=== PATIENT | female | born 1995 | race Caucasian/White ===

== ENCOUNTER 2016-04-18 18:05 | Emergency (ER) | payer OTHER, MEDICAID ==
[~2016-04-18 18:05] MED LIST: ATEN25TA PO; ATEN50TA2 PO; CARA1TAB2 PO; CIPRODEX AD; DEXA2TA PO; DONN16.2 PO; METF750T PO; MYLASS PO; NORT50CA PO; PRIL20TA2 PO; TOPA200T6 PO; TREX50TA PO; TUMS500C PO; ULTR50TA PO; VICO5TAB; botox
[2016-04-18] MEDS ORDERED: IBUPROFEN 600 MG TAB As Ordered ONE (20:23)
[2016-04-18] MEDS ORDERED: BACTRIM 160MG/800MG DS TAB As Ordered ONE (20:23)
--- NOTE | 2016-04-18 20:34 | EDDOCDS ---
Physician Documentation [facility] Name: Filomena Alcantar Age: 20 yrs Sex: Female : 1995 Arrival Date: 04/18/2016 Time: 18:05 Bed TR8 Private MD: NEHAL Granger Disposition: 04/18/16 20:25 Discharged to Home/Self Care. Impression: Cutaneous abscess of chest wall - post surgical wound complication. - Condition is Stable. - Discharge Instructions: Abscess, Incision and Drainage, Surgical Site Infections FAQs - LYONS. - Prescriptions for Bactrim DS 800- 160 mg Oral Tablet - take 1 tablet by ORAL route every 12 hours for 10 days; 20 tablet. - Medication Reconciliation, Local Pharmacy Hours form. - Follow up: NEHAL Granger; When: Call to arrange an appointment; Reason: Recheck today's complaints, Continuance of care. Follow up: Maulik Velez; When: Call to arrange an appointment; Reason: Recheck today's complaints, Continuance of care. - Problem is new. - Symptoms are unchanged. Historical: - Allergies: Aspirin (bleeding risk); Biaxin (Vomit); Erythromycin (Vomit); GABAPENTIN (acts out while sleeping); Levaquin (prolongs her QT interval); - Home Meds: 1. Lamictal 200 mg Oral tab 1 tab once daily 2. Wellbutrin 100 mg Oral tab 3 tab daily 3. Abilify 15 mg Oral tab 1 tab once daily 4. Topamax 50 mg Oral tab 1 tab 2 times per day 5. Corlanor 5 mg oral tab 1 tab 2 times per day 6. midodrine 5 mg oral tab 2 tabs 3 times per day 7. metformin 300 mg Oral tab 1 tab 3 times per day - PMHx: svt; PCOS; Pancreatitis; Migraines; hypotension; Fibromyalgia; - PSHx: Cholecystectomy (October 2009); Occipital Lymph node removed; loop recorder implantation; - Social history: Smoking status: Patient states was never smoker of tobacco. No barriers to communication noted, The patient speaks fluent Kyrgyz, Speaks appropriately for age. - Family history: Not pertinent. - : The pt / caregiver states he / she is not on anticoagulants. Home medication list is obtained from the patient. - Exposure Risk Screening:: None identified. 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 6 in. (167.64 cm) (R); 20:33 BP 103 / 64 RA Sitting (auto/reg); Pulse 74; Resp 16; Temp 97.8(O); Pulse Ox 98% on rs6 R/A; Pain 6/10; 18:07 Body Mass Index 33.09 (92.99 kg, 167.64 cm) dd6 Procedures: 20:22 I & D: Incision and drainage was performed for an abscess of the mid-sternal area lower mo1 portion Prepped with cleansed with saline. Anesthetized with nothing. Incised with superficial wound abscess aspirated with use of 18g needle and 3cc syringe, less than 1cc of pus expressed from wound, no induration to surrounding soft tissue or erythema . Drained small amount purulent fluid. Cultures obtained. the patient tolerated the procedure well. MDM: 20:21 Trimethoprim-Sulfamethoxazole 160 mg-800 mg (DS) 1 tabs PO once ordered. mo1 20:21 Ibuprofen 600 mg PO once ordered. mo1 20:22 Wound Culture & GS - All Other Sources Ordered. EDMS 20:25 Financial registration complete. [email or web address] 20:26 [facility] Payment Agreement was scanned into [employer] and attached to record. [email or web address] Administered Medications: 20:24 Drug: Trimethoprim-Sulfamethoxazole 1 tabs [sulfamethoxazole 800 mg-trimethoprim 160 mg jmb tablet (1 tabs)] Route: PO; 20:24 Drug: Ibuprofen 600 mg [ibuprofen 600 mg tablet (1 tabs)] Route: PO; maureen Signatures: Dispatcher MedHost EDMS Maynor Washington PA PA mo1 Darvin Smith RN RN loreb Denisse Wayne RN RN ms18 Oly Weathers, Reg Reg [email or web address] The chart was reviewed and I authenticate all verbal orders and agree with the evaluation and treatment provided.Attachments: 20:26 [facility] Payment Agreement [email or web address] MTDD
--- NOTE | 2016-04-18 20:34 | EDDOCDS ---
Nurse's Notes [facility] Name: Filomena Alcantar Age: 20 yrs Sex: Female : 1995 Arrival Date: 04/18/2016 Time: 18:05 Bed TR8 Private MD: NEHAL Granger Diagnosis: Cutaneous abscess of chest wall-post surgical wound complication Presentation: 04/18 18:08 Presenting complaint: Patient states: Patient reports having a implantable loop jmb recorder implanted in March. Patient noted small lump to surgical site. Adult Sepsis Screening: The patient does not have new or worsening altered mentation. Patient's respiratory rate is less than 22. Systolic blood pressure is greater than 100. Patient has a qSOFA score of 0- Negative Sepsis Screen. Suicide/Homicide risk assessment- the patient denies having any suicidal and/or homicidal ideations and does not present with any other emotional, behavioral or mental health complaints. Status: Patient is not a director of physiotherapy services or dependent. Status: The patient is a dependent. Transition of care: patient was not received from another setting of care. 18:08 Acuity: AVRIL Level 4 b 18:08 Method Of Arrival: Walkin/Carried/Asstd [facility] Triage Assessment: 18:13 General: Appears in no apparent distress, Behavior is appropriate for age, cooperative. b Pain: Denies pain. HIV screening NA for this visit Offered previously. Neurological: Level of Consciousness is awake, alert, obeys commands, Oriented to person, place, time, Speech is normal, Facial symmetry appears normal, Facial symmetry: tongue is midline. Respiratory: Airway is patent Respiratory effort is even, unlabored, Respiratory pattern is regular, symmetrical. Derm: Skin is pink, warm & dry. Musculoskeletal: Range of motion intact in all extremities. 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 Lamictal 200 mg Oral tab 1 tab once daily 2. Wellbutrin 100 mg Oral tab 3 tab daily 3. Abilify 15 mg Oral tab 1 tab once daily 4. Topamax 50 mg Oral tab 1 tab 2 times per day 5. Corlanor 5 mg oral tab 1 tab 2 times per day 6. midodrine 5 mg oral tab 2 tabs 3 times per day 7. metformin 300 mg Oral tab 1 tab 3 times per day - PMHx: svt; PCOS; Pancreatitis; Migraines; hypotension; Fibromyalgia; - PSHx: Cholecystectomy (October 2009); Occipital Lymph node removed; loop recorder implantation; - Social history: Smoking status: Patient states was never smoker of tobacco. No barriers to communication noted, The patient speaks fluent Cape Verdean, Speaks appropriately for age. - Family history: Not pertinent. - : The pt / caregiver states he / she is not on anticoagulants. Home medication list is obtained from the patient. - Exposure Risk Screening:: None identified. Screenin:26 Screening information is obtained from the patient. Fall risk: No risks identified. jmb Assistance ADL's: requires no assistance with activities of daily living. Abuse/DV Screen: The patient / caregiver reports he/she is: not in a situation that causes fear, pain or injury. Nutritional screening: No deficits noted. Advance Directives: Currently, there is no health care proxy. There is no active DNR order. There is no living will. There is no Power of Nursing Consultant. home support is adequate. Assessment: 20:26 General: Patient instructed on discharge instructions. Patient asked if there were any b questions regarding discharge, patient stated no. Patient signed discharge instructions. Patient discharged in stable condition. . 20:32 General: Appears in no apparent distress, comfortable, Behavior is appropriate for age, ms18 cooperative. Pain: Pain currently is 7 out of 10 on a pain scale. Neurological: No deficits noted. Respiratory: Airway is patent Respiratory effort is even, unlabored, Respiratory pattern is regular, symmetrical. Derm: Skin is pink, warm & dry. Vital Signs: 18:07 BP 122 / 71; Pulse 80; Resp 18 S; Temp 98.4(O); Pulse Ox 100% on R/A; Weight 92.99 kg dd6 (R); Height 5 ft. 6 in. (167.64 cm) (R); 20:33 BP 103 / 64 RA Sitting (auto/reg); Pulse 74; Resp 16; Temp 97.8(O); Pulse Ox 98% on rs6 R/A; Pain 6/10; 18:07 Body Mass Index 33.09 (92.99 kg, 167.64 cm) dd6 Vitals: 18:07 Log In Time: April 18, 2016 at 18:05. dd6 ED Course: 18:06 Patient visited by Tomas Pope PCA. dd6 18:06 Patient moved to Waiting dd6 18:[address] [facility] is Private Physician. dd6 18:09 Triage Initiated jmb 18:24 Patient moved to Pre RCE mlb1 19:33 Patient moved to Triage 3 ms18 19:55 Mayonr Washington PA is PHCP. mo1 19:55 Elpidio Meza DO is Attending Physician. mo1 20:11 Patient visited by Maynor Washington PA. mo1 20:25 NEHAL Granger is Referral Physician. mo1 20:25 Maulik Velez is Referral Physician. mo1 20:26 [facility] Payment Agreement was scanned into [employer] and attached to record. [email or web address] 20:26 The patient / caregiver is instructed regarding the plan of care and ED course. jmb 20:26 Wound Culture & GS - All Other Sources Sent. jmb 20:26 No IV's were initiated during this patient's visit. No procedures done that require jmb assistance. 20:31 Patient moved to TR8 ms18 20:32 Patient visited by Denisse Wayne RN. ms18 20:32 Patient has correct armband on for positive identification. Property sent home with ms18 patient. :Personal belongings accompany Pt. 20:33 Patient visited by Shirin Bledsoe PCA. rs6 Administered Medications: 20:24 Drug: Trimethoprim-Sulfamethoxazole 1 tabs [sulfamethoxazole 800 mg-trimethoprim 160 mg jmb tablet (1 tabs)] Route: PO; 20:24 Drug: Ibuprofen 600 mg [ibuprofen 600 mg tablet (1 tabs)] Route: PO; jmb Order Results: There are currently no results for this order. Outcome: 20:25 Discharge ordered by Provider. mo1 20:26 Discharge Assessment: Patient awake, alert and oriented x 3. No cognitive and/or jmb functional deficits noted. Patient verbalized understanding of disposition instructions. Patient awake and alert. obeys commands, Oriented to person, place and time. Patient verbalized understanding of disposition instructions. Patient has no functional deficits. patient administered narcotics - no. The following High Risk Discharge criteria are identified: None. Discharged to home ambulatory. Condition: stable. Discharge instructions given to patient, Instructed on discharge instructions, follow up and referral plans. medication usage, Demonstrated understanding of instructions, medications, Pt was receptive of discharge instructions/ teaching. Prescriptions given X 1. No special radiology studies were completed. Property sent home with patient. 20:33 Patient left the ED. ms18 Signatures: Maynor Hitchcock, RN RN mlb1 Tomas Pope, FIRE OFFICIAL FIRE OFFICIAL dd6 Maynor Washington PA PA mo1 Darvin Smith,RN RN Denisse Browne RN RN ms18 Shirin Bledsoe, FIRE OFFICIAL FIRE OFFICIAL rs6 Oly Weathers, Reg Reg ks16 MTDD
--- NOTE | 2016-04-20 21:34 | EDDOCDS ---
Nurse's Notes [facility] Name: Filomena Alcantar Age: 20 yrs Sex: Female : 1995 Arrival Date: 04/18/2016 Time: 18:05 Bed TR8 Private MD: NEHAL Granger Diagnosis: Cutaneous abscess of chest wall-post surgical wound complication Presentation: 04/18 18:08 Presenting complaint: Patient states: Patient reports having a implantable loop jmb recorder implanted in March. Patient noted small lump to surgical site. Adult Sepsis Screening: The patient does not have new or worsening altered mentation. Patient's respiratory rate is less than 22. Systolic blood pressure is greater than 100. Patient has a qSOFA score of 0- Negative Sepsis Screen. Suicide/Homicide risk assessment- the patient denies having any suicidal and/or homicidal ideations and does not present with any other emotional, behavioral or mental health complaints. 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 Status: The patient is a dependent. Transition of care: patient was not received from another setting of care. 18:08 Acuity: AVRIL Level 4 b 18:08 Method Of Arrival: Walkin/Carried/Asstd [facility] Triage Assessment: 18:13 General: Appears in no apparent distress, Behavior is appropriate for age, cooperative. b Pain: Denies pain. HIV screening NA for this visit Offered previously. Neurological: Level of Consciousness is awake, alert, obeys commands, Oriented to person, place, time, Speech is normal, Facial symmetry appears normal, Facial symmetry: tongue is midline. Respiratory: Airway is patent Respiratory effort is even, unlabored, Respiratory pattern is regular, symmetrical. Derm: Skin is pink, warm & dry. Musculoskeletal: Range of motion intact in all extremities. 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 Lamictal 200 mg Oral tab 1 tab once daily 2. Wellbutrin 100 mg Oral tab 3 tab daily 3. Abilify 15 mg Oral tab 1 tab once daily 4. Topamax 50 mg Oral tab 1 tab 2 times per day 5. Corlanor 5 mg oral tab 1 tab 2 times per day 6. midodrine 5 mg oral tab 2 tabs 3 times per day 7. metformin 300 mg Oral tab 1 tab 3 times per day - PMHx: svt; PCOS; Pancreatitis; Migraines; hypotension; Fibromyalgia; - PSHx: Cholecystectomy (October 2009); Occipital Lymph node removed; loop recorder implantation; - Social history: Smoking status: Patient states was never smoker of tobacco. No barriers to communication noted, The patient speaks fluent Austrian, Speaks appropriately for age. - Family history: Not pertinent. - : The pt / caregiver states he / she is not on anticoagulants. Home medication list is obtained from the patient. - Exposure Risk Screening:: None identified. Screenin:26 Screening information is obtained from the patient. Fall risk: No risks identified. jmb Assistance ADL's: requires no assistance with activities of daily living. Abuse/DV Screen: The patient / caregiver reports he/she is: not in a situation that causes fear, pain or injury. Nutritional screening: No deficits noted. Advance Directives: Currently, there is no health care proxy. There is no active DNR order. There is no living will. There is no Power of Reinspector. home support is adequate. Assessment: 20:26 General: Patient instructed on discharge instructions. Patient asked if there were any b questions regarding discharge, patient stated no. Patient signed discharge instructions. Patient discharged in stable condition. . 20:32 General: Appears in no apparent distress, comfortable, Behavior is appropriate for age, ms18 cooperative. Pain: Pain currently is 7 out of 10 on a pain scale. Neurological: No deficits noted. Respiratory: Airway is patent Respiratory effort is even, unlabored, Respiratory pattern is regular, symmetrical. Derm: Skin is pink, warm & dry. Vital Signs: 18:07 BP 122 / 71; Pulse 80; Resp 18 S; Temp 98.4(O); Pulse Ox 100% on R/A; Weight 92.99 kg dd6 (R); Height 5 ft. 6 in. (167.64 cm) (R); 20:33 BP 103 / 64 RA Sitting (auto/reg); Pulse 74; Resp 16; Temp 97.8(O); Pulse Ox 98% on rs6 R/A; Pain 6/10; 18:07 Body Mass Index 33.09 (92.99 kg, 167.64 cm) dd6 Vitals: 18:07 Log In Time: April 18, 2016 at 18:05. dd6 ED Course: 18:06 Patient visited by Tomas Pope PCA. dd6 18:06 Patient moved to Waiting dd6 18:07 NEHAL Granger is Private Physician. dd6 18:09 Triage Initiated jmb 18:24 Patient moved to Pre RCE mlb1 19:33 Patient moved to Triage 3 ms18 19:55 Maynor Washington PA is PHCP. mo1 19:55 Elpidio Meza DO is Attending Physician. mo1 20:11 Patient visited by Maynor Washington PA. mo1 20:25 NEHAL Granger is Referral Physician. mo1 20:25 Maulik Velez is Referral Physician. mo1 20:26 [facility] Payment Agreement was scanned into [employer] and attached to record. ks16 20:26 The patient / caregiver is instructed regarding the plan of care and ED course. jmb 20:26 Wound Culture & GS - All Other Sources Sent. jmb 20:26 No IV's were initiated during this patient's visit. No procedures done that require jmb assistance. 20:31 Patient moved to TR8 ms18 20:32 Patient visited by Denisse Wayne RN. ms18 20:32 Patient has correct armband on for positive identification. Property sent home with ms18 patient. :Personal belongings accompany Pt. 20:33 Patient visited by Shirin Bledsoe PCA. [facility] 04/19 08:18 T-Sheet-- Draft Copy was scanned into [employer] and attached to record. [facility] 08:24 T-Sheet-- Draft Copy was scanned into [employer] and attached to record. [facility] Administered Medications: 04/18 20:24 Drug: Trimethoprim-Sulfamethoxazole 1 tabs [sulfamethoxazole 800 mg-trimethoprim 160 mg jmb tablet (1 tabs)] Route: PO; 20:24 Drug: Ibuprofen 600 mg [ibuprofen 600 mg tablet (1 tabs)] Route: PO; jmb Order Results: Lab Order: Wound Culture & GS - All Other Sources; SPEC'M 04/18/16 20:22 Test: GRAM STAIN; Value: GRAM STAIN RESULT; Status: F Test: GRAM STAIN; Value: NO CELLS SEEN; Status: F Test: GRAM STAIN; Value: NO ORGANISMS SEEN; Status: F Outcome: 20:25 Discharge ordered by Provider. mo1 20:26 Discharge Assessment: Patient awake, alert and oriented x 3. No cognitive and/or jmb functional deficits noted. Patient verbalized understanding of disposition instructions. Patient awake and alert. obeys commands, Oriented to person, place and time. Patient verbalized understanding of disposition instructions. Patient has no functional deficits. patient administered narcotics - no. The following High Risk Discharge criteria are identified: None. Discharged to home ambulatory. Condition: stable. Discharge instructions given to patient, Instructed on discharge instructions, follow up and referral plans. medication usage, Demonstrated understanding of instructions, medications, Pt was receptive of discharge instructions/ teaching. Prescriptions given X 1. No special radiology studies were completed. Property sent home with patient. 20:33 Patient left the ED. ms18 Signatures: Maynor Hitchcock RN RN mlb1 Toams Pope, HEATER ROOM HELPER HEATER ROOM HELPER dd6 Maynor Washington PA PA mo1 Darvin Smith,RN RN Denisse Browne RN RN ms18 Shirin Bledsoe, HEATER ROOM HELPER HEATER ROOM HELPER rs6 Oly Weathers, Reg Reg ks16 Sera Puentes Chart Complete MTDD
--- NOTE | 2016-04-20 21:34 | EDDOCDS ---
Physician Documentation [facility] Name: Filomena Alcantar Age: 20 yrs Sex: Female : 1995 Arrival Date: 04/18/2016 Time: 18:05 Bed TR8 Private MD: NEHAL Granger Disposition: 04/18/16 20:25 Discharged to Home/Self Care. Impression: Cutaneous abscess of chest wall - post surgical wound complication. - Condition is Stable. - Discharge Instructions: Abscess, Incision and Drainage, Surgical Site Infections FAQs - LYONS. - Prescriptions for Bactrim DS 800- 160 mg Oral Tablet - take 1 tablet by ORAL route every 12 hours for 10 days; 20 tablet. - Medication Reconciliation, Local Pharmacy Hours form. - Follow up: NEHAL Granger; When: Call to arrange an appointment; Reason: Recheck today's complaints, Continuance of care. Follow up: Maulik Velez; When: Call to arrange an appointment; Reason: Recheck today's complaints, Continuance of care. - Problem is new. - Symptoms are unchanged. Historical: - Allergies: Aspirin (bleeding risk); Biaxin (Vomit); Erythromycin (Vomit); GABAPENTIN (acts out while sleeping); Levaquin (prolongs her QT interval); - Home Meds: 1. Lamictal 200 mg Oral tab 1 tab once daily 2. Wellbutrin 100 mg Oral tab 3 tab daily 3. Abilify 15 mg Oral tab 1 tab once daily 4. Topamax 50 mg Oral tab 1 tab 2 times per day 5. Corlanor 5 mg oral tab 1 tab 2 times per day 6. midodrine 5 mg oral tab 2 tabs 3 times per day 7. metformin 300 mg Oral tab 1 tab 3 times per day - PMHx: svt; PCOS; Pancreatitis; Migraines; hypotension; Fibromyalgia; - PSHx: Cholecystectomy (October 2009); Occipital Lymph node removed; loop recorder implantation; - Social history: Smoking status: Patient states was never smoker of tobacco. No barriers to communication noted, The patient speaks fluent Icelandic, Speaks appropriately for age. - Family history: Not pertinent. - : The pt / caregiver states he / she is not on anticoagulants. Home medication list is obtained from the patient. - Exposure Risk Screening:: None identified. 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 6 in. (167.64 cm) (R); 20:33 BP 103 / 64 RA Sitting (auto/reg); Pulse 74; Resp 16; Temp 97.8(O); Pulse Ox 98% on rs6 R/A; Pain 6/10; 18:07 Body Mass Index 33.09 (92.99 kg, 167.64 cm) dd6 Procedures: 20:22 I & D: Incision and drainage was performed for an abscess of the mid-sternal area lower mo1 portion Prepped with cleansed with saline. Anesthetized with nothing. Incised with superficial wound abscess aspirated with use of 18g needle and 3cc syringe, less than 1cc of pus expressed from wound, no induration to surrounding soft tissue or erythema . Drained small amount purulent fluid. Cultures obtained. the patient tolerated the procedure well. MDM: 20:21 Trimethoprim-Sulfamethoxazole 160 mg-800 mg (DS) 1 tabs PO once ordered. mo1 20:21 Ibuprofen 600 mg PO once ordered. mo1 20:22 Wound Culture & GS - All Other Sources Ordered. [facility] 20:25 Financial registration complete. [facility] 20:26 [facility] Payment Agreement was scanned into [employer] and attached to record. [facility] 04/19 08:18 T-Sheet-- Draft Copy was scanned into [employer] and attached to record. [facility] 08:24 T-Sheet-- Draft Copy was scanned into [employer] and attached to record. [facility] Administered Medications: 04/18 20:24 Drug: Trimethoprim-Sulfamethoxazole 1 tabs [sulfamethoxazole 800 mg-trimethoprim 160 mg jmb tablet (1 tabs)] Route: PO; 20:24 Drug: Ibuprofen 600 mg [ibuprofen 600 mg tablet (1 tabs)] Route: PO; maureen Signatures: Dispatcher MedHost EDDE Maynor Washington PA PA mo1 Darvin Smith RN RN jmb Denisse Wayne RN RN ms18 Oly Weathers, Reg Reg [email or web address] Sera Puentes The chart was reviewed and I authenticate all verbal orders and agree with the evaluation and treatment provided.Attachments: 20:26 [facility] Payment Agreement [email or web address] 08:24 T-Sheet-- Draft Copy [facility] Chart Complete MTDD
--- NOTE | 2016-04-20 21:34 | EDDOCDS ---
Physician Documentation [facility] Name: Filomena Alcantar Age: 20 yrs Sex: Female : 1995 Arrival Date: 04/18/2016 Time: 18:05 Bed TR8 Private MD: NEHAL Granger Disposition: 04/18/16 20:25 Discharged to Home/Self Care. Impression: Cutaneous abscess of chest wall - post surgical wound complication. - Condition is Stable. - Discharge Instructions: Abscess, Incision and Drainage, Surgical Site Infections FAQs - LYONS. - Prescriptions for Bactrim DS 800- 160 mg Oral Tablet - take 1 tablet by ORAL route every 12 hours for 10 days; 20 tablet. - Medication Reconciliation, Local Pharmacy Hours form. - Follow up: NEHAL Granger; When: Call to arrange an appointment; Reason: Recheck today's complaints, Continuance of care. Follow up: Maulik Velez; When: Call to arrange an appointment; Reason: Recheck today's complaints, Continuance of care. - Problem is new. - Symptoms are unchanged. Historical: - Allergies: Aspirin (bleeding risk); Biaxin (Vomit); Erythromycin (Vomit); GABAPENTIN (acts out while sleeping); Levaquin (prolongs her QT interval); - Home Meds: 1. Lamictal 200 mg Oral tab 1 tab once daily 2. Wellbutrin 100 mg Oral tab 3 tab daily 3. Abilify 15 mg Oral tab 1 tab once daily 4. Topamax 50 mg Oral tab 1 tab 2 times per day 5. Corlanor 5 mg oral tab 1 tab 2 times per day 6. midodrine 5 mg oral tab 2 tabs 3 times per day 7. metformin 300 mg Oral tab 1 tab 3 times per day - PMHx: svt; PCOS; Pancreatitis; Migraines; hypotension; Fibromyalgia; - PSHx: Cholecystectomy (October 2009); Occipital Lymph node removed; loop recorder implantation; - Social history: Smoking status: Patient states was never smoker of tobacco. No barriers to communication noted, The patient speaks fluent Amharic, Speaks appropriately for age. - Family history: Not pertinent. - : The pt / caregiver states he / she is not on anticoagulants. Home medication list is obtained from the patient. - Exposure Risk Screening:: None identified. 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 6 in. (167.64 cm) (R); 20:33 BP 103 / 64 RA Sitting (auto/reg); Pulse 74; Resp 16; Temp 97.8(O); Pulse Ox 98% on rs6 R/A; Pain 6/10; 18:07 Body Mass Index 33.09 (92.99 kg, 167.64 cm) dd6 Procedures: 20:22 I & D: Incision and drainage was performed for an abscess of the mid-sternal area lower mo1 portion Prepped with cleansed with saline. Anesthetized with nothing. Incised with superficial wound abscess aspirated with use of 18g needle and 3cc syringe, less than 1cc of pus expressed from wound, no induration to surrounding soft tissue or erythema . Drained small amount purulent fluid. Cultures obtained. the patient tolerated the procedure well. MDM: 20:21 Trimethoprim-Sulfamethoxazole 160 mg-800 mg (DS) 1 tabs PO once ordered. mo1 20:21 Ibuprofen 600 mg PO once ordered. mo1 20:22 Wound Culture & GS - All Other Sources Ordered. [facility] 20:25 Financial registration complete. [facility] 20:26 [facility] Payment Agreement was scanned into [employer] and attached to record. [facility] 04/19 08:18 T-Sheet-- Draft Copy was scanned into [employer] and attached to record. [facility] 08:24 T-Sheet-- Draft Copy was scanned into [employer] and attached to record. [facility] Administered Medications: 04/18 20:24 Drug: Trimethoprim-Sulfamethoxazole 1 tabs [sulfamethoxazole 800 mg-trimethoprim 160 mg jmb tablet (1 tabs)] Route: PO; 20:24 Drug: Ibuprofen 600 mg [ibuprofen 600 mg tablet (1 tabs)] Route: PO; maureen Signatures: Dispatcher [employer] EDID Maynor Washington PA PA mo1 Darvin Smith RN RN jmb Denisse Wayne RN RN ms18 Oly Weathers, Reg Reg in16 Sera Puentes The chart was reviewed and I authenticate all verbal orders and agree with the evaluation and treatment provided.Attachments: 20:26 [facility] Payment Agreement [email or web address] 08:24 T-Sheet-- Draft Copy [facility] Chart Complete MTDD
--- NOTE | 2016-04-22 08:11 | EDDOCDS ---
Physician Documentation [facility] Name: Filomena Alcantar Age: 20 yrs Sex: Female : 1995 Arrival Date: 04/18/2016 Time: 18:05 Bed TR8 Private MD: NEHAL Granger Disposition: 04/18/16 20:25 Discharged to Home/Self Care. Impression: Cutaneous abscess of chest wall - post surgical wound complication. - Condition is Stable. - Discharge Instructions: Abscess, Incision and Drainage, Surgical Site Infections FAQs - LYONS. - Prescriptions for Bactrim DS 800- 160 mg Oral Tablet - take 1 tablet by ORAL route every 12 hours for 10 days; 20 tablet. - Medication Reconciliation, Local Pharmacy Hours form. - Follow up: NEHAL Granger; When: Call to arrange an appointment; Reason: Recheck today's complaints, Continuance of care. Follow up: Maulik Velez; When: Call to arrange an appointment; Reason: Recheck today's complaints, Continuance of care. - Problem is new. - Symptoms are unchanged. Historical: - Allergies: Aspirin (bleeding risk); Biaxin (Vomit); Erythromycin (Vomit); GABAPENTIN (acts out while sleeping); Levaquin (prolongs her QT interval); - Home Meds: 1. Lamictal 200 mg Oral tab 1 tab once daily 2. Wellbutrin 100 mg Oral tab 3 tab daily 3. Abilify 15 mg Oral tab 1 tab once daily 4. Topamax 50 mg Oral tab 1 tab 2 times per day 5. Corlanor 5 mg oral tab 1 tab 2 times per day 6. midodrine 5 mg oral tab 2 tabs 3 times per day 7. metformin 300 mg Oral tab 1 tab 3 times per day - PMHx: svt; PCOS; Pancreatitis; Migraines; hypotension; Fibromyalgia; - PSHx: Cholecystectomy (October 2009); Occipital Lymph node removed; loop recorder implantation; - Social history: Smoking status: Patient states was never smoker of tobacco. No barriers to communication noted, The patient speaks fluent Sinhala, Speaks appropriately for age. - Family history: Not pertinent. - : The pt / caregiver states he / she is not on anticoagulants. Home medication list is obtained from the patient. - Exposure Risk Screening:: None identified. 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 6 in. (167.64 cm) (R); 20:33 BP 103 / 64 RA Sitting (auto/reg); Pulse 74; Resp 16; Temp 97.8(O); Pulse Ox 98% on rs6 R/A; Pain 6/10; 18:07 Body Mass Index 33.09 (92.99 kg, 167.64 cm) dd6 Procedures: 20:22 I & D: Incision and drainage was performed for an abscess of the mid-sternal area lower mo1 portion Prepped with cleansed with saline. Anesthetized with nothing. Incised with superficial wound abscess aspirated with use of 18g needle and 3cc syringe, less than 1cc of pus expressed from wound, no induration to surrounding soft tissue or erythema . Drained small amount purulent fluid. Cultures obtained. the patient tolerated the procedure well. MDM: 20:21 Trimethoprim-Sulfamethoxazole 160 mg-800 mg (DS) 1 tabs PO once ordered. mo1 20:21 Ibuprofen 600 mg PO once ordered. mo1 20:22 Wound Culture & GS - All Other Sources Ordered. [facility] 20:25 Financial registration complete. [facility] 20:26 [facility] Payment Agreement was scanned into [employer] and attached to record. [facility] 04/19 08:18 T-Sheet-- Draft Copy was scanned into [employer] and attached to record. [facility] 08:24 T-Sheet-- Draft Copy was scanned into [employer] and attached to record. [facility] Administered Medications: 04/18 20:24 Drug: Trimethoprim-Sulfamethoxazole 1 tabs [sulfamethoxazole 800 mg-trimethoprim 160 mg jmb tablet (1 tabs)] Route: PO; 20:24 Drug: Ibuprofen 600 mg [ibuprofen 600 mg tablet (1 tabs)] Route: PO; maureen Signatures: Dispatcher [employer] EDKY Maynor Washington PA PA mo1 Darvin Smith RN RN jmb Denisse Wayne RN RN ms18 Oly Weathers, Reg Reg sd16 Sera Puentes The chart was reviewed and I authenticate all verbal orders and agree with the evaluation and treatment provided.Attachments: 20:26 [facility] Payment Agreement [email or web address] 08:24 T-Sheet-- Draft Copy [facility] MTDD
--- NOTE | 2016-04-22 08:11 | EDDOCDS ---
Nurse's Notes [facility] Name: Filomena Alcantar Age: 20 yrs Sex: Female : 1995 Arrival Date: 04/18/2016 Time: 18:05 Bed TR8 Private MD: NEHAL Granger Diagnosis: Cutaneous abscess of chest wall-post surgical wound complication Presentation: 04/18 18:08 Presenting complaint: Patient states: Patient reports having a implantable loop jmb recorder implanted in March. Patient noted small lump to surgical site. Adult Sepsis Screening: The patient does not have new or worsening altered mentation. Patient's respiratory rate is less than 22. Systolic blood pressure is greater than 100. Patient has a qSOFA score of 0- Negative Sepsis Screen. Suicide/Homicide risk assessment- the patient denies having any suicidal and/or homicidal ideations and does not present with any other emotional, behavioral or mental health complaints. Status: Patient is not a food service helper or dependent. Status: The patient is a dependent. Transition of care: patient was not received from another setting of care. 18:08 Acuity: AVRIL Level 4 b 18:08 Method Of Arrival: Walkin/Carried/[facility] Triage Assessment: 18:13 General: Appears in no apparent distress, Behavior is appropriate for age, cooperative. b Pain: Denies pain. HIV screening NA for this visit Offered previously. Neurological: Level of Consciousness is awake, alert, obeys commands, Oriented to person, place, time, Speech is normal, Facial symmetry appears normal, Facial symmetry: tongue is midline. Respiratory: Airway is patent Respiratory effort is even, unlabored, Respiratory pattern is regular, symmetrical. Derm: Skin is pink, warm & dry. Musculoskeletal: Range of motion intact in all extremities. 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 Lamictal 200 mg Oral tab 1 tab once daily 2. Wellbutrin 100 mg Oral tab 3 tab daily 3. Abilify 15 mg Oral tab 1 tab once daily 4. Topamax 50 mg Oral tab 1 tab 2 times per day 5. Corlanor 5 mg oral tab 1 tab 2 times per day 6. midodrine 5 mg oral tab 2 tabs 3 times per day 7. metformin 300 mg Oral tab 1 tab 3 times per day - PMHx: svt; PCOS; Pancreatitis; Migraines; hypotension; Fibromyalgia; - PSHx: Cholecystectomy (October 2009); Occipital Lymph node removed; loop recorder implantation; - Social history: Smoking status: Patient states was never smoker of tobacco. No barriers to communication noted, The patient speaks fluent Estonian, Speaks appropriately for age. - Family history: Not pertinent. - : The pt / caregiver states he / she is not on anticoagulants. Home medication list is obtained from the patient. - Exposure Risk Screening:: None identified. Screenin:26 Screening information is obtained from the patient. Fall risk: No risks identified. jmb Assistance ADL's: requires no assistance with activities of daily living. Abuse/DV Screen: The patient / caregiver reports he/she is: not in a situation that causes fear, pain or injury. Nutritional screening: No deficits noted. Advance Directives: Currently, there is no health care proxy. There is no active DNR order. There is no living will. There is no Power of Wood Turning Lathe Operator. home support is adequate. Assessment: 20:26 General: Patient instructed on discharge instructions. Patient asked if there were any b questions regarding discharge, patient stated no. Patient signed discharge instructions. Patient discharged in stable condition. . 20:32 General: Appears in no apparent distress, comfortable, Behavior is appropriate for age, ms18 cooperative. Pain: Pain currently is 7 out of 10 on a pain scale. Neurological: No deficits noted. Respiratory: Airway is patent Respiratory effort is even, unlabored, Respiratory pattern is regular, symmetrical. Derm: Skin is pink, warm & dry. Vital Signs: 18:07 BP 122 / 71; Pulse 80; Resp 18 S; Temp 98.4(O); Pulse Ox 100% on R/A; Weight 92.99 kg dd6 (R); Height 5 ft. 6 in. (167.64 cm) (R); 20:33 BP 103 / 64 RA Sitting (auto/reg); Pulse 74; Resp 16; Temp 97.8(O); Pulse Ox 98% on rs6 R/A; Pain 6/10; 18:07 Body Mass Index 33.09 (92.99 kg, 167.64 cm) dd6 Vitals: 18:07 Log In Time: April 18, 2016 at 18:05. dd6 ED Course: 18:06 Patient visited by Tomas Pope PCA. dd6 18:06 Patient moved to Waiting dd6 18:07 NEHAL Granger is Private Physician. dd6 18:09 Triage Initiated jmb 18:24 Patient moved to Pre RCE mlb1 19:33 Patient moved to Triage 3 ms18 19:55 Maynor Washington PA is PHCP. mo1 19:55 Elpidio Meza DO is Attending Physician. mo1 20:11 Patient visited by Maynor Washington PA. mo1 20:25 NEHAL Granger is Referral Physician. mo1 20:25 Maulik Velez is Referral Physician. mo1 20:26 [facility] Payment Agreement was scanned into [employer] and attached to record. [email or web address] 20:26 The patient / caregiver is instructed regarding the plan of care and ED course. jmb 20:26 Wound Culture & GS - All Other Sources Sent. jmb 20:26 No IV's were initiated during this patient's visit. No procedures done that require jmb assistance. 20:31 Patient moved to TR8 ms18 20:32 Patient visited by Denisse Wayne RN. ms18 20:32 Patient has correct armband on for positive identification. Property sent home with ms18 patient. :Personal belongings accompany Pt. 20:33 Patient visited by Shirin Bledsoe PCA. [facility] 04/19 08:18 T-Sheet-- Draft Copy was scanned into [employer] and attached to record. [facility] 08:24 T-Sheet-- Draft Copy was scanned into [employer] and attached to record. [facility] Administered Medications: 04/18 20:24 Drug: Trimethoprim-Sulfamethoxazole 1 tabs [sulfamethoxazole 800 mg-trimethoprim 160 mg jmb tablet (1 tabs)] Route: PO; 20:24 Drug: Ibuprofen 600 mg [ibuprofen 600 mg tablet (1 tabs)] Route: PO; jmb Order Results: Lab Order: Wound Culture & GS - All Other Sources; SPEC'M 04/18/16 20:22 Test: GRAM STAIN; Value: GRAM STAIN RESULT; Status: F Test: GRAM STAIN; Value: NO CELLS SEEN; Status: F Test: GRAM STAIN; Value: NO ORGANISMS SEEN; Status: F Test: WOUND CULTURE; Value: ORGANISM 1: STAPHYLOCOCCUS SP COAG NEG; Status: F Test: WOUND CULTURE; Value: STAPHYLOCOCCUS SP COAG NEG; Status: F Test: WOUND CULTURE; Value: QUANTITY OF GROWTH MODERATE; Status: F Test: WOUND CULTURE; Value: STREPTOCOCCUS MITIS; Status: F Test: WOUND CULTURE; Value: QUANTITY OF GROWTH FEW; Status: F Test: WOUND CULTURE; Value: ORGANISM SAME PREVIOUS ISOLATE; Status: F Test: WOUND CULTURE; Value: QUANTITY OF GROWTH FEW; Status: F Test: WOUND CULTURE; Value: ORGANISM 2: STREPTOCOCCUS MITIS; Status: F Test: WOUND CULTURE; Value: STAPHYLOCOCCUS SP COAG NEG; Status: F Test: WOUND CULTURE; Value: QUANTITY OF GROWTH MODERATE; Status: F Test: WOUND CULTURE; Value: STREPTOCOCCUS MITIS; Status: F Test: WOUND CULTURE; Value: QUANTITY OF GROWTH FEW; Status: F Test: WOUND CULTURE; Value: ORGANISM SAME PREVIOUS ISOLATE; Status: F Test: WOUND CULTURE; Value: QUANTITY OF GROWTH FEW; Status: F Test: WOUND CULTURE; Value: ORGANISM 3: ORGANISM SAME PREVIOUS ISOLATE; Status: F Test: WOUND CULTURE; Value: STAPHYLOCOCCUS SP COAG NEG; Status: F Test: WOUND CULTURE; Value: QUANTITY OF GROWTH MODERATE; Status: F Test: WOUND CULTURE; Value: STREPTOCOCCUS MITIS; Status: F Test: WOUND CULTURE; Value: QUANTITY OF GROWTH FEW; Status: F Test: WOUND CULTURE; Value: ORGANISM SAME PREVIOUS ISOLATE; Status: F Test: WOUND CULTURE; Value: QUANTITY OF GROWTH FEW; Status: F Test: WOUND CULTURE; Value: GRAM POS SENSI - VITEK 67; Status: F Test: WOUND CULTURE; Value: Method: VIT2; Status: F Test: WOUND CULTURE; Value: TETRACYCLINE 2 S; Status: F Test: WOUND CULTURE; Value: PENICILLIN G >=0.5 R; Status: F Test: WOUND CULTURE; Value: TRIMETHOPRIM/SULFAMETHOXAZOLE 20 S; Status: F Test: WOUND CULTURE; Value: ERYTHROMYCIN >=8 R; Status: F Test: WOUND CULTURE; Value: GENTAMICIN <=0.5 S; Status: F Test: WOUND CULTURE; Value: CLINDAMYCIN <=0.25 S; Status: F Test: WOUND CULTURE; Value: OXACILLIN >=4 R; Status: F Test: WOUND CULTURE; Value: VANCOMYCIN 1 S; Status: F Test: WOUND CULTURE; Value: LINEZOLID (ZYVOX) 1 S; Status: F Test: WOUND CULTURE; Value: GRAM POS SENSI - ST02; Status: F Test: WOUND CULTURE; Value: Method: VIT2; Status: F Test: WOUND CULTURE; Value: TETRACYCLINE 0.5 S; Status: F Test: WOUND CULTURE; Value: PENICILLIN G <=0.06 S; Status: F Test: WOUND CULTURE; Value: AMPICILLIN <=0.25 S; Status: F Test: WOUND CULTURE; Value: CLINDAMYCIN <=0.25 S; Status: F Test: WOUND CULTURE; Value: LEVOFLOXACIN 1 S; Status: F Test: WOUND CULTURE; Value: VANCOMYCIN 0.5 S; Status: F Test: WOUND CULTURE; Value: MOXIFLOXACIN (AVELOX) 0.12 S; Status: F Test: WOUND CULTURE; Value: CEFTRIAXONE <=0.12 S; Status: F Test: WOUND CULTURE; Value: CEFOTAXIME <=0.12 S; Status: F Outcome: 20:25 Discharge ordered by Provider. mo1 20:26 Discharge Assessment: Patient awake, alert and oriented x 3. No cognitive and/or jmb functional deficits noted. Patient verbalized understanding of disposition instructions. Patient awake and alert. obeys commands, Oriented to person, place and time. Patient verbalized understanding of disposition instructions. Patient has no functional deficits. patient administered narcotics - no. The following High Risk Discharge criteria are identified: None. Discharged to home ambulatory. Condition: stable. Discharge instructions given to patient, Instructed on discharge instructions, follow up and referral plans. medication usage, Demonstrated understanding of instructions, medications, Pt was receptive of discharge instructions/ teaching. Prescriptions given X 1. No special radiology studies were completed. Property sent home with patient. 20:33 Patient left the ED. ms18 Addendum: 04/22/2016 08:10 Narrative: Wound culture results reviewed by Dr Ramirez and no changes made. [facility] Signatures: Selam Dominguez RN RN Maynor Vang RN RN mlb1 Tomas Pope, VP PRODUCT MARKETING VP PRODUCT MARKETING dd6 Maynor Washington PA PA mo1 Darvin Smith RN RN jmb Smith, Mallory, RN RN ms18 Shirin Bledsoe, VP PRODUCT MARKETING VP PRODUCT MARKETING rs6 Oly Weathers, Reg Reg ks16 Sera Puentes MTDD
--- NOTE | 2016-04-22 08:11 | EDDOCDS ---
Physician Documentation [facility] Name: Filomena Alcantar Age: 20 yrs Sex: Female : 1995 Arrival Date: 04/18/2016 Time: 18:05 Bed TR8 Private MD: NEHAL Granger Disposition: 04/18/16 20:25 Discharged to Home/Self Care. Impression: Cutaneous abscess of chest wall - post surgical wound complication. - Condition is Stable. - Discharge Instructions: Abscess, Incision and Drainage, Surgical Site Infections FAQs - LYONS. - Prescriptions for Bactrim DS 800- 160 mg Oral Tablet - take 1 tablet by ORAL route every 12 hours for 10 days; 20 tablet. - Medication Reconciliation, Local Pharmacy Hours form. - Follow up: NEHAL Granger; When: Call to arrange an appointment; Reason: Recheck today's complaints, Continuance of care. Follow up: Maulik Velez; When: Call to arrange an appointment; Reason: Recheck today's complaints, Continuance of care. - Problem is new. - Symptoms are unchanged. Historical: - Allergies: Aspirin (bleeding risk); Biaxin (Vomit); Erythromycin (Vomit); GABAPENTIN (acts out while sleeping); Levaquin (prolongs her QT interval); - Home Meds: 1. Lamictal 200 mg Oral tab 1 tab once daily 2. Wellbutrin 100 mg Oral tab 3 tab daily 3. Abilify 15 mg Oral tab 1 tab once daily 4. Topamax 50 mg Oral tab 1 tab 2 times per day 5. Corlanor 5 mg oral tab 1 tab 2 times per day 6. midodrine 5 mg oral tab 2 tabs 3 times per day 7. metformin 300 mg Oral tab 1 tab 3 times per day - PMHx: svt; PCOS; Pancreatitis; Migraines; hypotension; Fibromyalgia; - PSHx: Cholecystectomy (October 2009); Occipital Lymph node removed; loop recorder implantation; - Social history: Smoking status: Patient states was never smoker of tobacco. No barriers to communication noted, The patient speaks fluent Sami, Speaks appropriately for age. - Family history: Not pertinent. - : The pt / caregiver states he / she is not on anticoagulants. Home medication list is obtained from the patient. - Exposure Risk Screening:: None identified. 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 6 in. (167.64 cm) (R); 20:33 BP 103 / 64 RA Sitting (auto/reg); Pulse 74; Resp 16; Temp 97.8(O); Pulse Ox 98% on rs6 R/A; Pain 6/10; 18:07 Body Mass Index 33.09 (92.99 kg, 167.64 cm) dd6 Procedures: 20:22 I & D: Incision and drainage was performed for an abscess of the mid-sternal area lower mo1 portion Prepped with cleansed with saline. Anesthetized with nothing. Incised with superficial wound abscess aspirated with use of 18g needle and 3cc syringe, less than 1cc of pus expressed from wound, no induration to surrounding soft tissue or erythema . Drained small amount purulent fluid. Cultures obtained. the patient tolerated the procedure well. MDM: 20:21 Trimethoprim-Sulfamethoxazole 160 mg-800 mg (DS) 1 tabs PO once ordered. mo1 20:21 Ibuprofen 600 mg PO once ordered. mo1 20:22 Wound Culture & GS - All Other Sources Ordered. [facility] 20:25 Financial registration complete. [facility] 20:26 [facility] Payment Agreement was scanned into [employer] and attached to record. [facility] 04/19 08:18 T-Sheet-- Draft Copy was scanned into [employer] and attached to record. [facility] 08:24 T-Sheet-- Draft Copy was scanned into [employer] and attached to record. [facility] Administered Medications: 04/18 20:24 Drug: Trimethoprim-Sulfamethoxazole 1 tabs [sulfamethoxazole 800 mg-trimethoprim 160 mg jmb tablet (1 tabs)] Route: PO; 20:24 Drug: Ibuprofen 600 mg [ibuprofen 600 mg tablet (1 tabs)] Route: PO; maureen Signatures: Dispatcher [employer] EDLA Maynor Washington PA PA mo1 Darvin Smith RN RN jmb Denisse Wayne RN RN ms18 Oly Weathers, Reg Reg [id number] Sera Puentes The chart was reviewed and I authenticate all verbal orders and agree with the evaluation and treatment provided.Attachments: 20:26 [facility] Payment Agreement [email or web address] 08:24 T-Sheet-- Draft Copy [facility] MTDD
--- NOTE | 2016-04-22 08:12 | EDDOCDS ---
Nurse's Notes [facility] Name: Filomena Alcantar Age: 20 yrs Sex: Female : 1995 Arrival Date: 04/18/2016 Time: 18:05 Bed TR8 Private MD: NEHAL Granger Diagnosis: Cutaneous abscess of chest wall-post surgical wound complication Presentation: 04/18 18:08 Presenting complaint: Patient states: Patient reports having a implantable loop jmb recorder implanted in March. Patient noted small lump to surgical site. Adult Sepsis Screening: The patient does not have new or worsening altered mentation. Patient's respiratory rate is less than 22. Systolic blood pressure is greater than 100. Patient has a qSOFA score of 0- Negative Sepsis Screen. Suicide/Homicide risk assessment- the patient denies having any suicidal and/or homicidal ideations and does not present with any other emotional, behavioral or mental health complaints. Status: Patient is not a immigration services officer or dependent. Status: The patient is a dependent. Transition of care: patient was not received from another setting of care. 18:08 Acuity: AVRIL Level 4 b 18:08 Method Of Ar[facility]: [facility] T[facility] Assessment: 18:13 General: Appears in no apparent distress, Behavior is appropriate for age, cooperative. b Pain: Denies pain. HIV screening NA for this visit Offered previously. Neurological: Level of Consciousness is awake, alert, obeys commands, Oriented to person, place, time, Speech is normal, Facial symmetry appears normal, Facial symmetry: tongue is midline. Respiratory: Airway is patent Respiratory effort is even, unlabored, Respiratory pattern is regular, symmetrical. Derm: Skin is pink, warm & dry. Musculoskeletal: Range of motion intact in all extremities. 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 Lamictal 200 mg Oral tab 1 tab once daily 2. Wellbutrin 100 mg Oral tab 3 tab daily 3. Abilify 15 mg Oral tab 1 tab once daily 4. Topamax 50 mg Oral tab 1 tab 2 times per day 5. Corlanor 5 mg oral tab 1 tab 2 times per day 6. midodrine 5 mg oral tab 2 tabs 3 times per day 7. metformin 300 mg Oral tab 1 tab 3 times per day - PMHx: svt; PCOS; Pancreatitis; Migraines; hypotension; Fibromyalgia; - PSHx: Cholecystectomy (October 2009); Occipital Lymph node removed; loop recorder implantation; - Social history: Smoking status: Patient states was never smoker of tobacco. No barriers to communication noted, The patient speaks fluent Solomon Islander, Speaks appropriately for age. - Family history: Not pertinent. - : The pt / caregiver states he / she is not on anticoagulants. Home medication list is obtained from the patient. - Exposure Risk Screening:: None identified. Screenin:26 Screening information is obtained from the patient. Fall risk: No risks identified. jmb Assistance ADL's: requires no assistance with activities of daily living. Abuse/DV Screen: The patient / caregiver reports he/she is: not in a situation that causes fear, pain or injury. Nutritional screening: No deficits noted. Advance Directives: Currently, there is no health care proxy. There is no active DNR order. There is no living will. There is no Power of Civil Engineering Draftsperson. home support is adequate. Assessment: 20:26 General: Patient instructed on discharge instructions. Patient asked if there were any b questions regarding discharge, patient stated no. Patient signed discharge instructions. Patient discharged in stable condition. . 20:32 General: Appears in no apparent distress, comfortable, Behavior is appropriate for age, ms18 cooperative. Pain: Pain currently is 7 out of 10 on a pain scale. Neurological: No deficits noted. Respiratory: Airway is patent Respiratory effort is even, unlabored, Respiratory pattern is regular, symmetrical. Derm: Skin is pink, warm & dry. Vital Signs: 18:07 BP 122 / 71; Pulse 80; Resp 18 S; Temp 98.4(O); Pulse Ox 100% on R/A; Weight 92.99 kg dd6 (R); Height 5 ft. 6 in. (167.64 cm) (R); 20:33 BP 103 / 64 RA Sitting (auto/reg); Pulse 74; Resp 16; Temp 97.8(O); Pulse Ox 98% on rs6 R/A; Pain 6/10; 18:07 Body Mass Index 33.09 (92.99 kg, 167.64 cm) dd6 Vitals: 18:07 Log In Time: April 18, 2016 at 18:05. dd6 ED Course: 18:06 Patient visited by Tomas Pope PCA. dd6 18:06 Patient moved to Waiting dd6 18:07 NEHAL Granger is Private Physician. dd6 18:09 Triage Initiated jmb 18:24 Patient moved to Pre RCE mlb1 19:33 Patient moved to Triage 3 ms18 19:55 Maynor Washington PA is PHCP. mo1 19:55 Elpidio Meza DO is Attending Physician. mo1 20:11 Patient visited by Maynor Washington PA. mo1 20:25 NEHAL Granger is Referral Physician. mo1 20:25 Maulik Velez is Referral Physician. mo1 20:26 [facility] Payment Agreement was scanned into [employer] and attached to record. [email or web address] 20:26 The patient / caregiver is instructed regarding the plan of care and ED course. jmb 20:26 Wound Culture & GS - All Other Sources Sent. jmb 20:26 No IV's were initiated during this patient's visit. No procedures done that require jmb assistance. 20:31 Patient moved to TR8 ms18 20:32 Patient visited by Denisse Wayne RN. ms18 20:32 Patient has correct armband on for positive identification. Property sent home with ms18 patient. :Personal belongings accompany Pt. 20:33 Patient visited by Shirin Bledsoe PCA. [facility] 04/19 08:18 T-Sheet-- Draft Copy was scanned into [employer] and attached to record. [facility] 08:24 T-Sheet-- Draft Copy was scanned into [employer] and attached to record. [facility] Administered Medications: 04/18 20:24 Drug: Trimethoprim-Sulfamethoxazole 1 tabs [sulfamethoxazole 800 mg-trimethoprim 160 mg jmb tablet (1 tabs)] Route: PO; 20:24 Drug: Ibuprofen 600 mg [ibuprofen 600 mg tablet (1 tabs)] Route: PO; jmb Order Results: Lab Order: Wound Culture & GS - All Other Sources; SPEC'M 04/18/16 20:22 Test: GRAM STAIN; Value: GRAM STAIN RESULT; Status: F Test: GRAM STAIN; Value: NO CELLS SEEN; Status: F Test: GRAM STAIN; Value: NO ORGANISMS SEEN; Status: F Test: WOUND CULTURE; Value: ORGANISM 1: STAPHYLOCOCCUS SP COAG NEG; Status: F Test: WOUND CULTURE; Value: STAPHYLOCOCCUS SP COAG NEG; Status: F Test: WOUND CULTURE; Value: QUANTITY OF GROWTH MODERATE; Status: F Test: WOUND CULTURE; Value: STREPTOCOCCUS MITIS; Status: F Test: WOUND CULTURE; Value: QUANTITY OF GROWTH FEW; Status: F Test: WOUND CULTURE; Value: ORGANISM SAME PREVIOUS ISOLATE; Status: F Test: WOUND CULTURE; Value: QUANTITY OF GROWTH FEW; Status: F Test: WOUND CULTURE; Value: ORGANISM 2: STREPTOCOCCUS MITIS; Status: F Test: WOUND CULTURE; Value: STAPHYLOCOCCUS SP COAG NEG; Status: F Test: WOUND CULTURE; Value: QUANTITY OF GROWTH MODERATE; Status: F Test: WOUND CULTURE; Value: STREPTOCOCCUS MITIS; Status: F Test: WOUND CULTURE; Value: QUANTITY OF GROWTH FEW; Status: F Test: WOUND CULTURE; Value: ORGANISM SAME PREVIOUS ISOLATE; Status: F Test: WOUND CULTURE; Value: QUANTITY OF GROWTH FEW; Status: F Test: WOUND CULTURE; Value: ORGANISM 3: ORGANISM SAME PREVIOUS ISOLATE; Status: F Test: WOUND CULTURE; Value: STAPHYLOCOCCUS SP COAG NEG; Status: F Test: WOUND CULTURE; Value: QUANTITY OF GROWTH MODERATE; Status: F Test: WOUND CULTURE; Value: STREPTOCOCCUS MITIS; Status: F Test: WOUND CULTURE; Value: QUANTITY OF GROWTH FEW; Status: F Test: WOUND CULTURE; Value: ORGANISM SAME PREVIOUS ISOLATE; Status: F Test: WOUND CULTURE; Value: QUANTITY OF GROWTH FEW; Status: F Test: WOUND CULTURE; Value: GRAM POS SENSI - VITEK 67; Status: F Test: WOUND CULTURE; Value: Method: VIT2; Status: F Test: WOUND CULTURE; Value: TETRACYCLINE 2 S; Status: F Test: WOUND CULTURE; Value: PENICILLIN G >=0.5 R; Status: F Test: WOUND CULTURE; Value: TRIMETHOPRIM/SULFAMETHOXAZOLE 20 S; Status: F Test: WOUND CULTURE; Value: ERYTHROMYCIN >=8 R; Status: F Test: WOUND CULTURE; Value: GENTAMICIN <=0.5 S; Status: F Test: WOUND CULTURE; Value: CLINDAMYCIN <=0.25 S; Status: F Test: WOUND CULTURE; Value: OXACILLIN >=4 R; Status: F Test: WOUND CULTURE; Value: VANCOMYCIN 1 S; Status: F Test: WOUND CULTURE; Value: LINEZOLID (ZYVOX) 1 S; Status: F Test: WOUND CULTURE; Value: GRAM POS SENSI - ST02; Status: F Test: WOUND CULTURE; Value: Method: VIT2; Status: F Test: WOUND CULTURE; Value: TETRACYCLINE 0.5 S; Status: F Test: WOUND CULTURE; Value: PENICILLIN G <=0.06 S; Status: F Test: WOUND CULTURE; Value: AMPICILLIN <=0.25 S; Status: F Test: WOUND CULTURE; Value: CLINDAMYCIN <=0.25 S; Status: F Test: WOUND CULTURE; Value: LEVOFLOXACIN 1 S; Status: F Test: WOUND CULTURE; Value: VANCOMYCIN 0.5 S; Status: F Test: WOUND CULTURE; Value: MOXIFLOXACIN (AVELOX) 0.12 S; Status: F Test: WOUND CULTURE; Value: CEFTRIAXONE <=0.12 S; Status: F Test: WOUND CULTURE; Value: CEFOTAXIME <=0.12 S; Status: F Outcome: 20:25 Discharge ordered by Provider. mo1 20:26 Discharge Assessment: Patient awake, alert and oriented x 3. No cognitive and/or jmb functional deficits noted. Patient verbalized understanding of disposition instructions. Patient awake and alert. obeys commands, Oriented to person, place and time. Patient verbalized understanding of disposition instructions. Patient has no functional deficits. patient administered narcotics - no. The following High Risk Discharge criteria are identified: None. Discharged to home ambulatory. Condition: stable. Discharge instructions given to patient, Instructed on discharge instructions, follow up and referral plans. medication usage, Demonstrated understanding of instructions, medications, Pt was receptive of discharge instructions/ teaching. Prescriptions given X 1. No special radiology studies were completed. Property sent home with patient. 20:33 Patient left the ED. ms18 Addendum: 04/22/2016 08:10 Narrative: Wound culture results reviewed by Dr Ramirez and no changes made. [facility] Signatures: Selam Dominguez RN RN Maynor Vang RN RN mlb1 Tomas Pope, LABORATORY ASST LABORATORY ASST dd6 Maynor Washington PA PA mo1 Darvin Smith RN RN jmb Smith, Mallory, RN RN ms18 Shirin Bledsoe, LABORATORY ASST LABORATORY ASST rs6 Oly Weathers, Reg Reg [email or web address] Sera Puentes Chart Complete MTDD
--- NOTE | 2016-04-22 08:12 | EDDOCDS ---
Physician Documentation [facility] Name: Filomena Alcantar Age: 20 yrs Sex: Female : 1995 Arrival Date: 04/18/2016 Time: 18:05 Bed TR8 Private MD: NEHAL Granger Disposition: 04/18/16 20:25 Discharged to Home/Self Care. Impression: Cutaneous abscess of chest wall - post surgical wound complication. - Condition is Stable. - Discharge Instructions: Abscess, Incision and Drainage, Surgical Site Infections FAQs - LYONS. - Prescriptions for Bactrim DS 800- 160 mg Oral Tablet - take 1 tablet by ORAL route every 12 hours for 10 days; 20 tablet. - Medication Reconciliation, Local Pharmacy Hours form. - Follow up: NEHAL Granger; When: Call to arrange an appointment; Reason: Recheck today's complaints, Continuance of care. Follow up: Maulik Velez; When: Call to arrange an appointment; Reason: Recheck today's complaints, Continuance of care. - Problem is new. - Symptoms are unchanged. Historical: - Allergies: Aspirin (bleeding risk); Biaxin (Vomit); Erythromycin (Vomit); GABAPENTIN (acts out while sleeping); Levaquin (prolongs her QT interval); - Home Meds: 1. Lamictal 200 mg Oral tab 1 tab once daily 2. Wellbutrin 100 mg Oral tab 3 tab daily 3. Abilify 15 mg Oral tab 1 tab once daily 4. Topamax 50 mg Oral tab 1 tab 2 times per day 5. Corlanor 5 mg oral tab 1 tab 2 times per day 6. midodrine 5 mg oral tab 2 tabs 3 times per day 7. metformin 300 mg Oral tab 1 tab 3 times per day - PMHx: svt; PCOS; Pancreatitis; Migraines; hypotension; Fibromyalgia; - PSHx: Cholecystectomy (October 2009); Occipital Lymph node removed; loop recorder implantation; - Social history: Smoking status: Patient states was never smoker of tobacco. No barriers to communication noted, The patient speaks fluent Welsh, Speaks appropriately for age. - Family history: Not pertinent. - : The pt / caregiver states he / she is not on anticoagulants. Home medication list is obtained from the patient. - Exposure Risk Screening:: None identified. 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 6 in. (167.64 cm) (R); 20:33 BP 103 / 64 RA Sitting (auto/reg); Pulse 74; Resp 16; Temp 97.8(O); Pulse Ox 98% on rs6 R/A; Pain 6/10; 18:07 Body Mass Index 33.09 (92.99 kg, 167.64 cm) dd6 Procedures: 20:22 I & D: Incision and drainage was performed for an abscess of the mid-sternal area lower mo1 portion Prepped with cleansed with saline. Anesthetized with nothing. Incised with superficial wound abscess aspirated with use of 18g needle and 3cc syringe, less than 1cc of pus expressed from wound, no induration to surrounding soft tissue or erythema . Drained small amount purulent fluid. Cultures obtained. the patient tolerated the procedure well. MDM: 20:21 Trimethoprim-Sulfamethoxazole 160 mg-800 mg (DS) 1 tabs PO once ordered. mo1 20:21 Ibuprofen 600 mg PO once ordered. mo1 20:22 Wound Culture & GS - All Other Sources Ordered. [facility] 20:25 Financial registration complete. [email or web address] 20:26 [facility] Payment Agreement was scanned into [employer] and attached to record. [facility] [[email or web address] 04/19 08:18 T-Sheet-- Draft Copy was scanned into [employer] and attached to record. [facility] 08:24 T-Sheet-- Draft Copy was scanned into [employer] and attached to record. [facility] Administered Medications: 04/18 20:24 Drug: Trimethoprim-Sulfamethoxazole 1 tabs [sulfamethoxazole 800 mg-trimethoprim 160 mg jmb tablet (1 tabs)] Route: PO; 20:24 Drug: Ibuprofen 600 mg [ibuprofen 600 mg tablet (1 tabs)] Route: PO; maureen Signatures: Dispatcher [employer] EDSD Maynor Washington PA PA mo1 Darvin Smith RN RN jmb Denisse Wayne RN RN ms18 Oly Weathers, Reg Reg hi16 Sera Puentes The chart was reviewed and I authenticate all verbal orders and agree with the evaluation and treatment provided.Attachments: 20:26 [facility] Payment Agreement [email or web address] 08:24 T-Sheet-- Draft Copy [facility] Chart Complete MTDD
--- NOTE | 2016-04-22 08:12 | EDDOCDS ---
Physician Documentation [facility] Name: Filomena Alcantar Age: 20 yrs Sex: Female : 1995 Arrival Date: 04/18/2016 Time: 18:05 Bed TR8 Private MD: NEHAL Granger Disposition: 04/18/16 20:25 Discharged to Home/Self Care. Impression: Cutaneous abscess of chest wall - post surgical wound complication. - Condition is Stable. - Discharge Instructions: Abscess, Incision and Drainage, Surgical Site Infections FAQs - LYONS. - Prescriptions for Bactrim DS 800- 160 mg Oral Tablet - take 1 tablet by ORAL route every 12 hours for 10 days; 20 tablet. - Medication Reconciliation, Local Pharmacy Hours form. - Follow up: NEHAL Granger; When: Call to arrange an appointment; Reason: Recheck today's complaints, Continuance of care. Follow up: Maulik Velez; When: Call to arrange an appointment; Reason: Recheck today's complaints, Continuance of care. - Problem is new. - Symptoms are unchanged. Historical: - Allergies: Aspirin (bleeding risk); Biaxin (Vomit); Erythromycin (Vomit); GABAPENTIN (acts out while sleeping); Levaquin (prolongs her QT interval); - Home Meds: 1. Lamictal 200 mg Oral tab 1 tab once daily 2. Wellbutrin 100 mg Oral tab 3 tab daily 3. Abilify 15 mg Oral tab 1 tab once daily 4. Topamax 50 mg Oral tab 1 tab 2 times per day 5. Corlanor 5 mg oral tab 1 tab 2 times per day 6. midodrine 5 mg oral tab 2 tabs 3 times per day 7. metformin 300 mg Oral tab 1 tab 3 times per day - PMHx: svt; PCOS; Pancreatitis; Migraines; hypotension; Fibromyalgia; - PSHx: Cholecystectomy (October 2009); Occipital Lymph node removed; loop recorder implantation; - Social history: Smoking status: Patient states was never smoker of tobacco. No barriers to communication noted, The patient speaks fluent Polish, Speaks appropriately for age. - Family history: Not pertinent. - : The pt / caregiver states he / she is not on anticoagulants. Home medication list is obtained from the patient. - Exposure Risk Screening:: None identified. 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 6 in. (167.64 cm) (R); 20:33 BP 103 / 64 RA Sitting (auto/reg); Pulse 74; Resp 16; Temp 97.8(O); Pulse Ox 98% on rs6 R/A; Pain 6/10; 18:07 Body Mass Index 33.09 (92.99 kg, 167.64 cm) dd6 Procedures: 20:22 I & D: Incision and drainage was performed for an abscess of the mid-sternal area lower mo1 portion Prepped with cleansed with saline. Anesthetized with nothing. Incised with superficial wound abscess aspirated with use of 18g needle and 3cc syringe, less than 1cc of pus expressed from wound, no induration to surrounding soft tissue or erythema . Drained small amount purulent fluid. Cultures obtained. the patient tolerated the procedure well. MDM: 20:21 Trimethoprim-Sulfamethoxazole 160 mg-800 mg (DS) 1 tabs PO once ordered. mo1 20:21 Ibuprofen 600 mg PO once ordered. mo1 20:22 Wound Culture & GS - All Other Sources Ordered. [facility] 20:25 Financial registration complete. [facility] 20:26 [facility] Payment Agreement was scanned into [employer] and attached to record. [facility] 04/19 08:18 T-Sheet-- Draft Copy was scanned into [employer] and attached to record. [facility] 08:24 T-Sheet-- Draft Copy was scanned into [employer] and attached to record. [facility] Administered Medications: 04/18 20:24 Drug: Trimethoprim-Sulfamethoxazole 1 tabs [sulfamethoxazole 800 mg-trimethoprim 160 mg jmb tablet (1 tabs)] Route: PO; 20:24 Drug: Ibuprofen 600 mg [ibuprofen 600 mg tablet (1 tabs)] Route: PO; maureen Signatures: Dispatcher [employer] EDRI Maynor Washington PA PA mo1 Darvin Smith RN RN jmb Denisse Wayne RN RN ms18 Oly Weathers, Reg Reg ky16 Sera Puentes The chart was reviewed and I authenticate all verbal orders and agree with the evaluation and treatment provided.Attachments: 20:26 [facility] Payment Agreement [email or web address] 08:24 T-Sheet-- Draft Copy [facility] Chart Complete MTDD
--- NOTE | 2016-04-22 09:29 | EDDOCDS ---
Physician Documentation [facility] Name: Filomena Alcantar Age: 20 yrs Sex: Female : 1995 Arrival Date: 04/18/2016 Time: 18:05 Bed TR8 Private MD: NEHAL Granger Disposition: 04/18/16 20:25 Discharged to Home/Self Care. Impression: Cutaneous abscess of chest wall - post surgical wound complication. - Condition is Stable. - Discharge Instructions: Abscess, Incision and Drainage, Surgical Site Infections FAQs - LYONS. - Prescriptions for Bactrim DS 800- 160 mg Oral Tablet - take 1 tablet by ORAL route every 12 hours for 10 days; 20 tablet. - Medication Reconciliation, Local Pharmacy Hours form. - Follow up: NEHAL Granger; When: Call to arrange an appointment; Reason: Recheck today's complaints, Continuance of care. Follow up: Maulik Velez; When: Call to arrange an appointment; Reason: Recheck today's complaints, Continuance of care. - Problem is new. - Symptoms are unchanged. Historical: - Allergies: Aspirin (bleeding risk); Biaxin (Vomit); Erythromycin (Vomit); GABAPENTIN (acts out while sleeping); Levaquin (prolongs her QT interval); - Home Meds: 1. Lamictal 200 mg Oral tab 1 tab once daily 2. Wellbutrin 100 mg Oral tab 3 tab daily 3. Abilify 15 mg Oral tab 1 tab once daily 4. Topamax 50 mg Oral tab 1 tab 2 times per day 5. Corlanor 5 mg oral tab 1 tab 2 times per day 6. midodrine 5 mg oral tab 2 tabs 3 times per day 7. metformin 300 mg Oral tab 1 tab 3 times per day - PMHx: svt; PCOS; Pancreatitis; Migraines; hypotension; Fibromyalgia; - PSHx: Cholecystectomy (October 2009); Occipital Lymph node removed; loop recorder implantation; - Social history: Smoking status: Patient states was never smoker of tobacco. No barriers to communication noted, The patient speaks fluent Lao, Speaks appropriately for age. - Family history: Not pertinent. - : The pt / caregiver states he / she is not on anticoagulants. Home medication list is obtained from the patient. - Exposure Risk Screening:: None identified. 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 6 in. (167.64 cm) (R); 20:33 BP 103 / 64 RA Sitting (auto/reg); Pulse 74; Resp 16; Temp 97.8(O); Pulse Ox 98% on rs6 R/A; Pain 6/10; 18:07 Body Mass Index 33.09 (92.99 kg, 167.64 cm) dd6 Procedures: 20:22 I & D: Incision and drainage was performed for an abscess of the mid-sternal area lower mo1 portion Prepped with cleansed with saline. Anesthetized with nothing. Incised with superficial wound abscess aspirated with use of 18g needle and 3cc syringe, less than 1cc of pus expressed from wound, no induration to surrounding soft tissue or erythema . Drained small amount purulent fluid. Cultures obtained. the patient tolerated the procedure well. MDM: 20:21 Trimethoprim-Sulfamethoxazole 160 mg-800 mg (DS) 1 tabs PO once ordered. mo1 20:21 Ibuprofen 600 mg PO once ordered. mo1 20:22 Wound Culture & GS - All Other Sources Ordered. [facility] 20:25 Financial registration complete. [facility] 20:26 [facility] Payment Agreement was scanned into [employer] and attached to record. [facility] 04/19 08:18 T-Sheet-- Draft Copy was scanned into [employer] and attached to record. [facility] 08:24 T-Sheet-- Draft Copy was scanned into [employer] and attached to record. [facility] Administered Medications: 04/18 20:24 Drug: Trimethoprim-Sulfamethoxazole 1 tabs [sulfamethoxazole 800 mg-trimethoprim 160 mg jmb tablet (1 tabs)] Route: PO; 20:24 Drug: Ibuprofen 600 mg [ibuprofen 600 mg tablet (1 tabs)] Route: PO; maureen Signatures: Dispatcher [employer] EDWI Maynor Washington PA PA mo1 Darvin Smith RN RN jmb Denisse Wayne RN RN ms18 Oly Weathers, Reg Reg nv16 Sera Puentes The chart was reviewed and I authenticate all verbal orders and agree with the evaluation and treatment provided.Attachments: 20:26 [facility] Payment Agreement [email or web address] 08:24 T-Sheet-- Draft Copy [facility] Chart Complete MTDD
--- NOTE | 2016-04-22 09:29 | EDDOCDS ---
Nurse's Notes [facility] Name: Filomena Alcantar Age: 20 yrs Sex: Female : 1995 Arrival Date: 04/18/2016 Time: 18:05 Bed TR8 Private MD: NEHAL Granger Diagnosis: Cutaneous abscess of chest wall-post surgical wound complication Presentation: 04/18 18:08 Presenting complaint: Patient states: Patient reports having a implantable loop jmb recorder implanted in March. Patient noted small lump to surgical site. Adult Sepsis Screening: The patient does not have new or worsening altered mentation. Patient's respiratory rate is less than 22. Systolic blood pressure is greater than 100. Patient has a qSOFA score of 0- Negative Sepsis Screen. Suicide/Homicide risk assessment- the patient denies having any suicidal and/or homicidal ideations and does not present with any other emotional, behavioral or mental health complaints. Status: Patient is not a manager office services or dependent. Status: The patient is a dependent. Transition of care: patient was not received from another setting of care. 18:08 Acuity: AVRIL Level 4 b 18:08 Method Of Ar[facility] T[facility] Assessment: 18:13 General: Appears in no apparent distress, Behavior is appropriate for age, cooperative. b Pain: Denies pain. HIV screening NA for this visit Offered previously. Neurological: Level of Consciousness is awake, alert, obeys commands, Oriented to person, place, time, Speech is normal, Facial symmetry appears normal, Facial symmetry: tongue is midline. Respiratory: Airway is patent Respiratory effort is even, unlabored, Respiratory pattern is regular, symmetrical. Derm: Skin is pink, warm & dry. Musculoskeletal: Range of motion intact in all extremities. 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 Lamictal 200 mg Oral tab 1 tab once daily 2. Wellbutrin 100 mg Oral tab 3 tab daily 3. Abilify 15 mg Oral tab 1 tab once daily 4. Topamax 50 mg Oral tab 1 tab 2 times per day 5. Corlanor 5 mg oral tab 1 tab 2 times per day 6. midodrine 5 mg oral tab 2 tabs 3 times per day 7. metformin 300 mg Oral tab 1 tab 3 times per day - PMHx: svt; PCOS; Pancreatitis; Migraines; hypotension; Fibromyalgia; - PSHx: Cholecystectomy (October 2009); Occipital Lymph node removed; loop recorder implantation; - Social history: Smoking status: Patient states was never smoker of tobacco. No barriers to communication noted, The patient speaks fluent Portuguese, Speaks appropriately for age. - Family history: Not pertinent. - : The pt / caregiver states he / she is not on anticoagulants. Home medication list is obtained from the patient. - Exposure Risk Screening:: None identified. Screenin:26 Screening information is obtained from the patient. Fall risk: No risks identified. jmb Assistance ADL's: requires no assistance with activities of daily living. Abuse/DV Screen: The patient / caregiver reports he/she is: not in a situation that causes fear, pain or injury. Nutritional screening: No deficits noted. Advance Directives: Currently, there is no health care proxy. There is no active DNR order. There is no living will. 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 home support is adequate. Assessment: 20:26 General: Patient instructed on discharge instructions. Patient asked if there were any b questions regarding discharge, patient stated no. Patient signed discharge instructions. Patient discharged in stable condition. . 20:32 General: Appears in no apparent distress, comfortable, Behavior is appropriate for age, ms18 cooperative. Pain: Pain currently is 7 out of 10 on a pain scale. Neurological: No deficits noted. Respiratory: Airway is patent Respiratory effort is even, unlabored, Respiratory pattern is regular, symmetrical. Derm: Skin is pink, warm & dry. Vital Signs: 18:07 BP 122 / 71; Pulse 80; Resp 18 S; Temp 98.4(O); Pulse Ox 100% on R/A; Weight 92.99 kg dd6 (R); Height 5 ft. 6 in. (167.64 cm) (R); 20:33 BP 103 / 64 RA Sitting (auto/reg); Pulse 74; Resp 16; Temp 97.8(O); Pulse Ox 98% on rs6 R/A; Pain 6/10; 18:07 Body Mass Index 33.09 (92.99 kg, 167.64 cm) dd6 Vitals: 18:07 Log In Time: April 18, 2016 at 18:05. dd6 ED Course: 18:06 Patient visited by Tomas Pope PCA. dd6 18:06 Patient moved to Waiting dd6 18:07 NEHAL Granger is Private Physician. dd6 18:09 Triage Initiated jmb 18:24 Patient moved to Pre RCE mlb1 19:33 Patient moved to Triage 3 ms18 19:55 Maynor Washington PA is PHCP. mo1 19:55 Elpidio Meza DO is Attending Physician. mo1 20:11 Patient visited by Maynor Washington PA. mo1 20:25 NEHAL Granger is Referral Physician. mo1 20:25 Maulik Velez is Referral Physician. mo1 20:26 [facility] Payment Agreement was scanned into [employer] and attached to record. ks16 20:26 The patient / caregiver is instructed regarding the plan of care and ED course. jmb 20:26 Wound Culture & GS - All Other Sources Sent. jmb 20:26 No IV's were initiated during this patient's visit. No procedures done that require jmb assistance. 20:31 Patient moved to TR8 ms18 20:32 Patient visited by Denisse Wayne RN. ms18 20:32 Patient has correct armband on for positive identification. Property sent home with ms18 patient. :Personal belongings accompany Pt. 20:33 Patient visited by Shirin Bledsoe PCA. [facility] 04/19 08:18 T-Sheet-- Draft Copy was scanned into [employer] and attached to record. [facility] 08:24 T-Sheet-- Draft Copy was scanned into [employer] and attached to record. [facility] Administered Medications: 04/18 20:24 Drug: Trimethoprim-Sulfamethoxazole 1 tabs [sulfamethoxazole 800 mg-trimethoprim 160 mg jmb tablet (1 tabs)] Route: PO; 20:24 Drug: Ibuprofen 600 mg [ibuprofen 600 mg tablet (1 tabs)] Route: PO; jmb Order Results: Lab Order: Wound Culture & GS - All Other Sources; SPEC'M 04/18/16 20:22 Test: GRAM STAIN; Value: GRAM STAIN RESULT; Status: F Test: GRAM STAIN; Value: NO CELLS SEEN; Status: F Test: GRAM STAIN; Value: NO ORGANISMS SEEN; Status: F Test: WOUND CULTURE; Value: ORGANISM 1: STAPHYLOCOCCUS SP COAG NEG; Status: F Test: WOUND CULTURE; Value: STAPHYLOCOCCUS SP COAG NEG; Status: F Test: WOUND CULTURE; Value: QUANTITY OF GROWTH MODERATE; Status: F Test: WOUND CULTURE; Value: STREPTOCOCCUS MITIS; Status: F Test: WOUND CULTURE; Value: QUANTITY OF GROWTH FEW; Status: F Test: WOUND CULTURE; Value: ORGANISM SAME PREVIOUS ISOLATE; Status: F Test: WOUND CULTURE; Value: QUANTITY OF GROWTH FEW; Status: F Test: WOUND CULTURE; Value: ORGANISM 2: STREPTOCOCCUS MITIS; Status: F Test: WOUND CULTURE; Value: STAPHYLOCOCCUS SP COAG NEG; Status: F Test: WOUND CULTURE; Value: QUANTITY OF GROWTH MODERATE; Status: F Test: WOUND CULTURE; Value: STREPTOCOCCUS MITIS; Status: F Test: WOUND CULTURE; Value: QUANTITY OF GROWTH FEW; Status: F Test: WOUND CULTURE; Value: ORGANISM SAME PREVIOUS ISOLATE; Status: F Test: WOUND CULTURE; Value: QUANTITY OF GROWTH FEW; Status: F Test: WOUND CULTURE; Value: ORGANISM 3: ORGANISM SAME PREVIOUS ISOLATE; Status: F Test: WOUND CULTURE; Value: STAPHYLOCOCCUS SP COAG NEG; Status: F Test: WOUND CULTURE; Value: QUANTITY OF GROWTH MODERATE; Status: F Test: WOUND CULTURE; Value: STREPTOCOCCUS MITIS; Status: F Test: WOUND CULTURE; Value: QUANTITY OF GROWTH FEW; Status: F Test: WOUND CULTURE; Value: ORGANISM SAME PREVIOUS ISOLATE; Status: F Test: WOUND CULTURE; Value: QUANTITY OF GROWTH FEW; Status: F Test: WOUND CULTURE; Value: GRAM POS SENSI - VITEK 67; Status: F Test: WOUND CULTURE; Value: Method: VIT2; Status: F Test: WOUND CULTURE; Value: TETRACYCLINE 2 S; Status: F Test: WOUND CULTURE; Value: PENICILLIN G >=0.5 R; Status: F Test: WOUND CULTURE; Value: TRIMETHOPRIM/SULFAMETHOXAZOLE 20 S; Status: F Test: WOUND CULTURE; Value: ERYTHROMYCIN >=8 R; Status: F Test: WOUND CULTURE; Value: GENTAMICIN <=0.5 S; Status: F Test: WOUND CULTURE; Value: CLINDAMYCIN <=0.25 S; Status: F Test: WOUND CULTURE; Value: OXACILLIN >=4 R; Status: F Test: WOUND CULTURE; Value: VANCOMYCIN 1 S; Status: F Test: WOUND CULTURE; Value: LINEZOLID (ZYVOX) 1 S; Status: F Test: WOUND CULTURE; Value: GRAM POS SENSI - ST02; Status: F Test: WOUND CULTURE; Value: Method: VIT2; Status: F Test: WOUND CULTURE; Value: TETRACYCLINE 0.5 S; Status: F Test: WOUND CULTURE; Value: PENICILLIN G <=0.06 S; Status: F Test: WOUND CULTURE; Value: AMPICILLIN <=0.25 S; Status: F Test: WOUND CULTURE; Value: CLINDAMYCIN <=0.25 S; Status: F Test: WOUND CULTURE; Value: LEVOFLOXACIN 1 S; Status: F Test: WOUND CULTURE; Value: VANCOMYCIN 0.5 S; Status: F Test: WOUND CULTURE; Value: MOXIFLOXACIN (AVELOX) 0.12 S; Status: F Test: WOUND CULTURE; Value: CEFTRIAXONE <=0.12 S; Status: F Test: WOUND CULTURE; Value: CEFOTAXIME <=0.12 S; Status: F Outcome: 20:25 Discharge ordered by Provider. mo1 20:26 Discharge Assessment: Patient awake, alert and oriented x 3. No cognitive and/or jmb functional deficits noted. Patient verbalized understanding of disposition instructions. Patient awake and alert. obeys commands, Oriented to person, place and time. Patient verbalized understanding of disposition instructions. Patient has no functional deficits. patient administered narcotics - no. The following High Risk Discharge criteria are identified: None. Discharged to home ambulatory. Condition: stable. Discharge instructions given to patient, Instructed on discharge instructions, follow up and referral plans. medication usage, Demonstrated understanding of instructions, medications, Pt was receptive of discharge instructions/ teaching. Prescriptions given X 1. No special radiology studies were completed. Property sent home with patient. 20:33 Patient left the ED. ms18 Addendum: 04/22/2016 08:10 Narrative: Wound culture results reviewed by Dr Ramirez and no changes made. [place] Signatures: Selam Dominguez RN RN Maynor Vang RN RN mlb1 Tomas Pope, HUMAN MACHINE INTERFACE ENGINEER HUMAN MACHINE INTERFACE ENGINEER dd6 Maynor Washington PA PA mo1 Darvin Smith RN RN jmb Smith, Mallory, RN RN ms18 Shirin Bledsoe, HUMAN MACHINE INTERFACE ENGINEER HUMAN MACHINE INTERFACE ENGINEER rs6 Oly Weathers, Reg Reg ks16 Sera Puentes Chart Complete MTDD
--- NOTE | 2016-04-22 09:29 | EDDOCDS ---
Physician Documentation [facility] Name: Filomena Alcantar Age: 20 yrs Sex: Female : 1995 Arrival Date: 04/18/2016 Time: 18:05 Bed TR8 Private MD: NEHAL Granger Disposition: 04/18/16 20:25 Discharged to Home/Self Care. Impression: Cutaneous abscess of chest wall - post surgical wound complication. - Condition is Stable. - Discharge Instructions: Abscess, Incision and Drainage, Surgical Site Infections FAQs - LYONS. - Prescriptions for Bactrim DS 800- 160 mg Oral Tablet - take 1 tablet by ORAL route every 12 hours for 10 days; 20 tablet. - Medication Reconciliation, Local Pharmacy Hours form. - Follow up: NEHAL Granger; When: Call to arrange an appointment; Reason: Recheck today's complaints, Continuance of care. Follow up: Maulik Velez; When: Call to arrange an appointment; Reason: Recheck today's complaints, Continuance of care. - Problem is new. - Symptoms are unchanged. Historical: - Allergies: Aspirin (bleeding risk); Biaxin (Vomit); Erythromycin (Vomit); GABAPENTIN (acts out while sleeping); Levaquin (prolongs her QT interval); - Home Meds: 1. Lamictal 200 mg Oral tab 1 tab once daily 2. Wellbutrin 100 mg Oral tab 3 tab daily 3. Abilify 15 mg Oral tab 1 tab once daily 4. Topamax 50 mg Oral tab 1 tab 2 times per day 5. Corlanor 5 mg oral tab 1 tab 2 times per day 6. midodrine 5 mg oral tab 2 tabs 3 times per day 7. metformin 300 mg Oral tab 1 tab 3 times per day - PMHx: svt; PCOS; Pancreatitis; Migraines; hypotension; Fibromyalgia; - PSHx: Cholecystectomy (October 2009); Occipital Lymph node removed; loop recorder implantation; - Social history: Smoking status: Patient states was never smoker of tobacco. No barriers to communication noted, The patient speaks fluent Irish, Speaks appropriately for age. - Family history: Not pertinent. - : The pt / caregiver states he / she is not on anticoagulants. Home medication list is obtained from the patient. - Exposure Risk Screening:: None identified. 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 6 in. (167.64 cm) (R); 20:33 BP 103 / 64 RA Sitting (auto/reg); Pulse 74; Resp 16; Temp 97.8(O); Pulse Ox 98% on rs6 R/A; Pain 6/10; 18:07 Body Mass Index 33.09 (92.99 kg, 167.64 cm) dd6 Procedures: 20:22 I & D: Incision and drainage was performed for an abscess of the mid-sternal area lower mo1 portion Prepped with cleansed with saline. Anesthetized with nothing. Incised with superficial wound abscess aspirated with use of 18g needle and 3cc syringe, less than 1cc of pus expressed from wound, no induration to surrounding soft tissue or erythema . Drained small amount purulent fluid. Cultures obtained. the patient tolerated the procedure well. MDM: 20:21 Trimethoprim-Sulfamethoxazole 160 mg-800 mg (DS) 1 tabs PO once ordered. mo1 20:21 Ibuprofen 600 mg PO once ordered. mo1 20:22 Wound Culture & GS - All Other Sources Ordered. [facility] 20:25 Financial registration complete. [facility] 20:26 [facility] Payment Agreement was scanned into [employer] and attached to record. [facility] 04/19 08:18 T-Sheet-- Draft Copy was scanned into [employer] and attached to record. [facility] 08:24 T-Sheet-- Draft Copy was scanned into [employer] and attached to record. [facility] Administered Medications: 04/18 20:24 Drug: Trimethoprim-Sulfamethoxazole 1 tabs [sulfamethoxazole 800 mg-trimethoprim 160 mg jmb tablet (1 tabs)] Route: PO; 20:24 Drug: Ibuprofen 600 mg [ibuprofen 600 mg tablet (1 tabs)] Route: PO; maureen Signatures: Dispatcher [employer] EDPA Maynor Washington PA PA mo1 Darvin Smith RN RN jmb Denisse Wayne RN RN ms18 Oly Weathers, Reg Reg ut16 Sera Puentes The chart was reviewed and I authenticate all verbal orders and agree with the evaluation and treatment provided.Attachments: 20:26 [facility] Payment Agreement [email or web address] 08:24 T-Sheet-- Draft Copy [facility] Chart Complete MTDD
--- NOTE | 2016-04-22 09:29 | EDDOCDS ---
Physician Documentation [facility] Name: Filomena Alcantar Age: 20 yrs Sex: Female : 1995 Arrival Date: 04/18/2016 Time: 18:05 Bed TR8 Private MD: NEHAL Granger Disposition: 04/18/16 20:25 Discharged to Home/Self Care. Impression: Cutaneous abscess of chest wall - post surgical wound complication. - Condition is Stable. - Discharge Instructions: Abscess, Incision and Drainage, Surgical Site Infections FAQs - LYONS. - Prescriptions for Bactrim DS 800- 160 mg Oral Tablet - take 1 tablet by ORAL route every 12 hours for 10 days; 20 tablet. - Medication Reconciliation, Local Pharmacy Hours form. - Follow up: NEHAL Granger; When: Call to arrange an appointment; Reason: Recheck today's complaints, Continuance of care. Follow up: Maulik Velez; When: Call to arrange an appointment; Reason: Recheck today's complaints, Continuance of care. - Problem is new. - Symptoms are unchanged. Historical: - Allergies: Aspirin (bleeding risk); Biaxin (Vomit); Erythromycin (Vomit); GABAPENTIN (acts out while sleeping); Levaquin (prolongs her QT interval); - Home Meds: 1. Lamictal 200 mg Oral tab 1 tab once daily 2. Wellbutrin 100 mg Oral tab 3 tab daily 3. Abilify 15 mg Oral tab 1 tab once daily 4. Topamax 50 mg Oral tab 1 tab 2 times per day 5. Corlanor 5 mg oral tab 1 tab 2 times per day 6. midodrine 5 mg oral tab 2 tabs 3 times per day 7. metformin 300 mg Oral tab 1 tab 3 times per day - PMHx: svt; PCOS; Pancreatitis; Migraines; hypotension; Fibromyalgia; - PSHx: Cholecystectomy (October 2009); Occipital Lymph node removed; loop recorder implantation; - Social history: Smoking status: Patient states was never smoker of tobacco. No barriers to communication noted, The patient speaks fluent Persian, Speaks appropriately for age. - Family history: Not pertinent. - : The pt / caregiver states he / she is not on anticoagulants. Home medication list is obtained from the patient. - Exposure Risk Screening:: None identified. 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 6 in. (167.64 cm) (R); 20:33 BP 103 / 64 RA Sitting (auto/reg); Pulse 74; Resp 16; Temp 97.8(O); Pulse Ox 98% on rs6 R/A; Pain 6/10; 18:07 Body Mass Index 33.09 (92.99 kg, 167.64 cm) dd6 Procedures: 20:22 I & D: Incision and drainage was performed for an abscess of the mid-sternal area lower mo1 portion Prepped with cleansed with saline. Anesthetized with nothing. Incised with superficial wound abscess aspirated with use of 18g needle and 3cc syringe, less than 1cc of pus expressed from wound, no induration to surrounding soft tissue or erythema . Drained small amount purulent fluid. Cultures obtained. the patient tolerated the procedure well. MDM: 20:21 Trimethoprim-Sulfamethoxazole 160 mg-800 mg (DS) 1 tabs PO once ordered. mo1 20:21 Ibuprofen 600 mg PO once ordered. mo1 20:22 Wound Culture & GS - All Other Sources Ordered. [facility] 20:25 Financial registration complete. [facility] 20:26 [facility]ENDING [facility] Payment Agreement was scanned into [employer] and attached to record. [facility] 04/19 08:18 T-Sheet-- Draft Copy was scanned into [employer] and attached to record. [facility] 08:24 T-Sheet-- Draft Copy was scanned into [employer] and attached to record. [facility] Administered Medications: 04/18 20:24 Drug: Trimethoprim-Sulfamethoxazole 1 tabs [sulfamethoxazole 800 mg-trimethoprim 160 mg jmb tablet (1 tabs)] Route: PO; 20:24 Drug: Ibuprofen 600 mg [ibuprofen 600 mg tablet (1 tabs)] Route: PO; maureen Signatures: Dispatcher [employer] EDCA Maynor Washington PA PA mo1 Darvin Smith RN RN jmb Denisse Wayne RN RN ms18 Oly Weathers, Reg Reg or16 Sera Puentes The chart was reviewed and I authenticate all verbal orders and agree with the evaluation and treatment provided.Attachments: 20:26 [facility]ENDING [facility] Payment Agreement [email or web address] 08:24 T-Sheet-- Draft Copy [facility] Chart Complete MTDD
--- NOTE | 2016-04-22 09:29 | EDDOCDS ---
Nurse's Notes [facility] Name: Filomena Alcantar Age: 20 yrs Sex: Female : 1995 Arrival Date: 04/18/2016 Time: 18:05 Bed TR8 Private MD: NEHAL Granger Diagnosis: Cutaneous abscess of chest wall-post surgical wound complication Presentation: 04/18 18:08 Presenting complaint: Patient states: Patient reports having a implantable loop jmb recorder implanted in March. Patient noted small lump to surgical site. Adult Sepsis Screening: The patient does not have new or worsening altered mentation. Patient's respiratory rate is less than 22. Systolic blood pressure is greater than 100. Patient has a qSOFA score of 0- Negative Sepsis Screen. Suicide/Homicide risk assessment- the patient denies having any suicidal and/or homicidal ideations and does not present with any other emotional, behavioral or mental health complaints. Status: Patient is not a student services counselor or dependent. Status: The patient is a dependent. Transition of care: patient was not received from another setting of care. 18:08 Acuity: AVRIL Level 4 b 18:08 Method Of Arrival: Walkin/Carried/Asstd [facility] Triage Assessment: 18:13 General: Appears in no apparent distress, Behavior is appropriate for age, cooperative. b Pain: Denies pain. HIV screening NA for this visit Offered previously. Neurological: Level of Consciousness is awake, alert, obeys commands, Oriented to person, place, time, Speech is normal, Facial symmetry appears normal, Facial symmetry: tongue is midline. Respiratory: Airway is patent Respiratory effort is even, unlabored, Respiratory pattern is regular, symmetrical. Derm: Skin is pink, warm & dry. Musculoskeletal: Range of motion intact in all extremities. 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 Lamictal 200 mg Oral tab 1 tab once daily 2. Wellbutrin 100 mg Oral tab 3 tab daily 3. Abilify 15 mg Oral tab 1 tab once daily 4. Topamax 50 mg Oral tab 1 tab 2 times per day 5. Corlanor 5 mg oral tab 1 tab 2 times per day 6. midodrine 5 mg oral tab 2 tabs 3 times per day 7. metformin 300 mg Oral tab 1 tab 3 times per day - PMHx: svt; PCOS; Pancreatitis; Migraines; hypotension; Fibromyalgia; - PSHx: Cholecystectomy (October 2009); Occipital Lymph node removed; loop recorder implantation; - Social history: Smoking status: Patient states was never smoker of tobacco. No barriers to communication noted, The patient speaks fluent Haitian, Speaks appropriately for age. - Family history: Not pertinent. - : The pt / caregiver states he / she is not on anticoagulants. Home medication list is obtained from the patient. - Exposure Risk Screening:: None identified. Screenin:26 Screening information is obtained from the patient. Fall risk: No risks identified. jmb Assistance ADL's: requires no assistance with activities of daily living. Abuse/DV Screen: The patient / caregiver reports he/she is: not in a situation that causes fear, pain or injury. Nutritional screening: No deficits noted. Advance Directives: Currently, there is no health care proxy. There is no active DNR order. There is no living will. There is no Power of Curriculum Coach. home support is adequate. Assessment: 20:26 General: Patient instructed on discharge instructions. Patient asked if there were any b questions regarding discharge, patient stated no. Patient signed discharge instructions. Patient discharged in stable condition. . 20:32 General: Appears in no apparent distress, comfortable, Behavior is appropriate for age, ms18 cooperative. Pain: Pain currently is 7 out of 10 on a pain scale. Neurological: No deficits noted. Respiratory: Airway is patent Respiratory effort is even, unlabored, Respiratory pattern is regular, symmetrical. Derm: Skin is pink, warm & dry. Vital Signs: 18:07 BP 122 / 71; Pulse 80; Resp 18 S; Temp 98.4(O); Pulse Ox 100% on R/A; Weight 92.99 kg dd6 (R); Height 5 ft. 6 in. (167.64 cm) (R); 20:33 BP 103 / 64 RA Sitting (auto/reg); Pulse 74; Resp 16; Temp 97.8(O); Pulse Ox 98% on rs6 R/A; Pain 6/10; 18:07 Body Mass Index 33.09 (92.99 kg, 167.64 cm) dd6 Vitals: 18:07 Log In Time: April 18, 2016 at 18:05. dd6 ED Course: 18:06 Patient visited by Tomas Pope PCA. dd6 18:06 Patient moved to Waiting dd6 18:07 NEHAL Granger is Private Physician. dd6 18:09 Triage Initiated jmb 18:24 Patient moved to Pre RCE mlb1 19:33 Patient moved to Triage 3 ms18 19:55 Maynor Washington PA is PHCP. mo1 19:55 Elpidio Meza DO is Attending Physician. mo1 20:11 Patient visited by Maynor Washington PA. mo1 20:25 NEHAL Granger is Referral Physician. mo1 20:25 Maulik Velez is Referral Physician. mo1 20:26 [facility] Payment Agreement was scanned into POKKT and attached to record. ks16 20:26 The patient / caregiver is instructed regarding the plan of care and ED course. jmb 20:26 Wound Culture & GS - All Other Sources Sent. jmb 20:26 No IV's were initiated during this patient's visit. No procedures done that require jmb assistance. 20:31 Patient moved to TR8 ms18 20:32 Patient visited by Denisse Wayen RN. ms18 20:32 Patient has correct armband on for positive identification. Property sent home with ms18 patient. :Personal belongings accompany Pt. 20:33 Patient visited by Shirin Bledsoe PCA. [facility] 04/19 08:18 T-Sheet-- Draft Copy was scanned into POKKT and attached to record. [facility] 08:24 T-Sheet-- Draft Copy was scanned into POKKT and attached to record. [facility] Administered Medications: 04/18 20:24 Drug: Trimethoprim-Sulfamethoxazole 1 tabs [sulfamethoxazole 800 mg-trimethoprim 160 mg jmb tablet (1 tabs)] Route: PO; 20:24 Drug: Ibuprofen 600 mg [ibuprofen 600 mg tablet (1 tabs)] Route: PO; jmb Order Results: Lab Order: Wound Culture & GS - All Other Sources; SPEC'M 04/18/16 20:22 Test: GRAM STAIN; Value: GRAM STAIN RESULT; Status: F Test: GRAM STAIN; Value: NO CELLS SEEN; Status: F Test: GRAM STAIN; Value: NO ORGANISMS SEEN; Status: F Test: WOUND CULTURE; Value: ORGANISM 1: STAPHYLOCOCCUS SP COAG NEG; Status: F Test: WOUND CULTURE; Value: STAPHYLOCOCCUS SP COAG NEG; Status: F Test: WOUND CULTURE; Value: QUANTITY OF GROWTH MODERATE; Status: F Test: WOUND CULTURE; Value: STREPTOCOCCUS MITIS; Status: F Test: WOUND CULTURE; Value: QUANTITY OF GROWTH FEW; Status: F Test: WOUND CULTURE; Value: ORGANISM SAME PREVIOUS ISOLATE; Status: F Test: WOUND CULTURE; Value: QUANTITY OF GROWTH FEW; Status: F Test: WOUND CULTURE; Value: ORGANISM 2: STREPTOCOCCUS MITIS; Status: F Test: WOUND CULTURE; Value: STAPHYLOCOCCUS SP COAG NEG; Status: F Test: WOUND CULTURE; Value: QUANTITY OF GROWTH MODERATE; Status: F Test: WOUND CULTURE; Value: STREPTOCOCCUS MITIS; Status: F Test: WOUND CULTURE; Value: QUANTITY OF GROWTH FEW; Status: F Test: WOUND CULTURE; Value: ORGANISM SAME PREVIOUS ISOLATE; Status: F Test: WOUND CULTURE; Value: QUANTITY OF GROWTH FEW; Status: F Test: WOUND CULTURE; Value: ORGANISM 3: ORGANISM SAME PREVIOUS ISOLATE; Status: F Test: WOUND CULTURE; Value: STAPHYLOCOCCUS SP COAG NEG; Status: F Test: WOUND CULTURE; Value: QUANTITY OF GROWTH MODERATE; Status: F Test: WOUND CULTURE; Value: STREPTOCOCCUS MITIS; Status: F Test: WOUND CULTURE; Value: QUANTITY OF GROWTH FEW; Status: F Test: WOUND CULTURE; Value: ORGANISM SAME PREVIOUS ISOLATE; Status: F Test: WOUND CULTURE; Value: QUANTITY OF GROWTH FEW; Status: F Test: WOUND CULTURE; Value: GRAM POS SENSI - VITEK 67; Status: F Test: WOUND CULTURE; Value: Method: VIT2; Status: F Test: WOUND CULTURE; Value: TETRACYCLINE 2 S; Status: F Test: WOUND CULTURE; Value: PENICILLIN G >=0.5 R; Status: F Test: WOUND CULTURE; Value: TRIMETHOPRIM/SULFAMETHOXAZOLE 20 S; Status: F Test: WOUND CULTURE; Value: ERYTHROMYCIN >=8 R; Status: F Test: WOUND CULTURE; Value: GENTAMICIN <=0.5 S; Status: F Test: WOUND CULTURE; Value: CLINDAMYCIN <=0.25 S; Status: F Test: WOUND CULTURE; Value: OXACILLIN >=4 R; Status: F Test: WOUND CULTURE; Value: VANCOMYCIN 1 S; Status: F Test: WOUND CULTURE; Value: LINEZOLID (ZYVOX) 1 S; Status: F Test: WOUND CULTURE; Value: GRAM POS SENSI - ST02; Status: F Test: WOUND CULTURE; Value: Method: VIT2; Status: F Test: WOUND CULTURE; Value: TETRACYCLINE 0.5 S; Status: F Test: WOUND CULTURE; Value: PENICILLIN G <=0.06 S; Status: F Test: WOUND CULTURE; Value: AMPICILLIN <=0.25 S; Status: F Test: WOUND CULTURE; Value: CLINDAMYCIN <=0.25 S; Status: F Test: WOUND CULTURE; Value: LEVOFLOXACIN 1 S; Status: F Test: WOUND CULTURE; Value: VANCOMYCIN 0.5 S; Status: F Test: WOUND CULTURE; Value: MOXIFLOXACIN (AVELOX) 0.12 S; Status: F Test: WOUND CULTURE; Value: CEFTRIAXONE <=0.12 S; Status: F Test: WOUND CULTURE; Value: CEFOTAXIME <=0.12 S; Status: F Outcome: 20:25 Discharge ordered by Provider. mo1 20:26 Discharge Assessment: Patient awake, alert and oriented x 3. No cognitive and/or jmb functional deficits noted. Patient verbalized understanding of disposition instructions. Patient awake and alert. obeys commands, Oriented to person, place and time. Patient verbalized understanding of disposition instructions. Patient has no functional deficits. patient administered narcotics - no. The following High Risk Discharge criteria are identified: None. Discharged to home ambulatory. Condition: stable. Discharge instructions given to patient, Instructed on discharge instructions, follow up and referral plans. medication usage, Demonstrated understanding of instructions, medications, Pt was receptive of discharge instructions/ teaching. Prescriptions given X 1. No special radiology studies were completed. Property sent home with patient. 20:33 Patient left the ED. ms18 Addendum: 04/22/2016 08:10 Narrative: Wound culture results reviewed by Dr Ramirez and no changes made. [facility] Signatures: Selam Dominguez RN RN Maynor Vang RN RN mlb1 Tomas Pope, ICE CREAM SHOP ASSOCIATE ICE CREAM SHOP ASSOCIATE dd6 Maynor Washington PA PA mo1 Darvin Smith RN RN jmb Smith, Mallory, RN RN ms18 Shirin Bledsoe, ICE CREAM SHOP ASSOCIATE ICE CREAM SHOP ASSOCIATE rs6 Oly Weathers, Reg Reg ks16 Sera Puentes Chart Complete MTDD
--- NOTE | 2016-04-22 09:29 | EDDOCDS ---
Physician Documentation [facility] Name: Filomena Alcantar Age: 20 yrs Sex: Female : 1995 Arrival Date: 04/18/2016 Time: 18:05 Bed TR8 Private MD: NEHAL Granger Disposition: 04/18/16 20:25 Discharged to Home/Self Care. Impression: Cutaneous abscess of chest wall - post surgical wound complication. - Condition is Stable. - Discharge Instructions: Abscess, Incision and Drainage, Surgical Site Infections FAQs - LYONS. - Prescriptions for Bactrim DS 800- 160 mg Oral Tablet - take 1 tablet by ORAL route every 12 hours for 10 days; 20 tablet. - Medication Reconciliation, Local Pharmacy Hours form. - Follow up: NEHAL Granger; When: Call to arrange an appointment; Reason: Recheck today's complaints, Continuance of care. Follow up: Maulik Velez; When: Call to arrange an appointment; Reason: Recheck today's complaints, Continuance of care. - Problem is new. - Symptoms are unchanged. Historical: - Allergies: Aspirin (bleeding risk); Biaxin (Vomit); Erythromycin (Vomit); GABAPENTIN (acts out while sleeping); Levaquin (prolongs her QT interval); - Home Meds: 1. Lamictal 200 mg Oral tab 1 tab once daily 2. Wellbutrin 100 mg Oral tab 3 tab daily 3. Abilify 15 mg Oral tab 1 tab once daily 4. Topamax 50 mg Oral tab 1 tab 2 times per day 5. Corlanor 5 mg oral tab 1 tab 2 times per day 6. midodrine 5 mg oral tab 2 tabs 3 times per day 7. metformin 300 mg Oral tab 1 tab 3 times per day - PMHx: svt; PCOS; Pancreatitis; Migraines; hypotension; Fibromyalgia; - PSHx: Cholecystectomy (October 2009); Occipital Lymph node removed; loop recorder implantation; - Social history: Smoking status: Patient states was never smoker of tobacco. No barriers to communication noted, The patient speaks fluent Czech, Speaks appropriately for age. - Family history: Not pertinent. - : The pt / caregiver states he / she is not on anticoagulants. Home medication list is obtained from the patient. - Exposure Risk Screening:: None identified. 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 6 in. (167.64 cm) (R); 20:33 BP 103 / 64 RA Sitting (auto/reg); Pulse 74; Resp 16; Temp 97.8(O); Pulse Ox 98% on rs6 R/A; Pain 6/10; 18:07 Body Mass Index 33.09 (92.99 kg, 167.64 cm) dd6 Procedures: 20:22 I & D: Incision and drainage was performed for an abscess of the mid-sternal area lower mo1 portion Prepped with cleansed with saline. Anesthetized with nothing. Incised with superficial wound abscess aspirated with use of 18g needle and 3cc syringe, less than 1cc of pus expressed from wound, no induration to surrounding soft tissue or erythema . Drained small amount purulent fluid. Cultures obtained. the patient tolerated the procedure well. MDM: 20:21 Trimethoprim-Sulfamethoxazole 160 mg-800 mg (DS) 1 tabs PO once ordered. mo1 20:21 Ibuprofen 600 mg PO once ordered. mo1 20:22 Wound Culture & GS - All Other Sources Ordered. [facility] 20:25 Financial registration complete. [facility] 20:26 [facility] Payment Agreement was scanned into MyCare and attached to record. [facility] 04/19 08:18 T-Sheet-- Draft Copy was scanned into MyCare and attached to record. [facility] 08:24 T-Sheet-- Draft Copy was scanned into MyCare and attached to record. [facility] Administered Medications: 04/18 20:24 Drug: Trimethoprim-Sulfamethoxazole 1 tabs [sulfamethoxazole 800 mg-trimethoprim 160 mg jmb tablet (1 tabs)] Route: PO; 20:24 Drug: Ibuprofen 600 mg [ibuprofen 600 mg tablet (1 tabs)] Route: PO; maureen Signatures: Dispatcher [employer] EDAK Maynor Washington PA PA mo1 Darvin Smith RN RN jmb Denisse Wayne RN RN ms18 Oly Weathers, Reg Reg ma16 Sera Puentes The chart was reviewed and I authenticate all verbal orders and agree with the evaluation and treatment provided.Attachments: 20:26 [facility] Payment Agreement [email or web address] 08:24 T-Sheet-- Draft Copy [facility] Chart Complete MTDD
== END 2016-04-18 20:33 | disposition home or self-care (01) ==
LOC: M ED 18:05
DX: L02.213 Cutaneous abscess of chest wall (principal); I10 Essential (primary) hypertension; I47.1 Supraventricular tachycardia; M79.7 Fibromyalgia; G43.909 Migraine, unspecified, not intractable, without status migrainosus; E28.2 Polycystic ovarian syndrome; Z90.49 Acquired absence of other specified parts of digestive tract; Z95.818 Presence of other cardiac implants and grafts; Z79.899 Other long term (current) drug therapy; Z88.1 Allergy status to other antibiotic agents; Z88.6 Allergy status to analgesic agent; Z88.8 Allergy status to other drugs, medicaments and biological substances

== ENCOUNTER → 2016-05-23 | Outpatient (REF) | payer OTHER, MEDICAID | LOC: M LAB REF 13:15 | PROVIDERS: ATTEND Physician Assistant Medical | DX: B97.89 Other viral agents as the cause of diseases classified elsewhere (principal) ==

== ENCOUNTER 2016-09-26 03:51 | Emergency (ER) | payer OTHER, MEDICAID ==
[~2016-09-26] VITALS: Ht 167.6 cm; Wt 95.0 kg
[~2016-09-26 03:51] MED LIST changes: -TOPA200T6 PO; +TOPA200T7 PO
[2016-09-26 07:29] VITALS: BP 142/67
== END 2016-09-26 07:35 | disposition home or self-care (01) ==
LOC: M ED 05:00
DX: F43.0 Acute stress reaction (principal)

== ENCOUNTER 2016-10-30 20:03 | Emergency (ER) | payer OTHER, MEDICAID ==
[~2016-10-30] VITALS: Ht 167.6 cm; Wt 95.5 kg
[2016-10-30] MEDS ORDERED: CORL1.7T PO (20:17)
[2016-10-30] MEDS ORDERED: MIDO2.5T PO (20:18)
[2016-10-30 23:28] VITALS: BP 128/80
[2016-10-30] MEDS ORDERED: KETOROLAC 60 MG/2 ML VIAL (J1885) IM ONE (23:30)
[2016-10-30] MEDS ORDERED: NAPR500T PO (23:31)
== END 2016-10-31 | disposition home or self-care (01) ==
LOC: M ED 20:03
DX: S90.31XA Contusion of right foot, initial encounter (principal); S80.01XA Contusion of right knee, initial encounter; W01.198A Fall on same level from slipping, tripping and stumbling with subsequent striking against other object, initial encounter; Y92.89 Other specified places as the place of occurrence of the external cause; Y93.01 Activity, walking, marching and hiking; Y99.0 Civilian activity done for income or pay
CPT/HCPCS: 96372; 99282; J1885

== ENCOUNTER → 2017-09-16 | Outpatient (REF) | payer MEDICAID ==
[2017-09-16 13:27] LABS: HEMATOCRIT 39.2 % (36.0-47.0); HEMOGLOBIN 12.1 g/dl (12.0-15.5); MEAN CORPUSCULAR HEMOGLOBIN 25.9 pg (27.0-33.0); MEAN CORPUSCULAR HGB CONC 30.9 g/dl (32.0-36.5); MEAN CORPUSCULAR VOLUME 83.9 fl (80.0-96.0); PLATELET COUNT, AUTOMATED 409 10^3/uL (150-450); RED BLOOD COUNT 4.67 10^6/uL (4.00-5.40); RED CELL DISTRIBUTION WIDTH 14.6 % (11.5-14.5); WHITE BLOOD COUNT 11.4 10^3/uL (4.0-10.0)
[2017-09-16 14:00] LABS: ALBUMIN 3.9 GM/DL (3.2-5.2); ALBUMIN/GLOBULIN RATIO 1.08 (1.00-1.93); ALKALINE PHOSPHATASE 46 U/L (45-117); ALT/SGPT 24 U/L (12-78); ANION GAP 8 MEQ/L (8-16); AST/SGOT 11 U/L (7-37); BILIRUBIN,TOTAL 0.2 MG/DL (0.2-1.0); BLOOD UREA NITROGEN 14 MG/DL (7-18); CARBON DIOXIDE LEVEL 27 MEQ/L (21-32); CHLORIDE LEVEL 106 MEQ/L (98-107); CHOLESTEROL LEVEL 206 MG/DL (<200); CREATININE FOR GFR 0.71 MG/DL (0.55-1.30); GLOMERULAR FILTRATION RATE > 60.0 (>60); GLUCOSE, FASTING 81 MG/DL (70-100); HDL CHOLESTEROL 50 MG/DL (>40); LDL CHOLESTEROL 114.4 MG/DL (<100); NON-HDL-C 156 MG/DL; POTASSIUM SERUM 4.5 MEQ/L (3.5-5.1); SODIUM LEVEL 141 MEQ/L (136-145); TOTAL PROTEIN 7.5 GM/DL (6.4-8.2); TRIGLYCERIDES LEVEL 208 MG/DL (<150)
== END ==
LOC: M SFHCPLAZ 10:45
DX: Z00.00 Encounter for general adult medical examination without abnormal findings (principal)

== ENCOUNTER 2017-10-01 18:13 | Emergency (ER) | payer MEDICAID ==
[2017-10-01 14:37] LABS: KETONE, URINE AUTO RFX NEGATIVE (NEGATIVE); NITRITE, URINE AUTO RFX NEGATIVE (NEGATIVE); RBC, URINE AUTO RFX TNTC /HPF (0-3); SPECIFIC GRAVITY UR AUTO RFX 1.017 (1.002-1.035); SQUAM EPITHELIAL CELL UR AURFX 0 /HPF (0-6)
[2017-10-01 14:41] LABS: LEUKOCYTE ESTERASE UR AUTO RFX 1+ (NEGATIVE); WBC, URINE AUTO RFX TNTC /HPF (0-3)
[2017-10-01 14:58] LABS: BASO # 0.1 10^3/uL (0.0-0.2); BASO % 0.7 % (0.0-1.0); EOS # 0.1 10^3/uL (0.0-0.50); EOS % 1.1 % (0.0-3.0); HEMATOCRIT 37.9 % (36.0-47.0); HEMOGLOBIN 12.2 g/dl (12.0-15.5); IMMATURE GRANULOCYTE % 0.3 % (0-3.0); LYMPH # 3.4 10^3/uL (1.5-6.5); LYMPH % 31.9 % (24.0-44.0); MEAN CORPUSCULAR HGB CONC 32.2 g/dl (32.0-36.5); MEAN CORPUSCULAR VOLUME 80.8 fl (80.0-96.0); MONO # 0.8 10^3/uL (0.0-0.8); MONO % 7.8 % (0.0-5.0); NEUTROPHILS # 6.2 10^3/uL (1.8-7.7); NEUTROPHILS % 58.2 % (36.0-66.0); PLATELET COUNT, AUTOMATED 382 10^3/uL (150-450); RED BLOOD COUNT 4.69 10^6/uL (4.00-5.40); RED CELL DISTRIBUTION WIDTH 14.3 % (11.5-14.5); WHITE BLOOD COUNT 10.7 10^3/uL (4.0-10.0)
[2017-10-01 16:39] LABS: CONTROL LINE HCG INT CTR LINE PRESENT; HCG, SERUM QUALITATIVE NEGATIVE (NEGATIVE)
[2017-10-01] MEDS: ONDANSETRON 4 MG ORAL DISINTEGRATING TAB (Q0162 PER 1MG) PO (16:45)
[2017-10-01] MEDS: KETOROLAC TROMETHAMINE 10 MG TAB PO (16:45)
== END 2017-10-01 18:21 | disposition home or self-care (01) ==
LOC: M ED 18:13
DX: N92.0 Excessive and frequent menstruation with regular cycle (principal); N94.6 Dysmenorrhea, unspecified; I47.1 Supraventricular tachycardia; K58.9 Irritable bowel syndrome, unspecified; R51 Headache; Z88.6 Allergy status to analgesic agent; Z88.8 Allergy status to other drugs, medicaments and biological substances; Z88.1 Allergy status to other antibiotic agents; Z79.899 Other long term (current) drug therapy; Z79.84 Long term (current) use of oral hypoglycemic drugs
CPT/HCPCS: Q0162

== ENCOUNTER 2017-12-27 11:18 | Emergency (ER) | payer MEDICAID ==
[2017-12-27 11:57] LABS: BASO # 0.1 10^3/uL (0.0-0.2); BASO % 0.6 % (0.0-1.0); EOS # 0.1 10^3/uL (0.0-0.50); EOS % 0.9 % (0.0-3.0); HEMATOCRIT 39.9 % (36.0-47.0); HEMOGLOBIN 12.4 g/dl (12.0-15.5); IMMATURE GRANULOCYTE % 0.3 % (0-3.0); LYMPH # 2.9 10^3/uL (1.5-6.5); LYMPH % 37.9 % (24.0-44.0); MEAN CORPUSCULAR HEMOGLOBIN 26.2 pg (27.0-33.0); MEAN CORPUSCULAR HGB CONC 31.1 g/dl (32.0-36.5); MEAN CORPUSCULAR VOLUME 84.4 fl (80.0-96.0); MONO # 0.6 10^3/uL (0.0-0.8); NEUTROPHILS % 52.3 % (36.0-66.0); PLATELET COUNT, AUTOMATED 413 10^3/uL (150-450); RED BLOOD COUNT 4.73 10^6/uL (4.00-5.40); RED CELL DISTRIBUTION WIDTH 15.7 % (11.5-14.5); WHITE BLOOD COUNT 7.7 10^3/uL (4.0-10.0)
[2017-12-27] MEDS: KETOROLAC 30 MG/ML VIAL (J1885) IV ×2 (12:46→13:01)
[2017-12-27] MEDS: NS 1,000 ML IV (12:46)
[2017-12-27] MEDS: METOCLOPRAMIDE INJ 10MG/2ML VIAL (J2765) IV (12:46)
[2017-12-27 12:52] LABS: CONTROL LINE HCG INT CTR LINE PRESENT; HCG, SERUM QUALITATIVE NEGATIVE (NEGATIVE)
[2017-12-27 13:00] LABS: ALBUMIN 3.5 GM/DL (3.2-5.2); ALBUMIN/GLOBULIN RATIO 0.95 (1.00-1.93); ALKALINE PHOSPHATASE 37 U/L (45-117); ALT/SGPT 38 U/L (12-78); ANION GAP 5 MEQ/L (8-16); AST/SGOT 21 U/L (7-37); BILIRUBIN,DIRECT < 0.1 MG/DL (0.0-0.2); BILIRUBIN,TOTAL 0.4 MG/DL (0.2-1.0); BLOOD UREA NITROGEN 9 MG/DL (7-18); CALCIUM LEVEL 8.5 MG/DL (8.5-10.1); CARBON DIOXIDE LEVEL 27 MEQ/L (21-32); CHLORIDE LEVEL 110 MEQ/L (98-107); CREATININE FOR GFR 0.62 MG/DL (0.55-1.30); GLOMERULAR FILTRATION RATE > 60.0 (>60); GLUCOSE, FASTING 77 MG/DL (70-100); LIPASE 164 U/L (73-393); POTASSIUM SERUM 3.8 MEQ/L (3.5-5.1); SODIUM LEVEL 142 MEQ/L (136-145); TOTAL PROTEIN 7.2 GM/DL (6.4-8.2)
[2017-12-27 13:37] LABS: KETONE, URINE AUTO RFX NEGATIVE (NEGATIVE); LEUKOCYTE ESTERASE UR AUTO RFX NEGATIVE (NEGATIVE); NITRITE, URINE AUTO RFX NEGATIVE (NEGATIVE); RBC, URINE AUTO RFX 1 /HPF (0-3); SPECIFIC GRAVITY UR AUTO RFX 1.017 (1.002-1.035); SQUAM EPITHELIAL CELL UR AURFX 5 /HPF (0-6); WBC, URINE AUTO RFX 2 /HPF (0-3)
[2017-12-27] MEDS ORDERED: ISOVUE-370 76% 100ML VIAL (Q9967) As Ordered (13:51)
== END 2017-12-27 14:47 | disposition home or self-care (01) ==
LOC: M ED 11:18
DX: K52.9 Noninfective gastroenteritis and colitis, unspecified (principal)
CPT/HCPCS: Q9967

== ENCOUNTER → 2018-01-05 | Outpatient (REF) | payer MEDICAID, OTHER | LOC: M SFHCWAGY 10:29 | DX: Z12.4 Encounter for screening for malignant neoplasm of cervix (principal) | CPT/HCPCS: 88142 ==

== ENCOUNTER → 2018-01-16 | Outpatient (REF) | payer MEDICAID, OTHER ==
[~2018-01-16] MED LIST changes: +AMOX500C PO; +ARIP1TAB3 PO; +ATOM25CA PO; +ATOM40CA PO; +BUPR300T34 PO; +CLON0.5T8 PO; +CORL1.7T PO; +KETO10TAB PO; +KLON0.5T PO; +LAMI25TA PO; +LITH600C PO; +LORA-243 PO; +METF500T13 PO; +MIDO2.5T PO; +NAPR-49 PO; +REGL10TA6 PO; +VYVA20CA; +WELLTAB40 PO; +ZOFR4TAB14 PO
== END ==
LOC: M LAB REF 10:22
PROVIDERS: ATTEND Physician Assistant Medical
DX: J02.9 Acute pharyngitis, unspecified (principal)

== ENCOUNTER → 2018-01-26 | Outpatient (REF) | payer MEDICAID, OTHER | LOC: M SFHCPLAZ 11:19 | DX: J02.9 Acute pharyngitis, unspecified (principal) | CPT/HCPCS: 87081 ==

== ENCOUNTER 2018-03-05 20:43 | Emergency (ER) | payer MEDICAID, OTHER ==
[2018-03-05 21:32] LABS: BASO # 0.1 10^3/uL (0.0-0.2); BASO % 0.6 % (0.0-1.0); EOS # 0.2 10^3/uL (0.0-0.50); EOS % 1.5 % (0.0-3.0); HEMATOCRIT 39.2 % (36.0-47.0); HEMOGLOBIN 12.3 g/dl (12.0-15.5); IMMATURE GRANULOCYTE % 0.3 % (0-3.0); LYMPH # 3.7 10^3/uL (1.5-6.5); LYMPH % 34.1 % (24.0-44.0); MEAN CORPUSCULAR HGB CONC 31.4 g/dl (32.0-36.5); MEAN CORPUSCULAR VOLUME 82.9 fl (80.0-96.0); MONO # 0.8 10^3/uL (0.0-0.8); MONO % 7.1 % (0.0-5.0); NEUTROPHILS # 6.2 10^3/uL (1.8-7.7); NEUTROPHILS % 56.4 % (36.0-66.0); PLATELET COUNT, AUTOMATED 470 10^3/uL (150-450); RED BLOOD COUNT 4.73 10^6/uL (4.00-5.40); RED CELL DISTRIBUTION WIDTH 14.5 % (11.5-14.5); WHITE BLOOD COUNT 10.9 10^3/uL (4.0-10.0)
[2018-03-05 22:08] LABS: ANION GAP 9 MEQ/L (8-16); BLOOD UREA NITROGEN 12 MG/DL (7-18); CALCIUM LEVEL 8.9 MG/DL (8.5-10.1); CARBON DIOXIDE LEVEL 26 MEQ/L (21-32); CHLORIDE LEVEL 106 MEQ/L (98-107); CPK CREATINE PHOSPHOKINASE 122 U/L (26-192); CREATININE FOR GFR 0.79 MG/DL (0.55-1.30); FREE T4 0.87 NG/DL (0.76-1.46); GLOMERULAR FILTRATION RATE > 60.0 (>60); GLUCOSE, FASTING 76 MG/DL (70-100); MAGNESIUM LEVEL 2.2 MG/DL (1.8-2.4); MB/CK RELATIVE INDEX 0.98 (< OR =4); POTASSIUM SERUM 4.1 MEQ/L (3.5-5.1); SODIUM LEVEL 141 MEQ/L (136-145); TROPONIN I < 0.02 NG/ML (< 0.10)
[2018-03-05 22:31] LABS: CONTROL LINE HCG INT CTR LINE PRESENT; HCG, SERUM QUALITATIVE NEGATIVE (NEGATIVE)
[2018-03-05] MEDS: ACETAMINOPHEN TAB 650MG DOSE (2X325MG) PO (22:34)
[2018-03-05] MEDS: NS 1,000 ML IV (22:34)
[2018-03-08 08:52] LABS: BEDSIDE GLUCOSE 81 MG/DL (70-105)
== END 2018-03-06 00:20 | disposition home or self-care (01) ==
LOC: M ED 03-06 00:20
DX: R55 Syncope and collapse (principal); I47.1 Supraventricular tachycardia; F31.9 Bipolar disorder, unspecified; E28.2 Polycystic ovarian syndrome; Z88.6 Allergy status to analgesic agent; Z88.1 Allergy status to other antibiotic agents; Z88.8 Allergy status to other drugs, medicaments and biological substances; Z79.899 Other long term (current) drug therapy
CPT/HCPCS: 71046

== ENCOUNTER → 2018-03-17 | Outpatient (REF) | payer MEDICAID, OTHER, SELFPAY ==
[~2018-03-17] MED LIST changes: -NAPR-49 PO; +NAPR-50 PO
[2018-03-17 22:24] LABS: INFLUENZA A AMPLIFICATION NEGATIVE (NEGATIVE); INFLUENZA B AMPLIFICATION NEGATIVE (NEGATIVE)
== END ==
LOC: M LAB REF 10:27
PROVIDERS: ATTEND Physician Assistant
DX: J11.1 Influenza due to unidentified influenza virus with other respiratory manifestations (principal)

== ENCOUNTER → 2018-04-07 | Outpatient (REF) | payer MEDICAID, OTHER ==
[2018-04-07 15:56] LABS: HEMATOCRIT 38.2 % (36.0-47.0); HEMOGLOBIN 11.7 g/dl (12.0-15.5); MEAN CORPUSCULAR HEMOGLOBIN 25.5 pg (27.0-33.0); MEAN CORPUSCULAR HGB CONC 30.6 g/dl (32.0-36.5); MEAN CORPUSCULAR VOLUME 83.2 fl (80.0-96.0); PLATELET COUNT, AUTOMATED 432 10^3/uL (150-450); RED BLOOD COUNT 4.59 10^6/uL (4.00-5.40); WHITE BLOOD COUNT 8.2 10^3/uL (4.0-10.0)
[2018-04-07 16:34] LABS: ALBUMIN 3.4 GM/DL (3.2-5.2); ALT/SGPT 30 U/L (12-78); BILIRUBIN,TOTAL 0.3 MG/DL (0.2-1.0); BLOOD UREA NITROGEN 10 MG/DL (7-18); CALCIUM LEVEL 8.7 MG/DL (8.5-10.1); CARBON DIOXIDE LEVEL 31 MEQ/L (21-32); CHLORIDE LEVEL 107 MEQ/L (98-107); FERRITIN 6 NG/ML (8-252); GLOMERULAR FILTRATION RATE > 60.0 (>60); GLUCOSE, FASTING 88 MG/DL (70-100); IRON (FE) 46 UG/DL (50-170); PERCENT SATURATION 10.6 % (13.2-45.0); POTASSIUM SERUM 4.4 MEQ/L (3.5-5.1); SODIUM LEVEL 141 MEQ/L (136-145); TOTAL IRON BINDING CAPACITY 434 UG/DL (250-450); TOTAL PROTEIN 6.9 GM/DL (6.4-8.2)
== END ==
LOC: M SFHCPLAZ 13:48
PROVIDERS: ATTEND Nurse Practitioner Adult Health
DX: R53.83 Other fatigue (principal); R55 Syncope and collapse; Z86.2 Personal history of diseases of the blood and blood-forming organs and certain disorders involving the immune mechanism

== ENCOUNTER → 2018-04-07 | Outpatient (REF) | payer MEDICAID, OTHER | LOC: M LABDRAWP 13:55 | PROVIDERS: ATTEND Nurse Practitioner Psychiatric/Mental Health | DX: Z51.81 Encounter for therapeutic drug level monitoring (principal); Z79.899 Other long term (current) drug therapy ==

== ENCOUNTER 2018-05-04 11:22 | Outpatient (CLI) | payer OTHER ==
[~2018-05-04] VITALS: Ht 170.2 cm; Wt 113.0 kg
[2018-05-04] VITALS (7 sets, daily range): BP systolic 104–123; BP diastolic 55–68
[2018-05-04] MEDS ORDERED: IRON SUCROSE 25 MG in NS 50 ML IV ONE (12:30)
[2018-05-04] MEDS ORDERED: IRON SUCROSE 475 MG in NS 250 ML IV ONE (13:30)
[2018-05-04] MEDS ORDERED: METF500T13 PO (15:51)
== END 2018-05-04 17:15 | disposition home or self-care (01) ==
LOC: M INFU 11:22
PROVIDERS: ATTEND Nurse Practitioner Adult Health
DX: D50.9 Iron deficiency anemia, unspecified (principal); Z88.1 Allergy status to other antibiotic agents; Z88.8 Allergy status to other drugs, medicaments and biological substances
CPT/HCPCS: 96365; 96366; J1756

== ENCOUNTER → 2018-05-14 | Outpatient (REF) | payer MEDICAID, OTHER ==
[~2018-05-14] MED LIST changes: -NAPR-50 PO; +NAPR-837 PO
[2018-05-14 18:43] LABS: INFLUENZA A AMPLIFICATION NEGATIVE (NEGATIVE); INFLUENZA B AMPLIFICATION NEGATIVE (NEGATIVE)
== END ==
LOC: M LAB REF 09:36
PROVIDERS: ATTEND Physician Assistant Medical
DX: J11.1 Influenza due to unidentified influenza virus with other respiratory manifestations (principal)

== ENCOUNTER → 2018-06-20 | Outpatient (CLI) | payer OTHER ==
[~2018-06-20] MED LIST changes: +NAPR-50 PO; -NAPR-837 PO
== END ==
LOC: M LAB 11:45
PROVIDERS: ATTEND Nurse Practitioner Psychiatric/Mental Health
DX: F31.32 Bipolar disorder, current episode depressed, moderate (principal); F41.1 Generalized anxiety disorder; F40.10 Social phobia, unspecified; F48.1 Depersonalization-derealization syndrome

== ENCOUNTER → 2018-06-20 | Outpatient (CLI) | payer OTHER ==
[2018-06-20 13:36] LABS: FOLLICLE STIMULATING HORMONE 1.6 mIU/mL; LUTEINIZING HORMONE 0.8 mIU/mL; PROGESTERONE 7.02 NG/ML; PROLACTIN 33.9 NG/ML
== END ==
LOC: M LAB 11:40
PROVIDERS: ATTEND Specialist
DX: N93.8 Other specified abnormal uterine and vaginal bleeding (principal)

== ENCOUNTER → 2018-06-30 | Outpatient (REF) | payer OTHER ==
[2018-06-30 22:16] LABS: AMORPHOUS SEDIMENT SMALL (NEGATIVE); APPEARANCE, URINE TURBID (CLEAR); BACTERIA, URINE AUTO NEGATIVE (NEGATIVE); BILIRUBIN, URINE AUTO NEGATIVE (NEGATIVE); BLOOD, URINE BLOOD 3+ (NEGATIVE); COLOR, URINE YELLOW (YELLOW); GLUCOSE, URINE (UA) AUTO NEGATIVE (NEGATIVE); KETONE, URINE AUTO NEGATIVE (NEGATIVE); LEUKOCYTE ESTERASE, URINE AUTO NEGATIVE (NEGATIVE); NITRITE, URINE AUTO NEGATIVE (NEGATIVE); PROTEIN, URINE AUTO 1+ mg/dL (NEGATIVE); RBC, URINE AUTO 40 /HPF (0-3); SPECIFIC GRAVITY URINE AUTO 1.013 (1.002-1.035); SQUAMOUS EPITHELIAL CELL UR AU 2 /HPF (0-6); UROBILINOGEN, URINE AUTO 0.2 mg/dL (0.0-2.0); WBC, URINE AUTO 1 /HPF (0-3)
== END ==
LOC: M LAB REF 13:45
PROVIDERS: ATTEND Physician Assistant Medical
DX: N39.0 Urinary tract infection, site not specified (principal)

== ENCOUNTER 2018-07-02 19:43 | Emergency (ER) | payer MEDICAID, OTHER ==
[~2018-07-02] VITALS: Ht 167.6 cm; Wt 113.6 kg
[~2018-07-02 19:43] MED LIST changes: -NAPR-50 PO; +NAPR-837 PO
[2018-07-02] MEDS ORDERED: KETOROLAC 30 MG/ML VIAL (J1885) IV ONE (20:15)
[2018-07-02] MEDS ORDERED: NS 1,000 ML IV ONE (20:15)
[2018-07-02 20:43] LABS: BASO # 0.1 10^3/uL (0.0-0.2); EOS # 0.1 10^3/uL (0.0-0.50); EOS % 1.1 % (0.0-3.0); HEMATOCRIT 41.1 % (36.0-47.0); HEMOGLOBIN 13.1 g/dl (12.0-15.5); LYMPH # 3.6 10^3/uL (1.5-6.5); LYMPH % 37.8 % (24.0-44.0); MEAN CORPUSCULAR HGB CONC 31.9 g/dl (32.0-36.5); MEAN CORPUSCULAR VOLUME 84.7 fl (80.0-96.0); MONO # 0.7 10^3/uL (0.0-0.8); MONO % 7.1 % (0.0-5.0); NEUTROPHILS % 52.8 % (36.0-66.0); PLATELET COUNT, AUTOMATED 389 10^3/uL (150-450); RED BLOOD COUNT 4.85 10^6/uL (4.00-5.40); WHITE BLOOD COUNT 9.4 10^3/uL (4.0-10.0)
[2018-07-02 20:45] LABS: URINE PREG TEST NEGATIVE (NEGATIVE)
[2018-07-02 21:18] LABS: ALBUMIN 3.8 GM/DL (3.2-5.2); ALT/SGPT 29 U/L (12-78); BILIRUBIN,DIRECT < 0.1 MG/DL (0.0-0.2); BILIRUBIN,TOTAL 0.1 MG/DL (0.2-1.0); BLOOD UREA NITROGEN 16 MG/DL (7-18); CALCIUM LEVEL 8.8 MG/DL (8.5-10.1); CARBON DIOXIDE LEVEL 25 MEQ/L (21-32); CHLORIDE LEVEL 109 MEQ/L (98-107); CREATININE FOR GFR 0.95 MG/DL (0.55-1.30); GLOMERULAR FILTRATION RATE > 60.0 (>60); GLUCOSE, FASTING 94 MG/DL (70-100); POTASSIUM SERUM 3.8 MEQ/L (3.5-5.1); SODIUM LEVEL 143 MEQ/L (136-145); TOTAL PROTEIN 7.3 GM/DL (6.4-8.2)
--- NOTE | 2018-07-02 21:46 | REP ---
Clinical: Left flank pain and hematuria. Technique: Axial noncontrast images from the lung bases to the pubic symphysis with coronal and sagittal re-formations. Comparison: 12/27/2017. Findings: Evaluation of the urinary check system demonstrates 1 mm left and 3 mm right nonobstructing intrarenal calculi without perinephric stranding, hydroureteronephrosis or obstructing ureteral calculi. The bilateral ureters and bladder appear relatively normal. Liver, spleen, pancreas, and bilateral adrenal glands are normal. Evidence for prior cholecystectomy. The enteric system is without obstruction or acute inflammatory process. Normal terminal ileum and appendix identified in the right lower quadrant. Pelvis demonstrates normal sigmoid, collapsed bladder, and age-appropriate uterus/adnexa. Phleboliths noted in the pelvis. No ascites. No free air. No intraperitoneal or retroperitoneal adenopathy. Abdominal aorta without aneurysm. Musculoskeletal structures are intact. Impression: 1. Small nonobstructing bilateral intrarenal calculi without hydroureternephrosis or obstructing ureteral calculus. 2. No further acute abdominopelvic pathology appreciated. Electronically Signed by Bong Schulte MD 07/02/2018 09:37 P
[2018-07-02] MEDS ORDERED: KETO10TAB PO (22:13)
[2018-07-02 22:28] VITALS: BP 111/64
== END 2018-07-02 22:39 | disposition home or self-care (01) ==
LOC: M ED 19:43
DX: R31.9 Hematuria, unspecified (principal); Z87.442 Personal history of urinary calculi; E28.2 Polycystic ovarian syndrome; R56.9 Unspecified convulsions; R51 Headache; J45.909 Unspecified asthma, uncomplicated; K58.9 Irritable bowel syndrome, unspecified; D64.9 Anemia, unspecified; F31.9 Bipolar disorder, unspecified; Z79.899 Other long term (current) drug therapy; Z88.8 Allergy status to other drugs, medicaments and biological substances
CPT/HCPCS: 74176; 80048; 80076; 81001; 84703; 85025; 96361; 96374; 99284; J1885

== ENCOUNTER → 2018-07-04 | Outpatient (REF) | payer OTHER ==
[~2018-07-04] MED LIST changes: +NAPR-50 PO; -NAPR-837 PO
== END ==
LOC: M SMT 17:02
PROVIDERS: ATTEND Nurse Practitioner Family
DX: R31.0 Gross hematuria (principal)

== ENCOUNTER → 2018-10-28 | Outpatient (REF) | payer OTHER ==
[~2018-10-28] MED LIST changes: -NAPR-50 PO; +NAPR-837 PO
[2018-10-28 15:26] LABS: BASO # 0.1 10^3/uL (0.0-0.2); BASO % 0.7 % (0.0-1.0); EOS # 0.1 10^3/uL (0.0-0.50); EOS % 1.3 % (0.0-3.0); HEMATOCRIT 42.2 % (36.0-47.0); HEMOGLOBIN 13.6 g/dl (12.0-15.5); LYMPH % 36.8 % (24.0-44.0); MEAN CORPUSCULAR HEMOGLOBIN 28.5 pg (27.0-33.0); MEAN CORPUSCULAR HGB CONC 32.2 g/dl (32.0-36.5); MEAN CORPUSCULAR VOLUME 88.5 fl (80.0-96.0); MONO # 0.7 10^3/uL (0.0-0.8); MONO % 7.9 % (0.0-5.0); NEUTROPHILS # 4.4 10^3/uL (1.8-7.7); NEUTROPHILS % 53.2 % (36.0-66.0); PLATELET COUNT, AUTOMATED 347 10^3/uL (150-450); RED BLOOD COUNT 4.77 10^6/uL (4.00-5.40); WHITE BLOOD COUNT 8.3 10^3/uL (4.0-10.0)
[2018-10-28 15:46] LABS: INR 0.97; PROTHROMBIN TIME 12.6 SECONDS (11.8-14.0)
[2018-10-28 16:13] LABS: ALBUMIN 3.8 GM/DL (3.2-5.2); ALT/SGPT 53 U/L (12-78); BILIRUBIN,TOTAL 0.3 MG/DL (0.2-1.0); BLOOD UREA NITROGEN 10 MG/DL (7-18); CALCIUM LEVEL 9.1 MG/DL (8.5-10.1); CARBON DIOXIDE LEVEL 27 MEQ/L (21-32); CHLORIDE LEVEL 106 MEQ/L (98-107); CREATININE FOR GFR 0.74 MG/DL (0.55-1.30); FERRITIN 31 NG/ML (8-252); GLOMERULAR FILTRATION RATE > 60.0 (>60); GLUCOSE, FASTING 84 MG/DL (70-100); IRON (FE) 65 UG/DL (50-170); LIPASE 136 U/L (73-393); PERCENT SATURATION 17.1 % (13.2-45.0); POTASSIUM SERUM 4.2 MEQ/L (3.5-5.1); SODIUM LEVEL 140 MEQ/L (136-145); TOTAL IRON BINDING CAPACITY 380 UG/DL (250-450); TOTAL PROTEIN 7.3 GM/DL (6.4-8.2)
== END ==
LOC: M SFHCPLAZ 13:56
PROVIDERS: ATTEND Family Medicine
DX: R10.13 Epigastric pain (principal); Z86.2 Personal history of diseases of the blood and blood-forming organs and certain disorders involving the immune mechanism; T14.8XXA Other injury of unspecified body region, initial encounter

== ENCOUNTER 2018-12-07 13:11 | Emergency (ER) | payer OTHER ==
[~2018-12-07] VITALS: Ht 167.6 cm; Wt 125.0 kg
[~2018-12-07 13:11] MED LIST changes: -ARIP1TAB3 PO; +ARIP1TAB44 PO; -METF750T PO; +METF750T36 PO
[2018-12-07] MEDS ORDERED: LAMI25TA PO (13:35)
[2018-12-07] MEDS ORDERED: AMPH20CA (13:35)
[2018-12-07] MEDS ORDERED: ACETAMINOPHEN 500 MG TAB PO ONE (16:00)
[2018-12-07] MEDS ORDERED: METOCLOPRAMIDE 10 MG TAB PO ONE (16:00)
[2018-12-07 17:10] LABS: INFLUENZA A AMPLIFICATION POSITIVE (NEGATIVE); INFLUENZA B AMPLIFICATION NEGATIVE (NEGATIVE)
--- NOTE | 2018-12-07 18:11 | REP ---
HISTORY: Chest discomfort. COMPARISON: 05/06/2017 FINDINGS: The superior mediastinal structures are midline. The cardiac silhouette is unremarkable in size, shape and position. The diaphragmatic surfaces of the lungs are regular and the costophrenic angles are clear. The pulmonary hernandez are clear. The imaged osseous structures are intact. IMPRESSION: There is no acute cardiopulmonary disease. Note is again made of an implanted portable device in the anterior left chest wall towards the midline, status quo. Electronically Signed by Tye Cartagena DO 12/07/2018 07:48 P
[2018-12-07] MEDS ORDERED: IBUPROFEN 600 MG TAB PO ONE (19:00)
[2018-12-07] MEDS ORDERED: NS 1,000 ML IV ONE (19:00)
[2018-12-07 19:05] LABS: HEMATOCRIT 42.8 % (36.0-47.0); HEMOGLOBIN 14.1 g/dl (12.0-15.5); MEAN CORPUSCULAR HGB CONC 32.9 g/dl (32.0-36.5); MEAN CORPUSCULAR VOLUME 87.9 fl (80.0-96.0); PLATELET COUNT, AUTOMATED 249 10^3/uL (150-450); RED BLOOD COUNT 4.87 10^6/uL (4.00-5.40); WHITE BLOOD COUNT 6.2 10^3/uL (4.0-10.0)
[2018-12-07 19:35] LABS: BLOOD UREA NITROGEN 13 MG/DL (7-18); CALCIUM LEVEL 9.1 MG/DL (8.5-10.1); CARBON DIOXIDE LEVEL 23 MEQ/L (21-32); CHLORIDE LEVEL 107 MEQ/L (98-107); CREATININE FOR GFR 0.76 MG/DL (0.55-1.30); GLOMERULAR FILTRATION RATE > 60.0 (>60); GLUCOSE, FASTING 82 MG/DL (70-100); POTASSIUM SERUM 4.2 MEQ/L (3.5-5.1); SODIUM LEVEL 138 MEQ/L (136-145)
[2018-12-07 19:53] VITALS: BP 130/80
[2018-12-07] MEDS ORDERED: OSEL75CA PO (20:21)
--- NOTE | 2018-12-07 20:30 | ECGEPIP ---
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
[2018-12-07] MEDS ORDERED: OSELTAMIVIR PHOSPHATE 75 MG CAP (TAMIFLU) PO ONE (21:00)
[2019-01-01] MEDS ORDERED: LAMO25TA4 (15:36)
[2019-01-01] MEDS ORDERED: LATU40TA (15:36)
[2019-01-01] MEDS ORDERED: ALPR0.5T3 (15:36)
== END 2018-12-07 20:35 | disposition home or self-care (01) ==
LOC: M ED 13:11
DX: J09.X9 Influenza due to identified novel influenza A virus with other manifestations (principal); R56.9 Unspecified convulsions; F33.9 Major depressive disorder, recurrent, unspecified; Z79.899 Other long term (current) drug therapy; Z88.1 Allergy status to other antibiotic agents; Z88.8 Allergy status to other drugs, medicaments and biological substances

== ENCOUNTER 2018-12-16 16:06 | Emergency (ER) | payer OTHER ==
[~2018-12-16] VITALS: Ht 167.6 cm; Wt 130.7 kg
[~2018-12-16 16:06] MED LIST changes: +AMPH20CA PO; +OSEL75CA PO
[2018-12-16 16:46] LABS: BASO # 0.1 10^3/uL (0.0-0.2); BASO % 0.5 % (0.0-1.0); EOS # 0.1 10^3/uL (0.0-0.5); EOS % 1.4 % (0.0-3.0); HEMATOCRIT 45.8 % (36.0-47.0); HEMOGLOBIN 14.9 g/dl (12.0-15.5); LYMPH # 4.2 10^3/uL (1.5-5.0); LYMPH % 41.7 % (24.0-44.0); MEAN CORPUSCULAR HEMOGLOBIN 28.7 pg (27.0-33.0); MEAN CORPUSCULAR HGB CONC 32.5 g/dl (32.0-36.5); MEAN CORPUSCULAR VOLUME 88.1 fl (80.0-96.0); MONO # 0.9 10^3/uL (0.0-0.8); MONO % 8.7 % (0.0-5.0); NEUTROPHILS # 4.7 10^3/uL (1.5-8.5); NEUTROPHILS % 47.4 % (36.0-66.0); PLATELET COUNT, AUTOMATED 377 10^3/uL (150-450)
[2018-12-16 17:10] LABS: ALT/SGPT 60 U/L (12-78); AMYLASE 42 U/L (25-115); BILIRUBIN,DIRECT 0.1 MG/DL (0.0-0.2); BILIRUBIN,TOTAL 0.4 MG/DL (0.2-1.0); BLOOD UREA NITROGEN 10 MG/DL (7-18); CALCIUM LEVEL 9.8 MG/DL (8.5-10.1); CARBON DIOXIDE LEVEL 27 MEQ/L (21-32); CHLORIDE LEVEL 105 MEQ/L (98-107); CREATININE FOR GFR 0.76 MG/DL (0.55-1.30); GLOMERULAR FILTRATION RATE > 60.0 (>60); GLUCOSE, FASTING 90 MG/DL (70-100); LIPASE 142 U/L (73-393); POTASSIUM SERUM 4.3 MEQ/L (3.5-5.1); SODIUM LEVEL 140 MEQ/L (136-145); TOTAL PROTEIN 7.6 GM/DL (6.4-8.2)
[2018-12-16] MEDS ORDERED: KETOROLAC 30 MG/ML VIAL (J1885) IV ONE (17:30)
[2018-12-16] MEDS ORDERED: METOCLOPRAMIDE INJ 10MG/2ML VIAL (J2765) IV ONE (17:30)
[2018-12-16] MEDS ORDERED: NS 1,000 ML IV ONE (17:30)
--- NOTE | 2018-12-16 19:17 | REP ---
HISTORY: Abdominal pain. FINDINGS: Supine and upright views of the abdomen show the intestinal gas pattern to be nonspecific. Gas and stool is seen throughout the colon within the rectosigmoid region. The organ silhouettes insofar as delineated appear unremarkable. No abdominal calcific densities are seen within the abdomen or pelvis. The accompanying single frontal view of the chest shows no free subdiaphragmatic air, cardiomegaly, infiltrates or effusions. IMPRESSION: Nonspecific intestinal gas pattern. The frontal view of the chest is unchanged compared to the prior two view examination of the chest 12/07/2018. Electronically Signed by Tye Cartagena DO 12/16/2018 07:41 P
[2018-12-16] MEDS ORDERED: PROMETHAZINE INJ 25 MG/ML VIAL (J2550) IV ONE (19:30)
[2018-12-16] MEDS ORDERED: GI COCKTAIL 50ML BTL(HYOSCYAMINE/MAALOX/LIDOCAINE VISCOUS)(1:3:1) PO ONE (22:00)
[2018-12-16] MEDS ORDERED: FAMOTIDINE IV BAG 20 MG in IV 1 EA IV ONE (22:00)
[2018-12-16] MEDS: GASTROGRAFIN SOLUTION 30ML PO SCH ×2 (22:26→22:54)
[2018-12-16] MEDS ORDERED: MORPHINE 2 MG/ML 1ML SYRINGE (J2270) IV ONE (23:15)
[2018-12-16] MEDS ORDERED: ISOVUE-370 76% 100ML VIAL (Q9967) As Ordered ONE (23:28)
[2018-12-17] MEDS ORDERED: HALOPERIDOL 5 MG/ML VIAL (J1630) IV ONE (00:30)
--- NOTE | 2018-12-17 00:41 | REPVR ---
EXAM: CT Abdomen and Pelvis With Contrast EXAM DATE/TIME: 12/16/2018 9:48 PM CLINICAL HISTORY: 23 years old, female; Abdominal pain; Generalized; Additional info: Abdominal pain, n/v/d, HX pancreatitis TECHNIQUE: Imaging protocol: Computed tomography of the abdomen and pelvis with intravenous contrast. Radiation optimization: All CT scans at this facility use at least one of these dose optimization techniques: automated exposure control; mA and/or kV adjustment per patient size (includes targeted exams where dose is matched to clinical indication); or iterative reconstruction. Contrast material: ISO; Contrast volume: 100 ml; Contrast route: AC; COMPARISON: CT ABD/PEL W/IV CONTRAST ONLY 12/27/2017 2:04 PM FINDINGS: Liver: Enlarged liver with diffuse fatty infiltration. Gallbladder and bile ducts: Status post cholecystectomy. No ductal dilatation. Pancreas: Normal. No ductal dilation. Spleen: Normal. No splenomegaly. Adrenals: Normal. No mass. Kidneys and ureters: Nonobstructing 3 mm stone in the lower pole of the right kidney. Stomach and bowel: Non distention of the transverse, descending, and sigmoid colon without surrounding inflammatory changes, nonspecific. Small bowel is unremarkable. Appendix: Normal appendix. Intraperitoneal space: Unremarkable. No free air. No significant fluid collection. Vasculature: Unremarkable. No abdominal aortic aneurysm. Lymph nodes: Unremarkable. No enlarged lymph nodes. Bladder: Unremarkable as visualized. Reproductive: Unremarkable as visualized. Bones/joints: Unremarkable. No acute fracture. Soft tissues: Unremarkable. IMPRESSION: No acute finding. No evidence of pancreatitis. Electronically signed by: Elvia Foote On 12/17/2018 00:41:20 AM
[2018-12-17 00:56] VITALS: BP 114/56
[2018-12-17] MEDS ORDERED: ONDA4TAB6 PO (00:56)
== END 2018-12-17 01:05 | disposition home or self-care (01) ==
LOC: M ED 16:06
DX: R10.11 Right upper quadrant pain (principal); R10.12 Left upper quadrant pain; J45.909 Unspecified asthma, uncomplicated; K58.9 Irritable bowel syndrome, unspecified; F33.9 Major depressive disorder, recurrent, unspecified; I49.8 Other specified cardiac arrhythmias; Z79.899 Other long term (current) drug therapy; Z88.1 Allergy status to other antibiotic agents; Z88.8 Allergy status to other drugs, medicaments and biological substances
CPT/HCPCS: 74021; 74177; 80048; 80076; 81001; 82150; 83690; 84702; 85025; 96361; 96365; 96366; 96375; 99284; J1630; J1885; J2270; J2765; Q9963; Q9967

== ENCOUNTER 2019-01-01 15:25 | Emergency (ER) | payer OTHER ==
[~2019-01-01] VITALS: Ht 167.6 cm; Wt 133.1 kg
[~2019-01-01 15:25] MED LIST changes: +ONDA4TAB6 PO
[2019-01-01] MEDS ORDERED: LAMO25TA4 PO (15:36)
[2019-01-01] MEDS ORDERED: LATU40TA PO (15:36)
[2019-01-01] MEDS ORDERED: ALPR0.5T3 PO (15:36)
[2019-01-01] MEDS ORDERED: ACET1TAB37 PO (15:38)
[2019-01-01] MEDS ORDERED: NS 1,000 ML IV ONE (16:45)
[2019-01-01 17:11] LABS: INFLUENZA A AMPLIFICATION NEGATIVE (NEGATIVE); INFLUENZA B AMPLIFICATION NEGATIVE (NEGATIVE)
[2019-01-01] MEDS ORDERED: KETOROLAC 30 MG/ML VIAL (J1885) IV ONE ×2 (18:15→20:30)
[2019-01-01] MEDS ORDERED: cefTRIAXone SOD 2 GM in D5W MINI-BAG PLUS 50 ML IV ONE (18:15)
--- NOTE | 2019-01-01 18:43 | REPVR ---
PROCEDURE INFORMATION: Exam: CT Chest Without Contrast Exam date and time: 01/01/2019 5:13 PM Clinical history: 23 years old, female; Abnormal findings; Abnormal radiologic exam of lung or chest; Additional info: Pneumonia TECHNIQUE: Imaging protocol: Computed tomography of the chest without contrast. 3D rendering: MIP reconstructed images were created and reviewed. Radiation optimization: All CT scans at this facility use at least one of these dose optimization techniques: automated exposure control; mA and/or kV adjustment per patient size (includes targeted exams where dose is matched to clinical indication); or iterative reconstruction. COMPARISON: CR Chest, 2 view PA, Lat 01/01/2019 3:56 PM FINDINGS: LungsSegmental atelectasis/consolidation in the anterior segment right upper lobe. Minimal groundglass opacity in the posterior segment of the right upper lobe Pleural space: Unremarkable. No pneumothorax. No pleural effusion. Heart: Unremarkable. No cardiomegaly. No pericardial effusion. Aorta: Unremarkable. No aortic aneurysm. Lymph nodes: There is a 9 mm right paratracheal lymph node. Liver: The liver is low in density. Gallbladder and bile ducts: Surgical clips noted in the gallbladder fossa. The gallbladder is absent. Bones/joints: Unremarkable. No acute fracture. Soft tissues: Loop recording device noted within the subcutaneous fat anterior to the sternum. IMPRESSION: Atelectasis with consolidation in the anterior segment of the right upper lobe. Electronically signed by: Fannie Valiente On 01/01/2019 18:42:58 PM
[2019-01-01 18:59] LABS: HEMATOCRIT 42.5 % (36.0-47.0); HEMOGLOBIN 13.7 g/dl (12.0-15.5); MEAN CORPUSCULAR HEMOGLOBIN 28.6 pg (27.0-33.0); MEAN CORPUSCULAR HGB CONC 32.2 g/dl (32.0-36.5); MEAN CORPUSCULAR VOLUME 88.7 fl (80.0-96.0); PLATELET COUNT, AUTOMATED 266 10^3/uL (150-450); RED BLOOD COUNT 4.79 10^6/uL (4.00-5.40); WHITE BLOOD COUNT 11.8 10^3/uL (4.0-10.0)
[2019-01-01 19:24] LABS: BLOOD UREA NITROGEN 9 MG/DL (7-18); CALCIUM LEVEL 8.6 MG/DL (8.5-10.1); CARBON DIOXIDE LEVEL 27 MEQ/L (21-32); CHLORIDE LEVEL 101 MEQ/L (98-107); CREATININE FOR GFR 0.92 MG/DL (0.55-1.30); GLOMERULAR FILTRATION RATE > 60.0 (>60); GLUCOSE, FASTING 81 MG/DL (70-100); POTASSIUM SERUM 3.8 MEQ/L (3.5-5.1); SODIUM LEVEL 137 MEQ/L (136-145)
[2019-01-01] MEDS ORDERED: ACETAMINOPHEN 500 MG TAB PO ONE (19:30)
[2019-01-01] MEDS ORDERED: METOCLOPRAMIDE INJ 10MG/2ML VIAL (J2765) IV ONE (19:30)
[2019-01-01 19:51] LABS: HCG, SERUM QUANTITATIVE < 1.0 MIU/ML
[2019-01-01 20:16] LABS: VENOUS BASE EXCESS -3.4 (-2.0-2.0); VENOUS O2 SATURATION 98.8 % (60.0-80.0); VENOUS PARTIAL PRESSURE CO2 31.4 mmHg (38.0-50.0); VENOUS PARTIAL PRESSURE O2 138.8 mmHg (30.0-50.0); VENOUS PH 7.423 UNITS (7.330-7.430); VENOUS STANDARD HCO3 21.7 MEQ/L
[2019-01-01] MEDS ORDERED: AUGM500T34 PO (20:33)
[2019-01-01 20:46] VITALS: BP 115/60
--- NOTE | 2019-01-02 07:49 | REP ---
Chest PA and lateral: 01/01/2019. Comparison 12/16/2018, 12/07/2018, 03/05/2018. Clinical history: Cough and fever. Patchy infiltrate in the lingular segment adjacent left heart border most of it in the superior segment. The perihilar left lung. There is new linear and curvilinear density representing atelectasis and some likely fluid in the fissure. This represents a pseudotumor. Loop recorder is seen over the midline chest. Heart not enlarged. Aorta and airway intact bony thorax shows no focal lesion. There is no effusion. Impression: 1. Patchy infiltrate in the lingula adjacent to left heart border and a linear and curvilinear density in the right lung representing atelectasis and likely pseudotumor with fluid in the fissure. This same area on chest x-ray 16 days ago was normal. Electronically Signed by Jamal Florez MD 01/02/2019 08:58 A
== END 2019-01-01 20:53 | disposition home or self-care (01) ==
LOC: M ED 15:25
DX: J18.9 Pneumonia, unspecified organism (principal); J45.909 Unspecified asthma, uncomplicated; Z79.899 Other long term (current) drug therapy; Z88.1 Allergy status to other antibiotic agents; Z88.6 Allergy status to analgesic agent; Z88.8 Allergy status to other drugs, medicaments and biological substances
CPT/HCPCS: 36415; 71046; 71250; 80048; 82803; 84702; 85027; 87040; 87502; 96365; 96375; 96376; 99284; J0696; J1885; J2765

== ENCOUNTER 2019-01-05 13:42 | Inpatient (IN) | payer OTHER ==
[~2019-01-05] VITALS: Ht 167.6 cm; Wt 129.7 kg
[~2019-01-05 13:42] MED LIST changes: +ACET1TAB37 PO; +ALPR0.5T3 PO; +AUGM500T34 PO; +LAMO25TA4 PO; +LATU40TA PO
[2019-01-05] MEDS ORDERED: PSEU30TA85 PO (14:11)
[2019-01-05] MEDS ORDERED: IBUP-1114 PO (14:11)
[2019-01-05] MEDS ORDERED: AMOX500T2 PO (14:11)
[2019-01-05] MEDS ORDERED: methylPREDNISolone INJ 125 MG/2 ML VIAL (J2930) IV ONE (15:30)
[2019-01-05] MEDS ORDERED: NS 1,000 ML IV ONE (15:30)
[2019-01-05] MEDS ORDERED: IPRATROPIUM 0.5MG/ALBUTEROL 2.5MG INH SOL UD 3ML (DUONEB)(J7620) NEB PRN ×2 (15:30→18:45)
[2019-01-05 15:57] LABS: HEMATOCRIT 39.7 % (36.0-47.0); MEAN CORPUSCULAR HEMOGLOBIN 28.6 pg (27.0-33.0); MEAN CORPUSCULAR HGB CONC 32.7 g/dl (32.0-36.5); MEAN CORPUSCULAR VOLUME 87.4 fl (80.0-96.0); PLATELET COUNT, AUTOMATED 276 10^3/uL (150-450); RED BLOOD COUNT 4.54 10^6/uL (4.00-5.40); WHITE BLOOD COUNT 9.9 10^3/uL (4.0-10.0)
[2019-01-05] MEDS ORDERED: cefTRIAXone SOD 1 GM in D5W MINI-BAG PLUS 50 ML IV ONE (16:45)
[2019-01-05] MEDS ORDERED: DOXYCYCLINE HYCLATE 100 MG in D5W MINI-BAG PLUS 100 ML IV ONE (17:00)
--- NOTE | 2019-01-05 17:11 | REP ---
HISTORY: Followup pneumonia. COMPARISON: 01/01/2019 Patchy right upper and lower lobe opacities with a patchy opacity in the lateral segment of the right middle lobe, all increased. Left lung clear and stable. Cardiomediastinal silhouette unchanged. The heart is not enlarged. The pleural angles remain sharp. IMPRESSION: Worsening pneumonia. Electronically Signed by Tye Cartagena DO 01/06/2019 10:23 A
[2019-01-05] MEDS ORDERED: ACET1TAB55 PO (17:20)
[2019-01-05] MEDS ORDERED: IBUP200C28 PO (17:20)
[2019-01-05] MEDS ORDERED: SUMA6KIT SC (17:20)
[2019-01-05] MEDS ORDERED: ADDE5CAP PO (17:20)
[2019-01-05] MEDS ORDERED: ALPRAZolam 0.5 MG TAB PO PRN (17:45)
[2019-01-05] MEDS ORDERED: SUMAtriptan SUCCINATE 6 MG/0.5 ML VIAL SC PRN (17:45)
[2019-01-05] MEDS ORDERED: PSEUDOEPHEDRINE 30 MG TAB PO PRN (17:45)
[2019-01-05] MEDS ORDERED: AMPHETAMINE/DEXTROAMPHETAMINE 5 MG *ER* CAPSULE (ADDERALL XR) PO PRN (17:45)
--- NOTE | 2019-01-05 18:35 | HPEPDOC ---
General Date of Admission Jan 05, 2019 at 17:35 Date of Service: Jan 05, 2019 Attending Physician: APRIL FELDER MD Chief Complaint The patient is a 23-year-old female admitted with a reason for visit of Pneumonia. Source: Patient Exam Limitations: No limitations Timing/Duration: Week(s) Severity: Moderate Associated Symptoms: Cough, Fever, Chills, Shortness of breath History of Present Illness 23 yo woman with a history of SVTs s/p ablation with persistent symptoms with a current loop recorder, history of childhood asthma, orthostatic hypotension p reviously on midodrine who presents with a persistent productive cough with associated rib pain, fever and chills at home in the setting of a recent ED visit for the same symptoms for which she was prescribed augmentin without improvement in symptoms. She reports that her symptoms began with URI symptoms namely cough that became productive over a week, congestion and now rib pain. She has been taking ibuprofen and tylenol for pain. She also reports some palpitations and episodic chest pain that is self limited, non exertional without obvious precipitants. Home Medications Scheduled Amoxicillin/Potassium Clav (Amox-Clav 500-125 mg Tablet) 1 Each Tablet, 1 TAB PO Q8H, (Reported) FILLED 01/02/19 FOR 10 DAYS Dextroamphetamine/Amphetamine (Dextroamp-Amphet ER 20 mg Cap) 20 Mg Cap.er.24h, 20 MG PO DAILY, (Reported) Lamotrigine (Lamotrigine) 25 Mg Tablet, 25 MG PO TID, (Reported) Lurasidone Hydrochloride (Latuda) 40 Mg Tablet, 40 MG PO QPM, (Reported) Scheduled PRN Acetaminophen (Acetaminophen) 325 Mg Tablet, 650 MG PO Q6H PRN for PAIN, (Reported) Alprazolam (Alprazolam) 0.5 Mg Tablet, 0.5 MG PO TID PRN for ANXIETY, (Reported) Dextroamphetamine/Amphetamine (Adderall Xr 5 mg Capsule) 5 Mg Cap.er.24h, 1 CAP PO DAILY PRN for NARCOLEPSY SYMPTOMS, (Reported) Ibuprofen (Ibuprofen) 200 Mg Capsule, 400 MG PO QID PRN for PAIN, (Reported) Pseudoephedrine HCl (Sudafed) 30 Mg Tablet, 30 MG PO Q4H PRN for NASAL CONGESTION, (Reported) Sumatriptan Succinate (Sumatriptan Succinate) 6 Mg/0.5 Ml Cartridge, 6 MG SC DAILY PRN for MIGRAINE, (Reported) Allergies Coded Allergies: levofloxacin (Unverified Adverse Reaction, Intermediate, QT PROLONGATION, 07/02/18) ondansetron (Unverified Adverse Reaction, Intermediate, QT PROLONGATION, 07/02/18) aspirin (Unverified Adverse Reaction, Mild, HX OF ANEMIA TOLD NOT TO TAKE, 07/02/18) clarithromycin (Unverified Adverse Reaction, Mild, VOMITING, 07/02/18) erythromycin base (Unverified Adverse Reaction, Mild, VOMITING, 07/02/18) Past Medical History Medical History SVT s/p ablation with persistent symptoms Orthostatic hypotension previously on midodrine TID Asthma Morbid obesity Narcolepsy Attention deficit disorder Family History Significant Family History: No pertinent family hx Social History * Smoker: Denies Alcohol: Denies Drugs: denies Recent Travel/Sick Contacts: Denies: Recent travel, Recent sick contacts Psychosocial History: Anxiety, Att. deficit disorder, Dane SI and HI A-FIB/CHADSVASC A-FIB History Current/History of A-Fib/PAF?: No Current PO Anticoag Therapy: No Age/Risk Factor Scoring CHADSVASC: CHADSVASC Response (Comments) Value Age Risk Factor Age < 65 years old 0 Gender Risk Factor Female 1 Hx of CHF No 0 Hx of HTN No 0 Hx of Stroke/TIA/or VTE No 0 Hx of Diabetes No 0 Hx of Vascular Disease No 0 Total 1 Treatment Treatment ordered: NONE Reason Anticoagulant not given: Not indicated/[id number] Review of Systems Constitutional: Reports: Chills, Fever; Denies: Night Sweats, Weakness, Fatigue, Weight Loss, Lethargy Eyes: Denies: Pain, Vision change ENT: Denies: Head Aches, Ear Pain, Dysphagia Skin: Denies: Rash, Lesions, Breakdown Pulmonary: Reports: Dyspnea, Cough, Other Symptoms (chest wall and rib pain from coughing); Denies: Pleuritic Chest Pain Cardiovascular: Reports: Chest Pain (episodic transient self limited substernal pain, lasting a few seconds to a minute), Palpitations; Denies: Orthopnea, Paroxysmal Noc. Dyspnea, Edema, Lt Headedness Gastrointestinal: Denies: Nausea, Vomiting, Abdominal Pain, Diarrhea, Constipation, Melena, Hematochezia Genitourinary: Denies: Dysuria, Frequency, Incontinence, Retention Hematologic: Denies: Bruising, Bleeding Excessively Endocrine: Denies: Polydipsia, Polyphagia, Polyuria, Heat Intolerance, Cold Intolerance, Other Endocrine Sx Musculoskeletal: Reports: Back Pain; Denies: Neck Pain, Joint Pain, Muscle Pain, Spasms Neurological: Denies: Weakness, Numbness, Change in speech, Confusion Psych: Reports: Mood Normal; Denies: Depression, Memory Issues Physical Examination General Exam: Positive: Alert, No Acute Distress Eye Exam: Positive: PERRLA, Conjunctiva & lids normal, EOMI; Negative: Sclera icteric ENT Exam: Positive: Atraumatic, Mucous membr. moist/pink, Pharynx Normal Neck Exam: Positive: Supple; Negative: JVD, thyromegaly Chest Exam: Positive: Clear to auscultation, Normal air movement; Negative: Rales, Wheezing Heart Exam: Positive: Tachycardic, Regular Rhythm, Normal S1, Normal S2; Negative: Gallops, Murmurs, Rubs Abdomen Exam: Positive: Normal bowel sounds, Soft; Negative: Tenderness, Hepatospenomegaly, Mass Extremity Exam: Positive: Normal pulses; Negative: Clubbing, Cyanosis, Edema Skin Exam: Positive: Nl turgor and temperature; Negative: Breakdown, Lesion Neuro Exam: Positive: Normal Gait, Normal Speech, Cranial Nerves 3-12 NL, Reflexes 2+ Psych Exam: Positive: Mental status NL, Mood NL, Oriented x 3 Vital Signs Vital Signs Date Time Temp Pulse Resp B/P (MAP) Pulse Ox O2 Delivery O2 Flow Rate FiO2 01/05/19 17:47 98.6 96 16 136/80 (98) 93 Room Air Laboratory Data Labs 24H Laboratory Tests 2 01/05/19 15:42: POC Beta HCG, Quantitative < 5.0 01/05/19 15:45: Nucleated Red Blood Cells % (auto) 0.0, Magnesium Level 2.1 01/05/19 15:55: POC Glucose (Misc Panel) 95, POC Sodium (Misc Panel) 138, POC Potassium (Misc Panel) 4.0, POC Chloride (Misc Panel) 101, POC Total CO2 (Misc Panel) 29.0H, POC Blood Urea Nitrogen (Misc Panel 8, POC Ionized Calcium (Misc Panel) 4.4L, POC Creatinine (Misc Panel) 0.6, POC Hematocrit (Misc Panel) 49.0 01/05/19 16:02: POC Lactate (Misc Panel) 1.42 01/05/19 17:41: CBC/BMP Laboratory Tests 01/05/19 15:45 Red Blood Count 4.54, Mean Corpuscular Volume 87.4, Mean Corpuscular Hemoglobin 28.6, Mean Corpuscular Hemoglobin Concent 32.7, Red Cell Distribution Width 14.7 H Microbiology Microbiology 01/05/19 Gram Stain, Received Pending 01/05/19 Sputum Culture, Received Pending 01/05/19 Blood Culture, Received Pending 01/05/19 Blood Culture, Received Pending Assessment/Plan 23 yo woman with a history of SVT s/p ablation with persisting symptoms, recent diagnosis of pneumonia in the ED persisting despite augmentin, now admitted for management of pneumonia. -Community acquired pneumonia: -CXR with interval worsening of patchy right upper and lower lobe opacities with a patchy opacity in the lateral segment of the right middle lobe -stop augmentin start empiric ceftriaxone/doxy -sputum culture -urine strep and legionella -s/p solumedrol 125 in the ED -will hold on further steroids at this time, fairly stable without hypoxemia or labored breathing -tessalon perls for cough Q4H PRN -duonebs Q4H PRN -incentive spirometry Ongoing symptomatic SVTs: -telemetry -cardiology consult: Sees Dr. Velez and Dr. Neil ([place] [facility]). Recently declined a repeat ablation in 04/2018, has loop recorder. -FYI - does not tolerate beta blockers due to significant hypotension. Tolerated ivabradine before. -Continue all home psych medications -Xanax 0.5 TID PRN -Adderall 20 ER QD -Adderall 5 PRN for narcolepsy symptoms -lurasidone 40 QHS -lamotrigine 25 TID Migraines: -sumatriptan PRN -DVT prophylaxis: heparin 5000 Q8H -Diet: regular Plan / VTE VTE Prophylaxis Ordered?: Yes APRIL FELDER MD Jan 05, 2019 18:35
[2019-01-05] MEDS: LURASIDONE HCL 40 MG TAB (LATUDA) PO SCH (18:48)
[2019-01-05 22:04] VITALS: BP 112/75
[2019-01-05] MEDS: HEPARIN SOD (PORCINE) 5000 UNITS/ML VIAL SC SCH (23:09)
[2019-01-05] MEDS: lamoTRIgine 25 MG TAB PO SCH (23:09)
[2019-01-06] MEDS: BENZONATATE 100 MG CAP PO PRN ×2 (00:59→09:52)
[2019-01-06] MEDS: ACETAMINOPHEN TAB 650MG DOSE (2X325MG) PO PRN ×3 (03:08→23:07)
[2019-01-06 05:56] LABS: HEMATOCRIT 34.7 % (36.0-47.0); HEMOGLOBIN 11.4 g/dl (12.0-15.5); MEAN CORPUSCULAR HEMOGLOBIN 28.9 pg (27.0-33.0); MEAN CORPUSCULAR HGB CONC 32.9 g/dl (32.0-36.5); MEAN CORPUSCULAR VOLUME 87.8 fl (80.0-96.0); PLATELET COUNT, AUTOMATED 313 10^3/uL (150-450); RED BLOOD COUNT 3.95 10^6/uL (4.00-5.40); WHITE BLOOD COUNT 11.1 10^3/uL (4.0-10.0)
[2019-01-06 06:00] VITALS: BP 113/71
[2019-01-06 06:22] LABS: ALBUMIN 2.7 GM/DL (3.2-5.2); ALT/SGPT 90 U/L (12-78); BILIRUBIN,TOTAL 0.6 MG/DL (0.2-1.0); BLOOD UREA NITROGEN 11 MG/DL (7-18); CALCIUM LEVEL 8.4 MG/DL (8.5-10.1); CARBON DIOXIDE LEVEL 25 MEQ/L (21-32); CHLORIDE LEVEL 102 MEQ/L (98-107); CREATININE FOR GFR 0.69 MG/DL (0.55-1.30); GLOMERULAR FILTRATION RATE > 60.0 (>60); GLUCOSE, FASTING 113 MG/DL (70-100); POTASSIUM SERUM 3.3 MEQ/L (3.5-5.1); SODIUM LEVEL 137 MEQ/L (136-145); TOTAL PROTEIN 7.4 GM/DL (6.4-8.2)
[2019-01-06] MEDS: HEPARIN SOD (PORCINE) 5000 UNITS/ML VIAL SC SCH ×3 (06:37→21:02)
[2019-01-06] MEDS: DOXYCYCLINE HYCLATE 100 MG in D5W MINI-BAG PLUS 100 ML IV SCH ×2 (06:38→19:28)
[2019-01-06] MEDS ORDERED: POTASSIUM CHLORIDE 10 MEQ SR TABLET PO ONE ×2 (09:00→10:30)
[2019-01-06] MEDS ORDERED: INFLUENZA QUADRIVALENT PF VACCINE 0.5ML SYRINGE (90686) IM ONE (09:00)
[2019-01-06] MEDS: AMPHETAMINE/DEXTROAMPHETAMINE 5 MG *ER* CAPSULE (ADDERALL XR) PO SCH (09:00)
[2019-01-06] MEDS: lamoTRIgine 25 MG TAB PO SCH ×3 (09:45→21:02)
--- NOTE | 2019-01-06 11:25 | IPNPDOC ---
Subjective Date Seen The patient was seen on 01/06/19. Subjective Chief Complaint/HPI Pt still has cough. No other complaints but feels tired General: Denies: ROS Unobtainable, Chills, Night Sweats, Fatigue, Malaise, Normal Appetite, Other Symptoms Constitutional: Denies: Chills, Fever, Malaise, Night Sweats, Weakness, Fatigue, Weight Loss, Lethargy, Other Skin: Denies: Rash, Lesions, Jaundice, Bruising, Itching, Dry, Breakdown, Nail Changes, Other Pulmonary: Reports: Cough; Denies: Dyspnea, Pleuritic Chest Pain, Other Symptoms Cardiovascular: Denies: Chest Pain, Palpitations, Orthopnea, Paroxysmal Noc. Dyspnea, Edema, Lt Headedness, Other Symptoms Gastrointestinal: Denies: Nausea, Vomiting, Abdominal Pain, Diarrhea, Constipation, Melena, Hematochezia, Other Symptoms Musculoskeletal: Denies: Neck Pain, Back Pain, Shoulder Pain, Arm Pain, Hand Pain, Leg Pain, Foot Pain, Joint Pain, Muscle Pain, Spasms, Other Symptoms Neurological: Denies: Weakness, Numbness, Incoordination, Change in speech, Confusion, Seizures, Other Symptoms Objective Physical Examination Neck Exam: Positive: Supple Chest Exam: Positive: Rhonchi, Diminished Heart Exam: Positive: Rate Normal, Normal S1, Normal S2 Abdomen Exam: Positive: Normal bowel sounds, Soft Extremity Exam: Positive: Normal pulses Skin Exam: Positive: Nl turgor and temperature Neuro Exam: Positive: Strength at 5/5 X4 ext, Sensation Intact Assessment /Plan Problems (1) Pneumonia Status: Acute Problem Text: This is 23 years old female with past medical history of SVT status post ablation with a recurrent symptoms recently diagnosed with influenza A infection and again diagnosed with pneumonia in ED and was discussed prescribe Augmentin, but without any relief and she decided come to emergency room when she was admitted with community acquired pneumonia Yosef x-ray reveals a patchy right upper and lower lobe opacities and patchy opacity lateral segment of right middle lobe pt has been started on IV Rocephin and doxycycline . She is afebrile and symptoms are slowly improving Sputum cultures were ordered and still pending Urine is still pending. Legionella also were ordered and are pending Continue DuoNeb and incentive spirometry (2) History of paroxysmal supraventricular tachycardia Status: Chronic Problem Text: History of symptomatic SVT And is status post ablation Cardiology consult has been called and is tolerated Patient is clinically stable. No apparent distress Further recommendations as per cardiology. Patient does have a loop recorder or (3) Hypokalemia Status: Acute Problem Text: Potassium supplemented Repeat levels in a.m. Plan/VTE VTE Prophylaxis Ordered?: Yes VS, I&O, 24H, Fishbone Vital Signs/I&O Vital Signs Date Time Temp Pulse Resp B/P (MAP) Pulse Ox O2 Delivery O2 Flow Rate FiO2 01/06/19 06:00 97.4 90 22 113/71 (85) 97 3.0 01/05/19 21:52 Room Air I&O- Last 24 Hours up to 6 AM 01/06/19 06:00 Intake Total 1750 ml Output Total 400 ml Balance 1350 ml Laboratory Data 24H LABS Laboratory Tests 2 01/05/19 15:42: POC Beta HCG, Quantitative < 5.0 01/05/19 15:45: Nucleated Red Blood Cells % (auto) 0.0, Magnesium Level 2.1 01/05/19 15:55: POC Glucose (Misc Panel) 95, POC Sodium (Misc Panel) 138, POC Potassium (Misc Panel) 4.0, POC Chloride (Misc Panel) 101, POC Total CO2 (Misc Panel) 29.0H, POC Blood Urea Nitrogen (Misc Panel 8, POC Ionized Calcium (Misc Panel) 4.4L, POC Creatinine (Misc Panel) 0.6, POC Hematocrit (Misc Panel) 49.0 01/05/19 16:02: POC Lactate (Misc Panel) 1.42 01/05/19 17:41: 01/06/19 05:21: Nucleated Red Blood Cells % (auto) 0.0, Anion Gap 10, Glomerular Filtration Rate > 60.0, Blood Urea Nitrogen 11, Creatinine 0.69, Sodium Level 137, Potassium Level 3.3L, Chloride Level 102, Carbon Dioxide Level 25, Calcium Level 8.4L, Aspartate Amino Transf (AST/SGOT) 59H, Alanine Aminotransferase (ALT/SGPT) 90H, Alkaline Phosphatase 64, Total Bilirubin 0.6, Total Protein 7.4, Albumin 2.7L, Albumin/Globulin Ratio 0.57L 01/06/19 06:15: CBC/BMP Laboratory Tests 01/05/19 15:45 Red Blood Count 4.54, Mean Corpuscular Volume 87.4, Mean Corpuscular Hemoglobin 28.6, Mean Corpuscular Hemoglobin Concent 32.7, Red Cell Distribution Width 14.7 H 01/06/19 05:21 Red Blood Count 3.95 L, Mean Corpuscular Volume 87.8, Mean Corpuscular Hemoglobin 28.9, Mean Corpuscular Hemoglobin Concent 32.9, Red Cell Distribution Width 14.6 H, Calcium Level 8.4 L, Aspartate Amino Transf (AST/SGOT) 59 H, Yves ne Aminotransferase (ALT/SGPT) 90 H, Alkaline Phosphatase 64, Total Bilirubin 0.6, Total Protein 7.4, Albumin 2.7 L Microbiology Microbiology 01/05/19 Gram Stain - Final, Resulted 01/05/19 Sputum Culture, Resulted Pending 01/05/19 Blood Culture, Received Pending 01/05/19 Blood Culture, Received Pending BILLY LIMA MD Jan 06, 2019 11:24
[2019-01-06 14:00] VITALS: BP 105/67
[2019-01-06] MEDS: cefTRIAXone SOD 2 GM in D5W MINI-BAG PLUS 50 ML IV SCH (18:37)
[2019-01-06] MEDS: LURASIDONE HCL 40 MG TAB (LATUDA) PO SCH (18:43)
[2019-01-06 22:00] VITALS: BP 101/53
[2019-01-07 06:00] VITALS: BP 121/68
[2019-01-07] MEDS: DOXYCYCLINE HYCLATE 100 MG in D5W MINI-BAG PLUS 100 ML IV SCH ×2 (06:16→19:00)
[2019-01-07] MEDS: HEPARIN SOD (PORCINE) 5000 UNITS/ML VIAL SC SCH ×3 (06:16→20:50)
[2019-01-07 07:17] LABS: BASO # 0.1 10^3/uL (0.0-0.2); BASO % 1.1 % (0.0-1.0); EOS # 0.1 10^3/uL (0.0-0.5); EOS % 0.8 % (0.0-3.0); HEMATOCRIT 34.6 % (36.0-47.0); LYMPH # 3.9 10^3/uL (1.5-5.0); LYMPH % 38.3 % (24.0-44.0); MEAN CORPUSCULAR HEMOGLOBIN 28.5 pg (27.0-33.0); MEAN CORPUSCULAR HGB CONC 31.8 g/dl (32.0-36.5); MEAN CORPUSCULAR VOLUME 89.6 fl (80.0-96.0); MONO # 0.8 10^3/uL (0.0-0.8); MONO % 8.4 % (0.0-5.0); NEUTROPHILS # 4.7 10^3/uL (1.5-8.5); NEUTROPHILS % 46.5 % (36.0-66.0); PLATELET COUNT, AUTOMATED 320 10^3/uL (150-450); RED BLOOD COUNT 3.86 10^6/uL (4.00-5.40)
[2019-01-07 07:26] LABS: ALBUMIN 2.5 GM/DL (3.2-5.2); ALT/SGPT 78 U/L (12-78); BILIRUBIN,TOTAL 0.4 MG/DL (0.2-1.0); BLOOD UREA NITROGEN 16 MG/DL (7-18); CALCIUM LEVEL 8.6 MG/DL (8.5-10.1); CARBON DIOXIDE LEVEL 27 MEQ/L (21-32); CHLORIDE LEVEL 107 MEQ/L (98-107); CREATININE FOR GFR 0.66 MG/DL (0.55-1.30); GLOMERULAR FILTRATION RATE > 60.0 (>60); GLUCOSE, FASTING 79 MG/DL (70-100); POTASSIUM SERUM 3.6 MEQ/L (3.5-5.1); SODIUM LEVEL 142 MEQ/L (136-145); TOTAL PROTEIN 6.8 GM/DL (6.4-8.2)
[2019-01-07] MEDS: ACETAMINOPHEN TAB 650MG DOSE (2X325MG) PO PRN ×2 (07:48→13:50)
[2019-01-07] MEDS: lamoTRIgine 25 MG TAB PO SCH ×3 (07:48→20:50)
[2019-01-07] MEDS: AMPHETAMINE/DEXTROAMPHETAMINE 5 MG *ER* CAPSULE (ADDERALL XR) PO SCH (07:48)
--- NOTE | 2019-01-07 09:13 | IPNPDOC ---
Subjective Date Seen The patient was seen on 01/07/19. Subjective Chief Complaint/HPI Patient is slightly feeling better. Offers no new complaints except cough General: Denies: ROS Unobtainable, Chills, Night Sweats, Fatigue, Malaise, Normal Appetite, Other Symptoms Constitutional: Denies: Chills, Fever, Malaise, Night Sweats, Weakness, Fatigue, Weight Loss, Lethargy, Other Pulmonary: Reports: Cough Cardiovascular: Denies: Chest Pain, Palpitations, Orthopnea, Paroxysmal Noc. Dyspnea, Edema, Lt Headedness, Other Symptoms Gastrointestinal: Denies: Nausea, Vomiting, Abdominal Pain, Diarrhea, Constipation, Melena, Hematochezia, Other Symptoms Genitourinary: Denies: Dysuria, Frequency, Incontinence, Hematuria, Retention, Other Symptoms Musculoskeletal: Denies: Neck Pain, Back Pain, Shoulder Pain, Arm Pain, Hand Pain, Leg Pain, Foot Pain, Joint Pain, Muscle Pain, Spasms, Other Symptoms Neurological: Denies: Weakness, Numbness, Incoordination, Change in speech, Confusion, Seizures, Other Symptoms Objective Physical Examination General Exam: Positive: Alert, Cooperative Neck Exam: Positive: Supple Chest Exam: Positive: Rhonchi (diminished rhonchi and compared to yesterday), Diminished (. Breath sounds bilaterally) Heart Exam: Positive: Rate Normal, Normal S1, Normal S2 Abdomen Exam: Positive: Normal bowel sounds, Soft Extremity Exam: Positive: Normal pulses Skin Exam: Positive: Nl turgor and temperature Neuro Exam: Positive: Strength at 5/5 X4 ext, Sensation Intact Assessment /Plan Problems (1) Pneumonia Status: Acute Problem Text: This is 23 years old female with past medical history of SVT status post ablation with a recurrent symptoms recently diagnosed with influenza A infection and again diagnosed with pneumonia in ED and was discussed prescribe Augmentin, but without any relief and she decided come to emergency room when she was admitted with community acquired pneumonia Yosef x-ray reveals a patchy right upper and lower lobe opacities and patchy opacity lateral segment of right middle lobe pt has been started on IV Rocephin and doxycycline . She is afebrile and symptoms are slowly improving Sputum cultures show WBCs, gram-positive cocci in chains and clusters. Final report pending Urine is still pending. Legionella also were ordered and are pending Continue DuoNeb and incentive spirometry Possible discharge in a.m. if continues to improve with the same rate as she is now (2) History of paroxysmal supraventricular tachycardia Status: Chronic Problem Text: History of symptomatic SVT And is status post ablation Cardiology consult has been called but not done yet Patient is clinically stable. No apparent distress Further recommendations as per cardiology. Patient does have a loop recorder DC telemetry as there is no evidence of any abnormal cardiac rhythm on the monitor (3) Hypokalemia Status: Resolved Problem Text: Potassium supplemented Repeat levels in a.m. Plan/VTE VTE Prophylaxis Ordered?: Yes VS, I&O, 24H, Fishbone Vital Signs/I&O Vital Signs Date Time Temp Pulse Resp B/P (MAP) Pulse Ox O2 Delivery O2 Flow Rate FiO2 01/07/19 07:58 3.0 01/07/19 06:00 98.3 91 17 121/68 (85) 97 01/05/19 21:52 Room Air I&O- Last 24 Hours up to 6 AM 01/07/19 06:00 Intake Total 1290 ml Output Total 400 ml Balance 890 ml Laboratory Data 24H LABS Laboratory Tests 2 01/07/19 05:49: Anion Gap 8, Glomerular Filtration Rate > 60.0, Blood Urea Nitrogen 16, Creatini ne 0.66, Sodium Level 142, Potassium Level 3.6, Chloride Level 107, Carbon Dioxide Level 27, Calcium Level 8.6, Aspartate Amino Transf (AST/SGOT) 56H, Alanine Aminotransferase (ALT/SGPT) 78, Alkaline Phosphatase 54, Total Bilirubin 0.4, Total Protein 6.8, Albumin 2.5L, Albumin/Globulin Ratio 0.58L 01/07/19 06:35: Immature Granulocyte % (Auto) 4.9H, White Blood Count 10.0, Red Blood Count 3.86L, Hemoglobin 11.0L, Hematocrit 34.6L, Mean Corpuscular Volume 89.6, Mean Corpuscular Hemoglobin 28.5, Mean Corpuscular Hemoglobin Concent 31.8L, Red Cell Distribution Width 14.9H, Platelet Count 320, Neutrophils (%) (Auto) 46.5, Lymphocytes (%) (Auto) 38.3, Monocytes (%) (Auto) 8.4H, Eosinophils (%) (Auto) 0.8, Basophils (%) (Auto) 1.1H, Neutrophils # (Auto) 4.7, Lymphocytes # (Auto) 3.9, Monocytes # (Auto) 0.8, Eosinophils # (Auto) 0.1, Basophils # (Auto) 0.1, Nucleated Red Blood Cells % (auto) 0.0 CBC/BMP Laboratory Tests 01/07/19 05:49 Calcium Level 8.6, Aspartate Amino Transf (AST/SGOT) 56 H, Alanine Aminotransferase (ALT/SGPT) 78, Alkaline Phosphatase 54, Total Bilirubin 0.4, Total Protein 6.8, Albumin 2.5 L 01/07/19 06:35 Red Blood Count 3.86 L, Mean Corpuscular Volume 89.6, Mean Corpuscular Hemoglobin 28.5, Mean Corpuscular Hemoglobin Concent 31.8 L, Red Cell Distribution Width 14.9 H, Neutrophils (%) (Auto) 46.5, Lymphocytes (%) (Auto) 38.3, Monocytes (%) (Auto) 8.4 H, Eosinophils (%) (Auto) 0.8, Basophils (%) (Aut o) 1.1 H, Neutrophils # (Auto) 4.7, Lymphocytes # (Auto) 3.9, Monocytes # (Auto) 0.8, Eosinophils # (Auto) 0.1, Basophils # (Auto) 0.1 Microbiology Microbiology 01/05/19 Gram Stain - Final, Resulted 01/05/19 Sputum Culture, Resulted Pending 01/05/19 Blood Culture - Preliminary, Resulted No growth after 24 hours . All specim... 01/05/19 Blood Culture - Preliminary, Resulted No growth after 24 hours . All specim... BILLY LIMA MD Jan 07, 2019 09:13
[2019-01-07 14:00] VITALS: BP 100/53
[2019-01-07] MEDS: cefTRIAXone SOD 2 GM in D5W MINI-BAG PLUS 50 ML IV SCH (17:57)
[2019-01-07] MEDS: LURASIDONE HCL 40 MG TAB (LATUDA) PO SCH (17:57)
[2019-01-07 22:00] VITALS: BP 110/68
[2019-01-08] MEDS: ACETAMINOPHEN TAB 650MG DOSE (2X325MG) PO PRN (02:06)
[2019-01-08] MEDS: HEPARIN SOD (PORCINE) 5000 UNITS/ML VIAL SC SCH (06:12)
[2019-01-08] MEDS: DOXYCYCLINE HYCLATE 100 MG in D5W MINI-BAG PLUS 100 ML IV SCH (06:13)
[2019-01-08 06:41] LABS: HEMATOCRIT 34.6 % (36.0-47.0); HEMOGLOBIN 11.2 g/dl (12.0-15.5); MEAN CORPUSCULAR HEMOGLOBIN 28.7 pg (27.0-33.0); MEAN CORPUSCULAR HGB CONC 32.4 g/dl (32.0-36.5); MEAN CORPUSCULAR VOLUME 88.7 fl (80.0-96.0); PLATELET COUNT, AUTOMATED 387 10^3/uL (150-450); WHITE BLOOD COUNT 10.4 10^3/uL (4.0-10.0)
[2019-01-08 06:51] LABS: ALBUMIN 2.7 GM/DL (3.2-5.2); ALT/SGPT 67 U/L (12-78); BILIRUBIN,TOTAL 0.3 MG/DL (0.2-1.0); BLOOD UREA NITROGEN 13 MG/DL (7-18); CALCIUM LEVEL 8.6 MG/DL (8.5-10.1); CARBON DIOXIDE LEVEL 28 MEQ/L (21-32); CHLORIDE LEVEL 105 MEQ/L (98-107); CREATININE FOR GFR 0.73 MG/DL (0.55-1.30); GLOMERULAR FILTRATION RATE > 60.0 (>60); GLUCOSE, FASTING 83 MG/DL (70-100); POTASSIUM SERUM 3.4 MEQ/L (3.5-5.1); SODIUM LEVEL 141 MEQ/L (136-145); TOTAL PROTEIN 7.2 GM/DL (6.4-8.2)
[2019-01-08 07:27] LABS: ANISOCYTOSIS 1+; ATYPICAL LYMPH 2 % (0-5); EOSINOPHILS 2 % (0-3); LYMPHOCYTES 51 % (16-44); METAMYELOCYTES 3 % (0-0); MONOCYTES 7 % (0-5); MYELOCYTES 1 % (0-0); NEUTROPHILS 30 % (28-66); PLATELET ESTIMATE NORMAL (NORMAL)
[2019-01-08] MEDS ORDERED: POTASSIUM CHLORIDE 10 MEQ SR TABLET PO ONE (07:45)
--- NOTE | 2019-01-08 08:10 | REP ---
PA and lateral chest: Comparison is 01/05/2019. The right upper lobe infiltrate has increased in size. The right middle lobe and right lower lobe infiltrates have resolved. The left lung is clear. There are no pleural effusions. The cardiac size is normal. The giorgio, mediastinum, skeletal structures are unremarkable. Impression: Significant improvement in the patient's right lung infiltrates. Electronically Signed by Pete Egan MD 01/08/2019 08:01 A
[2019-01-08] MEDS: AMPHETAMINE/DEXTROAMPHETAMINE 5 MG *ER* CAPSULE (ADDERALL XR) PO SCH (08:13)
[2019-01-08] MEDS: lamoTRIgine 25 MG TAB PO SCH (08:13)
[2019-01-08] MEDS ORDERED: CEFP200T PO (08:43)
[2019-01-08] MEDS ORDERED: DOXY-350 PO (08:43)
--- NOTE | 2019-01-08 10:32 | DS.PDOC ---
Discharge Summary General Date of Admission Jan 05, 2019 at 17:35 Date of Discharge 01/08/19 Attending Physician: BILLY LIMA MD Discharge Summary PROCEDURES PERFORMED DURING STAY: None. ADMITTING DIAGNOSES: 1. Community acquired pneumonia, history of SVT, obesity. DISCHARGE DIAGNOSES: 1. Community acquired pneumonia, history of SVT, obesity. COMPLICATIONS/CHIEF COMPLAINT: Pneumonia. HISTORY OF PRESENT ILLNESS: 23 yo woman with a history of SVTs s/p ablation with persistent symptoms with a current loop recorder, history of childhood asthma, orthostatic hypotension previously on midodrine who presents with a persistent productive cough with associated rib pain, fever and chills at home in the setting of a recent ED visit for the same symptoms for which she was prescribed augmentin without improvement in symptoms. She reports that her symptoms began with URI symptoms namely cough that became productive over a week, congestion and now rib pain. She has been taking ibuprofen and tylenol for pain. She also reports some palpitations and episodic chest pain that is self limited, non exertional without obvious precipitants.. HOSPITAL COURSE: This is 23 years old female with past medical history of SVT status post ablation with a recurrent symptoms recently diagnosed with influenza A infection and again diagnosed with pneumonia in ED and was discussed prescribe Augmentin, but without any relief and she decided come to emergency room when s he was admitted with community acquired pneumonia Initial chest x-ray revealed a patchy right upper and lower lobe opacities and patchy opacity lateral segment of right middle lobe She was started on IV Rocephin and doxycycline, which she responded very well. WBC count now is 10.4, repeat chest x-ray shows resolution of right-sided infiltrates. Sputum cultures and nonspecific She is afebrile and asymptomatic at the present time except occasional cough Patient will be discharged home on by mouth cephalosporins and doxycycline continue for 7 days Follow-up with PCP in one week. Has been highly recommended . DISCHARGE MEDICATIONS: Please see below. ALLERGIES: Please see below. PHYSICAL EXAMINATION ON DISCHARGE: VITAL SIGNS: Please see below. GENERAL: Within normal limits HEENT: PERRLA. Extraocular muscles intact NECK:. Supple, no JVD, no lymphadenopathy CARDIOVASCULAR EXAMINATION:. S1, S2, regular RESPIRATORY EXAMINATION: Clear to A&P. No rales, rhonchi or wheezing ABDOMINAL EXAMINATION:. Benign EXTREMITIES:. No clubbing, cyanosis, edema SKIN:. Normal NEUROLOGICAL EXAMINATION:. No focal motor sensory deficit PSYCHIATRIC EXAMINATION:. Normal LABORATORY DATA: Please see below. IMAGING: Repeat chest x-ray report:Impression: Significant improvement in the patient's right lung infiltrates. PROGNOSIS: Good ACTIVITY: As tolerated. DIET: Regular DISCHARGE PLAN: Follow-up with PCP in one week DISPOSITION: 01 Home, Self-Care. DISCHARGE INSTRUCTIONS: 1. As per discharge instructions. ITEMS TO FOLLOWUP ON ON OUTPATIENT: 1. Follow with PCP in one week. DISCHARGE CONDITION: Stable. TIME SPENT ON DISCHARGE: 35 minutes. Vital Signs/I&Os Vital Signs Date Time Temp Pulse Resp B/P (MAP) Pulse Ox O2 Delivery O2 Flow Rate FiO2 01/08/19 06:00 97.6 80 17 95 3.0 01/07/19 22:00 110/68 (82) 01/05/19 21:52 Room Air I&O- Last 24 Hours up to 6 AM 01/08/19 05:59 Intake Total 1570 ml Output Total 900 ml Balance 670 ml Laboratory Data Labs 24H Laboratory Tests 2 01/08/19 06:14: Immature Granulocyte % (Auto) , White Blood Count 10.4H, Red Blood Count 3.90L, Hemoglobin 11.2L, Hematocrit 34.6L, Mean Corpuscular Volume 88.7, Mean Corpuscular Hemoglobin 28.7, Mean Corpuscular Hemoglobin Concent 32.4, Red Cell Distribution Width 14.7H, Platelet Count 387, Lymphocytes # (Auto) , Nucleated Red Blood Cells % (auto) 0.2H, Neutrophils 30, Band Neutrophils 4, Lymphocytes (Manual) 51H, Monocytes (Manual) 7H, Eosinophils (Manual) 2, Metamyelocytes 3H, Myelocytes 1H, Atypical Lymphocytes 2, Platelet Estimate NORMAL, Anisocytosis 1+, Anion Gap 8, Glomerular Filtration Rate > 60.0, Blood Urea Nitrogen 13, Creatinine 0.73, Sodium Level 141, Potassium Level 3.4L, Chloride Level 105, Carbon Dioxide Level 28, Calcium Level 8.6, Aspartate Amino Transf (AST/SGOT) 33, Alanine Aminotransferase (ALT/SGPT) 67, Alkaline Phosphatase 50, Total Bilirubin 0.3, Total Protein 7.2, Albumin 2.7L, Albumin/Globulin Ratio 0.60L CBC/BMP Laboratory Tests 01/08/19 06:14 Red Blood Count 3.90 L, Mean Corpuscular Volume 88.7, Mean Corpuscular Hemoglobin 28.7, Mean Corpuscular Hemoglobin Concent 32.4, Red Cell Distribution Width 14.7 H, Lymphocytes # (Auto) , Calcium Level 8.6, Aspartate Amino Transf (AST/SGOT) 33, Alanine Aminotransferase (ALT/SGPT) 67, Alkaline Phosphatase 50, Total Bilirubin 0.3, Total Protein 7.2, Albumin 2.7 L Microbiology Microbiology 01/05/19 Gram Stain - Final, Resulted 01/05/19 Sputum Culture, Resulted Pending 01/05/19 Blood Culture - Preliminary, Resulted No Growth after 48 hours. All Specime... 01/05/19 Blood Culture - Preliminary, Resulted No Growth after 48 hours. All Specime... Discharge Medications Scheduled Cefpodoxime Proxetil (Cefpodoxime Proxetil) 200 Mg Tablet, 200 MG PO BID Dextroamphetamine/Amphetamine (Dextroamp-Amphet ER 20 mg Cap) 20 Mg Cap.er.24h, 20 MG PO DAILY, (Reported) Doxycycline Monohydrate (Doxycycline) 100 Mg Capsule, 100 MG PO BID Lamotrigine (Lamotrigine) 25 Mg Tablet, 25 MG PO TID, (Reported) Lurasidone Hydrochloride (Latuda) 40 Mg Tablet, 40 MG PO QPM, (Reported) Scheduled PRN Acetaminophen (Acetaminophen) 325 Mg Tablet, 650 MG PO Q6H PRN for PAIN, (Reported) Alprazolam (Alprazolam) 0.5 Mg Tablet, 0.5 MG PO TID PRN for ANXIETY, (Reported) Dextroamphetamine/Amphetamine (Adderall Xr 5 mg Capsule) 5 Mg Cap.er.24h, 1 CAP PO DAILY PRN for NARCOLEPSY SYMPTOMS, (Reported) Pseudoephedrine HCl (Sudafed) 30 Mg Tablet, 30 MG PO Q4H PRN for NASAL CONGES TION, (Reported) Sumatriptan Succinate (Sumatriptan Succinate) 6 Mg/0.5 Ml Cartridge, 6 MG SC DAILY PRN for MIGRAINE, (Reported) Allergies Coded Allergies: levofloxacin (Unverified Adverse Reaction, Intermediate, QT PROLONGATION, 07/02/18) ondansetron (Unverified Adverse Reaction, Intermediate, QT PROLONGATION, 07/02/18) aspirin (Unverified Adverse Reaction, Mild, HX OF ANEMIA TOLD NOT TO TAKE, 07/02/18) clarithromycin (Unverified Adverse Reaction, Mild, VOMITING, 07/02/18) erythromycin base (Unverified Adverse Reaction, Mild, VOMITING, 07/02/18) BILLY LIMA MD Jan 08, 2019 10:32
[2019-01-09 14:41] LABS: BODY FLUID CULTURE Not Indicated (.); LEGIONELLA ANTIGEN URINE Negative (Negative); ORGANISM ID Not indicated. (.); SPECIMEN SOURCE Urine (.); URINE STREP PNEUMONIAE ANTIGEN Negative (Negative)
[2019-01-10 08:06] LABS: BORDETELLA PARAPERTUSSIS PCR Negative (Negative); BORDETELLA PERTUSSIS BY PCR Negative (Negative)
== END 2019-01-08 09:50 | disposition home or self-care (01) | DRG 139 ==
LOC: M ED 13:42 → M ED INP 17:35 → M MSPAV 22:04
PROVIDERS: ADMIT Internal Medicine; ATTEND Internal Medicine
DX: J18.9 Pneumonia, unspecified organism (principal); Z68.42 Body mass index [BMI] 45.0-49.9, adult; E66.01 Morbid (severe) obesity due to excess calories; Z79.899 Other long term (current) drug therapy; Z88.6 Allergy status to analgesic agent; Z88.8 Allergy status to other drugs, medicaments and biological substances; J45.909 Unspecified asthma, uncomplicated; G47.419 Narcolepsy without cataplexy; E87.6 Hypokalemia

== ENCOUNTER → 2019-03-21 | Outpatient (REF) | payer OTHER ==
[~2019-03-21] MED LIST changes: +ACET1TAB55 PO; +ADDE5CAP PO; +AMOX500T2 PO; +AMPH1CAP16 PO; -AMPH20CA PO; +CEFP200T PO; +CLON0.5T2 PO; -CLON0.5T8 PO; +DOXY-350 PO; +IBUP-1114 PO; +IBUP200C28 PO; +PSEU30TA85 PO; +SUMA6KIT SC
[2019-03-21 15:50] LABS: BASO # 0.1 10^3/uL (0.0-0.2); BASO % 0.9 % (0.0-1.0); EOS # 0.1 10^3/uL (0.0-0.5); HEMATOCRIT 42.9 % (36.0-47.0); HEMOGLOBIN 13.3 g/dl (12.0-15.5); LYMPH # 3.7 10^3/uL (1.5-5.0); LYMPH % 40.8 % (24.0-44.0); MEAN CORPUSCULAR HEMOGLOBIN 27.9 pg (27.0-33.0); MEAN CORPUSCULAR VOLUME 89.9 fl (80.0-96.0); MONO # 0.9 10^3/uL (0.0-0.8); MONO % 9.6 % (0.0-5.0); NEUTROPHILS # 4.3 10^3/uL (1.5-8.5); NEUTROPHILS % 47.4 % (36.0-66.0); PLATELET COUNT, AUTOMATED 393 10^3/uL (150-450); RED BLOOD COUNT 4.77 10^6/uL (4.00-5.40); WHITE BLOOD COUNT 9.2 10^3/uL (4.0-10.0)
[2019-03-21 16:06] LABS: ALBUMIN 3.8 GM/DL (3.2-5.2); ALT/SGPT 56 U/L (12-78); BILIRUBIN,TOTAL 0.5 MG/DL (0.2-1.0); BLOOD UREA NITROGEN 10 MG/DL (7-18); CALCIUM LEVEL 9.2 MG/DL (8.5-10.1); CARBON DIOXIDE LEVEL 27 MEQ/L (21-32); CHLORIDE LEVEL 105 MEQ/L (98-107); CREATININE FOR GFR 0.75 MG/DL (0.55-1.30); FERRITIN 24 NG/ML (8-252); FREE T4 0.99 NG/DL (0.76-1.46); GLOMERULAR FILTRATION RATE > 60.0 (>60); GLUCOSE, FASTING 99 MG/DL (70-100); POTASSIUM SERUM 4.1 MEQ/L (3.5-5.1); SODIUM LEVEL 140 MEQ/L (136-145); TOTAL PROTEIN 7.6 GM/DL (6.4-8.2)
[2019-03-21 16:08] LABS: FOLATE > 24.0 NG/ML; VITAMIN B12 LEVEL 428 PG/ML
== END ==
LOC: M SFHCPLAZ 14:00
PROVIDERS: ATTEND Nurse Practitioner Family
DX: R53.83 Other fatigue (principal); N92.1 Excessive and frequent menstruation with irregular cycle

== ENCOUNTER 2019-06-06 16:11 | Emergency (ER) | payer OTHER ==
[~2019-06-06] VITALS: Ht 167.6 cm; Wt 137.6 kg
[~2019-06-06 16:11] MED LIST changes: -BUPR300T34 PO; +BUPR300T92 PO
[2019-06-06 17:08] LABS: BASO # 0.1 10^3/uL (0.0-0.2); BASO % 0.8 % (0.0-1.0); EOS # 0.2 10^3/uL (0.0-0.5); EOS % 1.9 % (0.0-3.0); HEMATOCRIT 41.6 % (36.0-47.0); HEMOGLOBIN 13.5 g/dl (12.0-15.5); LYMPH % 35.2 % (24.0-44.0); MEAN CORPUSCULAR HEMOGLOBIN 28.8 pg (27.0-33.0); MEAN CORPUSCULAR HGB CONC 32.5 g/dl (32.0-36.5); MEAN CORPUSCULAR VOLUME 88.9 fl (80.0-96.0); MONO # 0.7 10^3/uL (0.0-0.8); NEUTROPHILS # 4.6 10^3/uL (1.5-8.5); NEUTROPHILS % 53.6 % (36.0-66.0); PLATELET COUNT, AUTOMATED 347 10^3/uL (150-450); RED BLOOD COUNT 4.68 10^6/uL (4.00-5.40); WHITE BLOOD COUNT 8.5 10^3/uL (4.0-10.0)
[2019-06-06 17:18] LABS: PROTHROMBIN TIME 12.9 SECONDS (11.8-14.0)
[2019-06-06 17:19] LABS: PARTIAL THROMBOPLASTIN TIME 29.5 SECONDS (25.0-38.4)
[2019-06-06 17:40] LABS: ALBUMIN 3.7 GM/DL (3.2-5.2); ALT/SGPT 49 U/L (12-78); BILIRUBIN,DIRECT 0.1 MG/DL (0.0-0.2); BILIRUBIN,TOTAL 0.3 MG/DL (0.2-1.0); CK-MB VALUE MASS < 1.0 NG/ML (<3.6); CPK CREATINE PHOSPHOKINASE 77 U/L (26-192); FREE T4 1.05 NG/DL (0.76-1.46); LIPASE 112 U/L (73-393); NT-PRO BNP 12 PG/ML (<125); TOTAL PROTEIN 7.2 GM/DL (6.4-8.2); TROPONIN I < 0.02 NG/ML (< 0.10)
[2019-06-06] MEDS ORDERED: ISOVUE-370 76% 100ML VIAL (Q9967) As Ordered ONE (17:47)
--- NOTE | 2019-06-06 18:17 | REPVR ---
PROCEDURE INFORMATION: Exam: CT Angiography Chest With Contrast Exam date and time: 06/06/2019 5:51 PM Age: 23 years old Clinical indication: Other: Hemoptysis; Additional info: Hemoptysis RO pe TECHNIQUE: Imaging protocol: Computed tomographic angiography of the chest with intravenous contrast. 3D rendering: MIP and/or 3D reconstructed images were created by the technologist. Radiation optimization: All CT scans at this facility use at least one of these dose optimization techniques: automated exposure control; mA and/or kV adjustment per patient size (includes targeted exams where dose is matched to clinical indication); or iterative reconstruction. Contrast material: ISOVUE 370; Contrast volume: 75 ml; Contrast route: IV; COMPARISON: CT Chest without contrast 01/01/2019 5:11 PM FINDINGS: Pulmonary arteries: There are no pulmonary emboli. Aorta: There is no aortic dissection or aneurysm. Lungs: There has been the suboptimal inspiratory effort. Bilateral ground-glass opacities most likely secondary to the presence of atelectasis although an acute pneumonitis including viral etiologies can present in this fashion in the appropriate clinical setting. No segmental or lobar infiltrates. Parenchymal banding in the right upper lobe likely represents atelectasis and/or fibrotic scarring likely related to prior right upper lobe infiltrate. Pleural space: Unremarkable. No pneumothorax. No pleural effusion. Heart: Unremarkable. No cardiomegaly. No pericardial effusion. Liver: There is a diffuse decrease in hepatic parenchymal density, consistent with steatosis. Gallbladder and bile ducts: There has been a cholecystectomy. Lymph nodes: Unremarkable. No enlarged lymph nodes. Bones/joints: Unremarkable. No acute fracture. Soft tissues: Unremarkable. IMPRESSION: 1. There is no aortic dissection or aneurysm. 2. There are no pulmonary emboli. 3. There is a diffuse decrease in hepatic parenchymal density, consistent with steatosis. 4. There has been a cholecystectomy. 5. Bilateral ground-glass opacities as described above most likely atelectatic although clinical correlation to exclude an acute diffuse pneumonitis suggested. Electronically signed by: Babak Luna On 06/06/2019 18:16:52 PM
--- NOTE | 2019-06-06 18:24 | REP ---
CHEST, SINGLE VIEW: There is no evidence of acute infiltrate. No pleural effusion is seen. The heart is normal in size. The mediastinal silhouette is unremarkable. The visualized osseous structures are intact. IMPRESSION: No acute pulmonary disease. Electronically Signed by Pete Waters MD 06/06/2019 08:04 P
[2019-06-06] MEDS ORDERED: DOXY-342 PO (18:52)
[2019-06-06 18:58] VITALS: BP 118/71
--- NOTE | 2019-06-07 10:44 | ED PDOC ---
Post-Departure Follow-Up naomi higgins faxed formal report of ct chest for fu Wanda Lopes MD Jun 07, 2019 10:44
--- NOTE | 2019-06-08 06:29 | ECGEPIP ---
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
== END 2019-06-06 19:04 | disposition home or self-care (01) ==
LOC: M ED 16:11
DX: J40 Bronchitis, not specified as acute or chronic (principal); R04.2 Hemoptysis; I47.1 Supraventricular tachycardia; Z88.1 Allergy status to other antibiotic agents; Z88.8 Allergy status to other drugs, medicaments and biological substances
CPT/HCPCS: 36415; 71045; 71275; 80047; 80076; 82550; 82553; 83690; 83880; 84439; 84443; 84702; 85025; 85610; 85730; 87040; 87486; 87581; 87633; 87798; 93005; 93041; 94760; 99284; Q9967

== ENCOUNTER 2019-07-29 20:39 | Emergency (ER) | payer OTHER ==
[~2019-07-29] VITALS: Ht 167.6 cm; Wt 137.6 kg
[~2019-07-29 20:39] MED LIST changes: -ATOM40CA PO; +ATOM40CA16 PO; +DOXY-342 PO
[2019-07-29 21:28] LABS: HEMATOCRIT 42.4 % (36.0-47.0); HEMOGLOBIN 13.7 g/dl (12.0-15.5); MEAN CORPUSCULAR HEMOGLOBIN 28.8 pg (27.0-33.0); MEAN CORPUSCULAR HGB CONC 32.3 g/dl (32.0-36.5); MEAN CORPUSCULAR VOLUME 89.1 fl (80.0-96.0); PLATELET COUNT, AUTOMATED 402 10^3/uL (150-450); RED BLOOD COUNT 4.76 10^6/uL (4.00-5.40); WHITE BLOOD COUNT 13.7 10^3/uL (4.0-10.0)
[2019-07-29 21:48] LABS: ATYPICAL LYMPH 4 % (0-5); BASOPHILS 2 % (0-1); LYMPHOCYTES 36 % (16-44); MONOCYTES 7 % (0-5); NEUTROPHILS 51 % (28-66)
[2019-07-29 21:49] LABS: ANISOCYTOSIS 1+; HYPOCHROMASIA 1+
[2019-07-29 21:50] LABS: POLYCHROMASIA 1+
[2019-07-29 21:53] LABS: PLATELET ESTIMATE NORMAL (NORMAL)
[2019-07-29 21:57] LABS: BLOOD UREA NITROGEN 15 MG/DL (7-18); CALCIUM LEVEL 8.6 MG/DL (8.5-10.1); CARBON DIOXIDE LEVEL 19 MEQ/L (21-32); CHLORIDE LEVEL 107 MEQ/L (98-107); CK-MB VALUE MASS < 1.0 NG/ML (<3.6); CPK CREATINE PHOSPHOKINASE 146 U/L (26-192); CREATININE FOR GFR 0.86 MG/DL (0.55-1.30); GLOMERULAR FILTRATION RATE > 60.0 (>60); GLUCOSE, FASTING 81 MG/DL (70-100); MB/CK RELATIVE INDEX 0.68 (< OR =4); NT-PRO BNP 25 PG/ML (<125); POTASSIUM SERUM 4.4 MEQ/L (3.5-5.1); SODIUM LEVEL 138 MEQ/L (136-145); TROPONIN I < 0.02 NG/ML (< 0.10)
[2019-07-29] MEDS ORDERED: NAPR-837 PO (23:11)
[2019-07-29 23:15] VITALS: BP 124/75
[2019-07-29] MEDS ORDERED: NAPROXEN 250 MG TAB PO ONE (23:15)
--- NOTE | 2019-07-30 10:14 | ECGEPIP ---
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
--- NOTE | 2019-07-30 10:38 | REP ---
CHEST, SINGLE VIEW: There is no evidence of acute infiltrate. No pleural effusion is seen. The heart is normal in size. The mediastinal silhouette is unremarkable. The visualized osseous structures are intact. IMPRESSION: No acute pulmonary disease. Electronically Signed by Pete Waters MD 07/30/2019 09:50 P
== END 2019-07-29 23:30 | disposition home or self-care (01) ==
LOC: M ED 20:39
DX: R07.89 Other chest pain (principal); R06.02 Shortness of breath; I49.8 Other specified cardiac arrhythmias; Z98.890 Other specified postprocedural states; Z88.8 Allergy status to other drugs, medicaments and biological substances; Z88.6 Allergy status to analgesic agent; Z88.1 Allergy status to other antibiotic agents; Z95.818 Presence of other cardiac implants and grafts

== ENCOUNTER → 2019-08-18 | Outpatient (CLI) | payer OTHER ==
[~2019-08-18] MED LIST changes: +BENZ200C70 PO; +FLON1SPR NARES; +LEVAINH INH; +SULF1TAB93
--- NOTE | 2019-08-18 17:51 | REP ---
Clinical: Menorrhagia . Technique: Transabdominal pelvic ultrasound with color Doppler evaluation of the ovaries. Findings: Bladder is unremarkable and measures 8.1 x 5.6 x 7.0 cm . Normal anteverted uterus measures 7.1 x 3.8 x 5.0 cm. The endometrial complex measures 10 mm thickness. No discrete uterine or endometrial abnormalities are appreciated. Bilateral ovaries are normal in appearance and vascularity without evidence for torsion. Right ovary measures 3.1 x 3.6 x 2.6 cm ; R I = 0.65 . Left ovary measures 3.2 x 3.5 x 2.6 cm ; R I = 0.51 . No pelvic fluid or adnexal mass lesion. Impression: 1. Normal pelvic ultrasound.
== END ==
LOC: M WHC 15:07
PROVIDERS: ATTEND Specialist
DX: N92.0 Excessive and frequent menstruation with regular cycle (principal)

== ENCOUNTER 2019-08-27 15:26 | Emergency (ER) | payer OTHER ==
[~2019-08-27] VITALS: Ht 167.6 cm; Wt 138.5 kg
[~2019-08-27 15:26] MED LIST changes: -BENZ200C70 PO; -FLON1SPR NARES; -LEVAINH INH; -SULF1TAB93
[2019-08-27] MEDS ORDERED: SULF1TAB93 (15:34)
[2019-08-27] MEDS ORDERED: LEVALBUTEROL HFA 45MCG/ACT 15 GM INHALER INH ONE (16:15)
[2019-08-27] MEDS ORDERED: BENZ200C70 PO (17:53)
[2019-08-27] MEDS ORDERED: FLON1SPR NARES (17:53)
[2019-08-27] MEDS ORDERED: LEVAINH INH (17:53)
[2019-08-27 18:07] VITALS: BP 143/87
--- NOTE | 2019-08-28 11:18 | REP ---
Clinical: Shortness of breath . Comparison: 07/29/2019 . Findings: The mediastinum and cardiac silhouette are stable and within normal limits for portable technique. Loop recorder overlies the cardiac silhouette. The lung hernandez are clear without acute consolidation, effusion, or pneumothorax. Skeletal structures are intact. Impression: No acute cardiopulmonary process appreciated. Electronically Signed by Bong Schulte MD 08/28/2019 11:10 A
== END 2019-08-27 18:21 | disposition home or self-care (01) ==
LOC: M ED 15:26
DX: H65.90 Unspecified nonsuppurative otitis media, unspecified ear (principal); J02.9 Acute pharyngitis, unspecified; G43.909 Migraine, unspecified, not intractable, without status migrainosus; K21.9 Gastro-esophageal reflux disease without esophagitis; F31.9 Bipolar disorder, unspecified; F41.9 Anxiety disorder, unspecified; Z88.1 Allergy status to other antibiotic agents; Z88.6 Allergy status to analgesic agent; Z88.8 Allergy status to other drugs, medicaments and biological substances; Z11.59 Encounter for screening for other viral diseases
CPT/HCPCS: 71045; 87486; 87581; 87633; 87798; 87880; 94640; 99284; C9803; U0003

== ENCOUNTER 2019-09-08 15:01 | Emergency (ER) | payer OTHER ==
[~2019-09-08] VITALS: Ht 167.6 cm; Wt 139.3 kg
[~2019-09-08 15:01] MED LIST changes: +BENZ200C70 PO; +FLON1SPR NARES; +LEVAINH INH; +SULF1TAB93; +SUMA1TAB14 PO; -TREX50TA PO
[2019-09-08] MEDS ORDERED: NS 1,000 ML IV ONE (15:30)
[2019-09-08] MEDS ORDERED: PROMETHAZINE INJ 25 MG/ML VIAL (J2550) IV ONE (15:30)
[2019-09-08 15:58] LABS: BASO # 0.1 10^3/uL (0.0-0.2); BASO % 0.9 % (0.0-1.0); EOS # 0.1 10^3/uL (0.0-0.5); EOS % 1.2 % (0.0-3.0); HEMATOCRIT 39.4 % (36.0-47.0); HEMOGLOBIN 12.7 g/dl (12.0-15.5); LYMPH # 3.5 10^3/uL (1.5-5.0); LYMPH % 37.7 % (24.0-44.0); MEAN CORPUSCULAR HEMOGLOBIN 28.2 pg (27.0-33.0); MEAN CORPUSCULAR HGB CONC 32.2 g/dl (32.0-36.5); MEAN CORPUSCULAR VOLUME 87.6 fl (80.0-96.0); MONO # 0.7 10^3/uL (0.0-0.8); MONO % 7.7 % (0.0-5.0); NEUTROPHILS # 4.8 10^3/uL (1.5-8.5); NEUTROPHILS % 52.3 % (36.0-66.0); PLATELET COUNT, AUTOMATED 419 10^3/uL (150-450); WHITE BLOOD COUNT 9.2 10^3/uL (4.0-10.0)
[2019-09-08 16:24] LABS: ALBUMIN 3.8 GM/DL (3.2-5.2); ALT/SGPT 45 U/L (12-78); BILIRUBIN,DIRECT < 0.1 MG/DL (0.0-0.2); BILIRUBIN,TOTAL 0.3 MG/DL (0.2-1.0); BLOOD UREA NITROGEN 13 MG/DL (7-18); CALCIUM LEVEL 9.2 MG/DL (8.5-10.1); CARBON DIOXIDE LEVEL 26 MEQ/L (21-32); CHLORIDE LEVEL 105 MEQ/L (98-107); CREATININE FOR GFR 0.75 MG/DL (0.55-1.30); GLOMERULAR FILTRATION RATE > 60.0 (>60); GLUCOSE, FASTING 94 MG/DL (70-100); LIPASE 118 U/L (73-393); POTASSIUM SERUM 4.3 MEQ/L (3.5-5.1); SODIUM LEVEL 138 MEQ/L (136-145); TOTAL PROTEIN 7.8 GM/DL (6.4-8.2)
[2019-09-08 16:29] LABS: HCG, SERUM QUALITATIVE NEGATIVE (NEGATIVE)
[2019-09-08] MEDS: GASTROGRAFIN SOLUTION 30ML PO SCH ×2 (17:25→17:54)
[2019-09-08] MEDS ORDERED: ISOVUE-370 76% 100ML VIAL As Ordered ONE (19:11)
--- NOTE | 2019-09-08 19:47 | REPVR ---
PROCEDURE INFORMATION: Exam: CT Abdomen And Pelvis With Contrast Exam date and time: 09/08/2019 7:22 PM Age: 24 years old Clinical indication: Abdominal pain; Generalized; Additional info: Right sided abd pain, vomiting TECHNIQUE: Imaging protocol: Computed tomography of the abdomen and pelvis with intravenous contrast. Radiation optimization: All CT scans at this facility use at least one of these dose optimization techniques: automated exposure control; mA and/or kV adjustment per patient size (includes targeted exams where dose is matched to clinical indication); or iterative reconstruction. Contrast material: ISOVUE 370; Contrast volume: 100 ml; Contrast route: IV; COMPARISON: CT ABD/PEL W/IV ORAL CONTRAS 12/16/2018 11:30 PM FINDINGS: Liver: Fatty infiltration of the liver. Liver is enlarged and measures 22 cm. Gallbladder and bile ducts: Cholecystectomy clips. Pancreas: Normal. No ductal dilation. Spleen: Small splenule. Adrenals: Normal. No mass. Kidneys and ureters: Normal. No hydronephrosis. Stomach and bowel: Unremarkable. No obstruction. No mucosal thickening. Appendix: No evidence of appendicitis. Intraperitoneal space: Unremarkable. No free air. No significant fluid collection. Vasculature: Unremarkable. No abdominal aortic aneurysm. Lymph nodes: Unremarkable. No enlarged lymph nodes. Bladder: Unremarkable as visualized. Reproductive: Unremarkable as visualized. Bones/joints: Unremarkable. No acute fracture. Soft tissues: Unremarkable. IMPRESSION: No acute abdominal or pelvic abnormality. Hepatomegaly with hepatic steatosis. Electronically signed by: Lucas Thurston On 09/08/2019 19:47:11 PM
[2019-09-08 20:09] VITALS: BP 133/70
--- NOTE | 2019-09-09 06:36 | ED PDOC ---
Post-Departure Follow-Up dr alves faxed formal repoirt of ct abd/p for fu Wanda Lopes MD Sep 09, 2019 06:36
[2020-03-13] MEDS ORDERED: MEDR4PAK PO (15:35)
[2020-03-13] MEDS ORDERED: MIDO5TA PO (15:35)
== END 2019-09-08 20:22 | disposition home or self-care (01) ==
LOC: M ED 15:01
DX: R10.9 Unspecified abdominal pain (principal); R11.2 Nausea with vomiting, unspecified; I47.1 Supraventricular tachycardia; Z87.19 Personal history of other diseases of the digestive system; Z88.1 Allergy status to other antibiotic agents; Z88.8 Allergy status to other drugs, medicaments and biological substances
CPT/HCPCS: 74177; 80048; 80076; 81001; 83690; 84703; 85025; 93041; 96361; 96374; 99284; Q9963; Q9967

== ENCOUNTER → 2019-09-13 | Outpatient (REF) | payer OTHER ==
[~2019-09-13] MED LIST changes: -SUMA1TAB14 PO; +TREX50TA PO
[2019-09-13 15:43] LABS: BASO # 0.1 10^3/uL (0.0-0.2); BASO % 0.7 % (0.0-1.0); EOS # 0.1 10^3/uL (0.0-0.5); EOS % 1.1 % (0.0-3.0); HEMATOCRIT 38.3 % (36.0-47.0); HEMOGLOBIN 12.4 g/dl (12.0-15.5); LYMPH # 3.4 10^3/uL (1.5-5.0); LYMPH % 36.3 % (24.0-44.0); MEAN CORPUSCULAR HEMOGLOBIN 28.2 pg (27.0-33.0); MEAN CORPUSCULAR HGB CONC 32.4 g/dl (32.0-36.5); MEAN CORPUSCULAR VOLUME 87.2 fl (80.0-96.0); MONO # 0.8 10^3/uL (0.0-0.8); MONO % 8.7 % (0.0-5.0); PLATELET COUNT, AUTOMATED 418 10^3/uL (150-450); RED BLOOD COUNT 4.39 10^6/uL (4.00-5.40); WHITE BLOOD COUNT 9.4 10^3/uL (4.0-10.0)
[2019-09-13 15:58] LABS: ALBUMIN 3.8 GM/DL (3.2-5.2); ALT/SGPT 41 U/L (12-78); BILIRUBIN,TOTAL 0.4 MG/DL (0.2-1.0); BLOOD UREA NITROGEN 12 MG/DL (7-18); CALCIUM LEVEL 9.6 MG/DL (8.5-10.1); CARBON DIOXIDE LEVEL 25 MEQ/L (21-32); CHLORIDE LEVEL 106 MEQ/L (98-107); CREATININE FOR GFR 0.78 MG/DL (0.55-1.30); GLOMERULAR FILTRATION RATE > 60.0 (>60); GLUCOSE, FASTING 88 MG/DL (70-100); LIPASE 115 U/L (73-393); SODIUM LEVEL 138 MEQ/L (136-145); TOTAL PROTEIN 7.6 GM/DL (6.4-8.2)
== END ==
LOC: M SFHCPLAZ 14:53
PROVIDERS: ATTEND Family Medicine
DX: K52.9 Noninfective gastroenteritis and colitis, unspecified (principal); R10.10 Upper abdominal pain, unspecified

== ENCOUNTER 2019-09-14 07:49 | Emergency (ER) | payer OTHER ==
[~2019-09-14] VITALS: Ht 167.6 cm; Wt 141.1 kg
[2019-09-14] MEDS ORDERED: KETOROLAC TROMETHAMINE 10 MG TAB PO ONE (08:15)
[2019-09-14 08:42] LABS: BASO # 0.1 10^3/uL (0.0-0.2); EOS # 0.1 10^3/uL (0.0-0.5); EOS % 1.2 % (0.0-3.0); HEMATOCRIT 39.5 % (36.0-47.0); HEMOGLOBIN 12.3 g/dl (12.0-15.5); LYMPH # 4.3 10^3/uL (1.5-5.0); LYMPH % 43.4 % (24.0-44.0); MEAN CORPUSCULAR HEMOGLOBIN 27.6 pg (27.0-33.0); MEAN CORPUSCULAR HGB CONC 31.1 g/dl (32.0-36.5); MEAN CORPUSCULAR VOLUME 88.8 fl (80.0-96.0); MONO # 1.1 10^3/uL (0.0-0.8); MONO % 10.5 % (0.0-5.0); NEUTROPHILS # 4.4 10^3/uL (1.5-8.5); NEUTROPHILS % 43.7 % (36.0-66.0); PLATELET COUNT, AUTOMATED 366 10^3/uL (150-450); RED BLOOD COUNT 4.45 10^6/uL (4.00-5.40)
[2019-09-14 09:10] LABS: ALBUMIN 3.5 GM/DL (3.2-5.2); BILIRUBIN,DIRECT 0.1 MG/DL (0.0-0.2); BILIRUBIN,TOTAL 0.3 MG/DL (0.2-1.0); TOTAL PROTEIN 7.2 GM/DL (6.4-8.2)
[2019-09-14 09:32] VITALS: BP 138/80
== END 2019-09-14 09:35 | disposition left against medical advice (07) ==
LOC: M ED 07:49
DX: R10.31 Right lower quadrant pain (principal); J45.909 Unspecified asthma, uncomplicated; G43.909 Migraine, unspecified, not intractable, without status migrainosus; G47.419 Narcolepsy without cataplexy; I95.1 Orthostatic hypotension; K58.9 Irritable bowel syndrome, unspecified; K21.9 Gastro-esophageal reflux disease without esophagitis; E28.2 Polycystic ovarian syndrome; E66.01 Morbid (severe) obesity due to excess calories; F41.9 Anxiety disorder, unspecified; F31.9 Bipolar disorder, unspecified; Z88.6 Allergy status to analgesic agent; Z88.1 Allergy status to other antibiotic agents; Z88.8 Allergy status to other drugs, medicaments and biological substances

== ENCOUNTER → 2019-10-05 | Outpatient (REF) | payer OTHER | LOC: M LAB REF 13:38 | PROVIDERS: ATTEND Physician Assistant | DX: Z11.59 Encounter for screening for other viral diseases (principal) ==

== ENCOUNTER 2019-10-09 20:44 | Emergency (ER) | payer OTHER ==
[~2019-10-09] VITALS: Ht 167.6 cm; Wt 140.5 kg
[2019-10-09 20:44] VITALS: BP 136/85
[~2019-10-09 20:44] MED LIST changes: +SUMA1TAB14 PO; -TREX50TA PO
[2019-10-09] MEDS ORDERED: diphenhydrAMINE 50MG CAP PO ONE (23:15)
--- NOTE | 2019-10-10 00:15 | REPVR ---
PROCEDURE INFORMATION: Exam: US Duplex Right Upper Extremity Veins, Limited Exam date and time: 10/09/2019 11:55 PM Age: 24 years old Clinical indication: Pain; Arm, upper; Right; Additional info: Pain, feels swollen TECHNIQUE: Imaging protocol: Real-time Duplex ultrasound of the Right Upper Extremity with 2-D tabor scale, color Doppler flow and spectral waveform analysis with image documentation. Limited exam focused on the right upper extremity veins. COMPARISON: No relevant prior studies available. FINDINGS: Right deep veins: Unremarkable. Axillary and brachial veins are patent throughout without thrombus. Normal Doppler waveforms. Normal compressibility and/or augmentation response. Visualized internal jugular and subclavian veins are patent. Right superficial veins: Unremarkable. Visualized cephalic and basilic veins are patent without thrombus. Soft tissues: Unremarkable. IMPRESSION: No sonographic evidence of deep vein thrombosis. Electronically signed by: Maynor Richardson On 10/10/2019 00:15:18 AM
[2019-10-10 00:29] LABS: HEMATOCRIT 40.9 % (36.0-47.0); HEMOGLOBIN 12.8 g/dl (12.0-15.5); MEAN CORPUSCULAR HEMOGLOBIN 27.6 pg (27.0-33.0); MEAN CORPUSCULAR HGB CONC 31.3 g/dl (32.0-36.5); MEAN CORPUSCULAR VOLUME 88.1 fl (80.0-96.0); PLATELET COUNT, AUTOMATED 388 10^3/uL (150-450); RED BLOOD COUNT 4.64 10^6/uL (4.00-5.40)
[2019-10-10 00:50] LABS: MONO REFLEX EBV COMP NEGATIVE (NEGATIVE)
[2019-10-10 00:52] LABS: EOSINOPHILS 4 % (0-3); LYMPHOCYTES 37 % (16-44); MONOCYTES 5 % (0-5); NEUTROPHILS 54 % (28-66)
[2019-10-10 00:53] LABS: PLATELET ESTIMATE NORMAL (NORMAL)
[2019-10-11 15:22] LABS: EBV VIRAL CAPSID AG IgG <18.0 U/mL (0.0-17.9); EBV VIRAL CAPSID AG IgM <36.0 U/mL (0.0-35.9); Lyme Disease IgG/IgM Antibodie <0.91 ISR (0.00-0.90); Lyme Disease IgM Ab Quantitati <0.80 index (0.00-0.79)
== END 2019-10-10 01:58 | disposition home or self-care (01) ==
LOC: M ED 20:44
DX: T50.905A Adverse effect of unspecified drugs, medicaments and biological substances, initial encounter (principal); R09.81 Nasal congestion; R07.0 Pain in throat; I49.8 Other specified cardiac arrhythmias; J45.909 Unspecified asthma, uncomplicated; K21.9 Gastro-esophageal reflux disease without esophagitis; Z88.1 Allergy status to other antibiotic agents; Z88.6 Allergy status to analgesic agent; Z88.8 Allergy status to other drugs, medicaments and biological substances

== ENCOUNTER → 2020-01-15 | Outpatient (CLI) | payer MEDICAID ==
--- NOTE | 2020-01-15 18:29 | REPVR ---
PROCEDURE INFORMATION: Exam: CT Maxillofacial Without Contrast Exam date and time: 01/15/2020 6:06 PM Age: 24 years old Clinical indication: Condition or disease; Other: Deviated septum; Additional info: Deviated nasal septum TECHNIQUE: Imaging protocol: Computed tomography images of the face without contrast. Axial and coronal reformatted images were created and reviewed. Radiation optimization: All CT scans at this facility use at least one of these dose optimization techniques: automated exposure control; mA and/or kV adjustment per patient size (includes targeted exams where dose is matched to clinical indication); or iterative reconstruction. COMPARISON: No relevant prior studies available. FINDINGS: Orbital cavity: Orbits are normal. Globes are unremarkable. Bones/joints: No acute fracture. Nasal septum: Subtle leftward nasal septal deviation. Paranasal sinuses: Normal. No air-fluid levels. Soft tissues: Unremarkable. IMPRESSION: Subtle leftward nasal septal deviation. Electronically signed by: Maynor Richardson On 01/15/2020 18:28:51 PM
== END ==
LOC: M RAD 18:00
PROVIDERS: ATTEND Specialist
DX: J34.2 Deviated nasal septum (principal); J31.0 Chronic rhinitis

== ENCOUNTER 2020-02-25 13:25 | Emergency (ER) | payer MEDICAID ==
[~2020-02-25] VITALS: Ht 167.6 cm; Wt 141.5 kg
[2020-02-25] MEDS ORDERED: MEDR10TA (13:40)
[2020-02-25] MEDS ORDERED: LIFITEGRAST (13:40)
[2020-02-25] MEDS ORDERED: HYDR200T3 PO (13:40)
[2020-02-25] MEDS ORDERED: OMEP-221 PO (13:40)
[2020-02-25] MEDS ORDERED: ATEN25TA PO (13:40)
[2020-02-25] MEDS ORDERED: REST0.05 (13:40)
[2020-02-25 14:38] LABS: HEMATOCRIT 44.6 % (36.0-47.0); HEMOGLOBIN 13.6 g/dl (12.0-15.5); MEAN CORPUSCULAR HEMOGLOBIN 27.1 pg (27.0-33.0); MEAN CORPUSCULAR HGB CONC 30.5 g/dl (32.0-36.5); MEAN CORPUSCULAR VOLUME 88.8 fl (80.0-96.0); PLATELET COUNT, AUTOMATED 362 10^3/uL (150-450); RED BLOOD COUNT 5.02 10^6/uL (4.00-5.40); WHITE BLOOD COUNT 8.4 10^3/uL (4.0-10.0)
[2020-02-25 15:01] LABS: BLOOD UREA NITROGEN 11 MG/DL (7-18); CALCIUM LEVEL 9.2 MG/DL (8.5-10.1); CARBON DIOXIDE LEVEL 27 MEQ/L (21-32); CHLORIDE LEVEL 105 MEQ/L (98-107); CREATININE FOR GFR 0.81 MG/DL (0.55-1.30); GLOMERULAR FILTRATION RATE > 60.0 (>60); GLUCOSE, FASTING 81 MG/DL (70-100); POTASSIUM SERUM 4.4 MEQ/L (3.5-5.1); SODIUM LEVEL 139 MEQ/L (136-145)
[2020-02-25 15:09] LABS: HCG, SERUM QUALITATIVE NEGATIVE (NEGATIVE)
--- NOTE | 2020-02-25 16:15 | REP ---
INDICATION: fall COMPARISON: None. TECHNIQUE: AP, lateral views of the sacrum and coccyx. FINDINGS: The bilateral sacroiliac joints are normal. No obvious acute fracture or subluxation is appreciated. Frontal view suggests sacralization along the left side of the L5 vertebral body-relatively common congenital variant without significance. IMPRESSION: . No acute fracture or dislocation. <Electronically signed by Bong Schulte > 02/25/20 [id number]
--- NOTE | 2020-02-25 16:17 | REP ---
INDICATION: fall COMPARISON: None. TECHNIQUE: AP, lateral views of the bilateral forearm. FINDINGS: The osseous structures and joint spaces are intact and normal bilaterally. There is no evidence for acute fracture or dislocation. Surrounding soft tissues are unremarkable. No subcutaneous emphysema or radiodense foreign body. IMPRESSION: Normal bilateral forearm radiographs. No acute fracture or dislocation. <Electronically signed by Bong Schulte > 02/25/20 [id number]
--- NOTE | 2020-02-25 16:19 | REP ---
INDICATION: fall COMPARISON: None. TECHNIQUE: Axial noncontrast images from the skull base to the thoracic inlet with coronal and sagittal re-formations This CT examination was performed using the following dose reduction techniques: Automated exposure control, adjustment of mA and/or kv according to the patient's size, and use of iterative reconstruction technique. FINDINGS: Mild reversal of normal lordosis may be secondary to positioning. Normal alignment is maintained. Cervical vertebral bodies including transverse processes and spinous processes are intact and there is no evidence for acute fracture / compression injury or subluxation. Spinal canal is patent. Posterior elements are intact. Paravertebral soft tissues are normal. IMPRESSION: Normal noncontrast cervical spine CT. No evidence for acute pathology or trauma/injury. <Electronically signed by Bong Schulte > 02/25/20 [id number]
[2020-02-25 17:33] VITALS: BP 137/77
== END 2020-02-25 17:36 | disposition home or self-care (01) ==
LOC: M ED 13:25
DX: R55 Syncope and collapse (principal); T14.8XXA Other injury of unspecified body region, initial encounter; W10.8XXA Fall (on) (from) other stairs and steps, initial encounter; Y92.89 Other specified places as the place of occurrence of the external cause; I25.10 Atherosclerotic heart disease of native coronary artery without angina pectoris; Z98.84 Bariatric surgery status; Z79.899 Other long term (current) drug therapy; Z88.1 Allergy status to other antibiotic agents; Z88.8 Allergy status to other drugs, medicaments and biological substances

== ENCOUNTER → 2020-03-04 | Outpatient (CLI) | payer OTHER ==
[~2020-03-04] MED LIST changes: +HYDR200T3 PO; +LIFITEGRAST; +MEDR10TA; +OMEP-221 PO; +REST0.05
[2020-03-04 11:09] LABS: BASO # 0.1 10^3/uL (0.0-0.2); BASO % 0.9 % (0.0-1.0); EOS # 0.2 10^3/uL (0.0-0.5); EOS % 1.7 % (0.0-3.0); HEMATOCRIT 42.3 % (36.0-47.0); HEMOGLOBIN 13.1 g/dl (12.0-15.5); LYMPH # 3.8 10^3/uL (1.5-5.0); LYMPH % 41.7 % (24.0-44.0); MEAN CORPUSCULAR HEMOGLOBIN 27.4 pg (27.0-33.0); MEAN CORPUSCULAR VOLUME 88.5 fl (80.0-96.0); MONO # 0.9 10^3/uL (0.0-0.8); MONO % 9.2 % (0.0-5.0); NEUTROPHILS # 4.3 10^3/uL (1.5-8.5); NEUTROPHILS % 46.3 % (36.0-66.0); PLATELET COUNT, AUTOMATED 378 10^3/uL (150-450); RED BLOOD COUNT 4.78 10^6/uL (4.00-5.40); WHITE BLOOD COUNT 9.2 10^3/uL (4.0-10.0)
[2020-03-04 11:44] LABS: ERYTHROCYTE SEDIMENTATION RATE 18 mm/hr (0-20)
[2020-03-04 11:47] LABS: ALBUMIN 3.7 GM/DL (3.2-5.2); ALT/SGPT 32 U/L (12-78); BILIRUBIN,DIRECT < 0.1 MG/DL (0.0-0.2); BILIRUBIN,TOTAL 0.3 MG/DL (0.2-1.0); C REACTIVE PROTEIN QUANTITATIV 0.86 MG/DL (0.00-0.30); TOTAL PROTEIN 7.5 GM/DL (6.4-8.2)
[2020-03-06 06:16] LABS: IGASUB2 245.8 mg/dL (73.2-301.2); IGASUB3 22.4 mg/dL (13.4-97.9); IgA SERUM (part of Subclasses) 304 mg/dL (87-352); TISSUE TRANSGLUTAMINASE IgA <2 U/mL (0-3); UNITSIGA FOR GLIADIN IGA 3 units (0-19); UNITSIGG FOR GLIADIN IGG 3 units (0-19)
== END ==
LOC: M LAB 10:41
PROVIDERS: ATTEND Internal Medicine Gastroenterology
DX: R11.2 Nausea with vomiting, unspecified (principal)

== ENCOUNTER → 2020-03-14 | Outpatient (CLI) | payer MEDICAID ==
[~2020-03-14] MED LIST changes: +MEDR4PAK PO; +MIDO5TA PO
== END ==
LOC: M LABSMTC 12:09
PROVIDERS: ATTEND Anesthesiology
DX: Z01.812 Encounter for preprocedural laboratory examination (principal); Z20.828 Contact with and (suspected) exposure to other viral communicable diseases

== ENCOUNTER 2020-05-21 13:44 | Emergency (ER) | payer OTHER ==
[~2020-05-21] VITALS: Ht 167.6 cm; Wt 145.6 kg
--- OUTSIDE RECORDS SUMMARY | 2020-05-21 13:52 | CCD ---
Author Author [facility] Organization [facility] Address Unknown Phone Unavailable Care Team Providers Care It Programmer Name Role Phone Merlene Banks Unavailable PROBLEMS Type Condition ICD9-CM Code [id number] Code Onset Dates Condition S tatus SNOMED Code Notes Problem Bipolar 1 disorder F31.9 Active 756249642 Problem Daytime somnolence R40.0 Active 538095986880 Problem Seasonal allergies J30.2 Active 787112799 Problem Severe obesity (BMI >= 40) E66.01 Active 11537 6002 Problem LV (generalized anxiety disorder) F41.1 Activ e 58561492 Problem Hx of supraventricular tachycardia Z86.79 Activ e [id number] Problem Bipolar disorder with depression F31.30 Active 77131305 Problem Skin rash R21 Active 095595217 Problem Gross hematuria R31.0 Active 642406942 Problem Bipolar disorder, current episode depressed, moderate F31.32 Active 573924883 Problem Dysmenorrhea N94.6 Active 284009062 Problem 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 Active 195343949 Problem 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 Active 33158468 Problem History of iron deficiency anemia Z86.2 Active 735188170 Problem 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 Active 36764339 Problem Left flank pain R10.9 Active 570085585 Problem Endometriosis N80.9 Active 683594521 Problem Hair loss L65.9 Active 270750783 Problem Family history of lupus erythematosus Z84.0 Ac tive 833540085 Problem Subclinical hypothyroidism E03.9 Active 75955 002 Problem Keratoconjunctivitis sicca M35.01 Active 92258 6008 Problem Dyspareunia in female N94.10 Active 68675737 Problem Inflammatory polyarthritis M06.4 Active 97247 3000 Problem Polycystic ovary disease E28.2 Active 0441860 8 Problem Menorrhagia with irregular cycle N92.1 Active 511474315 Problem Vitamin D deficiency E55.9 Active 74831462 Problem Menometrorrhagia N92.1 Active 644806851 She h as a history of irregular periods but her menometrorrhagia is concerning and she is referred to her technical lead for reevaluation. She was seen in April 2018 for similar issues. Problem Menorrhagia N92.0 Active 102775143 Problem 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, unspecified trigger J3 0.2 Active 074237815 ALLERGIES Allergen (clinical drug ingredient) Drug/Non Drug Allergy do cumented on EMR Reaction Allergy Type Onset Date Status aspirin Aspirin([facility] Code:[address]-07) HX ANEMIA Drug Allergy Active KIWI THROAT SWELLS Non Drug Allergy Activ e HONEYDEW THROAT SWELLS Non Drug Allergy Activ e erythromycin Erythromycin(NDC Code:[address]-54) Nausea/Vomiting D rug Allergy Active ondansetron Zofran([facility]C Code:[address]-53) Anaphylaxis/QT [place] Drug Allergy Active topiramate Topamax(ND Code:[address]-22) confused and forgetful Drug Allergy Active clarithromycin Biaxin Nausea/Vomiting Drug Allergy Act olga Levaquin Prolonged QT interval Drug Allergy A ctive sulfamethoxazole / trimethoprim Bactrim([facility] Code:[address]-44) hives Drug Allergy Active ENCOUNTERS from 1994 to 2020-03-25 Encounter Location Date Provider Diagnosis [address] [address] Mar, Merlene Banks IMMUNIZATIONS Vaccine Route Administration Date Status Influenza (6mo & up) Fluzone IM Intramuscular Mar 07, 2018 Ad ministered SOCIAL HISTORY Tobacco Use: Social History Observation Description Date Details (start date - stop date) Never Smoker Sex Assigned At : Social History Observation Description Sex Assigned At Unknown Education: Question Answer Notes Level of Education: Graduate [employer] gradua [employer]zen[employer] August 2017 Bachelors in Pyschology-minor in human services-minor in Urdu. Audit Question Answer Notes Total Score: 1 Interpretation: Alcohol Education Language: Question Answer Notes Languages spoken: Croatian Urdu Mandaeism: Question Answer Notes Mandaeism 33 None Domestic Violence: Question Answer Notes Status: 2011 Does the patient divulge that the partner hits the chi angelitaren in the household? No Does the patient consider the partner abusive? No Has the patient ever been in a situation involving domestic violence? No Has the patietn ever been injured, homeb ound, or hospitalized due to an altercation with significant other? No Sexual Hx: Question Answer Notes Had sex in the last 12 months (vaginal, oral, or anal)? Yes LMP: 12/20/17 Have you ever had an STD? No Prevention Strategies discussed: Condoms with Men only Use protection? Yes How often? All of the time Drug and Alcohol Question Answer Notes Total Score: 0 Interpretation: No problems reported Alcohol Screening: Question Answer Notes Did you have a drink containing alcohol in the past year? No Points 0 Interpretation Negative Tobacco Use: Question Answer Notes Are you a: never smoker REASON FOR REFERRAL No Information VITAL SIGNS No information MEDICATIONS Medication SIG (Take, Route, Frequency, Duration) Notes Start Da te End Date Status Midodrine HCl 5 MG 1 tablet Orally Three times a day Active Plaquenil 200 MG 1 tab Orally twice daily for 30 days 14 O 2019 Active Pantoprazole Sodium 40 MG 1 tablet Orally Once a day for 30 day( s) Oct, Not-Taking Provera 10 MG 1 tablet with food Orally Once a day for 10 day(s) Feb, Not-Taking Provera 10 MG 1 tablet with food Orally Once a day for 10 day(s) August, Not-Taking Atenolol 25 mg 1 tablet Orally Once a day as needed Active Loratadine 10 MG 1 tablet Orally Once a day for 30 day(s) August, Not-Taking Mometasone Furoate 50 MCG/ACT 2 sprays in each nostril Nasally Once a day for 30 day(s) August, Not-Taking Metformin HCl 500 MG 1 tablet with a meal Orally twice a day for 30 day(s) Oct, Not-Taking Medrol 4 MG 1-3 tablets daily Orally Daily prn for 30 day(s) Mar, Active Promethazine HCl 12.5 MG 1 tablet as needed Orally every 6 hrs f or 7 day(s) Sep, Not-Taking Jacqueline 0.35 MG 1 tablet Orally Once a day for 84 day(s) 1 0 Mar, 2020 Active PROCEDURES No Information RESULTS No Results REASON FOR VISIT Referral for Gastric Bypass MEDICAL (GENERAL) HISTORY Type Description Date Medical History Bipolar 1 disorder Medical History Polycystic ovary disease Medical History LV (generalized anxiety disorder) Medical History Hx of supraventricular tachycardia Medical History Severe obesity (BMI >= 40) Medical History Seasonal allergies Medical History Daytime somnolence Medical History OTHROSTATIC HTN Medical History ASTHMA Medical History IBS Medical History HEADACHES Medical History HX SEIZURE X1 2001 Medical History DEPRESSION/ANXIETY Medical History HEMATURIA Medical History NON OBSTRUCTING STONE Medical History POTS SYDROME (POSTURAL ORHTOSTATIC TACHY CARDIA SYNDROME) Medical History left back pain that goes to the side and into the front Medical History migranes Medical History Enlarged heart Surgical History cholecystectomy [address] 2015 Surgical History CARDIAC OBLASION 12/13/2017 Surgical History WISDOM TEETH REMOVED 2012 Surgical History LYMPH NODE 2014 Surgical History CYSTOSCOPY 07/06/2018 Hospitalization History cholecystectomy- [facility] 2009 Hospitalization History Sepsis- prolonged QT (got wi sdom teeth out was in hot tub, ended up with sepsis in face and neck [facility] 2012 Hospitalization History Severe acute pancreatitis- [facility] 2014 Hospitalization History fainted heart rate elevated kept overnight. [facility] 2017 Hospitalization History [facility] ED-Breathing difficulty, bronchi tis 06/06/2019 Hospitalization History Bacterial pneumonia 12/2018 Goals Section No Information Health Concerns No Information MEDICAL EQUIPMENT No Information MENTAL STATUS No Information FUNCTIONAL STATUS No Information ASSESSMENTS No Information PLAN OF TREATMENT Medication Medication Name Sig Start Date Stop Date Jacqueline 0.35 MG 1 tablet Orally Once a day for 84 day(s) Mar, Next Appt Details Provider Name:Anastasiya Norton, 2020-04 02:45:00 PM, [address] [place] [address], [address],
--- OUTSIDE RECORDS SUMMARY | 2020-05-21 13:52 | CCD ---
Author Author [facility] Organization [facility] Address Unknown Phone Unavailable Care Team Providers Care Office Assistant Receptionist Name Role Phone Anastasiya Norton Unavailable PROBLEMS Type Condition ICD9-CM Code YOS27-WV Code Onset Dates Condition S tatus SNOMED Code Notes Problem Seasonal allergies J30.2 Active 305614521 Problem LV (generalized anxiety disorder) F41.1 Activ e 86907362 Problem Daytime somnolence R40.0 Active 203026557965 Problem Bipolar disorder with depression F31.30 Active 13673784 Problem Hx of supraventricular tachycardia Z86.79 Activ e 33033301996479806 Problem Dyspareunia in female N94.10 Active 16128849 Problem Polycystic ovary disease E28.2 Active 4987217 8 Problem Family history of lupus erythematosus Z84.0 Ac tive 521532672 Problem Hair loss L65.9 Active 658914307 Problem Bipolar 1 disorder F31.9 Active 718633511 Problem 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 Active 841990102 Problem 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 Active 15922277 Problem History of iron deficiency anemia Z86.2 Active 433030636 Problem 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 She was seen in April 2018 for similar issues. Problem Morbid obesity with body mass index (BMI) greate r than or equal to 50 E66.01 Active 274708607 Problem Dysmenorrhea N94.6 Active 323460671 Problem Rheumatoid arthritis of multiple sites w ith negative rheumatoid factor M06.09 Active 715314613 Problem Menorrhagia with irregular cycle N92.1 Active 994752666 Problem Bipolar disorder, current episode depressed, moderate F31.32 Active 413380058 Problem Menorrhagia N92.0 Active 028194648 Problem 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, unspecified trigger J3 0.2 Active 642290204 Problem Keratoconjunctivitis sicca M35.01 Active 29109 6008 Problem Inflammatory polyarthritis M06.4 Active 04106 3000 ALLERGIES Allergen (clinical drug ingredient) Drug/Non Drug Allergy do cumented on EMR Reaction Allergy Type Onset Date Status aspirin Aspirin(ND Code:[address]-70) HX ANEMIA Drug Allergy Active KIWI THROAT SWELLS Non Drug Allergy Activ e HONEYDEW THROAT SWELLS Non Drug Allergy Activ e erythromycin Erythromycin(NDC Code:[address]-18) Nausea/Vomiting D rug Allergy Active ondansetron Zofran(NDC Code:[address]-67) Anaphylaxis/QT [place] Drug Allergy Active topiramate Topamax([facility]C Code:[address]-91) confused and forgetful Drug Allergy Active clarithromycin Biaxin Nausea/Vomiting Drug Allergy Act olga Levaquin Prolonged QT interval Drug Allergy A ctive sulfamethoxazole / trimethoprim Bactrim(ND Code:[address]-27) hives Drug Allergy Active ENCOUNTERS from 1994 to 2020-05-03 Encounter Location Date Provider Diagnosis [facility] Rheumatology [address] [place] [address] 26 Apr, 2020 Anastasiya Norton Rheumatoid arthritis of multiple sites w ith negative rheumatoid factor M06.09 ; Keratoconjunctivitis sicca M35.01 and Morbid obesity with body mass index (BMI) greater than or equal to 50 E66.01 IMMUNIZATIONS Vaccine Route Administration Date Status Influenza (6mo & up) Fluzone IM Intramuscular Mar 07, 2018 Ad ministered SOCIAL HISTORY Tobacco Use: Social History Observation Description Date Details (start date - stop date) Never Smoker Sex Assigned At : Social History Observation Description Sex Assigned At Unknown Education: Question Answer Notes Level of Education: Graduate [employer] August 2017 Bachelors in Pyschology-minor in human services-minor in Vietnamese. Audit Question Answer Notes Total Score: 1 Interpretation: Alcohol Education Language: Question Answer Notes Languages spoken: Danish Vietnamese Oriental Orthodox: Question Answer Notes Oriental Orthodox 33 None Domestic Violence: Question Answer Notes Status: 2010 Does the patient divulge that the partner hits the chi ldren in the household? No Does the patient [...] REASON FOR REFERRAL No Information VITAL SIGNS Weight 321.8 lbs Apr, Weight-kg 146.0 kg Apr, Height 66 in Apr, BMI 51.93 kg/m2 Apr, Heart Rate 128 /min Apr, Respiratory Rate 18 /min Apr, Temperature 97.7 degrees Fahrenheit Apr, Oximetry 99% Apr, Blood pressure systolic 112 mm Hg Apr, Blood pressure diastolic 64 mm Hg Apr, MEDICATIONS Medication SIG (Take, Route, Frequency, Duration) Notes Start Da te End Date Status Provera 10 MG 1 tablet with food Orally Once a day for 10 day(s) Feb, Not-Taking Loratadine 10 MG 1 tablet Orally Once a day for 30 day(s) August, Not-Taking Jacqueline 0.35 MG 1 tablet Orally Once a day for 84 day(s) Mar, 2020 Active Medrol 4 MG 1-3 tablets daily Orally Daily prn for 90 days Mar, Active Provera 10 MG 1 tablet with food Orally Once a day for 10 day(s) August, Not-Taking Folic Acid 1 MG 1 tablet Orally Once a day for 30 day(s) 2 6 Apr, 2020 Active Metformin HCl 500 MG 1 tablet with a meal Orally twice a day for 30 day(s) Oct, Not-Taking Promethazine HCl 12.5 MG 1 tablet as needed Orally every 6 hrs f or 7 day(s) Sep, Not-Taking Plaquenil 200 MG 1 tab Orally twice daily for 90 days 14 O 2019 Active Mometasone Furoate 50 MCG/ACT 2 sprays in each nostril Nasally Once a day for 30 day(s) August, Not-Taking Spironolactone 25 MG 1 tablet Orally Once a day for 30 day(s) Apr, Active Pantoprazole Sodium 40 MG 1 tablet Orally Once a day for 30 day( s) Oct, Not-Taking Methotrexate Sodium 2.5 MG 6 tablets as directed Orally Once weekly for 30 Days Apr, Active Midodrine HCl 5 MG 1 tablet Orally Three times a day Active Atenolol 25 mg 1 tablet Orally Once a day as needed Active PROCEDURES No Information RESULTS No Results REASON FOR VISIT 3-4 months labs prior MEDICAL (GENERAL) HISTORY Type Description Date Medical [...] History cholecystectomy [address] [place] 2016 Surgical History CARDIAC OBLASION 12/13/2017 Surgical History WISDOM TEETH REMOVED 2012 Surgical History LYMPH NODE 2014 Surgical History CYSTOSCOPY 07/06/2018 Hospitalization History cholecystectomy- [facility] 2009 Hospitalization History Sepsis- prolonged QT (got wi sdom teeth out was in hot tub, ended up with sepsis in face and neck [facility] 2012 Hospitalization History Severe acute pancreatitis- [facility] 2014 Hospitalization History fainted heart rate elevated kept overnight. [facility] 2017 Hospitalization History [facility] ED-Breathing difficulty, bronchi tis 06/06/2019 Hospitalization History Bacterial pneumonia 12/2018 Goals Section No Information Health Concerns No Information MEDICAL EQUIPMENT No Information MENTAL STATUS No Information FUNCTIONAL STATUS No Information ASSESSMENTS Encounter Date Diagnosis Assessment Notes Treatment Notes Treatm ent Clinical Notes Apr, Rheumatoid arthritis of [facility] with negative rheumatoid factor (ICD-10 - M06.09) This patient has an inflammatory arthritis which has been somewhat steroid responsive but she is still having persistent pain and inflammation on steroid equivalent prednisone dose of 15 mg daily and Plaquenil. She will start methotrexate 15 mg weekly in combination with folic acid 1 mg daily. We reviewed risks, benefits, side effects of methotrexate including the fact that methotrexate is teratogenic and she should not become on this drug. We reviewed the need to avoid alcohol while on this drug. Follow-up visit in approximately 3 weeks with lab before. Apr, Keratoconjunctivitis sicca (ICD-10 - M35.01) She has significant dry eyes, possible this is early Sjogren's overlap or even SLE. I will recheck some additional serologies before the next office visit. Apr, Morbid obesity with body mas s index (BMI) greater than or equal to 50 (ICD-10 - E66.01) This patient has body mass index greater than 50. Lab tests such as C reactive protein may not be accurate. Getting the joint inflammation under control may be much more difficult because of the elevated BMI. Suggests that her PCP discuss weight loss with her including possibility of bariatric surgery. Apr, Other Patient instructions : Continue Plaquenil and Medrol Start Methotrexate 6 pills once weekly with folic acid 1 pill daily Follow up 3 weeks with lab before PLAN OF TREATMENT Medication Medication Name Sig Start Date Stop Date Folic Acid 1 MG 1 tablet Orally Once a day for 30 day(s) Apr, Methotrexate Sodium 2.5 MG 6 tablets as directed Orally Once weekly for 30 Days Apr, Plaquenil 200 MG 1 tab Orally twice daily for 90 days 14 Jan, Medrol 4 MG 1-3 tablets daily Orally Daily prn for 90 days 0 4 Mar, 2020 Spironolactone 25 MG 1 tablet Orally Once a day for 30 day(s) Apr, Treatment Notes Assessment Notes Clinical Notes Rheumatoid arthritis of multiple sites with negative r heumatoid factor This patient has an inflammatory arthritis which has been somewhat steroid responsive but she is still having persistent pain and inflammation on steroid equivalent prednisone dose of 15 mg daily and Plaquenil.She will start methotrexate 15 mg weekly in combination with folic acid 1 mg daily.We reviewed risks, benefits, side effects of methotrexate including the fact that methotrexate is teratogenic and she should not become on this drug. We reviewed the need to avoid alcohol while on this drug.Follow-up visit in approximately 3 weeks with lab before. Keratoconjunctivitis sicca She has significant dry eye s, possible this is early Sjogren's overlap or even SLE.I will recheck some additional serologies before the next office visit. Morbid obesity with body mass index (BMI) greater than or equal to 50 This patient has body mass index greater than 50.Lab tests such as C reactive protein may not be accurate.Getting the joint inflammation under control may be much more difficult because of the elevated BMI.Suggests that her PCP discuss weight loss with her including possibility of bariatric surgery. Future Test Test Name Order Date CBC with Differential [id number] Comprehensive Metabolic Profile (CMP) [id number] PLACIDO TITER & PATTERN [id number] ANTI DOUBLE STRAND DNA NYASIA [id number] ANTI RICARDO EXTRACTABLE NUCLEAR A [id number] COMPLEMENT C3 00014970 COMPLEMENT C4 21776502 CPK CREATINE PHOSPHOKINASE 85024707 ERYTHROCYTE SEDIMENTATION RATE [id number] HEPATITIS B CORE ANTIBODY IGG 18408950 HEPATITIS C ANTIBODY INDEX 82440025 QUANTIFERON TB GOLD TEST [id number] ANTI-SJOGRENS A&B ANTIBODIES [id number] Next Appt Details 3 Weeks Reason: Provider Name:Anastasiya Norton, 2020-05 10:15:00 AM, [address] [place] [address], [address], Insurance Providers Payer Name Payer Address Payer Phone Insured Name Patient Relati onship to Insured Coverage Start Date Coverage End Date [facility] [address] [facility] [id number] BENJI LILLY self
--- OUTSIDE RECORDS SUMMARY | 2020-05-21 13:52 | CCD ---
Author Author [facility] Organization [facility] Address Unknown Phone Unavailable Care Team Providers Care System Software Programmer Name Role Phone Kristian Trevizo Unavailable PROBLEMS Type Condition ICD9-CM Code [id number] Code Onset Dates Condition S tatus SNOMED Code Notes Problem Bipolar 1 disorder F31.9 Active 732500317 Problem Daytime somnolence R40.0 Active 656281383942 Problem Seasonal allergies J30.2 Active 039676045 Problem Severe obesity (BMI >= 40) E66.01 Active 94248 6002 Problem LV (generalized anxiety disorder) F41.1 Activ e 47404434 Problem Hx of supraventricular tachycardia Z86.79 Activ e 65168502357642734 Problem Bipolar disorder with depression F31.30 Active 94698162 Problem Skin rash R21 Active 327479204 Problem Gross hematuria R31.0 Active 779075626 Problem Bipolar disorder, current episode depressed, moderate F31.32 Active 528432919 Problem Dysmenorrhea N94.6 Active 625527115 Problem 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 Active 705563991 Problem 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 Active 66081072 Problem History of iron deficiency anemia Z86.2 Active 855603079 Problem 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 Active 39983899 Problem Left flank pain R10.9 Active 165214204 Problem Endometriosis N80.9 Active 334628483 Problem Hair loss L65.9 Active 096609364 Problem Family history of lupus erythematosus Z84.0 Ac tive 384277111 Problem Subclinical hypothyroidism E03.9 Active 68615 002 Problem Keratoconjunctivitis sicca M35.01 Active 21749 6008 Problem Dyspareunia in female N94.10 Active 64450500 Problem Inflammatory polyarthritis M06.4 Active 33884 3000 Problem Polycystic ovary disease E28.2 Active 2571210 8 Problem Menorrhagia with irregular cycle N92.1 Active 709206290 Problem Vitamin D deficiency E55.9 Active 87593869 Problem Menometrorrhagia N92.1 Active 919899838 She h as a history of irregular periods but her menometrorrhagia is concerning and she is referred to her manager for reevaluation. She was seen in April 2018 for similar issues. Problem Menorrhagia N92.0 Active 909472799 Problem 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, unspecified trigger J3 0.2 Active 437075118 ALLERGIES Allergen (clinical drug ingredient) Drug/Non Drug Allergy do cumented on EMR Reaction Allergy Type Onset Date Status aspirin Aspirin([facility] Code:[address]-90) HX ANEMIA Drug Allergy Active KIWI THROAT SWELLS Non Drug Allergy Activ e HONEYDEW THROAT SWELLS Non Drug Allergy Activ e erythromycin Erythromycin([facility] Code:[address]-95) Nausea/Vomiting D rug Allergy Active ondansetron Zofran([facility] Code:[address]-24) Anaphylaxis/QT [place] Drug Allergy Active topiramate Topamax(ND Code:[address]-39) confused and forgetful Drug Allergy Active clarithromycin Biaxin Nausea/Vomiting Drug Allergy Act olga Levaquin Prolonged QT interval Drug Allergy A ctive sulfamethoxazole / trimethoprim Bactrim([facility] Code:[address]-51) hives Drug Allergy Active ENCOUNTERS from 1994 to 2020-03-14 Encounter Location Date Provider Diagnosis [facility] [address] [place] [id number] Feb, Kristian Trevizo IMMUNIZATIONS Vaccine Route Administration Date Status Influenza (6mo & up) Fluzone IM Intramuscular Mar 07, 2018 Ad ministered SOCIAL HISTORY Tobacco Use: Social History Observation Description Date Details (start date - stop date) Never Smoker Sex Assigned At : Social History Observation Description Sex Assigned At Unknown Education: Question Answer Notes Level of Education: Graduate [employer] August 2017 Bachelors in Pyschology-minor in human services-minor in Bulgarian. Audit Question Answer Notes Total Score: 1 Interpretation: Alcohol Education Language: Question Answer Notes Languages spoken: Khmer Bulgarian Mandaen: Question Answer Notes Mandaen 33 None Domestic Violence: Question Answer Notes [...] Information RESULTS No Results REASON FOR VISIT Bleeding issues (again) MEDICAL (GENERAL) HISTORY Type Description Date Medical History Bipolar 1 disorder Medical History Polycystic ovary disease Medical History LV (generalized anxiety disorder) Medical History Hx of supraventricular tachycardia Medical History Severe obesity (BMI >= 40) Medical History Seasonal allergies Medical History Daytime somnolence Medical History OTHROSTATIC HTN Medical History ASTHMA Medical History IBS Medical History HEADACHES Medical History HX SEIZURE X1 2002 Medical History DEPRESSION/ANXIETY Medical History HEMATURIA Medical History NON OBSTRUCTING STONE Medical History POTS SYDROME (POSTURAL ORHTOSTATIC TACHY CARDIA SYNDROME) Medical History left back pain that goes to the side and into the front Medical History migranes Medical History Enlarged heart Surgical History cholecystectomy [address] [place] [facility] 2015 Surgical History CARDIAC OBLASION 12/13/2017 Surgical History WISDOM TEETH REMOVED 2012 Surgical History LYMPH NODE 2014 Surgical History CYSTOSCOPY 07/06/2018 Hospitalization History cholecystectomy- [facility] 2009 Hospitalization History Sepsis- prolonged QT (got wi sdom teeth out was in hot tub, ended up with sepsis in face and neck [facility] 2012 Hospitalization History Severe acute pancreatitis- [facility] 2014 Hospitalization History fainted heart rate elevated kept overnight. [facility] 2017 Hospitalization History [facility] ED-Breathing difficulty, bronchi tis 06/06/2019 Hospitalization History [...] Details Provider Name:Anastasiya Norton, 2020-04 02:45:00 PM, [address] [place] [address], [address],
--- OUTSIDE RECORDS SUMMARY | 2020-05-21 13:52 | CCD ---
Author Author [facility] Organization [facility] Address Unknown Phone Unavailable Care Team Providers Care Railroad Worker Name Role Phone Kristian Trevizo Unavailable PROBLEMS Type Condition ICD9-CM Code [id number] Code Onset Dates Condition S tatus SNOMED Code Notes Problem Seasonal allergies J30.2 Active 505177586 Problem LV (generalized anxiety disorder) F41.1 Activ e 62854769 Problem Daytime somnolence R40.0 Active 116958714312 Problem Bipolar disorder with depression F31.30 Active 19464742 Problem Hx of supraventricular tachycardia Z86.79 Activ e 89563253445107981 Problem Dyspareunia in female N94.10 Active 21734985 Problem Polycystic ovary disease E28.2 Active 0095413 8 Problem Family history of lupus erythematosus Z84.0 Ac tive 136861430 Problem Hair loss L65.9 Active 993276851 Problem Bipolar 1 disorder F31.9 Active 911082224 Problem 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 Active 306134082 Problem 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 Active 70247462 Problem History of iron deficiency anemia Z86.2 Active 444709436 Problem 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 She was seen in April 2018 for similar issues. Problem Morbid obesity with body mass index (BMI) greate r than or equal to 50 E66.01 Active 218961473 Problem Dysmenorrhea N94.6 Active 302198016 Problem Rheumatoid arthritis of multiple sites w ith negative rheumatoid factor M06.09 Active 724646282 Problem Menorrhagia with irregular cycle N92.1 Active 440598068 Problem Bipolar disorder, current episode depressed, moderate F31.32 Active 793192501 Problem Menorrhagia N92.0 Active 546710575 Problem 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, unspecified trigger J3 0.2 Active 262023945 Problem Keratoconjunctivitis sicca M35.01 Active 93098 6008 Problem Inflammatory polyarthritis M06.4 Active 98935 3000 ALLERGIES Allergen (clinical drug ingredient) Drug/Non Drug Allergy do cumented on EMR Reaction Allergy Type Onset Date Status aspirin Aspirin(ND Code:[address]-06) HX ANEMIA Drug Allergy Active KIWI THROAT SWELLS Non Drug Allergy Activ e HONEYDEW THROAT SWELLS Non Drug Allergy Activ e erythromycin Erythromycin(ND Code:[address]-88) Nausea/Vomiting D rug Allergy Active ondansetron Zofran([facility] Code:[address]-54) Anaphylaxis/QT [place] Drug Allergy Active topiramate Topamax([facility] Code:[address]-80) confused and forgetful Drug Allergy Active clarithromycin Biaxin Nausea/Vomiting Drug Allergy Act olga Levaquin Prolonged QT interval Drug Allergy A ctive sulfamethoxazole / trimethoprim Bactrim(ND Code:[address]-44) hives Drug Allergy Active ENCOUNTERS from 1994 to 2020-05-03 Encounter Location Date Provider Diagnosis [facility] [address] [place] [phone] Apr, Kristian Trevizo IMMUNIZATIONS Vaccine Route Administration Date Status Influenza (6mo & up) Fluzone IM Intramuscular Mar 07, 2018 Ad ministered SOCIAL HISTORY Tobacco Use: Social History Observation Description Date Details (start date - stop date) Never Smoker Sex Assigned At : Social History Observation Description Sex Assigned At Unknown Education: Question Answer Notes Level of Education: Graduate [employer] August 2017 Bachelors in Pyschology-minor in human services-minor in Yakut. Audit Question Answer Notes Total Score: 1 Interpretation: Alcohol Education Language: Question Answer Notes Languages spoken: Yakut Yakut Druze: Question Answer Notes Druze 33 None Domestic Violence: Question Answer Notes [...] 84 day(s) 1 0 Mar, 2020 Active Medrol 4 MG 1-3 tablets daily Orally Daily prn for 90 days Mar, Active Provera 10 MG 1 tablet with food Orally Once a day for 10 day(s) August, Not-Taking Folic Acid 1 MG 1 tablet Orally Once a day for 30 day(s) 2 Apr, Active Metformin HCl 500 MG 1 tablet [...] Information RESULTS No Results REASON FOR VISIT script MEDICAL (GENERAL) HISTORY Type Description Date Medical [...] History cholecystectomy [address] [place] [facility] 2015 Surgical History CARDIAC OBLASION 12/13/2017 Surgical History WISDOM TEETH REMOVED 2012 Surgical History LYMPH NODE 2014 Surgical History CYSTOSCOPY 07/06/2018 Hospitalization History cholecystectomy- [facility] 2009 Hospitalization History Sepsis- prolonged QT (got wi sdom teeth out was in hot tub, ended up with sepsis in face and neck [facility] 2012 Hospitalization History Severe acute pancreatitis- [facility] 2014 Hospitalization History fainted heart rate elevated kept overnight. [facility] 2017 Hospitalization History [facility] ED-Breathing difficulty, bronchi tis 06/06/2019 Hospitalization History [...] Once a day for 30 day(s) Apr, Next Appt Details Provider Name:Anastasiya Norton, 2020-05 10:15:00 AM, [address] [place] [address], [address], Insurance Providers Payer Name Payer Address Payer Phone Insured Name Patient Relati onship to Insured Coverage Start Date Coverage End Date [facility] [address] [facility] [place] [id number] BENJI LILLY self
--- OUTSIDE RECORDS SUMMARY | 2020-05-21 13:52 | CCD ---
Author Author [facility] Organization [facility] Address Unknown Phone Unavailable Care Team Providers Care Blocker And Cutter Contact Lens Name Role Phone Kristian Trevizo Unavailable PROBLEMS Type Condition ICD9-CM Code [id number] Code Onset Dates Condition S tatus SNOMED Code Notes Problem Bipolar 1 disorder F31.9 Active 241470522 Problem Daytime somnolence R40.0 Active 847783980935 Problem Seasonal allergies J30.2 Active 951359258 Problem Severe obesity (BMI >= 40) E66.01 Active 43544 6002 Problem LV (generalized anxiety disorder) F41.1 Activ e 32928686 Problem Hx of supraventricular tachycardia Z86.79 Activ e 18944700525159853 Problem Bipolar disorder with depression F31.30 Active 25060071 Problem Skin rash R21 Active 520844303 Problem Gross hematuria R31.0 Active 633711081 Problem Bipolar disorder, current episode depressed, moderate F31.32 Active 198908994 Problem Dysmenorrhea N94.6 Active 584139108 Problem 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 Active 099612376 Problem 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 Active 85743601 Problem History of iron deficiency anemia Z86.2 Active 451458267 Problem 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 Active 68523432 Problem Left flank pain R10.9 Active 349607186 Problem Endometriosis N80.9 Active 151463211 Problem Hair loss L65.9 Active 266360411 Problem Family history of lupus erythematosus Z84.0 Ac tive 816085198 Problem Subclinical hypothyroidism E03.9 Active 17211 002 Problem Keratoconjunctivitis sicca M35.01 Active 06501 6008 Problem Dyspareunia in female N94.10 Active 81683067 Problem Inflammatory polyarthritis M06.4 Active 68934 3000 Problem Polycystic ovary disease E28.2 Active 3052862 8 Problem Menorrhagia with irregular cycle N92.1 Active 633304361 Problem Vitamin D deficiency E55.9 Active 89021220 Problem Menometrorrhagia N92.1 Active 822325851 She h as a history of irregular periods but her menometrorrhagia is concerning and she is referred to her swing ride operator for reevaluation. She was seen in April 2018 for similar issues. Problem Menorrhagia N92.0 Active 678124939 Problem 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, unspecified trigger J3 0.2 Active 640579154 ALLERGIES Allergen (clinical drug ingredient) Drug/Non Drug Allergy do cumented on EMR Reaction Allergy Type Onset Date Status aspirin Aspirin([facility] Code:[address]-28) HX ANEMIA Drug Allergy Active KIWI THROAT SWELLS Non Drug Allergy Activ e HONEYDEW THROAT SWELLS Non Drug Allergy Activ e erythromycin Erythromycin([facility] Code:[address]-01) Nausea/Vomiting D rug Allergy Active ondansetron Zofran([facility] Code:[address]-29) Anaphylaxis/QT [place] Drug Allergy Active topiramate Topamax(ND Code:[address]-34) confused and forgetful Drug Allergy Active clarithromycin Biaxin Nausea/Vomiting Drug Allergy Act olga Levaquin Prolonged QT interval Drug Allergy A ctive sulfamethoxazole / trimethoprim Bactrim([facility] Code:[address]-85) hives Drug Allergy Active ENCOUNTERS from 1994 to 2020-04-29 Encounter Location Date Provider Diagnosis [facility] [place] [address] Apr, Kristian Trevizo IMMUNIZATIONS Vaccine Route Administration Date Status Influenza (6mo & up) Fluzone IM Intramuscular Mar 07, 2018 Ad ministered SOCIAL HISTORY Tobacco Use: Social History Observation Description Date Details (start date - stop date) Never Smoker Sex Assigned At : Social History Observation Description Sex Assigned At Unknown Education: Question Answer Notes Level of Education: [facility] [employer] August 2017 Bachelors in Pyschology-minor in human services-minor in Bulgarian. Audit Question Answer Notes Total Score: 1 Interpretation: Alcohol Education Language: Question Answer Notes Languages spoken: Georgian Bulgarian Jain: Question Answer Notes Jain 33 None Domestic Violence: Question Answer Notes [...] Notes Start Da te End Date Status Plaquenil 200 MG 1 tab Orally twice daily for 30 days 14 O 2019 Active Atenolol 25 mg 1 tablet Orally Once a day as needed Active Spironolactone 25 MG 1 tablet Orally Once a day for 30 day(s) Apr, Active Promethazine HCl 12.5 MG 1 tablet as needed Orally every 6 hrs f or 7 day(s) Sep, Not-Taking Mometasone Furoate 50 MCG/ACT 2 sprays in each nostril Nasally Once a day for 30 day(s) August, Not-Taking Pantoprazole Sodium 40 MG 1 tablet Orally Once a day for 30 day( s) Oct, Not-Taking Provera 10 MG 1 tablet with food Orally Once a day for 10 day(s) Feb, Not-Taking Provera 10 MG 1 tablet with food Orally Once a day for 10 day(s) August, Not-Taking Medrol 4 MG 1-3 tablets daily Orally Daily prn for 30 day(s) Mar, Active Loratadine 10 MG 1 tablet Orally Once a day for 30 day(s) August, Not-Taking Metformin HCl 500 MG 1 tablet with a meal Orally twice a day for 30 day(s) Oct, Not-Taking Midodrine HCl 5 MG 1 tablet Orally Three times a day Active Jacqueline 0.35 MG 1 tablet Orally Once a day for 84 day(s) 1 Mar, 2020 Active PROCEDURES No Information RESULTS No Results REASON FOR VISIT Spironolactone MEDICAL (GENERAL) HISTORY Type Description Date Medical [...] History cholecystectomy [address] [place] [facility] 2015 Surgical History CARDIAC OBLASION 12/13/2017 Surgical History WISDOM TEETH REMOVED 2012 Surgical History LYMPH NODE 2014 Surgical History CYSTOSCOPY 07/06/2018 Hospitalization History cholecystectomy- [facility] 2009 Hospitalization History Sepsis- prolonged QT (got wi sdom teeth out was in hot tub, ended up with sepsis in face and neck [facility] 2012 Hospitalization History Severe acute pancreatitis- [facility] 2014 Hospitalization History fainted heart rate elevated kept overnight. [facility] 2017 Hospitalization History [facility] ED-Breathing difficulty, bronchi tis 06/06/2019 Hospitalization History Bacterial pneumonia 12/2018 Goals Section No Information Health Concerns No Information MEDICAL EQUIPMENT No Information MENTAL STATUS No Information FUNCTIONAL STATUS No Information ASSESSMENTS No Information PLAN OF TREATMENT Medication Medication Name Sig Start Date Stop Date Jacqueline 0.35 MG 1 tablet Orally Once a day for 84 day(s) Mar, Spironolactone 25 MG 1 tablet Orally Once a day for 30 day(s) Apr, Next Appt Details Provider Name:Anastasiya Norton, 2020-04 02:45:00 PM, [address] [place] [address], [address], Insurance Providers Payer Name Payer Address Payer Phone Insured Name Patient Relati onship to Insured Coverage Start Date Coverage End Date [facility] [address] [facility] [phone] BENJI LILLY self
--- OUTSIDE RECORDS SUMMARY | 2020-05-21 13:52 | CCD ---
Author Author [facility] Organization [facility] Address Unknown Phone Unavailable Care Team Providers Care Microwave Supervisor Name Role Phone Deepa Savage Unavailable PROBLEMS Type Condition ICD9-CM Code [id number] Code Onset Dates Condition S tatus SNOMED Code Notes Problem Bipolar 1 disorder F31.9 Active 050993510 Problem Daytime somnolence R40.0 Active 764921655562 Problem Seasonal allergies J30.2 Active 283311264 Problem Severe obesity (BMI >= 40) E66.01 Active 13751 6002 Problem LV (generalized anxiety disorder) F41.1 Activ e 95712987 Problem Hx of supraventricular tachycardia Z86.79 Activ e 35572402345166392 Problem Bipolar disorder with depression F31.30 Active 26873039 Problem Skin rash R21 Active 331553979 Problem Gross hematuria R31.0 Active 087902778 Problem Bipolar disorder, current episode depressed, moderate F31.32 Active 262174095 Problem Dysmenorrhea N94.6 Active 681328854 Problem 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 Active 163869377 Problem 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 Active 30816914 Problem History of iron deficiency anemia Z86.2 Active 899035833 Problem 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 Active 29390141 Problem Left flank pain R10.9 Active 558402137 Problem Endometriosis N80.9 Active 294093723 Problem Hair loss L65.9 Active 829439811 Problem Family history of lupus erythematosus Z84.0 Ac tive 199062311 Problem Subclinical hypothyroidism E03.9 Active 86020 002 Problem Keratoconjunctivitis sicca M35.01 Active 33287 6008 Problem Dyspareunia in female N94.10 Active 94084191 Problem Inflammatory polyarthritis M06.4 Active 15014 3000 Problem Polycystic ovary disease E28.2 Active 4655638 8 Problem Menorrhagia with irregular cycle N92.1 Active 216798331 Problem Vitamin D deficiency E55.9 Active 58292607 Problem Menometrorrhagia N92.1 Active 056741217 She h as a history of irregular periods but her menometrorrhagia is concerning and she is referred to her financial auditor for reevaluation. She was seen in April 2018 for similar issues. Problem Menorrhagia N92.0 Active 711350383 Problem 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, unspecified trigger J3 0.2 Active 611256753 ALLERGIES Allergen (clinical drug ingredient) Drug/Non Drug Allergy do cumented on EMR Reaction Allergy Type Onset Date Status aspirin Aspirin(ND Code:[address]-02) HX ANEMIA Drug Allergy Active KIWI THROAT SWELLS Non Drug Allergy Activ e HONEYDEW THROAT SWELLS Non Drug Allergy Activ e erythromycin Erythromycin([facility] Code:[address]-76) Nausea/Vomiting D rug Allergy Active ondansetron Zofran([facility] Code:[address]-97) Anaphylaxis/QT [place] Drug Allergy Active topiramate Topamax(ND Code:[address]-04) confused and forgetful Drug Allergy Active clarithromycin Biaxin Nausea/Vomiting Drug Allergy Act olga Levaquin Prolonged QT interval Drug Allergy A ctive sulfamethoxazole / trimethoprim Bactrim(ND Code:[address]-31) hives Drug Allergy Active ENCOUNTERS from 1994 to 2020-04-02 Encounter Location Date Provider Diagnosis [address] [address] Feb, Deepa Servage IMMUNIZATIONS Vaccine Route Administration Date Status Influenza (6mo & up) Fluzone IM Intramuscular Mar 07, 2018 Ad ministered SOCIAL HISTORY Tobacco Use: Social History Observation Description Date Details (start date - stop date) Never Smoker Sex Assigned At : Social History Observation Description Sex Assigned At Unknown Education: Question Answer Notes Level of Education: [facility] [employer] [employer] August 2017 Bachelors in Pyschology-minor in human services-minor in Spanish. Audit Question Answer Notes Total Score: 1 Interpretation: Alcohol Education Language: Question Answer Notes Languages spoken: Persian Spanish Evangelical: Question Answer Notes Evangelical 33 None Domestic Violence: Question Answer Notes [...] Information RESULTS No Results REASON FOR VISIT ED Visit [facility] D/C 02/24; [facility] MEDICAL (GENERAL) HISTORY Type Description Date Medical [...] History cholecystectomy [address] [place] [facility] 2015 Surgical History CARDIAC OBLASION 12/13/2017 Surgical History WISDOM TEETH REMOVED 2012 Surgical History LYMPH NODE 2014 Surgical History CYSTOSCOPY 07/06/2018 Hospitalization History cholecystectomy- [facility] 2009 Hospitalization History Sepsis- prolonged QT (got wi sdom teeth out was in hot tub, ended up with sepsis in face and neck [facility] 2012 Hospitalization History Severe acute pancreatitis- [facility] 2014 Hospitalization History fainted heart rate elevated kept overnight. [facility] 2017 Hospitalization History [facility] ED-Breathing difficulty, bronchi tis 06/06/2019 Hospitalization History Bacterial pneumonia 12/2018 Goals Section No Information Health Concerns No Information MEDICAL EQUIPMENT No Information MENTAL STATUS No Information FUNCTIONAL STATUS No Information ASSESSMENTS No Information PLAN OF TREATMENT Medication Medication Name Sig Start Date Stop Date Jacqueline 0.35 MG 1 tablet Orally Once a day for 84 day(s) Mar, Next Appt Details Provider Name:Anastasiya Toby Norton, 2020-04 02:45:00 PM, [address] [place] [address], [address], Insurance Providers Payer Name Payer Address Payer Phone Insured Name Patient Relati onship to Insured Coverage Start Date Coverage End Date [facility] [address] [facility] [id number] BENJI LILLY self
--- OUTSIDE RECORDS SUMMARY | 2020-05-21 13:52 | CCD ---
Author Author [facility] Organization [facility] Address Unknown Phone Unavailable Care Team Providers Care Trailer Steerer Name Role Phone Deepa Savage Unavailable PROBLEMS Type Condition ICD9-CM Code [id number] Code Onset Dates Condition S tatus SNOMED Code Notes Problem Bipolar 1 disorder F31.9 Active 792857385 Problem Daytime somnolence R40.0 Active 061708184500 Problem Seasonal allergies J30.2 Active 487282728 Problem Severe obesity (BMI >= 40) E66.01 Active 83604 6002 Problem LV (generalized anxiety disorder) F41.1 Activ e 98988793 Problem Hx of supraventricular tachycardia Z86.79 Activ e 97735636956861537 Problem Bipolar disorder with depression F31.30 Active 15216997 Problem Skin rash R21 Active 322951398 Problem Gross hematuria R31.0 Active 538493443 Problem Bipolar disorder, current episode depressed, moderate F31.32 Active 151598966 Problem Dysmenorrhea N94.6 Active 028524381 Problem 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 Active 527881337 Problem 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 Active 87924393 Problem History of iron deficiency anemia Z86.2 Active 179387212 Problem 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 Active 28269250 Problem Left flank pain R10.9 Active 908864081 Problem Endometriosis N80.9 Active 171133104 Problem Hair loss L65.9 Active 865531644 Problem Family history of lupus erythematosus Z84.0 Ac tive 300901972 Problem Subclinical hypothyroidism E03.9 Active 57741 002 Problem Keratoconjunctivitis sicca M35.01 Active 75410 6008 Problem Dyspareunia in female N94.10 Active 74213876 Problem Inflammatory polyarthritis M06.4 Active 75175 3000 Problem Polycystic ovary disease E28.2 Active 1188987 8 Problem Menorrhagia with irregular cycle N92.1 Active 975754068 Problem Vitamin D deficiency E55.9 Active 78808547 Problem Menometrorrhagia N92.1 Active 653485625 She h as a history of irregular periods but her menometrorrhagia is concerning and she is referred to her cyber forensics analyst for reevaluation. She was seen in April 2018 for similar issues. Problem Menorrhagia N92.0 Active 552790599 Problem 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, unspecified trigger J3 0.2 Active 720809348 ALLERGIES Allergen (clinical drug ingredient) Drug/Non Drug Allergy do cumented on EMR Reaction Allergy Type Onset Date Status aspirin Aspirin(ND Code:[address]-45) HX ANEMIA Drug Allergy Active KIWI THROAT SWELLS Non Drug Allergy Activ e HONEYDEW THROAT SWELLS Non Drug Allergy Activ e erythromycin Erythromycin(NDC Code:[address]-33) Nausea/Vomiting D rug Allergy Active ondansetron Zofran(NDC Code:[address]-60) Anaphylaxis/QT [place] OLONGATION Drug Allergy Active topiramate Topamax(ND Code:[address]-39) confused and forgetful Drug Allergy Active clarithromycin Biaxin Nausea/Vomiting Drug Allergy Act olga Levaquin Prolonged QT interval Drug Allergy A ctive sulfamethoxazole / trimethoprim Bactrim(ND Code:[address]-03) hives Drug Allergy Active ENCOUNTERS from 1994 to 2020-04-03 Encounter Location Date Provider Diagnosis [address] [address] Mar, Deepa Servage IMMUNIZATIONS Vaccine Route Administration Date Status Influenza (6mo & up) Fluzone IM Intramuscular Mar 07, 2018 Ad ministered SOCIAL HISTORY Tobacco Use: Social History Observation Description Date Details (start date - stop date) Never Smoker Sex Assigned At : Social History Observation Description Sex Assigned At Unknown Education: Question Answer Notes Level of Education: Graduate [employer] August 2017 Bachelors in Pyschology-minor in human services-minor in Swedish. Audit Question Answer Notes Total Score: 1 Interpretation: Alcohol Education Language: Question Answer Notes Languages spoken: Arabic Swedish Latter Day: Question Answer Notes Latter Day 33 None Domestic Violence: Question Answer Notes [...] Information RESULTS No Results REASON FOR VISIT jina to file Dr. Sanchez MEDICAL (GENERAL) HISTORY Type Description Date Medical [...] History cholecystectomy [address] [place] 2015 Surgical History CARDIAC OBLASION 12/13/2017 Surgical History WISDOM TEETH REMOVED 2012 Surgical History LYMPH NODE 2014 Surgical History CYSTOSCOPY 07/06/2018 Hospitalization History cholecystectomy- [facility] 2009 Hospitalization History Sepsis- prolonged QT (got wi sdom teeth out was in hot tub, ended up with sepsis in face and neck [facility] 2012 Hospitalization History Severe acute pancreatitis- [facility] 2014 Hospitalization History fainted heart rate elevated kept overnight. [facility] 2017 Hospitalization History [facility] ED-Breathing difficulty, bronchi tis 06/06/2019 [...] Details Provider Name:Anastasiya Norton, 2020-04 02:45:00 PM, [address] [place] [address], [address], Insurance Providers Payer Name Payer Address Payer Phone Insured Name Patient Relati onship to Insured Coverage Start Date Coverage End Date [facility] [address] [facility] [phone] BENJI LILLY self
--- OUTSIDE RECORDS SUMMARY | 2020-05-21 13:52 | CCD ---
Author Author [facility] Organization [facility] Address Unknown Phone Unavailable Care Team Providers Care Cage Supervisor Name Role Phone Kristian Trevizo Unavailable PROBLEMS Type Condition ICD9-CM Code [id number] Code Onset Dates Condition S tatus SNOMED Code Notes Problem Bipolar 1 disorder F31.9 Active 927352089 Problem Daytime somnolence R40.0 Active 929901614399 Problem Seasonal allergies J30.2 Active 397707204 Problem Severe obesity (BMI >= 40) E66.01 Active 11860 6002 Problem LV (generalized anxiety disorder) F41.1 Activ e 21194027 Problem Hx of supraventricular tachycardia Z86.79 Activ e 44743069767746762 Problem Bipolar disorder with depression F31.30 Active 72681893 Problem Skin rash R21 Active 841492432 Problem Gross hematuria R31.0 Active 652334123 Problem Bipolar disorder, current episode depressed, moderate F31.32 Active 946169529 Problem Dysmenorrhea N94.6 Active 262248157 Problem 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 Active 299867241 Problem 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 Active 93027451 Problem History of iron deficiency anemia Z86.2 Active 279279876 Problem 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 Active 70970358 Problem Left flank pain R10.9 Active 617615511 Problem Endometriosis N80.9 Active 577989872 Problem Hair loss L65.9 Active 396704249 Problem Family history of lupus erythematosus Z84.0 Ac tive 339157251 Problem Subclinical hypothyroidism E03.9 Active 12326 002 Problem Keratoconjunctivitis sicca M35.01 Active 47407 6008 Problem Dyspareunia in female N94.10 Active 69190398 Problem Inflammatory polyarthritis M06.4 Active 78951 3000 Problem Polycystic ovary disease E28.2 Active 7899973 8 Problem Menorrhagia with irregular cycle N92.1 Active 714622335 Problem Vitamin D deficiency E55.9 Active 57367083 Problem Menometrorrhagia N92.1 Active 490907941 She h as a history of irregular periods but her menometrorrhagia is concerning and she is referred to her wood sash and frame carpenter for reevaluation. She was seen in April 2018 for similar issues. Problem Menorrhagia N92.0 Active 697136834 Problem 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, unspecified trigger J3 0.2 Active 152333982 ALLERGIES Allergen (clinical drug ingredient) Drug/Non Drug Allergy do cumented on EMR Reaction Allergy Type Onset Date Status aspirin Aspirin([facility] Code:[address]-22) HX ANEMIA Drug Allergy Active KIWI THROAT SWELLS Non Drug Allergy Activ e HONEYDEW THROAT SWELLS Non Drug Allergy Activ e erythromycin Erythromycin([facility] Code:[address]-42) Nausea/Vomiting D rug Allergy Active ondansetron Zofran(NDC Code:[address]-52) Anaphylaxis/QT [place] OLONGATION Drug Allergy Active topiramate Topamax(ND Code:[address]-65) confused and forgetful Drug Allergy Active clarithromycin Biaxin Nausea/Vomiting Drug Allergy Act olga Levaquin Prolonged QT interval Drug Allergy A ctive sulfamethoxazole / trimethoprim Bactrim([facility] Code:[address]-87) hives Drug Allergy Active ENCOUNTERS from 1994 to 2020-03-25 Encounter Location Date Provider Diagnosis [facility] [address] [place] [address] Mar, Kristian Trevizo Abnormal menstruatio n N92.6 IMMUNIZATIONS Vaccine Route Administration Date Status Influenza (6mo & up) Fluzone IM Intramuscular Mar 07, 2018 Ad ministered SOCIAL HISTORY Tobacco Use: Social History Observation Description Date Details (start date - stop date) Never Smoker Sex Assigned At : Social History Observation Description Sex Assigned At Unknown Education: Question Answer Notes Level of Education: [facility] [employer] [facility] [employer] August 2017 Bachelors in Pyschology-minor in human services-minor in Lao. Audit Question Answer Notes Total Score: 1 Interpretation: Alcohol Education Language: Question Answer Notes Languages spoken: Serbian Lao Protestant: Question Answer Notes Protestant 33 None Domestic Violence: Question Answer Notes [...] FOR REFERRAL No Information VITAL SIGNS Weight 309.4 lbs Mar, Weight-kg 140.34 kg Mar, Height 66 in Mar, BMI 49.93 kg/m2 Mar, Blood pressure systolic 124 mm Hg Mar, Blood pressure diastolic 82 mm Hg Mar, MEDICATIONS Medication SIG (Take, Route, Frequency, Duration) Notes Start Da te End Date Status Midodrine HCl 5 MG 1 tablet Orally Three times a day Active Plaquenil 200 MG 1 tab Orally twice daily for 30 days 14 2019 Active Pantoprazole Sodium 40 MG 1 [...] Information RESULTS No Results REASON FOR VISIT CYCLE ISSUES AND BREAST ISSUES MEDICAL (GENERAL) HISTORY Type Description Date Medical [...] History cholecystectomy [address] [place] 2016 Surgical History CARDIAC OBLASION 12/13/2017 Surgical History WISDOM TEETH REMOVED 2012 Surgical History LYMPH NODE 2014 Surgical History CYSTOSCOPY 07/06/2018 Hospitalization History cholecystectomy- [facility] 2009 Hospitalization History Sepsis- prolonged QT (got wi sdom teeth out was in hot tub, ended up with sepsis in face and neck [facility] 2012 Hospitalization History Severe acute pancreatitis- [facility] 2014 Hospitalization History fainted heart rate elevated kept overnight. [facility] 2017 Hospitalization History [facility] ED-Breathing difficulty, bronchi tis 06/06/2019 Hospitalization History Bacterial pneumonia 12/2018 Goals Section No Information Health Concerns No Information MEDICAL EQUIPMENT No Information MENTAL STATUS No Information FUNCTIONAL STATUS No Information ASSESSMENTS Encounter Date Diagnosis Assessment Notes Treatment Notes Treatm ent Clinical Notes Mar, Abnormal menstruation (ICD-10 - N92.6) PLAN OF TREATMENT Medication Medication Name Sig Start Date Stop Date Jacqueline 0.35 MG 1 tablet Orally Once a day for 84 day(s) Mar, Next Appt Details Provider Name:Anastasiya Norton, 2020-04 02:45:00 PM, [address] [place] [address], [id number],
--- OUTSIDE RECORDS SUMMARY | 2020-05-21 13:52 | CCD ---
Author Author [facility] Organization [facility] Address Unknown Phone Unavailable Care Team Providers Care Supervisor Tan Room Name Role Phone Deepa Savage Unavailable PROBLEMS Type Condition ICD9-CM Code [id number] Code Onset Dates Condition S tatus SNOMED Code Notes Problem Bipolar 1 disorder F31.9 Active 537552648 Problem Daytime somnolence R40.0 Active 521442560442 Problem Seasonal allergies J30.2 Active 733442209 Problem Severe obesity (BMI >= 40) E66.01 Active 02346 6002 Problem LV (generalized anxiety disorder) F41.1 Activ e 92899105 Problem Hx of supraventricular tachycardia Z86.79 Activ e 38712619228410947 Problem Bipolar disorder with depression F31.30 Active 03316996 Problem Skin rash R21 Active 139987321 Problem Gross hematuria R31.0 Active 405389370 Problem Bipolar disorder, current episode depressed, moderate F31.32 Active 202384830 Problem Dysmenorrhea N94.6 Active 604938879 Problem 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 Active 021488571 Problem 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 Active 39693921 Problem History of iron deficiency anemia Z86.2 Active 977825450 Problem 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 Active 77229266 Problem Left flank pain R10.9 Active 877234915 Problem Endometriosis N80.9 Active 071651005 Problem Hair loss L65.9 Active 616969861 Problem Family history of lupus erythematosus Z84.0 Ac tive 482098576 Problem Subclinical hypothyroidism E03.9 Active 99296 002 Problem Keratoconjunctivitis sicca M35.01 Active 41202 6008 Problem Dyspareunia in female N94.10 Active 58531078 Problem Inflammatory polyarthritis M06.4 Active 02189 3000 Problem Polycystic ovary disease E28.2 Active 6268008 8 Problem Menorrhagia with irregular cycle N92.1 Active 671273204 Problem Vitamin D deficiency E55.9 Active 90055568 Problem Menometrorrhagia N92.1 Active 058200918 She h as a history of irregular periods but her menometrorrhagia is concerning and she is referred to her drilling machine runner for reevaluation. She was seen in April 2018 for similar issues. Problem Menorrhagia N92.0 Active 189922468 Problem 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, unspecified trigger J3 0.2 Active 768495708 ALLERGIES Allergen (clinical drug ingredient) Drug/Non Drug Allergy do cumented on EMR Reaction Allergy Type Onset Date Status aspirin Aspirin(ND Code:[address]-76) HX ANEMIA Drug Allergy Active KIWI THROAT SWELLS Non Drug Allergy Activ e HONEYDEW THROAT SWELLS Non Drug Allergy Activ e erythromycin Erythromycin(NDC Code:[address]-17) Nausea/Vomiting D rug Allergy Active ondansetron Zofran(NDC Code:[address]-09) Anaphylaxis/QT [place] OLONGATION Drug Allergy Active topiramate Topamax(ND Code:[address]-65) confused and forgetful Drug Allergy Active clarithromycin Biaxin Nausea/Vomiting Drug Allergy Act olga Levaquin Prolonged QT interval Drug Allergy A ctive sulfamethoxazole / trimethoprim Bactrim(ND Code:[address]-54) hives Drug Allergy Active ENCOUNTERS from 1994 to 2020-03-26 Encounter Location Date Provider Diagnosis [address] [address] Mar, Deepa Servage IMMUNIZATIONS Vaccine Route Administration Date Status Influenza (6mo & up) Fluzone IM Intramuscular Mar 07, 2018 Ad ministered SOCIAL HISTORY Tobacco Use: Social History Observation Description Date Details (start date - stop date) Never Smoker Sex Assigned At : Social History Observation Description Sex Assigned At Unknown Education: Question Answer Notes Level of Education: Graduate [employer] August 2017 Bachelors in Pyschology-minor in human services-minor in Bulgarian. Audit Question Answer Notes Total Score: 1 Interpretation: Alcohol Education Language: Question Answer Notes Languages spoken: Portuguese Bulgarian Judaism: Question Answer Notes Judaism 33 None Domestic Violence: Question Answer Notes [...] Information RESULTS No Results REASON FOR VISIT Gastric Bypass MEDICAL (GENERAL) HISTORY Type Description [...] History cholecystectomy [address] [place] 2015 Surgical History CARDIAC OBLASION 12/13/2017 Surgical History WISDOM TEETH REMOVED 2012 Surgical History LYMPH NODE 2014 Surgical History CYSTOSCOPY 07/06/2018 Hospitalization History cholecystectomy- [facility] 2009 Hospitalization History Sepsis- prolonged QT (got wi sdom teeth out was in hot tub, ended up with sepsis in face and neck [facility] 2012 Hospitalization History Severe acute pancreatitis- [facility] 2014 Hospitalization History fainted heart rate elevated kept overnight. [facility] 2017 Hospitalization History [facility] ED-Breathing difficulty, bronchi tis 06/06/2019 [...] Details Provider Name:Anastasiya Norton, 2020-04 02:45:00 PM, [address] [place] [address], [address],
--- OUTSIDE RECORDS SUMMARY | 2020-05-21 13:52 | CCD ---
Author Author [facility] Organization [facility] Address Unknown Phone Unavailable Care Team Providers Care Storehouse Clerk Name Role Phone Deepa Savage Unavailable PROBLEMS Type Condition ICD9-CM Code SSN26-DB Code Onset Dates Condition S tatus SNOMED Code Notes Problem Bipolar 1 disorder F31.9 Active 369148852 Problem Daytime somnolence R40.0 Active 976917009613 Problem Seasonal allergies J30.2 Active 767936055 Problem Severe obesity (BMI >= 40) E66.01 Active 08562 6002 Problem LV (generalized anxiety disorder) F41.1 Activ e 69320235 Problem Hx of supraventricular tachycardia Z86.79 Activ e 62876124093546442 Problem Bipolar disorder with depression F31.30 Active 55483207 Problem Skin rash R21 Active 918486559 Problem Gross hematuria R31.0 Active 517597753 Problem Bipolar disorder, current episode depressed, moderate F31.32 Active 872289666 Problem Dysmenorrhea N94.6 Active 619193038 Problem 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 Active 087439954 Problem 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 Active 24354880 Problem History of iron deficiency anemia Z86.2 Active 684160093 Problem 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 Active 75853164 Problem Left flank pain R10.9 Active 930175606 Problem Endometriosis N80.9 Active 529469821 Problem Hair loss L65.9 Active 850671168 Problem Family history of lupus erythematosus Z84.0 Ac tive 614702669 Problem Subclinical hypothyroidism E03.9 Active 69305 002 Problem Keratoconjunctivitis sicca M35.01 Active 84769 6008 Problem Dyspareunia in female N94.10 Active 36472112 Problem Inflammatory polyarthritis M06.4 Active 09315 3000 Problem Polycystic ovary disease E28.2 Active 6903634 8 Problem Menorrhagia with irregular cycle N92.1 Active 277581927 Problem Vitamin D deficiency E55.9 Active 31106922 Problem Menometrorrhagia N92.1 Active 532632694 She h as a history of irregular periods but her menometrorrhagia is concerning and she is referred to her drafter directional survey for reevaluation. She was seen in April 2018 for similar issues. Problem Menorrhagia N92.0 Active 003675044 Problem 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, unspecified trigger J3 0.2 Active 508851111 ALLERGIES Allergen (clinical drug ingredient) Drug/Non Drug Allergy do cumented on EMR Reaction Allergy Type Onset Date Status aspirin Aspirin([facility] Code:[address]-99) HX ANEMIA Drug Allergy Active KIWI THROAT SWELLS Non Drug Allergy Activ e HONEYDEW THROAT SWELLS Non Drug Allergy Activ e erythromycin Erythromycin(NDC Code:[address]-49) Nausea/Vomiting D rug Allergy Active ondansetron Zofran(NDC Code:[address]-05) Anaphylaxis/QT [place] OLONGATION Drug Allergy Active topiramate Topamax(ND Code:[address]-35) confused and forgetful Drug Allergy Active clarithromycin Biaxin Nausea/Vomiting Drug Allergy Act olga Levaquin Prolonged QT interval Drug Allergy A ctive sulfamethoxazole / trimethoprim Bactrim([facility] Code:[address]-40) hives Drug Allergy Active ENCOUNTERS from 1994 to 2020-04-22 Encounter Location Date Provider Diagnosis [address] [address] Apr, Deepa Servage IMMUNIZATIONS Vaccine Route Administration Date Status Influenza (6mo & up) Fluzone IM Intramuscular Mar 07, 2018 Ad ministered SOCIAL HISTORY Tobacco Use: Social History Observation Description Date Details (start date - stop date) Never Smoker Sex Assigned At : Social History Observation Description Sex Assigned At Unknown Education: Question Answer Notes Level of Education: Graduate [employer] gradua bozena August 2017 Bachelors in Pyschology-minor in human services-minor in Vietnamese. Audit Question Answer Notes Total Score: 1 Interpretation: Alcohol Education Language: Question Answer Notes Languages spoken: Setswana Vietnamese Quaker: Question Answer Notes Quaker 33 None Domestic Violence: Question Answer Notes [...] Information RESULTS No Results REASON FOR VISIT Migraines MEDICAL (GENERAL) HISTORY Type Description Date Medical [...] History cholecystectomy [address] [place] [facility] 2015 Surgical History CARDIAC OBLASION 12/13/2017 Surgical History WISDOM TEETH REMOVED 2012 Surgical History LYMPH NODE 2014 Surgical History CYSTOSCOPY 07/06/2018 Hospitalization History cholecystectomy- [facility] 2009 Hospitalization History Sepsis- prolonged QT (got wi sdom teeth out was in hot tub, ended up with sepsis in face and neck [facility] 2012 Hospitalization History Severe acute pancreatitis- [facility] 2014 Hospitalization History fainted heart rate elevated kept overnight. [facility] 2017 Hospitalization History [facility] ED-Breathing difficulty, bronchi tis 06/06/2019 Hospitalization History [...] Details Provider Name:Anastasiya Norton, 2020-04 02:45:00 PM, [address] [place] [address], [address], Insurance Providers Payer Name Payer Address Payer Phone Insured Name Patient Relati onship to Insured Coverage Start Date Coverage End Date [facility] [address] [facility] [phone] BENJI LILLY self
--- OUTSIDE RECORDS SUMMARY | 2020-05-21 13:53 | CCD ---
Author Author [facility] Organization [facility] Address Unknown Phone Unavailable Care Team Providers Care Horseradish Maker Name Role Phone Anastasiya Norton Unavailable PROBLEMS Type Condition ICD9-CM Code [id number] Code Onset Dates Condition S tatus SNOMED Code Notes Problem Bipolar 1 disorder F31.9 Active 583646518 Problem Daytime somnolence R40.0 Active 322210405290 Problem Seasonal allergies J30.2 Active 309121648 Problem Severe obesity (BMI >= 40) E66.01 Active 82941 6002 Problem LV (generalized anxiety disorder) F41.1 Activ e 00472559 Problem Hx of supraventricular tachycardia Z86.79 Activ e [id number] Problem Bipolar disorder with depression F31.30 Active 92138511 Problem Skin rash R21 Active 690301306 Problem Gross hematuria R31.0 Active 923682563 Problem Bipolar disorder, current episode depressed, moderate F31.32 Active 645545469 Problem Dysmenorrhea N94.6 Active 216430605 Problem 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 Active 016370258 Problem 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 Active 34362299 Problem History of iron deficiency anemia Z86.2 Active 343053277 Problem 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 Active 71424060 Problem Left flank pain R10.9 Active 433581586 Problem Endometriosis N80.9 Active 615678947 Problem Hair loss L65.9 Active 657251344 Problem Family history of lupus erythematosus Z84.0 Ac tive 848745615 Problem Subclinical hypothyroidism E03.9 Active 51876 002 Problem Keratoconjunctivitis sicca M35.01 Active 34087 6008 Problem Dyspareunia in female N94.10 Active 58169495 Problem Inflammatory polyarthritis M06.4 Active 29547 3000 Problem Polycystic ovary disease E28.2 Active 6739073 8 Problem Menorrhagia with irregular cycle N92.1 Active 521508386 Problem Vitamin D deficiency E55.9 Active 96335364 Problem Menometrorrhagia N92.1 Active 030374843 She h as a history of irregular periods but her menometrorrhagia is concerning and she is referred to her shoe handler for reevaluation. She was seen in April 2018 for similar issues. Problem Menorrhagia N92.0 Active 096386595 Problem 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, unspecified trigger J3 0.2 Active 138145242 ALLERGIES Allergen (clinical drug ingredient) Drug/Non Drug Allergy do cumented on EMR Reaction Allergy Type Onset Date Status aspirin Aspirin([facility] Code:[address]-87) HX ANEMIA Drug Allergy Active KIWI THROAT SWELLS Non Drug Allergy Activ e HONEYDEW THROAT SWELLS Non Drug Allergy Activ e erythromycin Erythromycin(ND Code:[address]-93) Nausea/Vomiting D rug Allergy Active ondansetron Zofran(NDC Code:[address]-38) Anaphylaxis/QT RI OLONGATION Drug Allergy Active topiramate Topamax(ND Code:[address]-17) confused and forgetful Drug Allergy Active clarithromycin Biaxin Nausea/Vomiting Drug Allergy Act olga Levaquin Prolonged QT interval Drug Allergy A ctive sulfamethoxazole / trimethoprim Bactrim([facility] Code:[address]-53) hives Drug Allergy Active ENCOUNTERS from 1994 to 2020-03-09 Encounter Location Date Provider Diagnosis [facility] Rheumatology [address] [place] [address] Mar, Anastasiya Norton IMMUNIZATIONS Vaccine Route Administration Date Status Influenza (6mo & up) Fluzone IM Intramuscular Mar 07, 2018 Ad ministered SOCIAL HISTORY Tobacco Use: Social History Observation Description Date Details (start date - stop date) Never Smoker Sex Assigned At : Social History Observation Description Sex Assigned At Unknown Education: Question Answer Notes Level of Education: Graduate [employer] gradua bozena August 2017 Bachelors in Pyschology-minor in human services-minor in Amharic. Audit Question Answer Notes Total Score: 1 Interpretation: Alcohol Education Language: Question Answer Notes Languages spoken: Luxembourgish Amharic Uatsdin: Question Answer Notes Uatsdin 33 None Domestic Violence: Question Answer Notes [...] Notes Start Da te End Date Status Atenolol 25 mg 1 tablet Orally Once a day as needed Active Mometasone Furoate 50 MCG/ACT 2 sprays in each nostril Nasally Once a day for 30 day(s) August, Not-Taking Loratadine 10 MG 1 tablet Orally Once a day for 30 day(s) August, Not-Taking Plaquenil 200 MG 1 tab Orally twice daily for 30 days 14 O 2019 Active Pantoprazole Sodium 40 MG 1 tablet Orally Once a day for 30 day( s) Oct, Active Provera 10 MG 1 tablet with food Orally Once a day for 10 day(s) Feb, Active Promethazine HCl 12.5 MG 1 tablet as needed Orally every 6 hrs f or 7 day(s) Sep, Active Medrol 4 MG 1-3 tablets daily Orally Daily prn for 30 day(s) Mar, Active Metformin HCl 500 MG 1 tablet with a meal Orally twice a day for 30 day(s) Oct, Active Provera 10 MG 1 tablet with food Orally Once a day for 10 day(s) August, Not-Taking PROCEDURES No Information RESULTS No Results REASON FOR VISIT No Information MEDICAL (GENERAL) HISTORY Type Description Date Medical [...] History cholecystectomy [address] [place] 2016 Surgical History CARDIAC OBLASION 12/13/2017 Surgical History WISDOM TEETH REMOVED 2012 Surgical History LYMPH NODE 2014 Surgical History CYSTOSCOPY 07/06/2018 Hospitalization History cholecystectomy- [facility] 2009 Hospitalization History Sepsis- prolonged QT (got wi sdom teeth out was in hot tub, ended up with sepsis in face and neck [facility] 2012 Hospitalization History Severe acute pancreatitis- [facility] 2014 Hospitalization History fainted heart rate elevated kept overnight. [facility] 2017 Hospitalization History [facility] ED-Breathing difficulty, bronchi tis 06/06/2019 Hospitalization History Bacterial pneumonia 12/2018 Goals Section No Information Health Concerns No Information MEDICAL EQUIPMENT No Information MENTAL STATUS No Information FUNCTIONAL STATUS No Information ASSESSMENTS No Information PLAN OF TREATMENT Medication Medication Name Sig Start Date Stop Date Plaquenil 200 MG 1 tab Orally twice daily for 30 days Jan, Medrol 4 MG 1-3 tablets daily Orally Daily prn for 30 day(s) Mar, Provera 10 MG 1 tablet with food Orally Once a day for 10 day( s) Feb, Next Appt Details Provider Name:Kristian Trevizo, 2020-03-14 02:00:00 PM, [address] [place], [address], Provider Name:Anastasiya Norton, 2020-04 02:45:00 PM, [address] [place], [address], Insurance Providers Payer Name Payer Address Payer Phone Insured Name Patient Relati onship to Insured Coverage Start Date Coverage End Date [facility] CLAIM[facility] DEPT [place] [phone] BENJI LILLY self
--- OUTSIDE RECORDS SUMMARY | 2020-05-21 13:53 | CCD ---
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 Name Role Phone Servage, L Deepa HOUSE WRECKER Unavailable Unavailable Servage, L Deepa HOUSE WRECKER Unavailable Unavailable Servage, L Deepa HOUSE WRECKER Unavailable Unavailable Servage, L Deepa HOUSE WRECKER Unavailable Unavailable Servage, L Deepa HOUSE WRECKER Unavailable Unavailable Servage, L Deepa HOUSE WRECKER Unavailable Unavailable Servage, L Deepa HOUSE WRECKER Unavailable Unavailable Servage, L Depea HOUSE WRECKER Unavailable Unavailable Servage, L Deepa HOUSE WRECKER Unavailable Unavailable Servage, L Deepa HOUSE WRECKER Unavailable Unavailable Servage, L Deepa HOUSE WRECKER Unavailable Unavailable Servage, L Deepa HOUSE WRECKER Unavailable Unavailable Servage, L Deepa HOUSE WRECKER Unavailable Unavailable Servage, L Deepa HOUSE WRECKER Unavailable Unavailable Servage, L Deepa HOUSE WRECKER Unavailable Unavailable Servage, L Deepa HOUSE WRECKER Unavailable Unavailable Servage, L Deepa HOUSE WRECKER Unavailable Unavailable Servage, L Deepa HOUSE WRECKER Unavailable Unavailable Servage, L Deepa HOUSE WRECKER Unavailable Unavailable Servage, L Deepa HOUSE WRECKER Unavailable Unavailable Servage, L Deepa HOUSE WRECKER Unavailable Unavailable Servage, L Deepa HOUSE WRECKER Unavailable Unavailable Servage, L Deepa HOUSE WRECKER Unavailable Unavailable Servage, L Deepa HOUSE WRECKER Unavailable Unavailable Servage, L Deepa HOUSE WRECKER Unavailable Unavailable Servage, L Deepa HOUSE WRECKER Unavailable Unavailable Servage, L Deepa HOUSE WRECKER Unavailable Unavailable Servage, L Deepa HOUSE WRECKER Unavailable Unavailable Servage, L Deepa HOUSE WRECKER Unavailable Unavailable Servage, L Deepa HOUSE WRECKER Unavailable Unavailable Servage, L Deepa HOUSE WRECKER Unavailable Unavailable Servage, L Deepa HOUSE WRECKER Unavailable Unavailable Servage, L Deepa HOUSE WRECKER Unavailable Unavailable Servage, L Deepa HOUSE WRECKER Unavailable Unavailable Servage, L Deepa HOUSE WRECKER Unavailable Unavailable Servage, L Deepa HOUSE WRECKER Unavailable Unavailable Servage, L Deepa HOUSE WRECKER Unavailable Unavailable Servage, L Deepa HOUSE WRECKER Unavailable Unavailable Servage, L Deepa HOUSE WRECKER Unavailable Unavailable Servage, L Deepa HOUSE WRECKER Unavailable Unavailable Servage, L Deepa HOUSE WRECKER Unavailable Unavailable Servage, L Deepa HOUSE WRECKER Unavailable Unavailable Servage, L Deepa HOUSE WRECKER Unavailable Unavailable Servage, L Deepa HOUSE WRECKER Unavailable Unavailable Servage, L Deepa HOUSE WRECKER Unavailable Unavailable Servage, L Deepa HOUSE WRECKER Unavailable Unavailable Servage, L Deepa HOUSE WRECKER Unavailable Unavailable Servage, L Deepa HOUSE WRECKER Unavailable Unavailable Servage, L Deepa HOUSE WRECKER Unavailable Unavailable Servage, L Deepa HOUSE WRECKER Unavailable Unavailable Servage, L Deepa HOUSE WRECKER Unavailable Unavailable Servage, L Deepa HOUSE WRECKER Unavailable Unavailable Servage, L Deepa HOUSE WRECKER Unavailable Unavailable Servage, L Deepa HOUSE WRECKER Unavailable Unavailable Servage, L Deepa HOUSE WRECKER Unavailable Unavailable Servage, L Deepa HOUSE WRECKER Unavailable Unavailable Maulik Velez MD Unavailable Unavailable Maulik Velez MD Unavailable Unavailable Maulik Velez MD Unavailable Unavailable Maulik Velez MD Unavailable Unavailable Maulik Velez MD Unavailable Unavailable Maulik Velez MD Unavailable Unavailable Maulik Velez MD Unavailable Unavailable Maulik Velez MD Unavailable Unavailable Maulik Velez MD Unavailable Unavailable Maulik Velez MD Unavailable Unavailable Maulik Velez MD Unavailable Unavailable Maulik Velez MD Unavailable Unavailable Maulik Velez MD Unavailable Unavailable Maulik Velez MD Unavailable Unavailable Maulik Velez MD Unavailable Unavailable Maulik Veelz MD Unavailable Unavailable Maulik Velez MD Unavailable Unavailable Maulik Velez MD Unavailable Unavailable Maulik Velez MD Unavailable Unavailable Maulik Velez MD Unavailable Unavailable Maulik Velez MD Unavailable Unavailable Maulik Velez MD Unavailable Unavailable Maulik Velez MD Unavailable Unavailable Maulik Velez MD Unavailable Unavailable Maulik Velez MD Unavailable Unavailable Maulik Velez MD Unavailable Unavailable Maulik Velez MD Unavailable Unavailable Maluik Velez MD Unavailable Unavailable Maulik Velez MD Unavailable Unavailable Maulik Velez MD Unavailable Unavailable Maulik Velez MD Unavailable Unavailable Maulik Velez MD Unavailable Unavailable Maulik Velez MD Unavailable Unavailable Maulik Velez MD Unavailable Unavailable Maulik Velez MD Unavailable Unavailable Maulik Velez MD Unavailable Unavailable Maulik Velez MD Unavailable Unavailable Maulik Velez MD Unavailable Unavailable Maulik Velez MD Unavailable Unavailable Maulik Velez MD Unavailable Unavailable Maulik Velez MD Unavailable Unavailable Maulik Velez MD Unavailable Unavailable Maulik Velez MD Unavailable Unavailable Maulik Velez MD Unavailable Unavailable Maulik Velez MD Unavailable Unavailable Maulik Velez MD Unavailable Unavailable Maulik Velez MD Unavailable Unavailable Maulik Velez MD Unavailable Unavailable Maulik Velez MD Unavailable Unavailable Maulik Velez MD Unavailable Unavailable Maulik Velez MD Unavailable Unavailable Maulik Velez MD Unavailable Unavailable Maulik Velez MD Unavailable Unavailable Maulik Velez MD Unavailable Unavailable Maulik Velez MD Unavailable Unavailable Maulik Velez MD Unavailable Unavailable Maulik Velez MD Unavailable Unavailable Maulik Velez MD Unavailable Unavailable Sykes, L Tiana PA Unavailable Unavailable Sykes, L Tiana PA Unavailable Unavailable Sykes, L Tiana PA Unavailable Unavailable Sykes, L Tiana PA Unavailable Unavailable Sykes, L Tiana PA Unavailable Unavailable Sykes, L Tiana PA Unavailable Unavailable Sykes, L Tiana PA Unavailable Unavailable Sykes, L Tiana PA Unavailable Unavailable Sykes, L Tiana PA Unavailable Unavailable Sykes, L Tiana PA Unavailable Unavailable Sykes, L Tiana PA Unavailable Unavailable Sykes, L Tiana PA Unavailable Unavailable Sykes, L Tiana PA Unavailable Unavailable Sykes, L Tiana PA Unavailable Unavailable Sykes, L Tiana PA Unavailable Unavailable Sykes, L Tiana PA Unavailable Unavailable Sykes, L Tiana PA Unavailable Unavailable Sykes, L Tiana PA Unavailable Unavailable Sykes, L Tiana PA Unavailable Unavailable Sykes, L Tiana PA Unavailable Unavailable Sykes, L Tiana PA Unavailable Unavailable Sykes, L Tiana PA Unavailable Unavailable Sykes, L Tiana PA Unavailable Unavailable Sykes, L Tiana PA Unavailable Unavailable Sykes, L Tiana PA Unavailable Unavailable Sykes, L Tiana PA Unavailable Unavailable Sykes, L Tiana PA Unavailable Unavailable Sykes, L Tiana PA Unavailable Unavailable Sykes, L Tinaa PA Unavailable Unavailable Sykes, L Tiana PA Unavailable Unavailable Sykes, L Tiana PA Unavailable Unavailable Sykes, L Tiana PA Unavailable Unavailable Sykes, L Tiana PA Unavailable Unavailable Sykes, L Tiana PA Unavailable Unavailable Sykes, L Tiana PA Unavailable Unavailable Sykes, L Tiana PA Unavailable Unavailable SUNI, P LOKI MD Unavailable Unavailable SUNI, P LOKI MD Unavailable Unavailable SUNI, P LOKI MD Unavailable Unavailable SUNI, P LOKI MD Unavailable Unavailable SUNI, P LOKI MD Unavailable Unavailable SUNI, P LOKI MD Unavailable Unavailable SUNI, P LOKI MD Unavailable Unavailable SUNI, P LOKI MD Unavailable Unavailable SUNI, P LOKI MD Unavailable Unavailable SUNI, P LOKI MD Unavailable Unavailable SUNI, P LOKI MD Unavailable Unavailable SUNI, P LOKI MD Unavailable Unavailable SUNI, P LOKI MD Unavailable Unavailable SUNI, P LOKI MD Unavailable Unavailable SUNI, P LOKI MD Unavailable Unavailable SUNI, P LOKI MD Unavailable Unavailable SUNI, P LOKI MD Unavailable Unavailable SUNI, P LOKI MD Unavailable Unavailable SUNI, P LOKI MD Unavailable Unavailable SUNI, P LOKI MD Unavailable Unavailable SUNI, P LOKI MD Unavailable Unavailable SUNI, P LOKI MD Unavailable Unavailable SUNI, P LOKI MD Unavailable Unavailable SUNI, P LOKI MD Unavailable Unavailable SUNI, P LOKI MD Unavailable Unavailable SUNI, P LOKI MD Unavailable Unavailable SUNI, P LOKI MD Unavailable Unavailable SUNI, P LOKI MD Unavailable Unavailable SUNI, P LOKI MD Unavailable Unavailable SUNI, P LOKI MD Unavailable Unavailable SUNI, P LKOI MD Unavailable Unavailable SUNI, P LOKI MD Unavailable Unavailable SUNI, P LOKI MD Unavailable Unavailable SUNI, P LOKI MD Unavailable Unavailable SUNI, P LOKI MD Unavailable Unavailable SUNI, P LOKI MD Unavailable Unavailable SUNI, P LOKI MD Unavailable Unavailable SUNI, P LOKI MD Unavailable Unavailable SUNI, P LOKI MD Unavailable Unavailable SUNI, P LOKI MD Unavailable Unavailable SUNI, P LOKI MD Unavailable Unavailable SUNI, P LOKI MD Unavailable Unavailable SUNI, P LOKI MD Unavailable Unavailable SUNI, P LOKI MD Unavailable Unavailable SUNI, P LOKI MD Unavailable Unavailable SUNI, P LOKI MD Unavailable Unavailable SUNI, P LOKI MD Unavailable Unavailable SUNI, P LOKI MD Unavailable Unavailable SUNI, P LOKI MD Unavailable Unavailable SUNI, P LOKI MD Unavailable Unavailable SUNI, P LOKI MD Unavailable Unavailable SUNI, P LOKI MD Unavailable Unavailable SUNI, P LOKI MD Unavailable Unavailable SUNI, P LOKI MD Unavailable Unavailable SUNI, P LOKI MD Unavailable Unavailable SUNI, P LOKI MD Unavailable Unavailable SUNI, P LOKI MD Unavailable Unavailable SUNI, P LOKI MD Unavailable Unavailable SUNI, P LOKI MD Unavailable Unavailable SNUI, P LOKI MD Unavailable Unavailable SUNI, P LOKI MD Unavailable Unavailable SUNI, P LOKI MD Unavailable Unavailable SUNI, P LOKI MD Unavailable Unavailable SUNI, P LOKI MD Unavailable Unavailable SUNI, P LOKI MD Unavailable Unavailable SUNI, P LOKI MD Unavailable Unavailable SUNI, P LOKI MD Unavailable Unavailable SUNI, P LOKI MD Unavailable Unavailable SUNI, P LOKI MD Unavailable Unavailable SUNI, P LOKI MD Unavailable Unavailable SUNI, P LOKI MD Unavailable Unavailable SUNI, P LOKI MD Unavailable Unavailable SUNI, P LOKI MD Unavailable Unavailable SUNI, P LOKI MD Unavailable Unavailable SUNI, P LOKI MD Unavailable Unavailable SUNI, P LOKI MD Unavailable Unavailable SUNI, P LOKI MD Unavailable Unavailable SUNI, P LOKI MD Unavailable Unavailable SUNI, P LOKI MD Unavailable Unavailable SUNI, P LOKI MD Unavailable Unavailable SUNI, P LOKI MD Unavailable Unavailable SUNI, P LOKI MD Unavailable Unavailable SUNI, P LOKI MD Unavailable Unavailable SUNI, P LOKI MD Unavailable Unavailable SUNI, P LOKI MD Unavailable Unavailable SUNI, P LOKI MD Unavailable Unavailable SUNI, P LOKI MD Unavailable Unavailable SUNI, P LOKI MD Unavailable Unavailable SUNI, P LOKI MD Unavailable Unavailable SUNI, P LOKI MD Unavailable Unavailable SUNI, P LOKI MD Unavailable Unavailable SUNI, P LOKI MD Unavailable Unavailable SUNI, P LOKI MD Unavailable Unavailable SUNI, P LKOI MD Unavailable Unavailable Abrkarlos, Carissa Mccallum MD Unavailable Unavailable Abriss, Carissa Mccallum MD Unavailable Unavailable Abrkarlos, Carissa Mccallum MD Unavailable Unavailable Abrkarlos, Carissa Mccallum MD Unavailable Unavailable Abrkarlos, Carissa Mccallum MD Unavailable Unavailable Abrkarlos, Carissa Mccallum MD Unavailable Unavailable Abriss, Carissa Mccallum MD Unavailable Unavailable Abriss, Carissa Mccallum MD Unavailable Unavailable Abriss, Carissa Mccallum MD Unavailable Unavailable Abriss, Carissa Mccallum MD Unavailable Unavailable Abriss, Carissa Mccallum MD Unavailable Unavailable Abriss, Carissa Mccallum MD Unavailable Unavailable Abriss, Carissa Mccallum MD Unavailable Unavailable Abriss, Carissa Mccallum MD Unavailable Unavailable Abriss, Carissa Mccallum MD Unavailable Unavailable Abriss, Carissa Mccallum MD Unavailable Unavailable Abriss, Carissa Mccallum MD Unavailable Unavailable Abriss, Carissa Mccallum MD Unavailable Unavailable Rochelle, Trang HOUSE WRECKER Unavailable Unavailable Rochelle, Trang HOUSE WRECKER Unavailable Unavailable Rochelle, Trang HOUSE WRECKER Unavailable Unavailable Rochelle, Trang HOUSE WRECKER Unavailable Unavailable Rochelle, Rtang HOUSE WRECKER Unavailable Unavailable Rochelle, Trang HOUSE WRECKER Unavailable Unavailable Rochelle, Trang HOUSE WRECKER Unavailable Unavailable Rochelle, Trang HOUSE WRECKER Unavailable Unavailable Rochelle, Trang HOUSE WRECKER Unavailable Unavailable Rochelle, Trang HOUSE WRECKER Unavailable Unavailable Rochelle, Trang HOUSE WRECKER Unavailable Unavailable Galva, N Anna HOUSE WRECKER Unavailable Unavailable [place], N Anna HOUSE WRECKER Unavailable Unavailable [place], N Anna HOUSE WRECKER Unavailable Unavailable Galva, N Anna HOUSE WRECKER Unavailable Unavailable [place], N Anna HOUSE WRECKER Unavailable Unavailable [place], N Anna HOUSE WRECKER Unavailable Unavailable Galva, N Anna HOUSE WRECKER Unavailable Unavailable [place], N Anna HOUSE WRECKER Unavailable Unavailable [place], N Anna HOUSE WRECKER Unavailable Unavailable Galva, N Anna HOUSE WRECKER Unavailable Unavailable [place], N Anna HOUSE WRECKER Unavailable Unavailable Galva, N Anna HOUSE WRECKER Unavailable Unavailable Galva, N Anna HOUSE WRECKER Unavailable Unavailable Galva, N Anna HOUSE WRECKER Unavailable Unavailable [place], N Anna HOUSE WRECKER Unavailable Unavailable [place], N Anna HOUSE WRECKER Unavailable Unavailable Galva, N Anna HOUSE WRECKER Unavailable Unavailable [place], N Anna HOUSE WRECKER Unavailable Unavailable Galva, N Anna HOUSE WRECKER Unavailable Unavailable [place], N Anna HOUSE WRECKER Unavailable Unavailable [place], N Anna HOUSE WRECKER Unavailable Unavailable [place], N Anna HOUSE WRECKER Unavailable Unavailable [place], N Anna HOUSE WRECKER Unavailable Unavailable Galva, N Anna HOUSE WRECKER Unavailable Unavailable Galva, N Anna HOUSE WRECKER Unavailable Unavailable Galva, N Anna HOUSE WRECKER Unavailable Unavailable Galva, N Anna HOUSE WRECKER Unavailable Unavailable Galva, N Anna HOUSE WRECKER Unavailable Unavailable [place], N Anna HOUSE WRECKER Unavailable Unavailable [place], N Anna HOUSE WRECKER Unavailable Unavailable Galva, N Anna HOUSE WRECKER Unavailable Unavailable SEARS, A MEÑO DO Unavailable Unavailable SEARS, A MEÑO DO Unavailable Unavailable SEARS, A MEÑO DO Unavailable Unavailable SEARS, A MEÑO DO Unavailable Unavailable SEARS, A MEÑO DO Unavailable Unavailable SEARS, A MEÑO DO Unavailable Unavailable SEARS, A MEÑO DO Unavailable Unavailable SEARS, A MEÑO DO Unavailable Unavailable SEARS, A MEÑO DO Unavailable Unavailable SEARS, A MEÑO DO Unavailable Unavailable SEARS, A MEÑO DO Unavailable Unavailable SEARS, A MEÑO DO Unavailable Unavailable SEARS, A MEÑO DO Unavailable Unavailable SEARS, A MEÑO DO Unavailable Unavailable SEARS, A MEÑO DO Unavailable Unavailable SEARS, A MEÑO DO Unavailable Unavailable SEARS, A MEÑO DO Unavailable Unavailable SEARS, A MEÑO DO Unavailable Unavailable SEARS, A MEÑO DO Unavailable Unavailable SEARS, A MEÑO DO Unavailable Unavailable SEARS, A MEÑO DO Unavailable Unavailable SEARS, A MEÑO DO Unavailable Unavailable SEARS, A MEÑO DO Unavailable Unavailable SEARS, A MEÑO DO Unavailable Unavailable SEARS, A MEÑO DO Unavailable Unavailable SEARS, A MEÑO DO Unavailable Unavailable SEARS, A MEÑO DO Unavailable Unavailable SEARS, A MEÑO DO Unavailable Unavailable SEARS, A MEÑO DO Unavailable Unavailable SEARS, A MEÑO DO Unavailable Unavailable SEARS, A MEÑO DO Unavailable Unavailable SEARS, A MEÑO DO Unavailable Unavailable SEARS, A MEÑO DO Unavailable Unavailable SEARS, A MEÑO DO Unavailable Unavailable SEARS, A MEÑO DO Unavailable Unavailable SEARS, A MEÑO DO Unavailable Unavailable SEARS, A MEÑO DO Unavailable Unavailable SEARS, A MEÑO DO Unavailable Unavailable SEARS, A MEÑO DO Unavailable Unavailable SEARS, A MEÑO DO Unavailable Unavailable SEARS, A MEÑO DO Unavailable Unavailable SEARS, A MEÑO DO Unavailable Unavailable SEARS, A MEÑO DO Unavailable Unavailable SEARS, A MEÑO DO Unavailable Unavailable SEARS, A MEÑO DO Unavailable Unavailable SEARS, A MEÑO DO Unavailable Unavailable Re-disclosure Warning The records that you are about to access may contain information from federally-assisted alcohol or drug abuse programs. If such information is present, then the following federally mandated warning applies: This information has been disclosed to you from records protected by federal confidentiality rules (42 CFR part 2). The federal rules prohibit you from making any further disclosure of this information unless further disclosure is expressly permitted by the written consent of the person to whom it pertains or as otherwise permitted by 42 CFR part 2. A general authorization for the release of medical or other information is NOT sufficient for this purpose. The Federal rules restrict any use of the information to criminally investigate or prosecute any alcohol or drug abuse patient.The records that you are about to access may contain highly sensitive health information, the redisclosure of which is protected by Article 27-F of the [facility] Public Health law. If you continue you may have access to information: Regarding HIV / AIDS; Provided by facilities licensed or operated by the [facility] Office of Mental Health; or Provided by the [facility] Office for People With Developmental Disabilities. If such information is present, then the following [facility] mandated warning applies: This information has been disclosed to you from confidential records which are protected by state law. State law prohibits you from making any further disclosure of this information without the specific written consent of the person to whom it pertains, or as otherwise permitted by law. Any unauthorized further disclosure in violation of state law may result in a fine or fdc sentence or both. A general authorization for the release of medical or other information is NOT sufficient authorization for further disc losure. Allergies and Adverse Reactions Type Description Substance Reaction Status Data Source(s ) Biaxin Biaxin Clarithromycin 250 MG Oral Tablet [Biaxin ] Nausea/Vomiting Active eCW1 ([facility]) KIWI KIWI KIWI THROAT SWELLS Active eCW1 ([facility]) HONEYDEW HONEYDEW HONEYDEW THROAT SWELLS Active eCW1 ([facility]) Drug allergy Levaquin Drug allergy Prolonged QT interval Active eCW1 ([facility]) Drug allergy Zofran Ondansetron Anaphylaxis/QT PROLONGATION Acti ve eCW1 ([facility]) aspirin Aspirin Aspirin HX ANEMIA Active eCW1 ([facility]) Drug allergy Topamax topiramate confused and forgetful Active eCW1 ([facility]) Erythromycin Erythromycin Erythromycin Nausea/Vomiting Active eC W1 ([facility]) Biaxin Biaxin Clarithromycin 250 MG Oral Tablet [Biaxin ] Nausea/Vomiting Active eCW1 ([facility]) KIWI KIWI KIWI THROAT SWELLS Active eCW1 ([facility]) HONEYDEW HONEYDEW HONEYDEW THROAT SWELLS Active eCW1 ([facility]) Biaxin Biaxin Clarithromycin 250 MG Oral Tablet [Biaxin ] Nausea/Vomiting Active eCW1 ([facility]) KIWI KIWI KIWI THROAT SWELLS Active eCW1 ([facility]) HONEYDEW HONEYDEW HONEYDEW THROAT SWELLS Active eCW1 ([facility]) Propensity to adverse reactions ONDANSETRON HCL Ondansetron Hcl Active [facility] Propensity to adverse reactions AZITHROMYCIN Azithromycin Active [facility] Biaxin Biaxin Clarithromycin 250 MG Oral Tablet [Biaxin ] Nausea/Vomiting Active eCW1 ([facility]) Levaquin Levaquin Levofloxacin 750 MG Oral Tablet [Levaquin] Prolonged QT interval Active eCW1 ([facility]) KIWI KIWI KIWI THROAT SWELLS Active eCW1 ([facility]) HONEYDEW HONEYDEW HONEYDEW THROAT SWELLS Active eCW1 ([facility]) Family History Family Member Name Family Member Gender Family Member Status Date o f Status Description Data Source(s) Unknown Unknown Problem MEDENT ([facility], ) Encounters Encounter Providers Location Date Indications Data Source(s ) [place] [address] [facility] [address] 04/30/2020 12:00:00 AM EST eCW1 ([facility] [place] [address] [facility] [address] 04/30/2020 12:00:00 AM EST eCW1 ([facility]) Unknown [address] [facility] [place] [address] 04/27/2020 12:00:00 AM EST eCW1 ([facility]) Unknown [address] [facility] [place] [address] 04/22/2020 12:00:00 AM EST eCW1 ([facility] [place]) Unknown [address] [facility] [place] [address] 04/03/2020 12:00:00 AM EST [facility] [place] [address] [facility] [address] 03/25/2020 12:00:00 AM EST [facility]CW1 [facility] Unknown [address] [facility] [place] [address] 03/25/2020 12:00:00 AM EST eCW1 [facility]) Outpatient [address] [facility] [place] [address] 03/14/2020 12:00:00 AM EST eCW1 ([facility]) Unknown [address] [facility] [place] [address] 03/07/2020 12:00:00 AM EST [facility] Outpatient Attender: Anna BARAJAS-SJALEKS 03/04/2020 12 :00:[address] [facility] Unknown [address] [facility] [address] 02/26/2020 12:00:00 AM EST [facility]CW1 [facility] [place] Outpatient [facility] 02/13/2020 12:00:24 AM EST [facility] Outpatient [facility] 02/12/2020 02:08:00 PM EST [facility] Unknown [address] [facility] [address] 02/10/2020 12:00:00 AM EST [facility]CW1 [facility] [place]patient [address] [facility] [address] 01/17/2020 12:00:00 AM EDT eCW1 ([facility]) Unknown [address] [facility] [address] 01/17/2020 12:00:00 AM EDT eCW1 ([facility]) Outpatient Attender: Alessio Noriega/Sadie/Florentin/Re indl 01/09/2020 10:30:00 AM EDT MEDENT ([facility] Outpatient Attender: MEÑO Colon/Sadie/Florentin/Reindl 12/26/2019 01:30:00 PM EDT MED[facility] ([facility] [place] [address] [facility] [address] 10/24/2019 12:00:00 AM EDT eCW1 ([facility]) Unknown [address] [facility] [address] 10/24/2019 12:00:00 AM EDT eCW1 ([facility]) Unknown [address] [facility] [address] 10/22/2019 12:00:00 AM EDT eCW1 ([facility]) Outpatient [address] [facility] [address] 10/18/2019 12:00:00 AM EDT eCW1 ([facility]) Outpatient GISSEL.ANKITA 10/11/2019 10:15:[address] [facility] Outpatient Attender: Anna DAO.ABAD 020 12:00:00 AM EDT - 09/25/2019 01:34:[address] [facility] Outpatient Referrer: Trang Byrd NP 09/22/2019 05:07: 00 AM EDT [facility] Unknown [address] [facility] [address] 09/22/2019 12:00:00 AM EDT eCW1 ([facility]) Unknown [address] [facility] [address] 09/19/2019 12:00:00 AM EDT eCW1 ([facility]) Unknown [address] [facility] [address] 09/15/2019 12:00:00 AM EDT eCW1 ([facility]) [facility] - [facility] [address] [place] [address] 09/15/2019 12:00:00 AM EDT eCW1 ([facility]) Unknown [address] [facility] [address] 09/14/2019 12:00:00 AM EDT eCW1 ([facility]) Outpatient Attender: MEÑO Colon/Sadie/Florentin/Reindl 09/13/2019 11:30:00 AM EDT MEDENT ([facility]) Unknown [address] [facility] [address] 09/13/2019 12:00:00 AM EDT eCW1 ([facility]) Outpatient [address] [facility] [address] 09/13/2019 12:00:00 AM EDT eCW1 ([facility]) Outpatient Attender: LOKI CULP MDReferrer: Deepa Savage NP 09/13/2019 12:00:00 AM [facility] Unknown [address] [facility] [address] 09/08/2019 12:00:00 AM EDT eCW1 ([facility]) Outpatient Referrer: Trang Byrd NP 09/06/2019 09:17: 00 PM EDT [facility] Outpatient Referrer: Trang Byrd NP 08/31/2019 06:11: 00 AM EDT [facility] Outpatient [email or web address] 08/29/2019 04:48:41 PM [facility]T [facility] [address] [facility], [facility] [address] 08/29/2019 12:00:00 AM EDT eCW1 ([facility]) Outpatient [email or web address] 08/24/2019 04:47:[address] [facility] Outpatient Referrer: Maulik RAMÍREZABAD-SJP.ABAD 08/04 12:00:00 AM EDT [facility] [address] [facility], [facility] [address] 08/23/2019 12:00:00 AM EDT eCW1 ([facility]) Outpatient Referrer: Trang Byrd NP 08/10/2019 06:13: 00 AM EDT [facility] PSYCHIATRIC GME Resident [address] [place] [phone] 08/10/2019 12:00:00 AM EDT eCW1 ([facility]) [facility] [address] [facility], [facility] [address] 08/09/2019 12:00:00 AM EDT eCW1 ([facility]) [facility] [address] [place] [address] 08/08/2019 12:00:00 AM EDT eCW1 ([facility]) Outpatient Attender: MEÑO Colon/Sadie/Florentin/Reindl 07/12/2019 10:30:00 AM EDT MEDENT ([facility]) [facility] [address] [facility], [facility] [address] 07/11/2019 12:00:00 AM EDT eCW1 ([facility]) Unknown [employer], [facility] [address] 07/07/2019 12:00:00 AM EDT eCW1 ([facility]) [address] [address] 06/28/2019 12:00:00 AM EDT eCW1 ([facility]) [address] [address] 06/27/2019 12:00:00 AM EDT eCW1 ([facility]) [address] [address] 06/26/2019 12:00:00 AM EDT eCW1 ([facility]) Outpatient Referrer: Trang Byrd NP 06/08/2019 03:25: 00 PM EST [facility] [address] [address] 06/07/2019 12:00:00 AM EST eCW1 ([facility]) Outpatient Attender: Anna Larose NPAttender: Tiana BARAJAS-SJALEKS 06/06/2019 12:00:00 AM EST [address] [address] 05/30/2019 12:00:00 AM EST eCW1 ([facility]) [address] [address] 03/27/2019 12:00:00 AM EST eCW1 ([facility]) Medications Medication Brand Name Start Date Product Form Dose Route Admi nistrative Instructions Pharmacy Instructions Status Indications Reaction Description Data Source(s) Methotrexate 2.5 MG Oral Tablet Methotrexate Sodium 2. 5 MG Methotrexate Sodium 2.5 MG 04/30/2020 12:00:00 AM EST active Methotrexate Sodium 2.5 MG eCW1 ([facility]) Methotrexate 2.5 MG Oral Tablet Methotrexate Sodium 2. 5 MG Methotrexate Sodium 2.5 MG 04/30/2020 12:00:00 AM EST active Methotrexate Sodium 2.5 MG eCW1 ([facility]) Folic Acid 1 MG Oral Tablet Folic Acid 1 MG 04/30/2020 12:00:00 AM EST 1.0 {tablet} active Folic Acid 1 MG eCW1 ([facility]) Folic Acid 1 MG Oral Tablet Folic Acid 1 MG 04/30/2020 12:00:00 AM EST 1.0 {tablet} active Folic Acid 1 MG eCW1 ([facility]) Spironolactone 25 MG Oral Tablet Spironolactone 25 MG 2020 12:00:00 AM EST 1.0 {tablet} active Spironolact one 25 MG eCW1 ([facility]) Spironolactone 25 MG Oral Tablet Spironolactone 25 MG 2020 12:00:00 AM EST 1.0 {tablet} active Spironolact one 25 MG eCW1 ([facility]) Spironolactone 25 MG Oral Tablet Spironolactone 25 MG 2020 12:00:00 AM EST 1.0 {tablet} active Spironolact one 25 MG eCW1 ([facility]) Jacqueline 0.35 MG Jacqueline 0.35 MG 03/14/2020 12:00:00 AM EST 1.0 { tablet} active Jacqueline 0.35 MG eCW1 ([facility]) Jacqueline 0.35 MG Jacqueline 0.35 MG 03/14/2020 12:00:00 AM EST 1.0 { tablet} active Jacqueline 0.35 MG eCW1 ([facility]) Jacqueline 0.35 MG Jacqueline 0.35 MG 03/14/2020 12:00:00 AM EST 1.0 { tablet} active Jacqueline 0.35 MG eCW1 ([facility]) Jacqueline 0.35 MG Jacqueline 0.35 MG 03/14/2020 12:00:00 AM EST 1.0 { tablet} active Jacqueline 0.35 MG eCW1 ([facility]) Jacqueline 0.35 MG Jacqueline 0.35 MG 03/14/2020 12:00:00 AM EST 1.0 { tablet} active Jacqueline 0.35 MG eCW1 ([facility]) Jacqueline 0.35 MG Jacqueline 0.35 MG 03/14/2020 12:00:00 AM EST 1.0 { tablet} active Jacqueline 0.35 MG eCW1 ([facility]) Jacqueline 0.35 MG Jacqueline 0.35 MG 03/14/2020 12:00:00 AM EST 1.0 { tablet} active Jacqueline 0.35 MG eCW1 ([facility]) Jacqueline 0.35 MG Jacqueline 0.35 MG 03/14/2020 12:00:00 AM EST 1.0 { tablet} active Jacqueline 0.35 MG eCW1 ([facility]) Jacqueline 0.35 MG Jacqueline 0.35 MG 03/14/2020 12:00:00 AM EST 1.0 { tablet} active Jacqueline 0.35 MG eCW1 ([facility]) Jacqueline 0.35 MG Jacqueline 0.35 MG 03/14/2020 12:00:00 AM EST 1.0 { tablet} active Jacqueline 0.35 MG eCW1 ([facility]) Methylprednisolone 4 MG Oral Tablet [Medrol] Medrol 4 MG Med rol 4 MG 03/08/2020 12:00:00 AM EST active Medrol 4 MG eCW1 ([facility]) Methylprednisolone 4 MG Oral Tablet [Medrol] Medrol 4 MG Med rol 4 MG 03/08/2020 12:00:00 AM EST active Medrol 4 MG eCW1 ([facility]) Methylprednisolone 4 MG Oral Tablet [Medrol] Medrol 4 MG Med rol 4 MG 03/08/2020 12:00:00 AM EST active Medrol 4 MG eCW1 ([facility]) Methylprednisolone 4 MG Oral Tablet [Medrol] Medrol 4 MG Med rol 4 MG 03/08/2020 12:00:00 AM EST active Medrol 4 MG eCW1 ([facility]) Methylprednisolone 4 MG Oral Tablet [Medrol] Medrol 4 MG Med rol 4 MG 03/08/2020 12:00:00 AM EST active Medrol 4 MG eCW1 ([facility]) Methylprednisolone 4 MG Oral Tablet [Medrol] Medrol 4 MG Med rol 4 MG 03/08/2020 12:00:00 AM EST active Medrol 4 MG eCW1 ([facility]) Methylprednisolone 4 MG Oral Tablet [Medrol] Medrol 4 MG Med rol 4 MG 03/08/2020 12:00:00 AM EST active Medrol 4 MG eCW1 ([facility]) Methylprednisolone 4 MG Oral Tablet [Medrol] Medrol 4 MG Med rol 4 MG 03/08/2020 12:00:00 AM EST active Medrol 4 MG eCW1 ([facility]) Methylprednisolone 4 MG Oral Tablet [Medrol] Medrol 4 MG Med rol 4 MG 03/08/2020 12:00:00 AM EST active Medrol 4 MG eCW1 ([facility]) Methylprednisolone 4 MG Oral Tablet [Medrol] Medrol 4 MG Med rol 4 MG 03/08/2020 12:00:00 AM EST active Medrol 4 MG eCW1 ([facility]) Methylprednisolone 4 MG Oral Tablet [Medrol] Medrol 4 MG Med rol 4 MG 03/08/2020 12:00:00 AM EST active Medrol 4 MG eCW1 ([facility]) midodrine hydrochloride 5 MG Oral Tablet midodrine (IL OAMATINE) 5 MG tablet midodrine (PROAMATINE) 5 MG tablet 03/04/2020 12:00:00 AM EST 5 mg Oral active Take 1 tablet (5 mg total) by [facility] 3 (three) times a day [facility] Hydroxychloroquine Sulfate 200 MG Oral T ablet hydroxychloroquine (PLAQUENIL) 200 MG tablet hydroxychloroquine (PLAQUENIL) 200 MG tablet 0 12:00:00 AM EST active TK [address] [facility] medroxyprogesterone acetate 10 MG Oral Tablet [Provera ] Provera 10 MG Provera 10 MG 02/20/2020 12:00:00 AM EST 1.0 {tablet_with_food} active Provera 10 MG eCW1 ([facility]) medroxyprogesterone acetate 10 MG Oral Tablet [Provera ] Provera 10 MG Provera 10 MG 02/20/2020 12:00:00 AM EST 1.0 {tablet_with_food} suspended Provera 10 MG eCW1 ([facility]) medroxyprogesterone acetate 10 MG Oral Tablet [Provera ] Provera 10 MG Provera 10 MG 02/20/2020 12:00:00 AM EST 1.0 {tablet_with_food} suspended Provera 10 MG eCW1 ([facility]) medroxyprogesterone acetate 10 MG Oral Tablet [Provera ] Provera 10 MG Provera 10 MG 02/20/2020 12:00:00 AM EST 1.0 {tablet_with_food} suspended Provera 10 MG eCW1 ([facility]) medroxyprogesterone acetate 10 MG Oral Tablet [Provera ] Provera 10 MG Provera 10 MG 02/20/2020 12:00:00 AM EST 1.0 {tablet_with_food} suspended Provera 10 MG eCW1 ([facility]) medroxyprogesterone acetate 10 MG Oral Tablet [Provera ] Provera 10 MG Provera 10 MG 02/20/2020 12:00:00 AM EST 1.0 {tablet_with_food} suspended Provera 10 MG eCW1 ([facility]) medroxyprogesterone acetate 10 MG Oral Tablet [Provera ] Provera 10 MG Provera 10 MG 02/20/2020 12:00:00 AM EST 1.0 {tablet_with_food} suspended Provera 10 MG eCW1 ([facility]) medroxyprogesterone acetate 10 MG Oral Tablet [Provera ] Provera 10 MG Provera 10 MG 02/20/2020 12:00:00 AM EST 1.0 {tablet_with_food} suspended Provera 10 MG eCW1 ([facility]) medroxyprogesterone acetate 10 MG Oral Tablet [Provera ] Provera 10 MG Provera 10 MG 02/20/2020 12:00:00 AM EST 1.0 {tablet_with_food} suspended Provera 10 MG eCW1 ([facility]) medroxyprogesterone acetate 10 MG Oral Tablet [Provera ] Provera 10 MG Provera 10 MG 02/20/2020 12:00:00 AM EST 1.0 {tablet_with_food} suspended Provera 10 MG eCW1 ([facility]) medroxyprogesterone acetate 10 MG Oral Tablet [Provera ] Provera 10 MG Provera 10 MG 02/20/2020 12:00:00 AM EST 1.0 {tablet_with_food} suspended Provera 10 MG eCW1 ([facility]) Omeprazole 40 MG Delayed Release Oral Ca psule omeprazole (PRILOSEC) 40 MG capsule omeprazole (PRILOSEC) 40 MG capsule 02/14/2020 12:00:00 AM EST active daily [facility] Hydroxychloroquine Sulfate 200 MG Oral Tablet [Plaquen il] Plaquenil 200 MG Plaquenil 200 MG 01/17/2020 12:00:00 AM EDT a ctive Plaquenil 200 MG eCW1 ([facility]) Hydroxychloroquine Sulfate 200 MG Oral Tablet [Plaquen il] Plaquenil 200 MG Plaquenil 200 MG 01/17/2020 12:00:00 AM EDT a ctive Plaquenil 200 MG eCW1 ([facility]) Hydroxychloroquine Sulfate 200 MG Oral Tablet [Plaquen il] Plaquenil 200 MG Plaquenil 200 MG 01/17/2020 12:00:00 AM EDT a ctive Plaquenil 200 MG eCW1 ([facility]) Hydroxychloroquine Sulfate 200 MG Oral Tablet [Plaquen il] Plaquenil 200 MG Plaquenil 200 MG 01/17/2020 12:00:00 AM EDT a ctive Plaquenil 200 MG eCW1 ([facility]) Hydroxychloroquine Sulfate 200 MG Oral Tablet [Plaquen il] Plaquenil 200 MG Plaquenil 200 MG 01/17/2020 12:00:00 AM EDT a ctive Plaquenil 200 MG eCW1 ([facility]) Hydroxychloroquine Sulfate 200 MG Oral Tablet [Plaquen il] Plaquenil 200 MG Plaquenil 200 MG 01/17/2020 12:00:00 AM EDT a ctive Plaquenil 200 MG eCW1 ([facility]) Hydroxychloroquine Sulfate 200 MG Oral Tablet [Plaquen il] Plaquenil 200 MG Plaquenil 200 MG 01/17/2020 12:00:00 AM EDT a ctive Plaquenil 200 MG eCW1 ([facility]) Hydroxychloroquine Sulfate 200 MG Oral Tablet [Plaquen il] Plaquenil 200 MG Plaquenil 200 MG 01/17/2020 12:00:00 AM EDT a ctive Plaquenil 200 MG eCW1 ([facility]) Hydroxychloroquine Sulfate 200 MG Oral Tablet [Plaquen il] Plaquenil 200 MG Plaquenil 200 MG 01/17/2020 12:00:00 AM EDT a ctive Plaquenil 200 MG eCW1 ([facility]) Hydroxychloroquine Sulfate 200 MG Oral Tablet [Plaquen il] Plaquenil 200 MG Plaquenil 200 MG 01/17/2020 12:00:00 AM EDT a ctive Plaquenil 200 MG eCW1 ([facility]) Hydroxychloroquine Sulfate 200 MG Oral Tablet [Plaquen il] Plaquenil 200 MG Plaquenil 200 MG 01/17/2020 12:00:00 AM EDT a ctive Plaquenil 200 MG eCW1 ([facility]) Hydroxychloroquine Sulfate 200 MG Oral Tablet [Plaquen il] Plaquenil 200 MG Plaquenil 200 MG 01/17/2020 12:00:00 AM EDT a ctive Plaquenil 200 MG eCW1 ([facility]) Hydroxychloroquine Sulfate 200 MG Oral Tablet [Plaquen il] Plaquenil 200 MG Plaquenil 200 MG 01/17/2020 12:00:00 AM EDT a ctive Plaquenil 200 MG eCW1 ([facility]) Betamethasone 0.5 MG/ML / Clotrimazole 10 MG/ML Topica l Lotion Clotrimazole/Betamethasone Dipropionate 01/09/2020 12:00:00 AM EDT AURICULAR active MEDENT ([facility]) Cyclosporine 0.5 MG/ML Ophthalmic Suspen sergio [Restasis] RESTASIS 0.05 % ophthalmic emulsion RESTASIS 0.05 % ophthalmic emulsion 12/12/2019 12:00:0 0 AM EDT active 2 (two) times a d ay [facility] Metformin hydrochloride 500 MG Oral Tablet metFORMIN ( GLUCOPHAGE) 500 MG tablet metFORMIN (GLUCOPHAGE) 500 MG tablet 11/28/2019 12:00:00 AM EDT aborted 2 (two) times a day [facility] Metformin hydrochloride 500 MG Oral Tablet Metformin H Cl 500 MG Metformin HCl 500 MG 10/27/2019 12:00:00 AM EDT 1.0 {tablet_with_a_meal} active Metformin HCl 500 MG eCW1 ([facility]) Metformin hydrochloride 500 MG Oral Tablet Metformin H Cl 500 MG Metformin HCl 500 MG 10/27/2019 12:00:00 AM EDT 1.0 {tablet_with_a_meal} active Metformin HCl 500 MG eCW1 ([facility]) Metformin hydrochloride 500 MG Oral Tablet Metformin H Cl 500 MG Metformin HCl 500 MG 10/27/2019 12:00:00 AM EDT 1.0 {tablet_with_a_meal} suspended Metformin HCl 500 MG eCW1 ([facility]) Metformin hydrochloride 500 MG Oral Tablet Metformin H Cl 500 MG Metformin HCl 500 MG 10/27/2019 12:00:00 AM EDT 1.0 {tablet_with_a_meal} suspended Metformin HCl 500 MG eCW1 ([facility]) Metformin hydrochloride 500 MG Oral Tablet Metformin H Cl 500 MG Metformin HCl 500 MG 10/27/2019 12:00:00 AM EDT 1.0 {tablet_with_a_meal} suspended Metformin HCl 500 MG eCW1 ([facility]) Metformin hydrochloride 500 MG Oral Tablet Metformin H Cl 500 MG Metformin HCl 500 MG 10/27/2019 12:00:00 AM EDT 1.0 {tablet_with_a_meal} active Metformin HCl 500 MG eCW1 ([facility]) Metformin hydrochloride 500 MG Oral Tablet Metformin H Cl 500 MG Metformin HCl 500 MG 10/27/2019 12:00:00 AM EDT 1.0 {tablet_with_a_meal} suspended Metformin HCl 500 MG eCW1 ([facility]) Metformin hydrochloride 500 MG Oral Tablet Metformin H Cl 500 MG Metformin HCl 500 MG 10/27/2019 12:00:00 AM EDT 1.0 {tablet_with_a_meal} active Metformin HCl 500 MG eCW1 ([facility]) Metformin hydrochloride 500 MG Oral Tablet Metformin H Cl 500 MG Metformin HCl 500 MG 10/27/2019 12:00:00 AM EDT 1.0 {tablet_with_a_meal} suspended Metformin HCl 500 MG eCW1 ([facility]) Metformin hydrochloride 500 MG Oral Tablet Metformin H Cl 500 MG Metformin HCl 500 MG 10/27/2019 12:00:00 AM EDT 1.0 {tablet_with_a_meal} suspended Metformin HCl 500 MG eCW1 ([facility]) Metformin hydrochloride 500 MG Oral Tablet Metformin H Cl 500 MG Metformin HCl 500 MG 10/27/2019 12:00:00 AM EDT 1.0 {tablet_with_a_meal} suspended Metformin HCl 500 MG eCW1 ([facility]) Metformin hydrochloride 500 MG Oral Tablet Metformin H Cl 500 MG Metformin HCl 500 MG 10/27/2019 12:00:00 AM EDT 1.0 {tablet_with_a_meal} suspended Metformin HCl 500 MG eCW1 ([facility]) Metformin hydrochloride 500 MG Oral Tablet Metformin H Cl 500 MG Metformin HCl 500 MG 10/27/2019 12:00:00 AM EDT 1.0 {tablet_with_a_meal} suspended Metformin HCl 500 MG eCW1 ([facility]) Metformin hydrochloride 500 MG Oral Tablet Metformin H Cl 500 MG Metformin HCl 500 MG 10/27/2019 12:00:00 AM EDT 1.0 {tablet_with_a_meal} suspended Metformin HCl 500 MG eCW1 ([facility]) Metformin hydrochloride 500 MG Oral Tablet Metformin H Cl 500 MG Metformin HCl 500 MG 10/27/2019 12:00:00 AM EDT 1.0 {tablet_with_a_meal} active Metformin HCl 500 MG eCW1 ([facility]) pantoprazole 40 MG Delayed Release Oral Tablet Pantopr azole Sodium 40 MG Pantoprazole Sodium 40 MG 10/18/2019 12:00:00 AM EDT 1.0 {tablet} suspended Pantoprazole Sodium 40 MG eCW1 ( [facility]) pantoprazole 40 MG Delayed Release Oral Tablet Pantopr azole Sodium 40 MG Pantoprazole Sodium 40 MG 10/18/2019 12:00:00 AM EDT 1.0 {tablet} suspended Pantoprazole Sodium 40 MG eCW1 ( [facility]) pantoprazole 40 MG Delayed Release Oral Tablet Pantopr azole Sodium 40 MG Pantoprazole Sodium 40 MG 10/18/2019 12:00:00 AM EDT 1.0 {tablet} suspended Pantoprazole Sodium 40 MG eCW1 ( [facility]) pantoprazole 40 MG Delayed Release Oral Tablet Pantopr azole Sodium 40 MG Pantoprazole Sodium 40 MG 10/18/2019 12:00:00 AM EDT 1.0 {tablet} active Pantoprazole Sodium 40 MG eCW1 ( [facility]) pantoprazole 40 MG Delayed Release Oral Tablet Pantopr azole Sodium 40 MG Pantoprazole Sodium 40 MG 10/18/2019 12:00:00 AM EDT 1.0 {tablet} suspended Pantoprazole Sodium 40 MG eCW1 ( [facility]) pantoprazole 40 MG Delayed Release Oral Tablet Pantopr azole Sodium 40 MG Pantoprazole Sodium 40 MG 10/18/2019 12:00:00 AM EDT 1.0 {tablet} active Pantoprazole Sodium 40 MG eCW1 ( [facility]) pantoprazole 40 MG Delayed Release Oral Tablet Pantopr azole Sodium 40 MG Pantoprazole Sodium 40 MG 10/18/2019 12:00:00 AM EDT 1.0 {tablet} active Pantoprazole Sodium 40 MG eCW1 ( [facility]) pantoprazole 40 MG Delayed Release Oral Tablet Pantopr azole Sodium 40 MG Pantoprazole Sodium 40 MG 10/18/2019 12:00:00 AM EDT 1.0 {tablet} suspended Pantoprazole Sodium 40 MG eCW1 ( [facility]) pantoprazole 40 MG Delayed Release Oral Tablet Pantopr azole Sodium 40 MG Pantoprazole Sodium 40 MG 10/18/2019 12:00:00 AM EDT 1.0 {tablet} suspended Pantoprazole Sodium 40 MG eCW1 ( [facility]) pantoprazole 40 MG Delayed Release Oral Tablet Pantopr azole Sodium 40 MG Pantoprazole Sodium 40 MG 10/18/2019 12:00:00 AM EDT 1.0 {tablet} active Pantoprazole Sodium 40 MG eCW1 ( [facility]) pantoprazole 40 MG Delayed Release Oral Tablet Pantopr azole Sodium 40 MG Pantoprazole Sodium 40 MG 10/18/2019 12:00:00 AM EDT 1.0 {tablet} suspended Pantoprazole Sodium 40 MG eCW1 ( [facility]) pantoprazole 40 MG Delayed Release Oral Tablet Pantopr azole Sodium 40 MG Pantoprazole Sodium 40 MG 10/18/2019 12:00:00 AM EDT 1.0 {tablet} suspended Pantoprazole Sodium 40 MG eCW1 ( [facility]) pantoprazole 40 MG Delayed Release Oral Tablet Pantopr azole Sodium 40 MG Pantoprazole Sodium 40 MG 10/18/2019 12:00:00 AM EDT 1.0 {tablet} active Pantoprazole Sodium 40 MG eCW1 ( [facility]) pantoprazole 40 MG Delayed Release Oral Tablet Pantopr azole Sodium 40 MG Pantoprazole Sodium 40 MG 10/18/2019 12:00:00 AM EDT 1.0 {tablet} active Pantoprazole Sodium 40 MG eCW1 ( [facility]) pantoprazole 40 MG Delayed Release Oral Tablet Pantopr azole Sodium 40 MG Pantoprazole Sodium 40 MG 10/18/2019 12:00:00 AM EDT 1.0 {tablet} active Pantoprazole Sodium 40 MG eCW1 ( [facility]) pantoprazole 40 MG Delayed Release Oral Tablet Pantopr azole Sodium 40 MG Pantoprazole Sodium 40 MG 10/18/2019 12:00:00 AM EDT 1.0 {tablet} suspended Pantoprazole Sodium 40 MG eCW1 ( [facility]) pantoprazole 40 MG Delayed Release Oral Tablet Pantopr azole Sodium 40 MG Pantoprazole Sodium 40 MG 10/18/2019 12:00:00 AM EDT 1.0 {tablet} suspended Pantoprazole Sodium 40 MG eCW1 ( [facility]) Atenolol 25 MG Oral Tablet atenolol (TENORMIN) 25 MG t ablet atenolol (TENORMIN) 25 MG tablet 09/25/2019 12:00:00 AM EDT 25 mg Oral activ e Take 1 tablet (25 mg total) by mouth daily [facility] Promethazine Hydrochloride 12.5 MG Oral Tablet Prometh azine HCl 12.5 MG Promethazine HCl 12.5 MG 09/20/2019 12:00:00 AM EDT 1.0 {tablet_as_ needed} active Promethazine HCl 12.5 MG eCW1 ([facility]) Promethazine Hydrochloride 12.5 MG Oral Tablet Prometh azine HCl 12.5 MG Promethazine HCl 12.5 MG 09/20/2019 12:00:00 AM EDT 1.0 {tablet_as_ needed} suspended Promethazine HCl 12.5 MG eCW1 ([facility]) Promethazine Hydrochloride 12.5 MG Oral Tablet Prometh azine HCl 12.5 MG Promethazine HCl 12.5 MG 09/20/2019 12:00:00 AM EDT 1.0 {tablet_as_ needed} active Promethazine HCl 12.5 MG eCW1 ([facility]) Promethazine Hydrochloride 12.5 MG Oral Tablet Prometh azine HCl 12.5 MG Promethazine HCl 12.5 MG 09/20/2019 12:00:00 AM EDT 1.0 {tablet_as_ needed} suspended Promethazine HCl 12.5 MG eCW1 ([facility]) Promethazine Hydrochloride 12.5 MG Oral Tablet Prometh azine HCl 12.5 MG Promethazine HCl 12.5 MG 09/20/2019 12:00:00 AM EDT 1.0 {tablet_as_ needed} suspended Promethazine HCl 12.5 MG eCW1 ([facility]) Promethazine Hydrochloride 12.5 MG Oral Tablet Prometh azine HCl 12.5 MG Promethazine HCl 12.5 MG 09/20/2019 12:00:00 AM EDT 1.0 {tablet_as_ needed} suspended Promethazine HCl 12.5 MG eCW1 ([facility]) Promethazine Hydrochloride 12.5 MG Oral Tablet promethazine (PHENERGAN) 12.5 MG tablet promethazine (PHENERGAN) 12.5 MG tablet 09/20/2019 12:00:00 AM EDT aborted as needed [facility] Promethazine Hydrochloride 12.5 MG Oral Tablet Prometh azine HCl 12.5 MG Promethazine HCl 12.5 MG 09/20/2019 12:00:00 AM EDT 1.0 {tablet_as_ needed} suspended Promethazine HCl 12.5 MG eCW1 ([facility]) Promethazine Hydrochloride 12.5 MG Oral Tablet Prometh azine HCl 12.5 MG Promethazine HCl 12.5 MG 09/20/2019 12:00:00 AM EDT 1.0 {tablet_as_ needed} suspended Promethazine HCl 12.5 MG eCW1 ([facility]) Promethazine Hydrochloride 12.5 MG Oral Tablet Prometh azine HCl 12.5 MG Promethazine HCl 12.5 MG 09/20/2019 12:00:00 AM EDT 1.0 {tablet_as_ needed} active Promethazine HCl 12.5 MG eCW1 ([facility]) Promethazine Hydrochloride 12.5 MG Oral Tablet Prometh azine HCl 12.5 MG Promethazine HCl 12.5 MG 09/20/2019 12:00:00 AM EDT 1.0 {tablet_as_ needed} active Promethazine HCl 12.5 MG eCW1 ([facility]) Promethazine Hydrochloride 12.5 MG Oral Tablet Prometh azine HCl 12.5 MG Promethazine HCl 12.5 MG 09/20/2019 12:00:00 AM EDT 1.0 {tablet_as_ needed} active Promethazine HCl 12.5 MG eCW1 ([facility]) Promethazine Hydrochloride 12.5 MG Oral Tablet Prometh azine HCl 12.5 MG Promethazine HCl 12.5 MG 09/20/2019 12:00:00 AM EDT 1.0 {tablet_as_ needed} suspended Promethazine HCl 12.5 MG eCW1 ([facility]) Promethazine Hydrochloride 12.5 MG Oral Tablet Prometh azine HCl 12.5 MG Promethazine HCl 12.5 MG 09/20/2019 12:00:00 AM EDT 1.0 {tablet_as_ needed} suspended Promethazine HCl 12.5 MG eCW1 ([facility]) Promethazine Hydrochloride 12.5 MG Oral Tablet Prometh azine HCl 12.5 MG Promethazine HCl 12.5 MG 09/20/2019 12:00:00 AM EDT 1.0 {tablet_as_ needed} active Promethazine HCl 12.5 MG eCW1 ([facility]) Promethazine Hydrochloride 12.5 MG Oral Tablet Prometh azine HCl 12.5 MG Promethazine HCl 12.5 MG 09/20/2019 12:00:00 AM EDT 1.0 {tablet_as_ needed} suspended Promethazine HCl 12.5 MG eCW1 ([facility]) Promethazine Hydrochloride 12.5 MG Oral Tablet Prometh azine HCl 12.5 MG Promethazine HCl 12.5 MG 09/20/2019 12:00:00 AM EDT 1.0 {tablet_as_ needed} active Promethazine HCl 12.5 MG eCW1 ([facility]) Promethazine Hydrochloride 12.5 MG Oral Tablet Prometh azine HCl 12.5 MG Promethazine HCl 12.5 MG 09/20/2019 12:00:00 AM EDT 1.0 {tablet_as_ needed} active Promethazine HCl 12.5 MG eCW1 ([facility]) Promethazine Hydrochloride 12.5 MG Oral Tablet Prometh azine HCl 12.5 MG Promethazine HCl 12.5 MG 09/20/2019 12:00:00 AM EDT 1.0 {tablet_as_ needed} suspended Promethazine HCl 12.5 MG eCW1 ([facility]) Promethazine Hydrochloride 12.5 MG Oral Tablet Prometh azine HCl 12.5 MG Promethazine HCl 12.5 MG 09/20/2019 12:00:00 AM EDT 1.0 {tablet_as_ needed} active Promethazine HCl 12.5 MG eCW1 ([facility]) Loratadine 10 MG Oral Tablet Loratadine 10 MG 08/10/2019 12:00:00 A M EDT 1.0 {tablet} suspended Loratadine 10 MG eCW1 ([facility]) Loratadine 10 MG Oral Tablet Loratadine 10 MG 08/10/2019 12:00:00 A M EDT 1.0 {tablet} suspended Loratadine 10 MG eCW1 ([facility]) Mometasone Furoate 50 MCG/ACT Mometasone Furoate 50 MCG/ACT 08/10/2019 12:00:00 AM EDT 2.0 {sprays_in_each_nostril} suspended Mometasone Furoate 50 MCG/ACT eCW1 ([facility]) Loratadine 10 MG Oral Tablet Loratadine 10 MG 08/10/2019 12:00:00 A M EDT 1.0 {tablet} suspended Loratadine 10 MG eCW1 ([facility]) Mometasone Furoate 50 MCG/ACT Mometasone Furoate 50 MCG/ACT 08/10/2019 12:00:00 AM EDT 2.0 {sprays_in_each_nostril} active Mometasone Furoate 50 MCG/ACT eCW1 ([facility]) Loratadine 10 MG Oral Tablet Loratadine 10 MG 08/10/2019 12:00:00 A M EDT 1.0 {tablet} suspended Loratadine 10 MG eCW1 ([facility]) Loratadine 10 MG Oral Tablet Loratadine 10 MG 08/10/2019 12:00:00 A M EDT 1.0 {tablet} suspended Loratadine 10 MG eCW1 ([facility]) Loratadine 10 MG Oral Tablet Loratadine 10 MG 08/10/2019 12:00:00 A M EDT 1.0 {tablet} suspended Loratadine 10 MG eCW1 ([facility]) Loratadine 10 MG Oral Tablet Loratadine 10 MG 08/10/2019 12:00:00 A M EDT 1.0 {tablet} suspended Loratadine 10 MG eCW1 ([facility]) Loratadine 10 MG Oral Tablet Loratadine 10 MG 08/10/2019 12:00:00 A M EDT 1.0 {tablet} suspended Loratadine 10 MG eCW1 ([facility]) Mometasone Furoate 50 MCG/ACT Mometasone Furoate 50 MCG/ACT 08/10/2019 12:00:00 AM EDT 2.0 {sprays_in_each_nostril} suspended Mometasone Furoate 50 MCG/ACT eCW1 ([facility]) Loratadine 10 MG Oral Tablet Loratadine 10 MG 08/10/2019 12:00:00 A M EDT 1.0 {tablet} suspended Loratadine 10 MG eCW1 ([facility]) Loratadine 10 MG Oral Tablet loratadine (CLARITIN) 10 MG tablet loratadine (CLARITIN) 10 MG tablet 08/10/2019 12:00:00 AM EDT aborted as needed [facility] Mometasone Furoate 50 MCG/ACT Mometasone Furoate 50 MCG/ACT 08/10/2019 12:00:00 AM EDT 2.0 {sprays_in_each_nostril} active Mometasone Furoate 50 MCG/ACT eCW1 ([facility]) Mometasone Furoate 50 MCG/ACT Mometasone Furoate 50 MCG/ACT 08/10/2019 12:00:00 AM EDT 2.0 {sprays_in_each_nostril} suspended Mometasone Furoate 50 MCG/ACT eCW1 ([facility]) Mometasone Furoate 50 MCG/ACT Mometasone Furoate 50 MCG/ACT 08/10/2019 12:00:00 AM EDT 2.0 {sprays_in_each_nostril} suspended Mometasone Furoate 50 MCG/ACT eCW1 ([facility]) Loratadine 10 MG Oral Tablet Loratadine 10 MG 08/10/2019 12:00:00 A M EDT 1.0 {tablet} suspended Loratadine 10 MG eCW1 ([facility]) Loratadine 10 MG Oral Tablet Loratadine 10 MG 08/10/2019 12:00:00 A M EDT 1.0 {tablet} suspended Loratadine 10 MG eCW1 ([facility]) Loratadine 10 MG Oral Tablet Loratadine 10 MG 08/10/2019 12:00:00 A M EDT 1.0 {tablet} suspended Loratadine 10 MG eCW1 ([facility]) Loratadine 10 MG Oral Tablet Loratadine 10 MG 08/10/2019 12:00:00 AM E DT active 1 tablet eCW1 ([facility]) Mometasone Furoate 50 MCG/ACT Mometasone Furoate 50 MCG/ACT 08/10/2019 12:00:00 AM EDT active 2 sprays in each nostril eCW1 ([facility]) Mometasone Furoate 50 MCG/ACT Mometasone Furoate 50 MCG/ACT 08/10/2019 12:00:00 AM EDT 2.0 {sprays_in_each_nostril} active Mometasone Furoate 50 MCG/ACT eCW1 ([facility]) Loratadine 10 MG Oral Tablet Loratadine 10 MG 08/10/2019 12:00:00 A M EDT 1.0 {tablet} suspended Loratadine 10 MG eCW1 ([facility]) Loratadine 10 MG Oral Tablet Loratadine 10 MG 08/10/2019 12:00:00 A M EDT 1.0 {tablet} suspended Loratadine 10 MG eCW1 ([facility]) Loratadine 10 MG Oral Tablet Loratadine 10 MG 08/10/2019 12:00:00 A M EDT 1.0 {tablet} suspended Loratadine 10 MG eCW1 ([facility]) Mometasone Furoate 50 MCG/ACT Mometasone Furoate 50 MCG/ACT 08/10/2019 12:00:00 AM EDT 2.0 {sprays_in_each_nostril} suspended Mometasone Furoate 50 MCG/ACT eCW1 ([facility]) Mometasone Furoate 50 MCG/ACT Mometasone Furoate 50 MCG/ACT 08/10/2019 12:00:00 AM EDT 2.0 {sprays_in_each_nostril} suspended Mometasone Furoate 50 MCG/ACT eCW1 ([facility]) Loratadine 10 MG Oral Tablet Loratadine 10 MG 08/10/2019 12:00:00 A M EDT 1.0 {tablet} suspended Loratadine 10 MG eCW1 ([facility]) Mometasone Furoate 50 MCG/ACT Mometasone Furoate 50 MCG/ACT 08/10/2019 12:00:00 AM EDT 2.0 {sprays_in_each_nostril} suspended Mometasone Furoate 50 MCG/ACT eCW1 ([facility]) Loratadine 10 MG Oral Tablet Loratadine 10 MG 08/10/2019 12:00:00 A M EDT 1.0 {tablet} suspended Loratadine 10 MG eCW1 ([facility]) Mometasone Furoate 50 MCG/ACT Mometasone Furoate 50 MCG/ACT 08/10/2019 12:00:00 AM EDT 2.0 {sprays_in_each_nostril} active Mometasone Furoate 50 MCG/ACT eCW1 ([facility]) Mometasone Furoate 50 MCG/ACT Mometasone Furoate 50 MCG/ACT 08/10/2019 12:00:00 AM EDT 2.0 {sprays_in_each_nostril} suspended Mometasone Furoate 50 MCG/ACT eCW1 ([facility]) Mometasone Furoate 50 MCG/ACT Mometasone Furoate 50 MCG/ACT 08/10/2019 12:00:00 AM EDT 2.0 {sprays_in_each_nostril} suspended Mometasone Furoate 50 MCG/ACT eCW1 ([facility]) Mometasone Furoate 50 MCG/ACT Mometasone Furoate 50 MCG/ACT 08/10/2019 12:00:00 AM EDT 2.0 {sprays_in_each_nostril} suspended Mometasone Furoate 50 MCG/ACT eCW1 ([facility]) Mometasone Furoate 50 MCG/ACT Mometasone Furoate 50 MCG/ACT 08/10/2019 12:00:00 AM EDT 2.0 {sprays_in_each_nostril} suspended Mometasone Furoate 50 MCG/ACT eCW1 ([facility]) Mometasone Furoate 50 MCG/ACT Mometasone Furoate 50 MCG/ACT 08/10/2019 12:00:00 AM EDT 2.0 {sprays_in_each_nostril} suspended Mometasone Furoate 50 MCG/ACT eCW1 ([facility]) Mometasone Furoate 50 MCG/ACT Mometasone Furoate 50 MCG/ACT 08/10/2019 12:00:00 AM EDT 2.0 {sprays_in_each_nostril} suspended Mometasone Furoate 50 MCG/ACT eCW1 ([facility]) Loratadine 10 MG Oral Tablet Loratadine 10 MG 08/10/2019 12:00:00 A M EDT 1.0 {tablet} suspended Loratadine 10 MG eCW1 ([facility]) Loratadine 10 MG Oral Tablet Loratadine 10 MG 08/10/2019 12:00:00 A M EDT 1.0 {tablet} suspended Loratadine 10 MG eCW1 ([facility]) Mometasone Furoate 50 MCG/ACT Mometasone Furoate 50 MCG/ACT 08/10/2019 12:00:00 AM EDT 2.0 {sprays_in_each_nostril} suspended Mometasone Furoate 50 MCG/ACT eCW1 ([facility]) Loratadine 10 MG Oral Tablet Loratadine 10 MG 08/10/2019 12:00:00 A M EDT 1.0 {tablet} suspended Loratadine 10 MG eCW1 ([facility]) Mometasone Furoate 50 MCG/ACT Mometasone Furoate 50 MCG/ACT 08/10/2019 12:00:00 AM EDT 2.0 {sprays_in_each_nostril} suspended Mometasone Furoate 50 MCG/ACT eCW1 ([facility]) Mometasone Furoate 50 MCG/ACT Mometasone Furoate 50 MCG/ACT 08/10/2019 12:00:00 AM EDT 2.0 {sprays_in_each_nostril} active Mometasone Furoate 50 MCG/ACT eCW1 ([facility]) Mometasone Furoate 50 MCG/ACT Mometasone Furoate 50 MCG/ACT 08/10/2019 12:00:00 AM EDT 2.0 {sprays_in_each_nostril} suspended Mometasone Furoate 50 MCG/ACT eCW1 ([facility]) Mometasone Furoate 50 MCG/ACT Mometasone Furoate 50 MCG/ACT 08/10/2019 12:00:00 AM EDT 2.0 {sprays_in_each_nostril} active Mometasone Furoate 50 MCG/ACT eCW1 ([facility]) Loratadine 10 MG Oral Tablet Loratadine 10 MG 08/10/2019 12:00:00 A M EDT 1.0 {tablet} suspended Loratadine 10 MG eCW1 ([facility]) Mometasone Furoate 50 MCG/ACT Mometasone Furoate 50 MCG/ACT 08/10/2019 12:00:00 AM EDT 2.0 {sprays_in_each_nostril} suspended Mometasone Furoate 50 MCG/ACT eCW1 ([facility]) Loratadine 10 MG Oral Tablet Loratadine 10 MG 08/10/2019 12:00:00 A M EDT 1.0 {tablet} suspended Loratadine 10 MG eCW1 ([facility]) Loratadine 10 MG Oral Tablet Loratadine 10 MG 08/10/2019 12:00:00 A M EDT 1.0 {tablet} active Loratadine 10 MG eCW1 ( [facility]) Mometasone Furoate 50 MCG/ACT Mometasone Furoate 50 MCG/ACT 08/10/2019 12:00:00 AM EDT 2.0 {sprays_in_each_nostril} active Mometasone Furoate 50 MCG/ACT eCW1 ([facility]) Loratadine 10 MG Oral Tablet Loratadine 10 MG 08/10/2019 12:00:00 A M EDT 1.0 {tablet} suspended Loratadine 10 MG eCW1 ([facility]) medroxyprogesterone acetate 10 MG Oral Tablet [Provera ] Provera 10 MG Provera 10 MG 08/08/2019 12:00:00 AM EDT 1.0 {tablet_with_food} suspended Provera 10 MG eCW1 ([facility]) medroxyprogesterone acetate 10 MG Oral Tablet [Provera ] Provera 10 MG Provera 10 MG 08/08/2019 12:00:00 AM EDT 1.0 {tablet_with_food} suspended Provera 10 MG eCW1 ([facility]) medroxyprogesterone acetate 10 MG Oral Tablet [Provera ] Provera 10 MG Provera 10 MG 08/08/2019 12:00:00 AM EDT active 1 tablet with food eCW1 ([facility]) medroxyprogesterone acetate 10 MG Oral Tablet [Provera ] Provera 10 MG Provera 10 MG 08/08/2019 12:00:00 AM EDT 1.0 {tablet_with_food} suspended Provera 10 MG eCW1 ([facility]) medroxyprogesterone acetate 10 MG Oral Tablet [Provera ] Provera 10 MG Provera 10 MG 08/08/2019 12:00:00 AM EDT 1.0 {tablet_with_food} suspended Provera 10 MG eCW1 ([facility]) medroxyprogesterone acetate 10 MG Oral Tablet [Provera ] Provera 10 MG Provera 10 MG 08/08/2019 12:00:00 AM EDT 1.0 {tablet_with_food} suspended Provera 10 MG eCW1 ([facility]) medroxyprogesterone acetate 10 MG Oral Tablet [Provera ] Provera 10 MG Provera 10 MG 08/08/2019 12:00:00 AM EDT active 1 tablet with food eCW1 ([facility]) medroxyprogesterone acetate 10 MG Oral Tablet [Provera ] Provera 10 MG Provera 10 MG 08/08/2019 12:00:00 AM EDT 1.0 {tablet_with_food} suspended Provera 10 MG eCW1 ([facility]) medroxyprogesterone acetate 10 MG Oral Tablet [Provera ] Provera 10 MG Provera 10 MG 08/08/2019 12:00:00 AM EDT 1.0 {tablet_with_food} suspended Provera 10 MG eCW1 ([facility]) medroxyprogesterone acetate 10 MG Oral Tablet [Provera ] Provera 10 MG Provera 10 MG 08/08/2019 12:00:00 AM EDT 1.0 {tablet_with_food} suspended Provera 10 MG eCW1 ([facility]) medroxyprogesterone acetate 10 MG Oral Tablet [Provera ] Provera 10 MG Provera 10 MG 08/08/2019 12:00:00 AM EDT 1.0 {tablet_with_food} suspended Provera 10 MG eCW1 ([facility]) medroxyprogesterone acetate 10 MG Oral Tablet [Provera ] Provera 10 MG Provera 10 MG 08/08/2019 12:00:00 AM EDT 1.0 {tablet_with_food} suspended Provera 10 MG eCW1 ([facility]) medroxyprogesterone acetate 10 MG Oral Tablet [Provera ] Provera 10 MG Provera 10 MG 08/08/2019 12:00:00 AM EDT 1.0 {tablet_with_food} suspended Provera 10 MG eCW1 ([facility]) medroxyprogesterone acetate 10 MG Oral Tablet [Provera ] Provera 10 MG Provera 10 MG 08/08/2019 12:00:00 AM EDT 1.0 {tablet_with_food} suspended Provera 10 MG eCW1 ([facility]) medroxyprogesterone acetate 10 MG Oral Tablet [Provera ] Provera 10 MG Provera 10 MG 08/08/2019 12:00:00 AM EDT 1.0 {tablet_with_food} suspended Provera 10 MG eCW1 ([facility]) medroxyprogesterone acetate 10 MG Oral Tablet [Provera ] Provera 10 MG Provera 10 MG 08/08/2019 12:00:00 AM EDT 1.0 {tablet_with_food} suspended Provera 10 MG eCW1 ([facility]) medroxyprogesterone acetate 10 MG Oral Tablet [Provera ] Provera 10 MG Provera 10 MG 08/08/2019 12:00:00 AM EDT 1.0 {tablet_with_food} suspended Provera 10 MG eCW1 ([facility]) medroxyprogesterone acetate 10 MG Oral Tablet [Provera ] Provera 10 MG Provera 10 MG 08/08/2019 12:00:00 AM EDT 1.0 {tablet_with_food} active Provera 10 MG eCW1 ([facility]) medroxyprogesterone acetate 10 MG Oral Tablet [Provera ] Provera 10 MG Provera 10 MG 08/08/2019 12:00:00 AM EDT 1.0 {tablet_with_food} suspended Provera 10 MG eCW1 ([facility]) medroxyprogesterone acetate 10 MG Oral Tablet [Provera ] Provera 10 MG Provera 10 MG 08/08/2019 12:00:00 AM EDT 1.0 {tablet_with_food} suspended Provera 10 MG eCW1 ([facility]) medroxyprogesterone acetate 10 MG Oral Tablet [Provera ] Provera 10 MG Provera 10 MG 08/08/2019 12:00:00 AM EDT 1.0 {tablet_with_food} suspended Provera 10 MG eCW1 ([facility]) medroxyprogesterone acetate 10 MG Oral Tablet [Provera ] Provera 10 MG Provera 10 MG 08/08/2019 12:00:00 AM EDT 1.0 {tablet_with_food} suspended Provera 10 MG eCW1 ([facility]) medroxyprogesterone acetate 10 MG Oral Tablet [Provera ] Provera 10 MG Provera 10 MG 08/08/2019 12:00:00 AM EDT 1.0 {tablet_with_food} suspended Provera 10 MG eCW1 ([facility]) medroxyprogesterone acetate 10 MG Oral Tablet [Provera ] Provera 10 MG Provera 10 MG 08/08/2019 12:00:00 AM EDT 1.0 {tablet_with_food} suspended Provera 10 MG eCW1 ([facility]) medroxyprogesterone acetate 10 MG Oral Tablet [Provera ] Provera 10 MG Provera 10 MG 08/08/2019 12:00:00 AM EDT 1.0 {tablet_with_food} suspended Provera 10 MG eCW1 ([facility]) medroxyprogesterone acetate 10 MG Oral Tablet [Provera ] Provera 10 MG Provera 10 MG 08/08/2019 12:00:00 AM EDT 1.0 {tablet_with_food} suspended Provera 10 MG eCW1 ([facility]) Wixela Inhub 100-50 MCG/DOSE Wixela Inhub 100-50 MCG/DOSE 12:00:00 AM EDT active 1 puff eCW1 ([facility]) Azithromycin 500 MG Oral Tablet Azithromycin 500 MG 06/27/2019 1 2:00:00 AM EDT 1.0 {tablet} active Azithromyci n 500 MG eCW1 ([facility]) Azithromycin 500 MG Oral Tablet Azithromycin 500 MG 06/27/2019 1 2:00:00 AM EDT active 1 tablet eCW1 ([facility]) midodrine hydrochloride 5 MG Oral Tablet midodrine ([place] OAMATINE) 5 MG tablet midodrine (PROAMATINE) 5 MG tablet 5 mg Oral abo rted Take 5 mg by mouth 3 (three) times a day [facility] Insurance Providers Payer name Policy type / Coverage type Policy ID Covered alliance party ID Covered alliance party's relationship to serrano Policy Serrano [facility] Information [facility] [id number] SP [id number] [place] [id number] SP [id number] [facility] [id number] SP [id number] [facility] [id number] SP [id number] [facility] [id number] SP [id number] MEDICAID M [id number] S [id number] [place] MED[place]ID [id number] [facility] MEDICAID [id number] Letha 7 [id number] [facility] [id number] SP [id number] [facility] [id number] FA2 [id number] [facility] [id number] O [id number] Medicaid S [id number] S [id number] [facility] [id number] SP [id number] [facility] O [id number] S [id number] [facility] [id number] SP [id number] [facility] [id number] Letha [id number] MEDICAID [id number] Letha [id number] MVP I [id number] Self [id number] MVP I [id number] Self [id number] [facility] O [id number] S [id number] [facility] CRIS [id number] SP [id number] ANSI-Not a Secondary Insurance [id number] ANSI-Not a Secondary Insurance [id number] ANSI-Not a Secondary Insurance [id number] ANSI-Not a Secondary Insurance [id number] ANSI-Not a Secondary Insurance [id number] ANSI-Not a Secondary Insurance [id number] ANSI-Not a Secondary Insurance [id number] ANSI-Not a Secondary Insurance [id number] ANSI-Not a Secondary Insurance [id number] ANSI-Not a Secondary Insurance [id number] MEDICAID [id number] SP [id number] ANSI-Not a Secondary Insurance [id number] ANSI-Not a Secondary Insurance [id number] ANSI-Not a Secondary Insurance [id number] ANSI-Not a Secondary Insurance [id number] [facility] [id number] [facility] [id number] ANSI-Not a Secondary Insurance [id number] ANSI-Not a Secondary Insurance [id number] ANSI-Not a Secondary Insurance [id number] ANSI-Not a Secondary Insurance [id number] ANSI-Not a Secondary Insurance [id number] ANSI-Not a Secondary Insurance [id number] [facility] [id number] [facility] [id number] ANSI-Medicaid [id number] ANSI-Not a Secondary Insurance [id number] [facility] Medicaid Health Maintenance Organization (HMO) [id number] Self [id number] Medicaid [place] [id number] Self [id number] ANSI-Medicaid [id number] ANSI-Not a Secondary Insurance [id number] SELF PAY ONLY SP ANSI-Medicaid [id number] ANSI-Not a Secondary Insurance [id number] ANSI-Not a Secondary Insurance [id number] ANSI-Medicaid [id number] ANSI-Not a Secondary Insurance [id number] ANSI-Medicaid [id number] ANSI-Not a Secondary Insurance [id number] ANSI-Medicaid [id number] ANSI-Not a Secondary Insurance [id number] ANSI-Medicaid [id number] ANSI-Medicaid [id number] ANSI-Not a Secondary Insurance [id number] [facility] [id number] [facility] [id number] ANSI-Medicaid [id number] ANSI-Not a Secondary Insurance [id number] ANSI-Medicaid [id number] ANSI-Not a Secondary Insurance [id number] [facility]-Medicaid [id number] ANSI-Medicaid [id number] MEDICAID PI PI [id number] Spo [id number] [facility] [place] [facility] [place] [id number] O [id number] [facility] [place] [facility] [id number] FA2 [id number] Chi [id number] Chi [id number] [employer] Commercial Family Depende nt Medicaid Medicaid Self [facility] Commercial [place]ICAID [place] [id number] [facility] [id number] [place] XI O [id number] S [id number] D [facility] Federal ( ) O [id number] S [id number] Self Pay O UNAVAILABLE S UNAVAILA BLE Medicaid Dental P [id number] S [id number] D United Blanket S [id number] O 1 [id number] D [facility] Life [facility] O [id number] O [id number] POTOMAC/MEDICAID [id number] Problems, Conditions, and Diagnoses Code Display Name Description Problem Type Effective Dates Data Source(s) M06.09 [id number] Rheumatoid arthritis of multiple sites with negative rheumatoid factor Problem 04/30/2020 12:00:00 AM EST eCW1 ([facility]) E66.01 [id number] Morbid obesity with body mass index (BMI) greater than or equal to 50 Problem 04/30/2020 12:00:00 AM EST eCW1 ([facility]) M06.4 [id number] Inflammatory polyarthritis Problem 12:00:00 AM EDT eCW1 ([facility]) M35.01 307523436 Keratoconjunctivitis sicca Problem 0 12:00:00 AM EDT eCW1 ([facility]) J30.2 321953309 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, 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/10/2019 12:00:00 AM EDT eCW1 ([facility]) N92.0 Menorrhagia Menorrhagia Problem 08/08/2019 12:00:00 AM EDT eCW1 ([facility]) N92.0 Menorrhagia Menorrhagia Problem 08/08/2019 12:00:00 AM EDT eCW1 ([facility]) [id number] Hemoptysis Hemoptysis Problem 07/12/2019 12:00:00 AM ED T MEDENT ([facility], ) [id number] Difficulty breathing Difficulty breathing Problem 07/12/2019 12:00:00 AM EDT MEDENT ([facility], ) [id number] Abnormal findings on diagnostic imaging of lung Abnormal findings on diagnostic imaging of lung Problem 07/12/2019 12:00:00 AM EDT [facility] ([facility], ) N92.1 [id number] Menometrorrhagia Problem 06/27/2019 12:00:00 AM EDT eCW1 ([facility]) R04.2 Hemoptysis Hemoptysis [id number] 06/06/2019 12:00:00 AM [facility] E03.9 13783480 Subclinical hypothyroidism Problem 9 12:00:00 AM EST eCW1 ([facility]) R21 825718423 Skin rash Problem 03/27/2019 12:00:00 AM ES T eCW1 ([facility]) L65.9 525839691 Hair loss Problem 03/27/2019 12:00:00 AM ES T eCW1 ([facility]) Z84.0 608055882 Family history of lupus erythematosus Pro [place] 03/27/2019 12:00:00 AM EST eCW1 ([facility]) E03.9 70458439 Subclinical hypothyroidism Problem 9 12:00:00 AM EST eCW1 ([facility]) L65.9 304935431 Hair loss Problem 03/27/2019 12:00:00 AM ES T eCW1 ([facility]) R21 894216026 Skin rash Problem 03/27/2019 12:00:00 AM ES T eCW1 ([facility]) Z84.0 675347506 Family history of lupus erythematosus Pro [place] 03/27/2019 12:00:00 AM EST eCW1 ([facility]) R04.2 Hemoptysis Hemoptysis Diagnosis 03/04/2020 03:40:[address] [facility] R55 Syncope and collapse Syncope and collapse Diagnosis 03/04/2020 03:40:[address] [facility] I47.1 Supraventricular tachycardia Supraventricular tachycar jeferson Diagnosis 03/04/2020 03:40:[address] [facility] R06.09 Other forms of dyspnea Other forms of dyspnea Diagnosi s 09/25/2019 12:59:[address] [facility] I95.1 Orthostatic hypotension Orthostatic hypotension Diagno sis 06/06/2019 03:04:[address] [facility] R00.0 Tachycardia, unspecified Tachycardia, unspecified Diag nosis 06/06/2019 03:04:[address] [facility] Surgeries/Procedures Procedure Description Date Indications Data Source(s) ECG ROUTINE ECG W/LEAST 12 LDS W/I&R POCT AMB EKG Routine 03/04/2020 4:05 PM EST SVT (supraventricular tachycardia) 03/04/2020 09:05:00 PM ES T SVT (supraventricular tachycardia) [facility] SVT (supraventricular tachycardia) Bronchospasm Evaluation 08/01/2019 12:00:00 AM EDT MEDENT ([facility]) Maximum Breathing Capacity, Maximal Voluntary Ventilation 08/01/2019 12:00:00 AM EDT [facility] ([facility]) Plethysmography Determination Lung Volumes & Per Airway Resi st 08/01/2019 12:00:00 AM EDT [facility] ([facility]) DIFFUSING CAPACITY 08/01/2019 12:00:00 AM EDT MEDENT ([facility] ) Results ID Date Data Source [id number] 04/30/2020 06:05:00 AM EST [facility] Name Value Range Interpretation Code Description Data Anny rce(s) Supporting Document(s) Hemoglobin A1c 5.6 % 4.8-5.6 [facility] Prediabetes: 5.7 - 6.4 Diabetes: >6.4 Glycemic control for adults with diabetes: <7.0 ID Date Data Source [id number] 04/30/2020 06:05:00 AM EST [facility] Name Value Range Interpretation Code Description Data Anny rce(s) Supporting Document(s) TSH 1.380 uIU/mL 0.450-4.500 [facility] ID Date Data Source [id number] 03/14/2020 12:10:00 PM EST [facility] Name Value Range Interpretation Code Description Data Anny rce(s) Supporting Document(s) SARS coronavirus 2 RNA [facility] This lab was ordered by [facility] and reported by [facility]. ID Date Data Source [id number] 01/10/2020 12:00:00 AM EDT [facility] Name Value Range Interpretation Code Description Data Anny rce(s) Supporting Document(s) SARS coronavirus 2 RNA [Presence] in Res piratory specimen by APOORVA with probe detection [facility] This lab was ordered by [facility] and reported by [facility]. ID Date Data Source [id number] 11/13/2019 12:00:00 AM EDT [facility] Meño Aviles DO Patient Name: FILOMENA LILLY [id number] [address] [facility] 1995[facility] [place] [address] Date of Exam: 11/13/2019#: Fax: [phone] EXAM: CT THORAX WITHOUT CONTRASTCLINICAL INFORMATION: Chronic dyspnea and possible hemoptysis.There are no prior CT examinations of the chest for comparison.64 slice low dose helical CT scanning was obtained throughout the thoraxwithout intravenous contrast along with sagittal and coronalreconstructions.There is a minimal amount of soft tissue density seen in the anteriormediastinum. This does not splay the anterior junction line. There is nomediastinal or hilar adenopathy. There are no pleural or pericardialeffusions. The imaged upper abdomen shows diffuse low density throughoutthe hepatic parenchyma. The imaged osseous structures are within normallimits.Evaluation of the lung hernandez shows no abnormal nodules, masses, oropacities. A single curvilinear density is seen in the accessory fissurebetween the right upper and right middle lobes.IMPRESSION:1. Probable tiny amount of residual thymic tissue.2. Diffuse fatty infiltration of the liver.3. No acute intrathoracic disease. Findings as described above.Accredit ed by the [employer] in [place].MARY LOU Alston/Neri you for referring FILOMENA LILLY to our office. Electronically Signed - NIA IRBY DO 11/14/19 14:23 Name Value Range Interpretation Code Description Data Anny rce(s) Supporting Document(s) ID Date Data Source [id number] 09/25/2019 01:58:49 PM [facility] Name Date of Age Gend*PT [id number] Filomena Lilly [place] 1995 24 years F ---PT Location Admission Date/Time Visit ID Attending Provider --- --- --- --- EPI ID CSN Admitting Provider [id number] ---Addended by: ANNA LAROSE on: 09/25/2019 01:58 PM Modules accepted: Orders Name Value Range Interpretation Code Description Data Anny rce(s) Supporting Document(s) ID Date Data Source [id number] 08/27/2019 04:26:00 PM EDT [facility] Name Value Range Interpretation Code Description Data Anny rce(s) Supporting Document(s) SARS CORONAVIRUS 2 RNA [facility] This lab was ordered by [facility] and reported by [facility]. ID Date Data Source [id number] 08/24/2019 04:42:[address] [facility] Name Value Range Interpretation Code Description Data Anny rce(s) Supporting Document(s) &PDF [facility] HXCQJv8kBzUMQjEb21/PPYvbQBSyr2RgWEhiQPw3WTocVLMwP0EmkYubUKmDZCWRQU8YF44iM1xWOBFB Dcm PzpC5iNZXqgMKcR3ziuEVczkHCa9Ubr4CgeZlcpkwSLdEbGt2PTqGrHM5ktm4VVEFuOT0vid8MLVO7HB 7PwGu7XMBuJ8RbLLKjYAWnq5WvIM1WHS8oqQjcDaJ9FG6+GKczRNU4tuZvpW4MQZJgOP1KQ9nD/n7S/Y fCFvaneRWbcN7JxVHBYeSjFVBNDA2FDZ26RNHgJECC AMARA+/t7h0jHNLGU37dzFZDYbXbkbfhq7q1sWDiV//jIfWeI5oxm/tu0xJaCFg9S//3Eoh0XyY0o1TEvb [file] 7rdqtQhHZt4jqdpn7nyzaI64IgfzuqTgIdYw+vHx2A19pwDf7Yb3P5OrnscsMsteb8GOmftuffxxONj1 rKro33tRKQhOT0sf/jqfFS43Z/ig8WK3wyiMEkJkoi60jkHTGE10larIfQpCH1odiCgQQs4jZ+/S6sfO Ofvbz+J18fwd/s9vgW/Qp9mMyfVIEqGyWKps5du4jb mieGSbPL+Awrvx3v+y24PsxpiaXlCILzwjKQsrboDh5tF7DeyYv7hNL/8LN2XCqdMwdGhD8DLqvJy/no bfMpSbffmzl642zNaebzcTtjp/gQYuBbPc0fXCInBs7krAaCS5ktis8pdur6Eqys+jDQeB2HgGxYDthk 6fdzQer9lHzEvXUGNe371rNYI9wxv54+YzO2UEYx2k J LUIS/z/VJCd7b5yu4/pNg24QcqW8+/ZPjCGngelxcunpj0kbKNUiC8KTCwquamg9P6Yhnknjc5zKSkFVj [file] ICAgICAgICAgICAgICAgICAgICAgICAgICAgICAgICAgICAgICAgICAgICAgICAgICAgICAgICAgICAg RLIoEJPyXIGoXVShAS9CCZCuUKFaHJTbSAVmIGLvZT AgICAgICAgICAgICAgICAgICAgICAgICAgICAgICAgICAgICAgICAgICAgICAgICAgICAgICAgICAgIC PzVYNfZHVnEZAxWLFcSLKvKJZjWKFbMA8WTFXjKVCuMVBcDTEfWXOeUOYzLETbHBUiDPMuZTCrXYWhHC AgICAgICAgICAgICAgICAgICAgICAgICAgICAgICAg XTViPTJwUUSaXHGiYGHnTBDzABWbTOElWDFpEZUmOFJjFP8REZScVKDwXAWbWLBgSBJbWUOkQFNdLXVl ICAgICAgICAgICAgICAgICAgICAgICAgICAgICAgICAgICAgICAgICAgICAgICAgICAgICAgICAgICAg CFZxFLWlMJHxDXDtHPLxRB6ZRTAhAPAyJTNaXHEnVR AgICAgICAgICAgICAgICAgICAgICAgICAgICAgICAgICAgICAgICAgICAgICAgICAgICAgICAgICAgIC ZgKUDaIFYeRHTdETMkUUSdUBMnABAvWOYbWI6BYLTcQRReSBZqSCSeKNQzBWNgFCGgLWKtMRJwNVIlZD AgICAgICAgICAgICAgICAgICAgICAgICAgICAgICAg OJCgXAJeOTOxURSgPGBzQYFtPSYrZBNrOLPdOPWxPJQrUOUsVH1XTAHgYBMnSLKuGXDgCJFlNQLoMCSr ICAgICAgICAgICAgICAgICAgICAgICAgICAgICAgICAgICAgICAgICAgICAgICAgICAgICAgICAgICAg YGCeAVLmCPWvAFMiDELdSGJiUZ3OUSPwSVFsDLAhFX AgICAgICAgICAgICAgICAgICAgICAgICAgICAgICAgICAgICAgICAgICAgICAgICAgICAgICAgICAgIC IdQKDqGXGrSAEbWRNiQWMaLMUeNXOlRDTdVWJeNG5BFHJbLNXrOFExQTNjEVYlHLPoTYChKDNoKEEzFF AgICAgICAgICAgICAgICAgICAgICAgICAgICAgICAg CFUnVHYxAFGkXHOzNIMfFRXuYGPmNDNcNAKkWLArFLEhQXYiCSDrRL0JAOLuOMGtIPKkUVSmZAZdVGSy ICAgICAgICAgICAgICAgICAgICAgICAgICAgICAgICAgICAgICAgICAgICAgICAgICAgICAgICAgICAg JMDuUMYuVQChXBMsCOPjBNZbUCGsGY6DJX50tZRxv8 Z4IJGhES2wcbt/Do5HKOtybjHakEGnGS1CPvYuFW0kjk2IPwSfHA0rrh6SSEnNQjNgR6V7kBVbWZVbBR VBKeBmK66sAInpVp10MRhhBEGrWqWfNYw8Ky3CVrVlA6fbAUZhKvA1AZCrZlA4UOQgOsZdRPneCM2Yr9 VudCAyDQo+Us4RUT2zg8ZfOOssYYDqWB4fya3DKKjG DmBcL4V6mHOyP1P4NGlpEb3LWIKhLNHlQJmhVNCNYCktEW5JHE5klcG5UJ7RaSSyKHLmJZNxjADyQNj0 H41maXJhZRtoMR5GVSN+J Luis+So0EKZWyGYJxEBBfQpPoSKYZReTqO54rbJTkSMUlNHZfBEPvWq5OJMSg K3PbmzPjrPkeyzDfAWUcFWMOUD3TUPxcieIteSSeaE gsHW35uRevIE5QSr1HVePjBK9ois7MbUDnSf8XWDBhTn9VLJCzPBDxECTiSBW9CPUfAdIjJKvuGBImLW PuZGH6MAMgRLJiUC9ODqLlVBThGJz1XfQtUNNiKNNewg1CBMJuGCZdGVO7QCSiDWDzHFBgMVjsTWReSN MsJZq2XFWoUUFeYY5ZNoCyEARpDXW6OcdgAFRhPTJf oj4MSPBkNSBcKzYkQqGhBZQcDXUiYLznBZLdAVD6SKmwTAFtZPTcIX8WTgPwLRNpNYK7XsTxNVFmTJNi ch0GFBFnWNTjRfUnBoFbKHCuGINbGTryCCSrJYC2WHY1QKXoGVXyCJ0VMnGrVWJdIJcwUZQoRUAiNXBp ls6OXGTyHJBoElz7ZDZzTOJgFKKzUYzxLIIaIDV6QS zuWTLuGLWuBE6BZrYsVNCmVXyrLDazWOUcUFOvsi8SJKDnFTWfGZUjFoTiBZJiTRYeTVisHWHyRYL1IP T0FWIbDOHtKO8PStGqTSGoJKl6KATlOEQhKFCofv4CHXYeIAUlQLY2TCMoKPMzROBxRKdwFZGfIII5PU ArPXAiIPAgZE5KPiYgSXZwKXi6FBKdTIBtSAAjmv3Y OHMwPJDaMLH9ORPyVQJgRFMeDKj0pqWmfHEhAKx4KB6SU4NglwGpCjJLIv0Iv560MTSgPRDhTe6EG2sp De8bBQUnWYMMNx4GBQl9IRbiPNX8TWn0RNQtSmUrJ1L6BuR6Ztb5RNw3AOQxRYK+EYa6KSOnEBbuPfN5 IKWqWdK0QVoaErccPSxpGHy6GKCvDG8fMCVVQo0+DIbwvAXjpEuqAFSMEvUgSIw0KOkrXRXDVq0S Procedure Social History Code Duration Value Status Description Data Source(s ) Smoking 04/30/2020 12:00:00 AM EST Never Smoker completed Never S moker eCW1 ([facility]) Smoking 04/30/2020 12:00:00 AM EST Never Smoker completed Never S moker eCW1 ([facility]) Smoking 03/06/2020 12:00:00 AM EST Never Smoker completed Never S moker eCW1 ([facility]) Smoking 03/06/2020 12:00:00 AM EST Never Smoker completed Never S moker eCW1 ([facility]) Smoking 03/06/2020 12:00:00 AM EST Never Smoker completed Never S moker eCW1 ([facility]) Smoking 03/06/2020 12:00:00 AM EST Never Smoker completed Never S moker eCW1 ([facility]) Smoking 03/06/2020 12:00:00 AM EST Never Smoker completed Never S moker eCW1 ([facility]) Smoking 03/06/2020 12:00:00 AM EST Never Smoker completed Never S moker eCW1 ([facility]) Smoking 03/06/2020 12:00:00 AM EST Never Smoker completed Never S moker eCW1 ([facility]) Smoking 03/06/2020 12:00:00 AM EST Never Smoker completed Never S moker eCW1 ([facility]) Smoking 03/06/2020 12:00:00 AM EST Never Smoker completed Never S moker eCW1 ([facility]) Alcohol intake 02/29/2020 12:00:00 AM EST No completed [facility] Smoking 02/29/2020 12:00:00 AM EST Never smoker completed Never s moker [facility] Smoking 01/17/2020 12:00:00 AM EDT Never Smoker completed Never S moker eCW1 ([facility]) Smoking 01/17/2020 12:00:00 AM EDT Never Smoker completed Never S moker eCW1 ([facility]) Smoking 12/26/2019 12:00:00 AM EDT Patient has never smoked co mpleted Patient has never smoked [facility] ([facility]) Smoking 10/22/2019 12:00:00 AM EDT Never Smoker completed Never S moker eCW1 ([facility]) Smoking 10/22/2019 12:00:00 AM EDT Never Smoker completed Never S moker eCW1 ([facility]) Smoking 10/22/2019 12:00:00 AM EDT Never Smoker completed Never S moker eCW1 ([facility]) Smoking 10/22/2019 12:00:00 AM EDT Never Smoker completed Never S moker eCW1 ([facility]) Smoking 09/13/2019 12:00:00 AM EDT Never Smoker completed Never S moker eCW1 ([facility]) Smoking 09/13/2019 12:00:00 AM EDT Never Smoker completed Never S moker eCW1 ([facility]) Smoking 09/13/2019 12:00:00 AM EDT Never Smoker completed Never S moker eCW1 ([facility]) Smoking 09/13/2019 12:00:00 AM EDT Never Smoker completed Never S moker eCW1 ([facility]) Smoking 09/13/2019 12:00:00 AM EDT Never Smoker completed Never S moker eCW1 ([facility]) Smoking 09/13/2019 12:00:00 AM EDT Never Smoker completed Never S moker eCW1 ([facility]) Smoking 08/10/2019 12:00:00 AM EDT Never Smoker completed Never S moker eCW1 ([facility]) Vital Signs ID Date Data Source UNK Name Value Range Interpretation Code Description Data Source(s) Diastolic blood pressure 64 mm[Hg] 64 mm[Hg] eCW1 ([facility]) Systolic blood pressure 112 mm[Hg] 112 mm[Hg] e CW1 ([facility]) Body temperature 97.7 [degF] 97.7 [degF] eCW1 ( [facility]) Respiratory rate 18 /min 18 /min eCW1 ([facility]) Heart rate 128 /min 128 /min eCW1 ([facility]) Body mass index (BMI) [Ratio] 51.93 kg/m2 51.93 kg/m2 eCW1 ([facility]) Body height 66 [in_i] 66 [in_i] eCW1 ([facility]) Body weight 146.0 kg 146.0 kg eCW1 ([facility]) Body weight 321.8 [lb_av] 321.8 [lb_av] eCW1 ([facility]) Diastolic blood pressure 82 mm[Hg] 82 mm[Hg] eCW1 ([facility]) Systolic blood pressure 124 mm[Hg] 124 mm[Hg] e CW1 ([facility]) Body mass index (BMI) [Ratio] 49.93 kg/m2 49.93 kg/m2 eCW1 ([facility]) Body height 66 [in_i] 66 [in_i] eCW1 ([facility]) Body weight 140.34 kg 140.34 kg eCW1 ([facility]) Body weight 309.4 [lb_av] 309.4 [lb_av] eCW1 ([facility]) Body mass index (BMI) [Ratio] 51.00 kg/m2 51.00 kg/m2 [facility] Body weight 143.[address] [facility] Body height 167.[address] [facility] Respiratory rate 16 /min 16 /min [facility] Diastolic blood pressure 86 mm[Hg] 86 mm[Hg] [facility] Systolic blood pressure 122 mm[Hg] 122 mm[Hg] [facility] Body weight 141.523 kg 141.523 kg [facility] ([facility], ) Usk body weight 130 [lb_av] 130 [lb_av] MEDEN T ([facility], ) Body mass index (BMI) [Ratio] 50.4 kg/m2 50.4 k g/m2 [facility] ([facility], ) Body weight 312.00 [lb_av] 312.00 [lb_av] MEDEN T ([facility], ) Body height 66 [in_i] 66 [in_i] [facility] ([facility], ) 5'6" Diastolic blood pressure 58 mm[Hg] 58 mm[Hg] [facility] ([facility], ) Systolic blood pressure 102 mm[Hg] 102 mm[Hg] M EDENT ([facility], ) Body weight 131.544 kg 131.544 kg [facility] ([facility], ) Usk body weight 130 [lb_av] 130 [lb_av] MEDEN T ([facility], ) Body mass index (BMI) [Ratio] 46.8 kg/m2 46.8 k g/m2 [facility] ([facility], ) Body weight 290.00 [lb_av] 290.00 [lb_av] MEDEN T ([facility], ) Body height 66 [in_i] 66 [in_i] [facility] ([facility], ) 5'6" Diastolic blood pressure 60 mm[Hg] 60 mm[Hg] eCW1 ([facility]) Systolic blood pressure 92 mm[Hg] 92 mm[Hg] e CW1 ([facility]) Body temperature 98.0 [degF] 98.0 [degF] eCW1 ( [facility]) Respiratory rate 18 /min 18 /min eCW1 ([facility]) Heart rate 129 /min 129 /min eCW1 ([facility]) Body mass index (BMI) [Ratio] 50.64 kg/m2 50.64 kg/m2 eCW1 ([facility]) Body height 66 [in_i] 66 [in_i] eCW1 ([facility]) Body weight 142.3 kg 142.3 kg eCW1 ([facility]) Body weight 313.8 [lb_av] 313.8 [lb_av] eCW1 ([facility]) Body weight 131.544 kg 131.544 kg [facility] ([facility], ) Usk body weight 130 [lb_av] 130 [lb_av] MEDEN T ([facility]) Body mass index (BMI) [Ratio] 46.8 kg/m2 46.8 k g/m2 [facility] ([facility], ) Body weight 290.00 [lb_av] 290.00 [lb_av] MEDEN T ([facility]) Body height 66 [in_i] 66 [in_i] [facility] ([facility], ) 5'6" Body weight 141.070 kg 141.070 kg [facility] ([facility]) Body mass index (BMI) [Ratio] 51.7 kg/m2 51.7 k g/m2 [facility] ([facility], ) Body weight 311.00 [lb_av] 311.00 [lb_av] MEDEN T ([facility], ) Body height 65 [in_i] 65 [in_i] [facility] ([facility], ) 5'5" Body temperature 98.0 [degF] 98.0 [degF] [facility] Oxygen saturation in Arterial blood by Pulse oximetry 98 % 98 % [facility] ([facility]) Heart rate 94 /min 94 /min [facility] ([facility], ) Diastolic blood pressure 80 mm[Hg] 80 mm[Hg] [facility] ([facility]) Systolic blood pressure 120 mm[Hg] 120 mm[Hg] M EDENT ([facility]) Diastolic blood pressure 90 mm[Hg] 90 mm[Hg] eCW1 ([facility]) Systolic blood pressure 120 mm[Hg] 120 mm[Hg] e CW1 ([facility]) Body temperature 98.8 [degF] 98.8 [degF] eCW1 ( [facility]) Respiratory rate 18 /min 18 /min eCW1 ([facility]) Heart rate 110 /min 110 /min eCW1 ([facility]) Body mass index (BMI) [Ratio] 48.96 kg/m2 48.96 kg/m2 [facility] ([facility]) Body height 66 [in_i] 66 [in_i] W1 ([facility]) Body weight 303.4 [lb_av] 303.4 [lb_av] eCW1 ([facility]) Diastolic blood pressure 80 mm[Hg] 80 mm[Hg] eCW1 ([facility]) Systolic blood pressure 130 mm[Hg] 130 mm[Hg] e CW1 ([facility]) Body temperature 99.6 [degF] 99.6 [degF] eCW1 ( [facility]) Respiratory rate 20 /min 20 /min eCW1 ([facility]) Heart rate 92 /min 92 /min eCW1 ([facility]) Body mass index (BMI) [Ratio] 49.55 kg/m2 49.55 kg/m2 eCW1 ([facility]) Body height 66 [in_i] 66 [in_i] eCW1 ([facility]) Body weight 307 [lb_av] 307 [lb_av] eCW1 ([facility]) Body weight 139.709 kg 139.709 kg [facility] ([facility], ) Body mass index (BMI) [Ratio] 51.2 kg/m2 51.2 k g/m2 [facility] ([facility]) Body weight 308.00 [lb_av] 308.00 [lb_av] MEDEN T ([facility]) Body height 65 [in_i] 65 [in_i] [facility] ([facility]) 5'5" Body temperature 98.9 [degF] 98.9 [degF] [facility] ([facility]) Oxygen saturation in Arterial blood by Pulse oximetry 98 % 98 % [facility] ([facility]) Heart rate 90 /min 90 /min [facility] Diastolic blood pressure 80 mm[Hg] 80 mm[Hg] [facility] Systolic blood pressure 130 mm[Hg] 130 mm[Hg] [facility] Diastolic blood pressure 68 mm[Hg] 68 mm[Hg] eCW1 ([facility]) Systolic blood pressure 122 mm[Hg] 122 mm[Hg] e CW1 ([facility]) Body temperature 97.5 [degF] 97.5 [degF] eCW1 ( [facility]) Respiratory rate 18 /min 18 /min eCW1 ([facility]) Heart rate 151 /min 151 /min eCW1 ([facility]) Body mass index (BMI) [Ratio] 49.58 kg/m2 49.58 kg/m2 W1 ([facility]) Body height 66 [in_us] 66 [in_us] eCW1 ([facility]) Body weight Measured 307.2 [lb_av] 307.2 [lb_av ] eCW1 ([facility]) Diastolic blood pressure 80 mm[Hg] 80 mm[Hg] eCW1 ([facility]) Systolic blood pressure 128 mm[Hg] 128 mm[Hg] e CW1 ([facility]) Body mass index (BMI) [Ratio] 49.61 kg/m2 49.61 kg/m2 eCW1 ([facility]) Body height 66 [in_us] 66 [in_us] eCW1 ([facility]) Body weight Measured 307.4 [lb_av] 307.4 [lb_av ] eCW1 ([facility]) Body weight 136.534 kg 136.534 kg [facility] ([facility], ) Body mass index (BMI) [Ratio] 50.1 kg/m2 50.1 k g/m2 [facility] ([facility]) Body weight 301.00 [lb_av] 301.00 [lb_av] MEDEN T ([facility], ) Body height 65 [in_i] 65 [in_i] [facility] ([facility], ) 5'5" Body temperature 98.0 [degF] 98.0 [degF] [facility] ([facility]) Oxygen saturation in Arterial blood by Pulse oximetry 98 % 98 % [facility] ([facility]) Heart rate 103 /min 103 /min [facility] ([facility]) Diastolic blood pressure 80 mm[Hg] 80 mm[Hg] [facility] ([facility], ) Systolic blood pressure 130 mm[Hg] 130 mm[Hg] M EDENT ([facility], ) Diastolic blood pressure 78 mm[Hg] 78 mm[Hg] eCW1 ([facility]) Systolic blood pressure 122 mm[Hg] 122 mm[Hg] e CW1 ([facility]) Body temperature 98.9 [degF] 98.9 [degF] [facility] ( [facility]) Respiratory rate 18 /min 18 /min eCW1 ([facility]) Heart rate 136 /min 136 /min eCW1 ([facility]) Body mass index (BMI) [Ratio] 48.64 kg/m2 48.64 kg/m2 eCW1 ([facility]) Body height [in_us] eCW1 ([facility]) Body weight Measured 301.4 [lb_av] 301.4 [lb_av ] eCW1 ([facility]) Diastolic blood pressure 80 mm[Hg] 80 mm[Hg] eCW1 ([facility]) Systolic blood pressure 110 mm[Hg] 110 mm[Hg] e CW1 ([facility]) Body temperature 98.2 [degF] 98.2 [degF] eCW1 ( [facility]) Respiratory rate 18 /min 18 /min eCW1 ([facility]) Heart rate 96 /min 96 /min eCW1 ([facility]) Body mass index (BMI) [Ratio] 47.45 kg/m2 47.45 kg/m2 eCW1 ([facility]) Body height [in_us] eCW1 ([facility]) Body weight Measured 294 [lb_av] 294 [lb_av] eC W1 ([facility]) Patient Treatment Plan of Care Planned Activity Planned Date Details Description Data Source (s) Methotrexate 2.5 MG Oral Tablet 04/30/2020 12:00:00 AM EST eCW1 ([facility]) Folic Acid 1 MG Oral Tablet 04/30/2020 12:00:00 AM EST eCW1 ([facility]) Methotrexate 2.5 MG Oral Tablet 04/30/2020 12:00:00 AM EST eCW1 ([facility]) Folic Acid 1 MG Oral Tablet 04/30/2020 12:00:00 AM EST eCW1 ([facility]) Spironolactone 25 MG Oral Tablet 04/29/2020 12:00:00 AM EST eCW1 ([facility]) Spironolactone 25 MG Oral Tablet 04/29/2020 12:00:00 AM EST eCW1 ([facility]) Spironolactone 25 MG Oral Tablet 04/29/2020 12:00:00 AM EST eCW1 ([facility]) Jacqueline 0.35 MG 03/14/2020 12:00:00 AM EST eCW1 ([facility]) Jacqueline 0.35 MG 03/14/2020 12:00:00 AM EST eCW1 ([facility]) Jacqueline 0.35 MG 03/14/2020 12:00:00 AM EST eCW1 ([facility]) Jacqueline 0.35 MG 03/14/2020 12:00:00 AM EST eCW1 ([facility]) Jacqueline 0.35 MG 03/14/2020 12:00:00 AM EST eCW1 ([facility]) Jacqueline 0.35 MG 03/14/2020 12:00:00 AM EST eCW1 ([facility]) Jacqueline 0.35 MG 03/14/2020 12:00:00 AM EST eCW1 ([facility]) Jacqueline 0.35 MG 03/14/2020 12:00:00 AM EST eCW1 ([facility]) Methylprednisolone 4 MG Oral Tablet [Medrol] 03/08/2020 12:00:00 AM EST eCW1 ([facility]) Methylprednisolone 4 MG Oral Tablet [Medrol] 03/08/2020 12:00:00 AM EST eCW1 ([facility]) Methylprednisolone 4 MG Oral Tablet [Medrol] 03/08/2020 12:00:00 AM EST eCW1 ([facility]) midodrine hydrochloride 5 MG Oral Tablet 03/04/2020 12:00:00 AM [facility] Hydroxychloroquine Sulfate 200 MG Oral Tablet 02/22/2020 12:00:00 A M [facility] medroxyprogesterone acetate 10 MG Oral Tablet [Provera ] 02/20/2020 12:00:00 AM EST eCW1 ([facility]) Omeprazole 40 MG Delayed Release Oral Capsule 02/14/2020 12:00:00 A M [facility] Hydroxychloroquine Sulfate 200 MG Oral Tablet [[place]] 01/17/2020 12:00:00 AM EDT eCW1 ([facility]) Hydroxychloroquine Sulfate 200 MG Oral Tablet [[place]] 01/17/2020 12:00:00 AM EDT eCW1 ([facility]) Hydroxychloroquine Sulfate 200 MG Oral Tablet [[place]] 01/17/2020 12:00:00 AM EDT eCW1 ([facility]) Hydroxychloroquine Sulfate 200 MG Oral Tablet [[place]] 01/17/2020 12:00:00 AM EDT eCW1 ([facility]) Hydroxychloroquine Sulfate 200 MG Oral Tablet [[place]] 01/17/2020 12:00:00 AM EDT eCW1 ([facility]) Cyclosporine 0.5 MG/ML Ophthalmic Suspension [Restasis ] 12/12/2019 12:00:00 AM EDT [facility] Metformin hydrochloride 500 MG Oral Tablet 11/28/2019 12:00:[address] [facility] Metformin hydrochloride 500 MG Oral Tablet 10/27/2019 12:00:00 AM E DT eCW1 ([facility]) Metformin hydrochloride 500 MG Oral Tablet 10/27/2019 12:00:00 AM E DT eCW1 ([facility]) pantoprazole 40 MG Delayed Release Oral Tablet 10/18/2019 12:00:00 AM EDT eCW1 ([facility]) pantoprazole 40 MG Delayed Release Oral Tablet 10/18/2019 12:00:00 AM EDT eCW1 ([facility]) pantoprazole 40 MG Delayed Release Oral Tablet 10/18/2019 12:00:00 AM EDT eCW1 ([facility]) pantoprazole 40 MG Delayed Release Oral Tablet 10/18/2019 12:00:00 AM EDT eCW1 ([facility]) Atenolol 25 MG Oral Tablet 09/25/2019 12:00:[address] [facility] Promethazine Hydrochloride 12.5 MG Oral Tablet 09/20/2019 12:00:[address] [facility] Promethazine Hydrochloride 12.5 MG Oral Tablet 09/20/2019 12:00:00 AM EDT eCW1 ([facility]) Promethazine Hydrochloride 12.5 MG Oral Tablet 09/20/2019 12:00:00 AM EDT eCW1 ([facility]) Loratadine 10 MG Oral Tablet 08/10/2019 12:00:[address] [facility] Mometasone Furoate 50 MCG/ACT 08/10/2019 12:00:00 AM EDT eCW1 ([facility]) Loratadine 10 MG Oral Tablet 08/10/2019 12:00:00 AM EDT eCW1 ([facility]) Mometasone Furoate 50 MCG/ACT 08/10/2019 12:00:00 AM EDT eCW1 ([facility]) Loratadine 10 MG Oral Tablet 08/10/2019 12:00:00 AM EDT eCW1 ([facility]) medroxyprogesterone acetate 10 MG Oral Tablet [Provera ] 08/08/2019 12:00:00 AM EDT eCW1 ([facility]) Azithromycin 500 MG Oral Tablet 06/27/2019 12:00:00 AM EDT eCW1 ([facility]) Wixela Inhub 100-50 MCG/DOSE 06/27/2019 12:00:00 AM EDT eCW1 ([facility]) Azithromycin 500 MG Oral Tablet 06/27/2019 12:00:00 AM EDT eCW1 ([facility]) midodrine hydrochloride [address] [facility]
[2020-05-21] MEDS ORDERED: METH2.5T48 (14:30)
[2020-05-21] MEDS ORDERED: FOLI1TAB11 (14:30)
--- OUTSIDE RECORDS SUMMARY | 2020-05-21 14:31 | CCD ---
Author Author [facility] Organization [facility] Address Unknown Phone Unavailable Care Team Providers Care [place] Ceiling Installer Name Role Phone Servage, L Deepa MERCHANDISING LEAD Unavailable Unavailable Servage, L Deepa MERCHANDISING LEAD Unavailable Unavailable Servage, L Deepa MERCHANDISING LEAD Unavailable Unavailable Servage, L Deepa MERCHANDISING LEAD Unavailable Unavailable Servage, L Deepa MERCHANDISING LEAD Unavailable Unavailable Servage, L Deepa MERCHANDISING LEAD Unavailable Unavailable Servage, L Deepa MERCHANDISING LEAD Unavailable Unavailable Servage, L Deepa MERCHANDISING LEAD Unavailable Unavailable Servage, L Deepa MERCHANDISING LEAD Unavailable Unavailable Servage, L Deepa MERCHANDISING LEAD Unavailable Unavailable Servage, L Deepa MERCHANDISING LEAD Unavailable Unavailable Servage, L Deepa MERCHANDISING LEAD Unavailable Unavailable Servage, L Deepa MERCHANDISING LEAD Unavailable Unavailable Servage, L Deepa MERCHANDISING LEAD Unavailable Unavailable Servage, L Deepa MERCHANDISING LEAD Unavailable Unavailable Servage, L Deepa MERCHANDISING LEAD Unavailable Unavailable Servage, L Deepa MERCHANDISING LEAD Unavailable Unavailable Servage, L Deepa MERCHANDISING LEAD Unavailable Unavailable Servage, L Deepa MERCHANDISING LEAD Unavailable Unavailable Servage, L Deepa MERCHANDISING LEAD Unavailable Unavailable Servage, L Deepa MERCHANDISING LEAD Unavailable Unavailable Servage, L Deepa MERCHANDISING LEAD Unavailable Unavailable Servage, L Deepa MERCHANDISING LEAD Unavailable Unavailable Servage, L Deepa MERCHANDISING LEAD Unavailable Unavailable Servage, L Deepa MERCHANDISING LEAD Unavailable Unavailable Servage, L Deepa MERCHANDISING LEAD Unavailable Unavailable Servage, L Deepa MERCHANDISING LEAD Unavailable Unavailable Servage, L Deepa MERCHANDISING LEAD Unavailable Unavailable Servage, L Deepa MERCHANDISING LEAD Unavailable Unavailable Servage, L Deepa MERCHANDISING LEAD Unavailable Unavailable Servage, L Deepa MERCHANDISING LEAD Unavailable Unavailable Servage, L Deepa MERCHANDISING LEAD Unavailable Unavailable Servage, L Deepa MERCHANDISING LEAD Unavailable Unavailable Servage, L Deepa MERCHANDISING LEAD Unavailable Unavailable Servage, L Deepa MERCHANDISING LEAD Unavailable Unavailable Servage, L Deepa MERCHANDISING LEAD Unavailable Unavailable Servage, L Deepa MERCHANDISING LEAD Unavailable Unavailable Servage, L Deepa MERCHANDISING LEAD Unavailable Unavailable Servage, L Deepa MERCHANDISING LEAD Unavailable Unavailable Servage, L Deepa MERCHANDISING LEAD Unavailable Unavailable Servage, L Deepa MERCHANDISING LEAD Unavailable Unavailable Servage, L Deepa MERCHANDISING LEAD Unavailable Unavailable Servage, L Deepa MERCHANDISING LEAD Unavailable Unavailable Servage, L Deepa MERCHANDISING LEAD Unavailable Unavailable Servage, L Deepa MERCHANDISING LEAD Unavailable Unavailable Servage, L Deepa MERCHANDISING LEAD Unavailable Unavailable Servage, L Deepa MERCHANDISING LEAD Unavailable Unavailable Servage, L Deepa MERCHANDISING LEAD Unavailable Unavailable Servage, L Deepa MERCHANDISING LEAD Unavailable Unavailable Servage, L Deepa MERCHANDISING LEAD Unavailable Unavailable Servage, L Deepa MERCHANDISING LEAD Unavailable Unavailable Servage, L Deepa MERCHANDISING LEAD Unavailable Unavailable Servage, L Deepa MERCHANDISING LEAD Unavailable Unavailable Servage, L Deepa MERCHANDISING LEAD Unavailable Unavailable Servage, L Deepa MERCHANDISING LEAD Unavailable Unavailable Servage, L Deepa MERCHANDISING LEAD Unavailable Unavailable Maulik Velez MD Unavailable Unavailable [...] Unavailable SUNI, P LOKI MD Unavailable Unavailable SUIN, P LOKI MD Unavailable Unavailable SUNI, P [...] Unavailable SUNI, P LOKI MD Unavailable Unavailable Abriss, Carissa Mccallum MD [...] Carissa Mccallum MD Unavailable Unavailable Rochelle, Trang MERCHANDISING LEAD Unavailable Unavailable Rochelle, Trang MERCHANDISING LEAD Unavailable Unavailable Rochelle, Trang MERCHANDISING LEAD Unavailable Unavailable Rohcelle, Trang MERCHANDISING LEAD Unavailable Unavailable Rochelle, Trang MERCHANDISING LEAD Unavailable Unavailable Rochelle, Trang MERCHANDISING LEAD Unavailable Unavailable Rochelle, Trang MERCHANDISING LEAD Unavailable Unavailable Rochelle, Trang MERCHANDISING LEAD Unavailable Unavailable Rochelle, Trang MERCHANDISING LEAD Unavailable Unavailable Rochelle, Trang MERCHANDISING LEAD Unavailable Unavailable Rochelle, Trang MERCHANDISING LEAD Unavailable Unavailable [place], N Anan MERCHANDISING LEAD Unavailable Unavailable [place], N Anna MERCHANDISING LEAD Unavailable Unavailable [place], N Anna MERCHANDISING LEAD Unavailable Unavailable [place], N Anna MERCHANDISING LEAD Unavailable Unavailable [place], N Anna MERCHANDISING LEAD Unavailable Unavailable [place], N Anna MERCHANDISING LEAD Unavailable Unavailable [place], N Anna MERCHANDISING LEAD Unavailable Unavailable [place], N Anna MERCHANDISING LEAD Unavailable Unavailable [place], N Anna MERCHANDISING LEAD Unavailable Unavailable [place], N Anna MERCHANDISING LEAD Unavailable Unavailable [place], N Anna MERCHANDISING LEAD Unavailable Unavailable [place], N Anna MERCHANDISING LEAD Unavailable Unavailable [place], N Anna MERCHANDISING LEAD Unavailable Unavailable [place], N Anna MERCHANDISING LEAD Unavailable Unavailable [place], N Anna MERCHANDISING LEAD Unavailable Unavailable [place], N Anna MERCHANDISING LEAD Unavailable Unavailable [place], N Anna MERCHANDISING LEAD Unavailable Unavailable [place], N Anna MERCHANDISING LEAD Unavailable Unavailable [place], N Anna MERCHANDISING LEAD Unavailable Unavailable [place], N Anna MERCHANDISING LEAD Unavailable Unavailable [place], N Anna MERCHANDISING LEAD Unavailable Unavailable [place], N Anna MERCHANDISING LEAD Unavailable Unavailable [place], N Anna MERCHANDISING LEAD Unavailable Unavailable [place], N Anna MERCHANDISING LEAD Unavailable Unavailable [place], N Anna MERCHANDISING LEAD Unavailable Unavailable [place], N Anna MERCHANDISING LEAD Unavailable Unavailable [place], N Anna MERCHANDISING LEAD Unavailable Unavailable [place], N Anna MERCHANDISING LEAD Unavailable Unavailable [place], N Anna MERCHANDISING LEAD Unavailable Unavailable [place], N Anna MERCHANDISING LEAD Unavailable Unavailable [place], N Anna MERCHANDISING LEAD Unavailable Unavailable SEARS, A MEÑO DO Unavailable [...] is protected by Article 27-F of the [facility] [place] Public Health law. If you continue you may have access to information: Regarding HIV / AIDS; Provided by facilities licensed or operated by the [facility] [place] Office of Mental Health; or Provided by the [facility] [place] Office for People With Developmental Disabilities. If such information is present, then the following [facility] mandated warning applies: This information has been [...] law may result in a fine or intermediate sentence or both. A general authorization for the release of medical or other information is NOT sufficient authorization for further disc losure. Allergies and Adverse Reactions Type Description Substance Reaction Status Data Source(s ) Biaxin Biaxin Clarithromycin 250 MG Oral Tablet [Biaxin ] Nausea/Vomiting Active eCW1 ([facility]) KIWI KIWI KIWI THROAT SWELLS Active eCW1 ([facility]) HONEYDEW HONEYDEW HONEYDEW THROAT SWELLS Active eCW1 ([facility]) Drug allergy Levaquin Drug allergy Prolonged QT interval Active eCW1 ([facility]) Drug allergy Zofran Ondansetron Anaphylaxis/QT PROLONGATION Acti ve eCW1 ([facility]) aspirin Aspirin Aspirin HX ANEMIA Active eCW1 ([facility]) Drug allergy Topamax topiramate confused and forgetful Active eCW1 ([facility]) Erythromycin Erythromycin Erythromycin Nausea/Vomiting Active eC W1 ([facility]) Biaxin Biaxin Clarithromycin 250 MG Oral Tablet [Biaxin ] Nausea/Vomiting Active eCW1 ([facility]) KIWI KIWI KIWI THROAT SWELLS Active eCW1 ([facility]) HONEYDEW HONEYDEW HONEYDEW THROAT SWELLS Active eCW1 ([facility]) Biaxin Biaxin Clarithromycin 250 MG Oral Tablet [Biaxin ] Nausea/Vomiting Active eCW1 ([facility]) KIWI KIWI KIWI THROAT SWELLS Active eCW1 ([facility]) HONEYDEW HONEYDEW HONEYDEW THROAT SWELLS Active eCW1 ([facility]) Propensity to adverse reactions ONDANSETRON HCL Ondansetron Hcl Active [facility] Propensity to adverse reactions AZITHROMYCIN Azithromycin Active [facility] Biaxin Biaxin Clarithromycin 250 MG Oral Tablet [Biaxin ] Nausea/Vomiting Active eCW1 ([facility]) Levaquin Levaquin Levofloxacin 750 MG Oral Tablet [Levaquin] Prolonged QT interval Active eCW1 ([facility]) KIWI KIWI KIWI THROAT SWELLS Active eCW1 ([facility]) HONEYDEW HONEYDEW HONEYDEW THROAT SWELLS Active eCW1 ([facility]) Family History Family Member Name Family Member Gender Family Member Status Date o f Status Description Data Source(s) Unknown Unknown Problem MEDENT ([facility] ) Encounters Encounter Providers Location Date Indications Data Source(s ) [place] [address] [facility] [address] 04/30/2020 12:00:00 AM EST eCW1 [facility] [place] [address] [facility] [address] 04/30/2020 12:00:00 AM EST [facility] [place] [address] [facility] [place] [address] 04/27/2020 12:00:00 AM EST [facility] [place]) [place] [address] [facility] [place] [address] 04/22/2020 12:00:00 AM EST [facility] ([facility] [place]) [place] [address] [facility] [place] [address] 04/03/2020 12:00:00 AM EST [facility]CW[facility] [place] [address] [facility] [address] 03/25/2020 12:00:00 AM EST eCW1 [facility] [place] [address] [facility] [place] [address] 03/25/2020 12:00:00 AM EST eCW1 [facility] [place] [address] [facility] [address] 03/14/2020 12:00:00 AM EST eCW1 [facility] Unknown [address] [facility] [place] [address] 03/07/2020 12:00:00 AM EST [facility]CW1 [facility]) Outpatient Attender: Anna BARAJAS-SJALEKS 03/04/2020 12 :00:00 AM EST [facility] Unknown [address] [facility] [address] 02/26/2020 12:00:00 AM EST eCW1 ([facility]) Outpatient [facility] 02/13/2020 12:00:24 AM EST [facility] Outpatient [facility] 02/12/2020 02:08:00 PM EST [facility] Unknown [address] [facility] [address] 02/10/2020 12:00:00 AM EST eCW1 ([facility]) [place] [address] [facility] [address] 01/17/2020 12:00:00 AM EDT eCW1 ([facility]) [place] [address] [facility] [address] 01/17/2020 12:00:00 AM EDT eCW1 ([facility]) Outpatient Attender: Alessio Noriega/Sadie/Florentin/Re indl 01/09/2020 10:30:00 AM EDT MEDENT ([facility] Outpatient Attender: MEÑO Colon/Sadie/Florentin/Reindl 12/26/2019 01:30:00 PM EDT MED[facility] ([facility] [place] [address] [facility] [address] 10/24/2019 12:00:00 AM EDT eCW1 ([facility]) Unknown [address] [facility] [address] 10/24/2019 12:00:00 AM EDT eCW1 ([facility]) Unknown [address] [facility] [address] 10/22/2019 12:00:00 AM EDT eCW1 ([facility]) Outpatient [address] [facility] [address] 10/18/2019 12:00:00 AM EDT eCW1 ([facility]) Outpatient GISSEL.ANKITA 10/11/2019 10:15:36 AM EDT [facility] Outpatient Attender: Anna DAO.ABAD 020 12:00:00 AM EDT - 09/25/2019 01:34:42 PM EDT [facility] Outpatient Referrer: Trang Byrd NP 09/22/2019 05:07: 00 AM EDT [facility] Unknown [address] [facility] [address] 09/22/2019 12:00:00 AM EDT eCW1 ([facility]) Unknown [address] [facility] [address] 09/19/2019 12:00:00 AM EDT eCW1 ([facility]) Unknown [address] [facility] [address] 09/15/2019 12:00:00 AM EDT eCW1 ([facility]) [facility] [address] [place] [address] 09/15/2019 12:00:00 AM EDT eCW1 ([facility]) Unknown [address] [facility] [address] 09/14/2019 12:00:00 AM EDT eCW1 ([facility]) Outpatient Attender: MEÑO Colon/Sadie/Florentin/Reindl 09/13/2019 11:30:00 AM EDT MEDENT ([facility]) Unknown [address] [facility] [address] 09/13/2019 12:00:00 AM EDT eCW1 ([facility]) Outpatient [address] [facility] [address] 09/13/2019 12:00:00 AM EDT eCW1 ([facility]) Outpatient Attender: LOKI CULP MDReferrer: Deepa Savage NP 09/13/2019 12:00:00 AM [facility] Unknown [address] [facility] [address] 09/08/2019 12:00:00 AM EDT eCW1 ([facility]) Outpatient Referrer: Trang Byrd NP 09/06/2019 09:17: 00 PM EDT [facility] Outpatient Referrer: Trang Byrd NP 08/31/2019 06:11: 00 AM EDT [facility] Outpatient SJP.CT-[email or web address].SYR 08/29/2019 04:48:41 PM EDT [facility] [address] [facility], [facility] [address] 08/29/2019 12:00:00 AM EDT eCW1 ([facility]) Outpatient SJP.ABAD-SJP 08/24/2019 04:47:45 PM EDT [facility] Outpatient Referrer: Maulik RAMÍREZABAD-SJP.ABAD 08/04 12:00:00 AM EDT [facility] [address] [facility], [facility] [address] 08/23/2019 12:00:00 AM EDT eCW1 ([facility]) Outpatient Referrer: Trang Byrd NP 08/10/2019 06:13: 00 AM EDT [facility] Radiology Imaging [facility] G[facility] Resident [address] [place] [address] 08/10/2019 12:00:00 AM EDT eCW1 ([facility]) [facility] [address] [facility], [facility] [address] 08/09/2019 12:00:00 AM EDT eCW1 ([facility]) [facility] [address] [place] [address] 08/08/2019 12:00:00 AM EDT eCW1 ([facility]) Outpatient Attender: MEÑO Colon/Sadie/Florentin/Reindl 07/12/2019 10:30:00 AM EDT MEDENT ([facility] [address] [facility], [facility] [address] 07/11/2019 12:00:00 AM EDT eCW1 ([facility]) Unknown [address] [facility], [facility] [address] 07/07/2019 12:00:00 AM EDT eCW1 ([facility]) [address] [address] 06/28/2019 12:00:00 AM EDT eCW1 ([facility]) [address] [address] 06/27/2019 12:00:00 AM EDT eCW1 ([facility]) [address] [address] 06/26/2019 12:00:00 AM EDT eCW1 ([facility]) Outpatient Referrer: Trang Byrd NP 06/08/2019 03:25: 00 PM EST [facility] [address] [address] 06/07/2019 12:00:00 AM EST eCW1 ([facility]) Outpatient Attender: Anna Larose NPAttender: Tiana BARAJAS-SJMaxiABAD 06/06/2019 12:00:00 AM EST [address] [address] 05/30/2019 12:00:00 AM EST eCW1 ([facility]) [address] [address] 03/27/2019 12:00:00 AM EST eCW1 ([facility]) Medications Medication Brand Name Start Date Product Form Dose Route Admi nistrative Instructions Pharmacy Instructions Status Indications Reaction Description Data Source(s) Methotrexate 2.5 MG Oral Tablet Methotrexate Sodium 2. 5 MG Methotrexate Sodium 2.5 MG 04/30/2020 12:00:00 AM EST active Methotrexate Sodium 2.5 MG eCW1 ([facility]) Methotrexate 2.5 MG Oral Tablet Methotrexate Sodium 2. 5 MG Methotrexate Sodium 2.5 MG 04/30/2020 12:00:00 AM EST active Methotrexate Sodium 2.5 MG eCW1 ([facility]) Folic Acid 1 MG Oral Tablet Folic Acid 1 MG 04/30/2020 12:00:00 AM EST 1.0 {tablet} active Folic Acid 1 MG eCW1 ([facility]) Folic Acid 1 MG Oral Tablet Folic Acid 1 MG 04/30/2020 12:00:00 AM EST 1.0 {tablet} active Folic Acid 1 MG eCW1 ([facility]) Spironolactone 25 MG Oral Tablet Spironolactone 25 MG 2020 12:00:00 AM EST 1.0 {tablet} active Spironolact one 25 MG eCW1 ([facility]) Spironolactone 25 MG Oral Tablet Spironolactone 25 MG 2020 12:00:00 AM EST 1.0 {tablet} active Spironolact one 25 MG eCW1 ([facility]) Spironolactone 25 MG Oral Tablet Spironolactone 25 MG 2020 12:00:00 AM EST 1.0 {tablet} active Spironolact one 25 MG eCW1 ([facility]) Jacqueline 0.35 MG Jacqueline 0.35 MG 03/14/2020 12:00:00 AM EST 1.0 { tablet} active Jacqueline 0.35 MG eCW1 ([facility]) Jacqueline 0.35 MG Jacqueline 0.35 MG 03/14/2020 12:00:00 AM EST 1.0 { tablet} active Jacqueline 0.35 MG eCW1 ([facility]) Jacqueline 0.35 MG Jacqueline 0.35 MG 03/14/2020 12:00:00 AM EST 1.0 { tablet} active Jacqueline 0.35 MG eCW1 ([facility]) Jacqueline 0.35 MG Jacqueline 0.35 MG 03/14/2020 12:00:00 AM EST 1.0 { tablet} active Jacqueline 0.35 MG eCW1 ([facility]) Jacqueline 0.35 MG Jacqueline 0.35 MG 03/14/2020 12:00:00 AM EST 1.0 { tablet} active Jacqueline 0.35 MG eCW1 ([facility]) Jacqueline 0.35 MG Jacqueline 0.35 MG 03/14/2020 12:00:00 AM EST 1.0 { tablet} active Jacqueline 0.35 MG eCW1 ([facility]) Jacqueline 0.35 MG Jacqueline 0.35 MG 03/14/2020 12:00:00 AM EST 1.0 { tablet} active Jacqueline 0.35 MG eCW1 ([facility]) Jacqueline 0.35 MG Jacqueline 0.35 MG 03/14/2020 12:00:00 AM EST 1.0 { tablet} active Jacqueline 0.35 MG eCW1 ([facility]) Jacqueline 0.35 MG Jacqueline 0.35 MG 03/14/2020 12:00:00 AM EST 1.0 { tablet} active Jacqueline 0.35 MG eCW1 ([facility]) Jacqueline 0.35 MG Jacqueline 0.35 MG 03/14/2020 12:00:00 AM EST 1.0 { tablet} active Jacqueline 0.35 MG eCW1 ([facility]) Methylprednisolone 4 MG Oral Tablet [Medrol] Medrol 4 MG Med rol 4 MG 03/08/2020 12:00:00 AM EST active Medrol 4 MG eCW1 ([facility]) Methylprednisolone 4 MG Oral Tablet [Medrol] Medrol 4 MG Med rol 4 MG 03/08/2020 12:00:00 AM EST active Medrol 4 MG eCW1 ([facility]) Methylprednisolone 4 MG Oral Tablet [Medrol] Medrol 4 MG Med rol 4 MG 03/08/2020 12:00:00 AM EST active Medrol 4 MG eCW1 ([facility]) Methylprednisolone 4 MG Oral Tablet [Medrol] Medrol 4 MG Med rol 4 MG 03/08/2020 12:00:00 AM EST active Medrol 4 MG eCW1 ([facility]) Methylprednisolone 4 MG Oral Tablet [Medrol] Medrol 4 MG Med rol 4 MG 03/08/2020 12:00:00 AM EST active Medrol 4 MG eCW1 ([facility]) Methylprednisolone 4 MG Oral Tablet [Medrol] Medrol 4 MG Med rol 4 MG 03/08/2020 12:00:00 AM EST active Medrol 4 MG eCW1 ([facility]) Methylprednisolone 4 MG Oral Tablet [Medrol] Medrol 4 MG Med rol 4 MG 03/08/2020 12:00:00 AM EST active Medrol 4 MG eCW1 ([facility]) Methylprednisolone 4 MG Oral Tablet [Medrol] Medrol 4 MG Med rol 4 MG 03/08/2020 12:00:00 AM EST active Medrol 4 MG eCW1 ([facility]) Methylprednisolone 4 MG Oral Tablet [Medrol] Medrol 4 MG Med rol 4 MG 03/08/2020 12:00:00 AM EST active Medrol 4 MG eCW1 ([facility]) Methylprednisolone 4 MG Oral Tablet [Medrol] Medrol 4 MG Med rol 4 MG 03/08/2020 12:00:00 AM EST active Medrol 4 MG eCW1 ([facility]) Methylprednisolone 4 MG Oral Tablet [Medrol] Medrol 4 MG Med rol 4 MG 03/08/2020 12:00:00 AM EST active Medrol 4 MG eCW1 ([facility]) midodrine hydrochloride 5 MG Oral Tablet midodrine (NE OAMATINE) 5 MG tablet midodrine (PROAMATINE) 5 MG tablet 03/04/2020 12:00:00 AM EST 5 mg Oral active Take 1 tablet (5 mg total) by [facility] 3 (three) times a day [facility] Hydroxychloroquine Sulfate 200 MG Oral T ablet hydroxychloroquine (PLAQUENIL) 200 MG tablet hydroxychloroquine (PLAQUENIL) 200 MG tablet 0 12:00:00 AM EST active TK 1 T PO BID [facility] medroxyprogesterone acetate 10 MG Oral Tablet [Provera ] Provera 10 MG Provera 10 MG 02/20/2020 12:00:00 AM EST 1.0 {tablet_with_food} active Provera 10 MG eCW1 ([facility]) medroxyprogesterone acetate 10 MG Oral Tablet [Provera ] Provera 10 MG Provera 10 MG 02/20/2020 12:00:00 AM EST 1.0 {tablet_with_food} suspended Provera 10 MG eCW1 ([facility]) medroxyprogesterone acetate 10 MG Oral Tablet [Provera ] Provera 10 MG Provera 10 MG 02/20/2020 12:00:00 AM EST 1.0 {tablet_with_food} suspended Provera 10 MG eCW1 ([facility]) medroxyprogesterone acetate 10 MG Oral Tablet [Provera ] Provera 10 MG Provera 10 MG 02/20/2020 12:00:00 AM EST 1.0 {tablet_with_food} suspended Provera 10 MG eCW1 ([facility]) medroxyprogesterone acetate 10 MG Oral Tablet [Provera ] Provera 10 MG Provera 10 MG 02/20/2020 12:00:00 AM EST 1.0 {tablet_with_food} suspended Provera 10 MG eCW1 ([facility]) medroxyprogesterone acetate 10 MG Oral Tablet [Provera ] Provera 10 MG Provera 10 MG 02/20/2020 12:00:00 AM EST 1.0 {tablet_with_food} suspended Provera 10 MG eCW1 ([facility]) medroxyprogesterone acetate 10 MG Oral Tablet [Provera ] Provera 10 MG Provera 10 MG 02/20/2020 12:00:00 AM EST 1.0 {tablet_with_food} suspended Provera 10 MG eCW1 ([facility]) medroxyprogesterone acetate 10 MG Oral Tablet [Provera ] Provera 10 MG Provera 10 MG 02/20/2020 12:00:00 AM EST 1.0 {tablet_with_food} suspended Provera 10 MG eCW1 ([facility]) medroxyprogesterone acetate 10 MG Oral Tablet [Provera ] Provera 10 MG Provera 10 MG 02/20/2020 12:00:00 AM EST 1.0 {tablet_with_food} suspended Provera 10 MG eCW1 ([facility]) medroxyprogesterone acetate 10 MG Oral Tablet [Provera ] Provera 10 MG Provera 10 MG 02/20/2020 12:00:00 AM EST 1.0 {tablet_with_food} suspended Provera 10 MG eCW1 ([facility]) medroxyprogesterone acetate 10 MG Oral Tablet [Provera ] Provera 10 MG Provera 10 MG 02/20/2020 12:00:00 AM EST 1.0 {tablet_with_food} suspended Provera 10 MG eCW1 ([facility]) Omeprazole 40 MG Delayed Release Oral Ca psule omeprazole (PRILOSEC) 40 MG capsule omeprazole (PRILOSEC) 40 MG capsule 02/14/2020 12:00:00 AM EST active daily [facility] Hydroxychloroquine Sulfate 200 MG Oral Tablet [Plaquen il] Plaquenil 200 MG Plaquenil 200 MG 01/17/2020 12:00:00 AM EDT a ctive Plaquenil 200 MG eCW1 ([facility]) Hydroxychloroquine Sulfate 200 MG Oral Tablet [Plaquen il] Plaquenil 200 MG Plaquenil 200 MG 01/17/2020 12:00:00 AM EDT a ctive Plaquenil 200 MG eCW1 ([facility]) Hydroxychloroquine Sulfate 200 MG Oral Tablet [Plaquen il] Plaquenil 200 MG Plaquenil 200 MG 01/17/2020 12:00:00 AM EDT a ctive Plaquenil 200 MG eCW1 ([facility]) Hydroxychloroquine Sulfate 200 MG Oral Tablet [Plaquen il] Plaquenil 200 MG Plaquenil 200 MG 01/17/2020 12:00:00 AM EDT a ctive Plaquenil 200 MG eCW1 ([facility]) Hydroxychloroquine Sulfate 200 MG Oral Tablet [Plaquen il] Plaquenil 200 MG Plaquenil 200 MG 01/17/2020 12:00:00 AM EDT a ctive Plaquenil 200 MG eCW1 ([facility]) Hydroxychloroquine Sulfate 200 MG Oral Tablet [Plaquen il] Plaquenil 200 MG Plaquenil 200 MG 01/17/2020 12:00:00 AM EDT a ctive Plaquenil 200 MG eCW1 ([facility]) Hydroxychloroquine Sulfate 200 MG Oral Tablet [Plaquen il] Plaquenil 200 MG Plaquenil 200 MG 01/17/2020 12:00:00 AM EDT a ctive Plaquenil 200 MG eCW1 ([facility]) Hydroxychloroquine Sulfate 200 MG Oral Tablet [Plaquen il] Plaquenil 200 MG Plaquenil 200 MG 01/17/2020 12:00:00 AM EDT a ctive Plaquenil 200 MG eCW1 ([facility]) Hydroxychloroquine Sulfate 200 MG Oral Tablet [Plaquen il] Plaquenil 200 MG Plaquenil 200 MG 01/17/2020 12:00:00 AM EDT a ctive Plaquenil 200 MG eCW1 ([facility]) Hydroxychloroquine Sulfate 200 MG Oral Tablet [Plaquen il] Plaquenil 200 MG Plaquenil 200 MG 01/17/2020 12:00:00 AM EDT a ctive Plaquenil 200 MG eCW1 ([facility]) Hydroxychloroquine Sulfate 200 MG Oral Tablet [Plaquen il] Plaquenil 200 MG Plaquenil 200 MG 01/17/2020 12:00:00 AM EDT a ctive Plaquenil 200 MG eCW1 ([facility]) Hydroxychloroquine Sulfate 200 MG Oral Tablet [Plaquen il] Plaquenil 200 MG Plaquenil 200 MG 01/17/2020 12:00:00 AM EDT a ctive Plaquenil 200 MG eCW1 ([facility]) Hydroxychloroquine Sulfate 200 MG Oral Tablet [Plaquen il] Plaquenil 200 MG Plaquenil 200 MG 01/17/2020 12:00:00 AM EDT a ctive Plaquenil 200 MG eCW1 ([facility]) Betamethasone 0.5 MG/ML / Clotrimazole 10 MG/ML Topica l Lotion Clotrimazole/Betamethasone Dipropionate 01/09/2020 12:00:00 AM EDT AURICULAR active MEDENT ([facility]) Cyclosporine 0.5 MG/ML Ophthalmic Suspen sergio [Restasis] RESTASIS 0.05 % ophthalmic emulsion RESTASIS 0.05 % ophthalmic emulsion 12/12/2019 12:00:0 0 AM EDT active 2 (two) times a d ay [facility] Metformin hydrochloride 500 MG Oral Tablet metFORMIN ( GLUCOPHAGE) 500 MG tablet metFORMIN (GLUCOPHAGE) 500 MG tablet 11/28/2019 12:00:00 AM EDT aborted 2 (two) times a day [facility] Metformin hydrochloride 500 MG Oral Tablet Metformin H Cl 500 MG Metformin HCl 500 MG 10/27/2019 12:00:00 AM EDT 1.0 {tablet_with_a_meal} active Metformin HCl 500 MG eCW1 ([facility]) Metformin hydrochloride 500 MG Oral Tablet Metformin H Cl 500 MG Metformin HCl 500 MG 10/27/2019 12:00:00 AM EDT 1.0 {tablet_with_a_meal} active Metformin HCl 500 MG eCW1 ([facility]) Metformin hydrochloride 500 MG Oral Tablet Metformin H Cl 500 MG Metformin HCl 500 MG 10/27/2019 12:00:00 AM EDT 1.0 {tablet_with_a_meal} suspended Metformin HCl 500 MG eCW1 ([facility]) Metformin hydrochloride 500 MG Oral Tablet Metformin H Cl 500 MG Metformin HCl 500 MG 10/27/2019 12:00:00 AM EDT 1.0 {tablet_with_a_meal} suspended Metformin HCl 500 MG eCW1 ([facility]) Metformin hydrochloride 500 MG Oral Tablet Metformin H Cl 500 MG Metformin HCl 500 MG 10/27/2019 12:00:00 AM EDT 1.0 {tablet_with_a_meal} suspended Metformin HCl 500 MG eCW1 ([facility]) Metformin hydrochloride 500 MG Oral Tablet Metformin H Cl 500 MG Metformin HCl 500 MG 10/27/2019 12:00:00 AM EDT 1.0 {tablet_with_a_meal} active Metformin HCl 500 MG eCW1 ([facility]) Metformin hydrochloride 500 MG Oral Tablet Metformin H Cl 500 MG Metformin HCl 500 MG 10/27/2019 12:00:00 AM EDT 1.0 {tablet_with_a_meal} suspended Metformin HCl 500 MG eCW1 ([facility]) Metformin hydrochloride 500 MG Oral Tablet Metformin H Cl 500 MG Metformin HCl 500 MG 10/27/2019 12:00:00 AM EDT 1.0 {tablet_with_a_meal} active Metformin HCl 500 MG eCW1 ([facility]) Metformin hydrochloride 500 MG Oral Tablet Metformin H Cl 500 MG Metformin HCl 500 MG 10/27/2019 12:00:00 AM EDT 1.0 {tablet_with_a_meal} suspended Metformin HCl 500 MG eCW1 ([facility]) Metformin hydrochloride 500 MG Oral Tablet Metformin H Cl 500 MG Metformin HCl 500 MG 10/27/2019 12:00:00 AM EDT 1.0 {tablet_with_a_meal} suspended Metformin HCl 500 MG eCW1 ([facility]) Metformin hydrochloride 500 MG Oral Tablet Metformin H Cl 500 MG Metformin HCl 500 MG 10/27/2019 12:00:00 AM EDT 1.0 {tablet_with_a_meal} suspended Metformin HCl 500 MG eCW1 ([facility]) Metformin hydrochloride 500 MG Oral Tablet Metformin H Cl 500 MG Metformin HCl 500 MG 10/27/2019 12:00:00 AM EDT 1.0 {tablet_with_a_meal} suspended Metformin HCl 500 MG eCW1 ([facility]) Metformin hydrochloride 500 MG Oral Tablet Metformin H Cl 500 MG Metformin HCl 500 MG 10/27/2019 12:00:00 AM EDT 1.0 {tablet_with_a_meal} suspended Metformin HCl 500 MG eCW1 ([facility]) Metformin hydrochloride 500 MG Oral Tablet Metformin H Cl 500 MG Metformin HCl 500 MG 10/27/2019 12:00:00 AM EDT 1.0 {tablet_with_a_meal} suspended Metformin HCl 500 MG eCW1 ([facility]) Metformin hydrochloride 500 MG Oral Tablet Metformin H Cl 500 MG Metformin HCl 500 MG 10/27/2019 12:00:00 AM EDT 1.0 {tablet_with_a_meal} active Metformin HCl 500 MG eCW1 ([facility]) pantoprazole 40 MG Delayed Release Oral Tablet Pantopr azole Sodium 40 MG Pantoprazole Sodium 40 MG 10/18/2019 12:00:00 AM EDT 1.0 {tablet} suspended Pantoprazole Sodium 40 MG eCW1 ( [facility]) pantoprazole 40 MG Delayed Release Oral Tablet Pantopr azole Sodium 40 MG Pantoprazole Sodium 40 MG 10/18/2019 12:00:00 AM EDT 1.0 {tablet} suspended Pantoprazole Sodium 40 MG eCW1 ( [facility]) pantoprazole 40 MG Delayed Release Oral Tablet Pantopr azole Sodium 40 MG Pantoprazole Sodium 40 MG 10/18/2019 12:00:00 AM EDT 1.0 {tablet} suspended Pantoprazole Sodium 40 MG eCW1 ( [facility]) pantoprazole 40 MG Delayed Release Oral Tablet Pantopr azole Sodium 40 MG Pantoprazole Sodium 40 MG 10/18/2019 12:00:00 AM EDT 1.0 {tablet} active Pantoprazole Sodium 40 MG eCW1 ( [facility]) pantoprazole 40 MG Delayed Release Oral Tablet Pantopr azole Sodium 40 MG Pantoprazole Sodium 40 MG 10/18/2019 12:00:00 AM EDT 1.0 {tablet} suspended Pantoprazole Sodium 40 MG eCW1 ( [facility]) pantoprazole 40 MG Delayed Release Oral Tablet Pantopr azole Sodium 40 MG Pantoprazole Sodium 40 MG 10/18/2019 12:00:00 AM EDT 1.0 {tablet} active Pantoprazole Sodium 40 MG eCW1 ( [facility]) pantoprazole 40 MG Delayed Release Oral Tablet Pantopr azole Sodium 40 MG Pantoprazole Sodium 40 MG 10/18/2019 12:00:00 AM EDT 1.0 {tablet} active Pantoprazole Sodium 40 MG eCW1 ( [facility]) pantoprazole 40 MG Delayed Release Oral Tablet Pantopr azole Sodium 40 MG Pantoprazole Sodium 40 MG 10/18/2019 12:00:00 AM EDT 1.0 {tablet} suspended Pantoprazole Sodium 40 MG eCW1 ( [facility]) pantoprazole 40 MG Delayed Release Oral Tablet Pantopr azole Sodium 40 MG Pantoprazole Sodium 40 MG 10/18/2019 12:00:00 AM EDT 1.0 {tablet} suspended Pantoprazole Sodium 40 MG eCW1 ( [facility]) pantoprazole 40 MG Delayed Release Oral Tablet Pantopr azole Sodium 40 MG Pantoprazole Sodium 40 MG 10/18/2019 12:00:00 AM EDT 1.0 {tablet} active Pantoprazole Sodium 40 MG eCW1 ( [facility]) pantoprazole 40 MG Delayed Release Oral Tablet Pantopr azole Sodium 40 MG Pantoprazole Sodium 40 MG 10/18/2019 12:00:00 AM EDT 1.0 {tablet} suspended Pantoprazole Sodium 40 MG eCW1 ( [facility]) pantoprazole 40 MG Delayed Release Oral Tablet Pantopr azole Sodium 40 MG Pantoprazole Sodium 40 MG 10/18/2019 12:00:00 AM EDT 1.0 {tablet} suspended Pantoprazole Sodium 40 MG eCW1 ( [facility]) pantoprazole 40 MG Delayed Release Oral Tablet Pantopr azole Sodium 40 MG Pantoprazole Sodium 40 MG 10/18/2019 12:00:00 AM EDT 1.0 {tablet} active Pantoprazole Sodium 40 MG eCW1 ( [facility]) pantoprazole 40 MG Delayed Release Oral Tablet Pantopr azole Sodium 40 MG Pantoprazole Sodium 40 MG 10/18/2019 12:00:00 AM EDT 1.0 {tablet} active Pantoprazole Sodium 40 MG eCW1 ( [facility]) pantoprazole 40 MG Delayed Release Oral Tablet Pantopr azole Sodium 40 MG Pantoprazole Sodium 40 MG 10/18/2019 12:00:00 AM EDT 1.0 {tablet} active Pantoprazole Sodium 40 MG eCW1 ( [facility]) pantoprazole 40 MG Delayed Release Oral Tablet Pantopr azole Sodium 40 MG Pantoprazole Sodium 40 MG 10/18/2019 12:00:00 AM EDT 1.0 {tablet} suspended Pantoprazole Sodium 40 MG eCW1 ( [facility]) pantoprazole 40 MG Delayed Release Oral Tablet Pantopr azole Sodium 40 MG Pantoprazole Sodium 40 MG 10/18/2019 12:00:00 AM EDT 1.0 {tablet} suspended Pantoprazole Sodium 40 MG eCW1 ( [facility]) Atenolol 25 MG Oral Tablet atenolol (TENORMIN) 25 MG t ablet atenolol (TENORMIN) 25 MG tablet 09/25/2019 12:00:00 AM EDT 25 mg Oral activ e Take 1 tablet (25 mg total) by mouth daily [facility] Promethazine Hydrochloride 12.5 MG Oral Tablet Prometh azine HCl 12.5 MG Promethazine HCl 12.5 MG 09/20/2019 12:00:00 AM EDT 1.0 {tablet_as_ needed} active Promethazine HCl 12.5 MG eCW1 ([facility]) Promethazine Hydrochloride 12.5 MG Oral Tablet Prometh azine HCl 12.5 MG Promethazine HCl 12.5 MG 09/20/2019 12:00:00 AM EDT 1.0 {tablet_as_ needed} suspended Promethazine HCl 12.5 MG eCW1 ([facility]) Promethazine Hydrochloride 12.5 MG Oral Tablet Prometh azine HCl 12.5 MG Promethazine HCl 12.5 MG 09/20/2019 12:00:00 AM EDT 1.0 {tablet_as_ needed} active Promethazine HCl 12.5 MG eCW1 ([facility]) Promethazine Hydrochloride 12.5 MG Oral Tablet Prometh azine HCl 12.5 MG Promethazine HCl 12.5 MG 09/20/2019 12:00:00 AM EDT 1.0 {tablet_as_ needed} suspended Promethazine HCl 12.5 MG eCW1 ([facility]) Promethazine Hydrochloride 12.5 MG Oral Tablet Prometh azine HCl 12.5 MG Promethazine HCl 12.5 MG 09/20/2019 12:00:00 AM EDT 1.0 {tablet_as_ needed} suspended Promethazine HCl 12.5 MG eCW1 ([facility]) Promethazine Hydrochloride 12.5 MG Oral Tablet Prometh azine HCl 12.5 MG Promethazine HCl 12.5 MG 09/20/2019 12:00:00 AM EDT 1.0 {tablet_as_ needed} suspended Promethazine HCl 12.5 MG eCW1 ([facility]) Promethazine Hydrochloride 12.5 MG Oral Tablet promethazine (PHENERGAN) 12.5 MG tablet promethazine (PHENERGAN) 12.5 MG tablet 09/20/2019 12:00:00 AM EDT aborted as needed [facility] Promethazine Hydrochloride 12.5 MG Oral Tablet Prometh azine HCl 12.5 MG Promethazine HCl 12.5 MG 09/20/2019 12:00:00 AM EDT 1.0 {tablet_as_ needed} suspended Promethazine HCl 12.5 MG eCW1 ([facility]) Promethazine Hydrochloride 12.5 MG Oral Tablet Prometh azine HCl 12.5 MG Promethazine HCl 12.5 MG 09/20/2019 12:00:00 AM EDT 1.0 {tablet_as_ needed} suspended Promethazine HCl 12.5 MG eCW1 ([facility]) Promethazine Hydrochloride 12.5 MG Oral Tablet Prometh azine HCl 12.5 MG Promethazine HCl 12.5 MG 09/20/2019 12:00:00 AM EDT 1.0 {tablet_as_ needed} active Promethazine HCl 12.5 MG eCW1 ([facility]) Promethazine Hydrochloride 12.5 MG Oral Tablet Prometh azine HCl 12.5 MG Promethazine HCl 12.5 MG 09/20/2019 12:00:00 AM EDT 1.0 {tablet_as_ needed} active Promethazine HCl 12.5 MG eCW1 ([facility]) Promethazine Hydrochloride 12.5 MG Oral Tablet Prometh azine HCl 12.5 MG Promethazine HCl 12.5 MG 09/20/2019 12:00:00 AM EDT 1.0 {tablet_as_ needed} active Promethazine HCl 12.5 MG eCW1 ([facility]) Promethazine Hydrochloride 12.5 MG Oral Tablet Prometh azine HCl 12.5 MG Promethazine HCl 12.5 MG 09/20/2019 12:00:00 AM EDT 1.0 {tablet_as_ needed} suspended Promethazine HCl 12.5 MG eCW1 ([facility]) Promethazine Hydrochloride 12.5 MG Oral Tablet Prometh azine HCl 12.5 MG Promethazine HCl 12.5 MG 09/20/2019 12:00:00 AM EDT 1.0 {tablet_as_ needed} suspended Promethazine HCl 12.5 MG eCW1 ([facility]) Promethazine Hydrochloride 12.5 MG Oral Tablet Prometh azine HCl 12.5 MG Promethazine HCl 12.5 MG 09/20/2019 12:00:00 AM EDT 1.0 {tablet_as_ needed} active Promethazine HCl 12.5 MG eCW1 ([facility]) Promethazine Hydrochloride 12.5 MG Oral Tablet Prometh azine HCl 12.5 MG Promethazine HCl 12.5 MG 09/20/2019 12:00:00 AM EDT 1.0 {tablet_as_ needed} suspended Promethazine HCl 12.5 MG eCW1 ([facility]) Promethazine Hydrochloride 12.5 MG Oral Tablet Prometh azine HCl 12.5 MG Promethazine HCl 12.5 MG 09/20/2019 12:00:00 AM EDT 1.0 {tablet_as_ needed} active Promethazine HCl 12.5 MG eCW1 ([facility]) Promethazine Hydrochloride 12.5 MG Oral Tablet Prometh azine HCl 12.5 MG Promethazine HCl 12.5 MG 09/20/2019 12:00:00 AM EDT 1.0 {tablet_as_ needed} active Promethazine HCl 12.5 MG eCW1 ([facility]) Promethazine Hydrochloride 12.5 MG Oral Tablet Prometh azine HCl 12.5 MG Promethazine HCl 12.5 MG 09/20/2019 12:00:00 AM EDT 1.0 {tablet_as_ needed} suspended Promethazine HCl 12.5 MG eCW1 ([facility]) Promethazine Hydrochloride 12.5 MG Oral Tablet Prometh azine HCl 12.5 MG Promethazine HCl 12.5 MG 09/20/2019 12:00:00 AM EDT 1.0 {tablet_as_ needed} active Promethazine HCl 12.5 MG eCW1 ([facility]) Loratadine 10 MG Oral Tablet Loratadine 10 MG 08/10/2019 12:00:00 A M EDT 1.0 {tablet} suspended Loratadine 10 MG eCW1 ([facility]) Loratadine 10 MG Oral Tablet Loratadine 10 MG 08/10/2019 12:00:00 A M EDT 1.0 {tablet} suspended Loratadine 10 MG eCW1 ([facility]) Mometasone Furoate 50 MCG/ACT Mometasone Furoate 50 MCG/ACT 08/10/2019 12:00:00 AM EDT 2.0 {sprays_in_each_nostril} suspended Mometasone Furoate 50 MCG/ACT eCW1 ([facility]) Loratadine 10 MG Oral Tablet Loratadine 10 MG 08/10/2019 12:00:00 A M EDT 1.0 {tablet} suspended Loratadine 10 MG eCW1 ([facility]) Mometasone Furoate 50 MCG/ACT Mometasone Furoate 50 MCG/ACT 08/10/2019 12:00:00 AM EDT 2.0 {sprays_in_each_nostril} active Mometasone Furoate 50 MCG/ACT eCW1 ([facility]) Loratadine 10 MG Oral Tablet Loratadine 10 MG 08/10/2019 12:00:00 A M EDT 1.0 {tablet} suspended Loratadine 10 MG eCW1 ([facility]) Loratadine 10 MG Oral Tablet Loratadine 10 MG 08/10/2019 12:00:00 A M EDT 1.0 {tablet} suspended Loratadine 10 MG eCW1 ([facility]) Loratadine 10 MG Oral Tablet Loratadine 10 MG 08/10/2019 12:00:00 A M EDT 1.0 {tablet} suspended Loratadine 10 MG eCW1 ([facility]) Loratadine 10 MG Oral Tablet Loratadine 10 MG 08/10/2019 12:00:00 A M EDT 1.0 {tablet} suspended Loratadine 10 MG eCW1 ([facility]) Loratadine 10 MG Oral Tablet Loratadine 10 MG 08/10/2019 12:00:00 A M EDT 1.0 {tablet} suspended Loratadine 10 MG eCW1 ([facility]) Mometasone Furoate 50 MCG/ACT Mometasone Furoate 50 MCG/ACT 08/10/2019 12:00:00 AM EDT 2.0 {sprays_in_each_nostril} suspended Mometasone Furoate 50 MCG/ACT eCW1 ([facility]) Loratadine 10 MG Oral Tablet Loratadine 10 MG 08/10/2019 12:00:00 A M EDT 1.0 {tablet} suspended Loratadine 10 MG eCW1 ([facility]) Loratadine 10 MG Oral Tablet loratadine (CLARITIN) 10 MG tablet loratadine (CLARITIN) 10 MG tablet 08/10/2019 12:00:00 AM EDT aborted as needed [facility] Mometasone Furoate 50 MCG/ACT Mometasone Furoate 50 MCG/ACT 08/10/2019 12:00:00 AM EDT 2.0 {sprays_in_each_nostril} active Mometasone Furoate 50 MCG/ACT eCW1 ([facility]) Mometasone Furoate 50 MCG/ACT Mometasone Furoate 50 MCG/ACT 08/10/2019 12:00:00 AM EDT 2.0 {sprays_in_each_nostril} suspended Mometasone Furoate 50 MCG/ACT eCW1 ([facility]) Mometasone Furoate 50 MCG/ACT Mometasone Furoate 50 MCG/ACT 08/10/2019 12:00:00 AM EDT 2.0 {sprays_in_each_nostril} suspended Mometasone Furoate 50 MCG/ACT eCW1 ([facility]) Loratadine 10 MG Oral Tablet Loratadine 10 MG 08/10/2019 12:00:00 A M EDT 1.0 {tablet} suspended Loratadine 10 MG eCW1 ([facility]) Loratadine 10 MG Oral Tablet Loratadine 10 MG 08/10/2019 12:00:00 A M EDT 1.0 {tablet} suspended Loratadine 10 MG eCW1 ([facility]) Loratadine 10 MG Oral Tablet Loratadine 10 MG 08/10/2019 12:00:00 A M EDT 1.0 {tablet} suspended Loratadine 10 MG eCW1 ([facility]) Loratadine 10 MG Oral Tablet Loratadine 10 MG 08/10/2019 12:00:00 AM E DT active 1 tablet eCW1 ([facility]) Mometasone Furoate 50 MCG/ACT Mometasone Furoate 50 MCG/ACT 08/10/2019 12:00:00 AM EDT active 2 sprays in each nostril eCW1 ([facility]) Mometasone Furoate 50 MCG/ACT Mometasone Furoate 50 MCG/ACT 08/10/2019 12:00:00 AM EDT 2.0 {sprays_in_each_nostril} active Mometasone Furoate 50 MCG/ACT eCW1 ([facility]) Loratadine 10 MG Oral Tablet Loratadine 10 MG 08/10/2019 12:00:00 A M EDT 1.0 {tablet} suspended Loratadine 10 MG eCW1 ([facility]) Loratadine 10 MG Oral Tablet Loratadine 10 MG 08/10/2019 12:00:00 A M EDT 1.0 {tablet} suspended Loratadine 10 MG eCW1 ([facility]) Loratadine 10 MG Oral Tablet Loratadine 10 MG 08/10/2019 12:00:00 A M EDT 1.0 {tablet} suspended Loratadine 10 MG eCW1 ([facility]) Mometasone Furoate 50 MCG/ACT Mometasone Furoate 50 MCG/ACT 08/10/2019 12:00:00 AM EDT 2.0 {sprays_in_each_nostril} suspended Mometasone Furoate 50 MCG/ACT eCW1 ([facility]) Mometasone Furoate 50 MCG/ACT Mometasone Furoate 50 MCG/ACT 08/10/2019 12:00:00 AM EDT 2.0 {sprays_in_each_nostril} suspended Mometasone Furoate 50 MCG/ACT eCW1 ([facility]) Loratadine 10 MG Oral Tablet Loratadine 10 MG 08/10/2019 12:00:00 A M EDT 1.0 {tablet} suspended Loratadine 10 MG eCW1 ([facility]) Mometasone Furoate 50 MCG/ACT Mometasone Furoate 50 MCG/ACT 08/10/2019 12:00:00 AM EDT 2.0 {sprays_in_each_nostril} suspended Mometasone Furoate 50 MCG/ACT eCW1 ([facility]) Loratadine 10 MG Oral Tablet Loratadine 10 MG 08/10/2019 12:00:00 A M EDT 1.0 {tablet} suspended Loratadine 10 MG eCW1 ([facility]) Mometasone Furoate 50 MCG/ACT Mometasone Furoate 50 MCG/ACT 08/10/2019 12:00:00 AM EDT 2.0 {sprays_in_each_nostril} active Mometasone Furoate 50 MCG/ACT eCW1 ([facility]) Mometasone Furoate 50 MCG/ACT Mometasone Furoate 50 MCG/ACT 08/10/2019 12:00:00 AM EDT 2.0 {sprays_in_each_nostril} suspended Mometasone Furoate 50 MCG/ACT eCW1 ([facility]) Mometasone Furoate 50 MCG/ACT Mometasone Furoate 50 MCG/ACT 08/10/2019 12:00:00 AM EDT 2.0 {sprays_in_each_nostril} suspended Mometasone Furoate 50 MCG/ACT eCW1 ([facility]) Mometasone Furoate 50 MCG/ACT Mometasone Furoate 50 MCG/ACT 08/10/2019 12:00:00 AM EDT 2.0 {sprays_in_each_nostril} suspended Mometasone Furoate 50 MCG/ACT eCW1 ([facility]) Mometasone Furoate 50 MCG/ACT Mometasone Furoate 50 MCG/ACT 08/10/2019 12:00:00 AM EDT 2.0 {sprays_in_each_nostril} suspended Mometasone Furoate 50 MCG/ACT eCW1 ([facility]) Mometasone Furoate 50 MCG/ACT Mometasone Furoate 50 MCG/ACT 08/10/2019 12:00:00 AM EDT 2.0 {sprays_in_each_nostril} suspended Mometasone Furoate 50 MCG/ACT eCW1 ([facility]) Mometasone Furoate 50 MCG/ACT Mometasone Furoate 50 MCG/ACT 08/10/2019 12:00:00 AM EDT 2.0 {sprays_in_each_nostril} suspended Mometasone Furoate 50 MCG/ACT eCW1 ([facility]) Loratadine 10 MG Oral Tablet Loratadine 10 MG 08/10/2019 12:00:00 A M EDT 1.0 {tablet} suspended Loratadine 10 MG eCW1 ([facility]) Loratadine 10 MG Oral Tablet Loratadine 10 MG 08/10/2019 12:00:00 A M EDT 1.0 {tablet} suspended Loratadine 10 MG eCW1 ([facility]) Mometasone Furoate 50 MCG/ACT Mometasone Furoate 50 MCG/ACT 08/10/2019 12:00:00 AM EDT 2.0 {sprays_in_each_nostril} suspended Mometasone Furoate 50 MCG/ACT eCW1 ([facility]) Loratadine 10 MG Oral Tablet Loratadine 10 MG 08/10/2019 12:00:00 A M EDT 1.0 {tablet} suspended Loratadine 10 MG eCW1 ([facility]) Mometasone Furoate 50 MCG/ACT Mometasone Furoate 50 MCG/ACT 08/10/2019 12:00:00 AM EDT 2.0 {sprays_in_each_nostril} suspended Mometasone Furoate 50 MCG/ACT eCW1 ([facility]) Mometasone Furoate 50 MCG/ACT Mometasone Furoate 50 MCG/ACT 08/10/2019 12:00:00 AM EDT 2.0 {sprays_in_each_nostril} active Mometasone Furoate 50 MCG/ACT eCW1 ([facility]) Mometasone Furoate 50 MCG/ACT Mometasone Furoate 50 MCG/ACT 08/10/2019 12:00:00 AM EDT 2.0 {sprays_in_each_nostril} suspended Mometasone Furoate 50 MCG/ACT eCW1 ([facility]) Mometasone Furoate 50 MCG/ACT Mometasone Furoate 50 MCG/ACT 08/10/2019 12:00:00 AM EDT 2.0 {sprays_in_each_nostril} active Mometasone Furoate 50 MCG/ACT eCW1 [facility] [facility] Loratadine 10 MG Oral Tablet Loratadine 10 MG 08/10/2019 12:00:00 A M EDT 1.0 {tablet} suspended Loratadine 10 MG eCW1 ([facility]) Mometasone Furoate 50 MCG/ACT Mometasone Furoate 50 MCG/ACT 08/10/2019 12:00:00 AM EDT 2.0 {sprays_in_each_nostril} suspended Mometasone Furoate 50 MCG/ACT eCW1 ([facility]) Loratadine 10 MG Oral Tablet Loratadine 10 MG 08/10/2019 12:00:00 A M EDT 1.0 {tablet} suspended Loratadine 10 MG eCW1 ([facility]) Loratadine 10 MG Oral Tablet Loratadine 10 MG 08/10/2019 12:00:00 A M EDT 1.0 {tablet} active Loratadine 10 MG eCW1 ( [facility]) Mometasone Furoate 50 MCG/ACT Mometasone Furoate 50 MCG/ACT 08/10/2019 12:00:00 AM EDT 2.0 {sprays_in_each_nostril} active Mometasone Furoate 50 MCG/ACT eCW1 ([facility]) Loratadine 10 MG Oral Tablet Loratadine 10 MG 08/10/2019 12:00:00 A M EDT 1.0 {tablet} suspended Loratadine 10 MG eCW1 ([facility]) medroxyprogesterone acetate 10 MG Oral Tablet [Provera ] Provera 10 MG Provera 10 MG 08/08/2019 12:00:00 AM EDT 1.0 {tablet_with_food} suspended Provera 10 MG eCW1 ([facility]) medroxyprogesterone acetate 10 MG Oral Tablet [Provera ] Provera 10 MG Provera 10 MG 08/08/2019 12:00:00 AM EDT 1.0 {tablet_with_food} suspended Provera 10 MG eCW1 ([facility]) medroxyprogesterone acetate 10 MG Oral Tablet [Provera ] Provera 10 MG Provera 10 MG 08/08/2019 12:00:00 AM EDT active 1 tablet with food eCW1 ([facility]) medroxyprogesterone acetate 10 MG Oral Tablet [Provera ] Provera 10 MG Provera 10 MG 08/08/2019 12:00:00 AM EDT 1.0 {tablet_with_food} suspended Provera 10 MG eCW1 ([facility]) medroxyprogesterone acetate 10 MG Oral Tablet [Provera ] Provera 10 MG Provera 10 MG 08/08/2019 12:00:00 AM EDT 1.0 {tablet_with_food} suspended Provera 10 MG eCW1 ([facility]) medroxyprogesterone acetate 10 MG Oral Tablet [Provera ] Provera 10 MG Provera 10 MG 08/08/2019 12:00:00 AM EDT 1.0 {tablet_with_food} suspended Provera 10 MG eCW1 ([facility]) medroxyprogesterone acetate 10 MG Oral Tablet [Provera ] Provera 10 MG Provera 10 MG 08/08/2019 12:00:00 AM EDT active 1 tablet with food eCW1 ([facility]) medroxyprogesterone acetate 10 MG Oral Tablet [Provera ] Provera 10 MG Provera 10 MG 08/08/2019 12:00:00 AM EDT 1.0 {tablet_with_food} suspended Provera 10 MG eCW1 ([facility]) medroxyprogesterone acetate 10 MG Oral Tablet [Provera ] Provera 10 MG Provera 10 MG 08/08/2019 12:00:00 AM EDT 1.0 {tablet_with_food} suspended Provera 10 MG eCW1 ([facility]) medroxyprogesterone acetate 10 MG Oral Tablet [Provera ] Provera 10 MG Provera 10 MG 08/08/2019 12:00:00 AM EDT 1.0 {tablet_with_food} suspended Provera 10 MG eCW1 ([facility]) medroxyprogesterone acetate 10 MG Oral Tablet [Provera ] Provera 10 MG Provera 10 MG 08/08/2019 12:00:00 AM EDT 1.0 {tablet_with_food} suspended Provera 10 MG eCW1 ([facility]) medroxyprogesterone acetate 10 MG Oral Tablet [Provera ] Provera 10 MG Provera 10 MG 08/08/2019 12:00:00 AM EDT 1.0 {tablet_with_food} suspended Provera 10 MG eCW1 ([facility]) medroxyprogesterone acetate 10 MG Oral Tablet [Provera ] Provera 10 MG Provera 10 MG 08/08/2019 12:00:00 AM EDT 1.0 {tablet_with_food} suspended Provera 10 MG eCW1 ([facility]) medroxyprogesterone acetate 10 MG Oral Tablet [Provera ] Provera 10 MG Provera 10 MG 08/08/2019 12:00:00 AM EDT 1.0 {tablet_with_food} suspended Provera 10 MG eCW1 ([facility]) medroxyprogesterone acetate 10 MG Oral Tablet [Provera ] Provera 10 MG Provera 10 MG 08/08/2019 12:00:00 AM EDT 1.0 {tablet_with_food} suspended Provera 10 MG eCW1 ([facility]) medroxyprogesterone acetate 10 MG Oral Tablet [Provera ] Provera 10 MG Provera 10 MG 08/08/2019 12:00:00 AM EDT 1.0 {tablet_with_food} suspended Provera 10 MG eCW1 ([facility]) medroxyprogesterone acetate 10 MG Oral Tablet [Provera ] Provera 10 MG Provera 10 MG 08/08/2019 12:00:00 AM EDT 1.0 {tablet_with_food} suspended Provera 10 MG eCW1 ([facility]) medroxyprogesterone acetate 10 MG Oral Tablet [Provera ] Provera 10 MG Provera 10 MG 08/08/2019 12:00:00 AM EDT 1.0 {tablet_with_food} active Provera 10 MG eCW1 ([facility]) medroxyprogesterone acetate 10 MG Oral Tablet [Provera ] Provera 10 MG Provera 10 MG 08/08/2019 12:00:00 AM EDT 1.0 {tablet_with_food} suspended Provera 10 MG eCW1 ([facility]) medroxyprogesterone acetate 10 MG Oral Tablet [Provera ] Provera 10 MG Provera 10 MG 08/08/2019 12:00:00 AM EDT 1.0 {tablet_with_food} suspended Provera 10 MG eCW1 ([facility]) medroxyprogesterone acetate 10 MG Oral Tablet [Provera ] Provera 10 MG Provera 10 MG 08/08/2019 12:00:00 AM EDT 1.0 {tablet_with_food} suspended Provera 10 MG eCW1 ([facility]) medroxyprogesterone acetate 10 MG Oral Tablet [Provera ] Provera 10 MG Provera 10 MG 08/08/2019 12:00:00 AM EDT 1.0 {tablet_with_food} suspended Provera 10 MG eCW1 ([facility]) medroxyprogesterone acetate 10 MG Oral Tablet [Provera ] Provera 10 MG Provera 10 MG 08/08/2019 12:00:00 AM EDT 1.0 {tablet_with_food} suspended Provera 10 MG eCW1 ([facility]) medroxyprogesterone acetate 10 MG Oral Tablet [Provera ] Provera 10 MG Provera 10 MG 08/08/2019 12:00:00 AM EDT 1.0 {tablet_with_food} suspended Provera 10 MG eCW1 ([facility]) medroxyprogesterone acetate 10 MG Oral Tablet [Provera ] Provera 10 MG Provera 10 MG 08/08/2019 12:00:00 AM EDT 1.0 {tablet_with_food} suspended Provera 10 MG eCW1 ([facility]) medroxyprogesterone acetate 10 MG Oral Tablet [Provera ] Provera 10 MG Provera 10 MG 08/08/2019 12:00:00 AM EDT 1.0 {tablet_with_food} suspended Provera 10 MG eCW1 ([facility]) Wixela Inhub 100-50 MCG/DOSE Wixela Inhub 100-50 MCG/DOSE 12:00:00 AM EDT active 1 puff eCW1 ([facility]) Azithromycin 500 MG Oral Tablet Azithromycin 500 MG 06/27/2019 1 2:00:00 AM EDT 1.0 {tablet} active Azithromyci n 500 MG eCW1 ([facility]) Azithromycin 500 MG Oral Tablet Azithromycin 500 MG 06/27/2019 1 2:00:00 AM EDT active 1 tablet eCW1 ([facility]) midodrine hydrochloride 5 MG Oral Tablet midodrine (NE OAMATINE) 5 MG tablet midodrine (PROAMATINE) 5 MG tablet 5 mg Oral abo rted Take 5 mg by mouth 3 (three) times a day [facility] Insurance Providers Payer name Policy type / Coverage type Policy ID Covered republican ID Covered republican's relationship to serrano Policy Serrano Plan Information OTHER1 [id number] [id number] SP [id number] MVP MCDO [id number] SP [id number] [facility] [id number] SP [id number] [facility] [id number] SP [id number] [facility] [id number] SP [id number] MEDICAID M [id number] [place] MED[place] [id number] [facility] MEDICAID [id number] Letha 7 [id number] [facility] [id number] SP [id number] [facility] [id number] FA2 [id number] [facility] P [id number] O [id number] Medicaid S [id number] S [id number] [facility] [id number] SP [id number] [facility] O [id number] S [id number] [facility] [id number] SP [id number] P [id number] Letha [id number] MEDICAID [id number] Letha [id number] MVP I [id number] Self [id number] MVP I [id number] Self [id number] [facility] O [id number] S [id number] [facility] CRIS [id number] SP [id number] ANSI-Not a Secondary Insurance [id number] ANSI-Not a Secondary Insurance [id number] ANSI-Not a Secondary Insurance [id number] ANSI-Not a Secondary Insurance [id number] ANSI-Not a Secondary Insurance [id number] ANSI-Not a Secondary Insurance [id number] ANSI-Not a Secondary Insurance [id number] ANSI-Not a Secondary Insurance [id number] ANSI-Not a Secondary Insurance [id number] ANSI-Not a Secondary Insurance [id number] MEDICAID [id number] SP [id number] ANSI-Not a Secondary Insurance [id number] ANSI-Not a Secondary Insurance [id number] ANSI-Not a Secondary Insurance [id number] ANSI-Not a Secondary Insurance [id number] [facility] [id number] [facility] [id number] ANSI-Not a Secondary Insurance [id number] ANSI-Not a Secondary Insurance [id number] ANSI-Not a Secondary Insurance [id number] ANSI-Not a Secondary Insurance [id number] ANSI-Not a Secondary Insurance [id number] ANSI-Not a Secondary Insurance [id number] [facility] [id number] FA [id number] ANSI-Medicaid [id number] ANSI-Not a Secondary Insurance [id number] [facility] Medicaid Health Maintenance Organization (HMO) [id number] Self [id number] Medicaid [place] [id number] Self [id number] ANSI-Medicaid [id number] ANSI-Not a Secondary Insurance [id number] SELF PAY ONLY SP ANSI-Medicaid [id number] ANSI-Not a Secondary Insurance [id number] ANSI-Not a Secondary Insurance [id number] ANSI-Medicaid [id number] ANSI-Not a Secondary Insurance [id number] ANSI-Medicaid [id number] ANSI-Not a Secondary Insurance [id number] ANSI-Medicaid [id number] ANSI-Not a Secondary Insurance [id number] ANSI-Medicaid [id number] ANSI-Medicaid [id number] ANSI-Not a Secondary Insurance [id number] [facility] [id number] [facility] [id number] ANSI-Medicaid [id number] ANSI-Not a Secondary Insurance [id number] ANSI-Medicaid [id number] ANSI-Not a Secondary Insurance [id number] [facility]-Medicaid [id number] ANSI-Medicaid [id number] MEDICAID PI PI [id number] Spo [id number] [place] [place] [id number] O [id number] [place] [id number] FA2 [id number] Chi [id number] Chi [id number] [employer] Commercial Family Depende nt Medicaid Medicaid Self [facility] [facility] Commercial MEDICA[place] [id number] [facility] Federal [facility] [id number] 0 [id number] [place]BA [place] O [id number] S [id number] D [facility] Federal ( ) O [id number] S [id number] Self Pay O UNAVAILABLE S UNAVAILA BLE Medicaid Dental P [id number] S [id number] D [employer] S [id number] O [id number] D [facility] Life Dental O [id number] O [id number] POTOMAC/MEDICAID [id number] Problems, Conditions, and Diagnoses Code Display Name Description Problem Type Effective Dates Data Source(s) M06.09 [id number] Rheumatoid arthritis of multiple sites with negative rheumatoid factor Problem 04/30/2020 12:00:00 AM EST eCW1 ([facility]) E66.01 105045005 Morbid obesity with body mass index (BMI) greater than or equal to 50 Problem 04/30/2020 12:00:00 AM EST eCW1 ([facility]) M06.4 170306524 Inflammatory polyarthritis Problem 12:00:00 AM EDT eCW1 ([facility]) M35.01 556058959 Keratoconjunctivitis sicca Problem 0 12:00:00 AM EDT eCW1 ([facility]) J30.2 525381365 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, 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 Problem 08/10/2019 12:00:00 AM EDT eCW1 ([facility]) N92.0 Menorrhagia Menorrhagia Problem 08/08/2019 12:00:00 AM EDT eCW1 ([facility]) N92.0 Menorrhagia Menorrhagia Problem 08/08/2019 12:00:00 AM EDT eCW1 ([facility]) 33200483 Hemoptysis Hemoptysis Problem 07/12/2019 12:00:00 AM [facility] [id number] Difficulty breathing Difficulty breathing Problem 07/12/2019 12:00:00 AM EDT [facility] [id number] Abnormal findings on diagnostic imaging of lung Abnormal findings on diagnostic imaging of lung Problem 07/12/2019 12:00:00 AM EDT [facility] ([facility], ) N92.1 841643132 Menometrorrhagia Problem 06/27/2019 12:00:00 AM EDT eCW1 ([facility]) R04.2 Hemoptysis Hemoptysis [id number] 06/06/2019 12:00:00 AM [facility] E03.9 29121455 Subclinical hypothyroidism Problem 9 12:00:00 AM EST eCW1 ([facility]) R21 [id number] Skin rash Problem 03/27/2019 12:00:00 AM ES T eCW1 ([facility]) L65.9 945601912 Hair loss Problem 03/27/2019 12:00:00 AM ES T eCW1 ([facility]) Z84.0 455060551 Family history of lupus erythematosus Pro blem 03/27/2019 12:00:00 AM EST eCW1 ([facility]) E03.9 34453582 Subclinical hypothyroidism Problem 9 12:00:00 AM EST eCW1 ([facility]) L65.9 688549369 Hair loss Problem 03/27/2019 12:00:00 AM ES T eCW1 ([facility]) R21 853157113 Skin rash Problem 03/27/2019 12:00:00 AM ES T eCW1 ([facility]) Z84.0 675585728 Family history of lupus erythematosus Pro blem 03/27/2019 12:00:00 AM EST eCW1 ([facility]) R04.2 Hemoptysis Hemoptysis Diagnosis 03/04/2020 03:40:29 PM ES T [facility] R55 Syncope and collapse Syncope and collapse Diagnosis 03/04/2020 03:40:29 PM EST [facility] I47.1 Supraventricular tachycardia Supraventricular tachycar jeferson Diagnosis 03/04/2020 03:40:29 PM EST [facility] R06.09 Other forms of dyspnea Other forms of dyspnea Diagnosi s 09/25/2019 12:59:54 PM EDT [facility] I95.1 Orthostatic hypotension Orthostatic hypotension Diagno sis 06/06/2019 03:04:57 PM EST [facility] R00.0 Tachycardia, unspecified Tachycardia, unspecified Diag nosis 06/06/2019 03:04:57 PM EST [facility] Surgeries/Procedures Procedure Description Date Indications Data Source(s) ECG ROUTINE ECG W/LEAST 12 LDS W/I&R POCT AMB EKG Routine 03/04/2020 4:05 PM EST SVT (supraventricular tachycardia) 03/04/2020 09:05:00 PM ES T SVT (supraventricular tachycardia) [facility] SVT (supraventricular tachycardia) Bronchospasm Evaluation 08/01/2019 12:00:00 AM EDT [facility] ([facility]) Maximum Breathing Capacity, Maximal Voluntary Ventilation 08/01/2019 12:00:00 AM EDT [facility] ([facility]) Plethysmography Determination Lung Volumes & Per Airway Resi st 08/01/2019 12:00:00 AM EDT [facility] ([facility]) DIFFUSING CAPACITY 08/01/2019 12:00:00 AM EDT [facility] ([facility], ) Results ID Date Data Source [id number] 04/30/2020 06:05:00 AM EST [facility] Name Value Range Interpretation Code Description Data Anny rce(s) Supporting Document(s) Hemoglobin A1c 5.6 % 4.8-5.6 [facility] Prediabetes: 5.7 - 6.4 Diabetes: >6.4 Glycemic control for adults with diabetes: <7.0 ID Date Data Source [id number] 04/30/2020 06:05:00 AM EST [facility] Name Value Range Interpretation Code Description Data Anny rce(s) Supporting Document(s) TSH 1.380 uIU/mL 0.450-4.500 [facility] ID Date Data Source [id number] 03/14/2020 12:10:00 PM EST [facility] Name Value Range Interpretation Code Description Data Anny rce(s) Supporting Document(s) SARS coronavirus 2 RNA [facility] This lab was ordered by [facility] and reported by [facility]. ID Date Data Source [id number] 01/10/2020 12:00:00 AM EDT [facility] Name Value Range Interpretation Code Description Data Anny rce(s) Supporting Document(s) SARS coronavirus 2 RNA [Presence] in Res piratory specimen by APOORVA with probe detection [facility] This lab was ordered by [facility] and reported by [facility]. ID Date Data Source [id number] 11/13/2019 12:00:00 AM EDT [facility] Me[facility] Cornelius Seajanice ALVARADO Patient Name: FILOMENA LILLY [id number] [facility] 1995[facility] [address] Date of Exam: 11/13/2019#: Fax: [phone] EXAM: [...] Findings as described above.Accredit ed by the [employer] in [place].MARY LOU Alston/Neri you for referring FILOMENA LILLY to our office. Electronically Signed - NIA IRBY DO 11/14/19 14:23 Name Value Range Interpretation Code Description Data Anny rce(s) Supporting Document(s) ID Date Data Source [id number] 09/25/2019 01:58:49 PM [facility]FORMATIONPatient MRN Name Date of Age Gend*PT [id number] Filomena Lilly 1995 24 years F ---PT Location Admission Date/Time Visit ID Attending Provider --- --- --- --- EPI ID CSN Admitting Provider [id number] ---Addended by: ANNA LAROSE on: 09/25/2019 01:58 PM Modules accepted: Orders Name Value Range Interpretation Code Description Data Anny rce(s) Supporting Document(s) ID Date Data Source [id number] 08/27/2019 04:26:00 PM EDT [facility] Name Value Range Interpretation Code Description Data Anny rce(s) Supporting Document(s) SARS CORONAVIRUS 2 RNA [facility] This lab was ordered by [facility] and reported by [facility]. ID Date Data Source [id number] 08/24/2019 04:42:55 PM EDT [facility] Name Value Range Interpretation Code Description Data Anny rce(s) Supporting Document(s) &PDF [facility] IBLQGd4dXwIQVxMa59/QHGgoZIScm3HmVLmuEHd0CTzbSTRkL6PwtYmkKCrIPRTBMW8PF26qV8jBCTVY Dcm PwfF3yNGQhvKKkJ8zvcWJywyVLu0Hiy8WqlQndheyMZeWyRw6FQjSiGJ4avg7CQNDfCS8kpg6GEOU4ZE 4KoAp9OSVhC2VuFAVgBLLwp3BkFE8ECF0rlLmyFqN4GX0+TJpuVSD5hrVhlW2FGVVtUF8QV2xR/n7S/Y cYXsxgoKXxbM7OmRYDGkRaEWNOZN9DID58QXYuORQU AMARA+/c3r2gIPRKZ06siMRUCfFptmysk5s8cQEeB//pOlQvC3zhv/fl7oFgDWv2L//1Ifg4FoB4h9SPjd [file] 2kpitGkRYc8wozyz2kqzuH43YcmzcjRjOmGe+zDl2P37ajRb8Tq3Y5DwsmoeEcsdl3BVdvwnlefuYYp0 uZvv66lZXHtDO0jz/cuoVS55K/yv1SZ8aeeVWqEvzp81hyUTSD42dkfDsWbAJ9myoOgVDo3kH+/S6sfO Ofvbz+J18fwd/s9vgW/Ym9jPwoNIOyBpKUtv4ys5cm mieGSbPL+Ovgut4n+q00AwfpbgDpQNUrdhPUmtheXj6bQ7QycOp8cBE/5UY9TXdgMddFeI7YVzlMi/no pkQlCtakyfa338dVraqsmYmww/oUQxSnQj0xEGVkLs8vdPkGW6miop8jqdh7Iost+dMTeQ4XpJzQOmts 0prrQhd1rExBrQOVMa709kQOT4mna67+WmW2NHSj2f J LUIS/z/RRWm8b4hn2/tSx64SdsZ2+/KUcYTlmpoipnixg0bhGYLlY9LSLqyacxy1N2Mvwlspq1nOLgUEd [file] ICAgICAgICAgICAgICAgICAgICAgICAgICAgICAgICAgICAgICAgICAgICAgICAgICAgICAgICAgICAg MUTzQIIjBUXnKQUxLT2RRVGqDOCsFEWyPYPnSQRhPN AgICAgICAgICAgICAgICAgICAgICAgICAgICAgICAgICAgICAgICAgICAgICAgICAgICAgICAgICAgIC CvTRAtAWWxOSHoQZYyIVIwTUGaDMVjIN1RKLOcTXLnBJOtUAQwQUNqXRQtFHQaMNRbLBTeGOJrDXSlOT AgICAgICAgICAgICAgICAgICAgICAgICAgICAgICAg SRCqPOZsWUZmICIbKXFmNODxIEFjTRWjRJKiHCLaIEAiLX2JEXHwVEUrPDUfFVMgMCKyBRWpWPAdOQKt ICAgICAgICAgICAgICAgICAgICAgICAgICAgICAgICAgICAgICAgICAgICAgICAgICAgICAgICAgICAg KMGpWKUiOKGbIVOfAZMkEF9YJHVdNJOfWUIqUGXeAO AgICAgICAgICAgICAgICAgICAgICAgICAgICAgICAgICAgICAgICAgICAgICAgICAgICAgICAgICAgIC EaQKGoNIEwIVGvUTDxLMGgKFYjJQEeJFEuBF3LTISrMVQtNHQjVDApYQQlAPDkZTLtUVCaXGRgCPGmCS AgICAgICAgICAgICAgICAgICAgICAgICAgICAgICAg KBBnJYWsZWJwOJOnYDIsUJNiOTPrDOFpTUApGCIcDKOuVKAtJW6PDWYvDZOwVVIrVGZvXAZeBZGyTIXs ICAgICAgICAgICAgICAgICAgICAgICAgICAgICAgICAgICAgICAgICAgICAgICAgICAgICAgICAgICAg GSTtCGSeMXQrIGLnOLFnOTXjWF3XJRZcPRFsGIAbZG AgICAgICAgICAgICAgICAgICAgICAgICAgICAgICAgICAgICAgICAgICAgICAgICAgICAgICAgICAgIC CcFRYkACZgXNLzZEKrHJPvCJWiXAYgTDCyTJJkHZ4TBEZrCBVaRREeJYOoGQWcSLFfPTNxAPHjCSBkBI AgICAgICAgICAgICAgICAgICAgICAgICAgICAgICAg HQMkRIVsQQPnMBUzSUNoCZYvGAUlOMXuOMKrYSUdVPLjMCQnLKVcFQ7XOJNpYFAdGZOvCOXdJJBdPZCj ICAgICAgICAgICAgICAgICAgICAgICAgICAgICAgICAgICAgICAgICAgICAgICAgICAgICAgICAgICAg VYElPSHjFEByXRFvOAHwQPQiNTXqRA8UXC55vISuw6 M4DKWwFV9ofor/Ay8XTMlamkIyrGAaGT7IFrMqFL2uvi4KYlKbJM9pix4DKPqUPeXaG6X8hSRqOZNfVY CAFlHcE00eIRmdIm78EYnnXUCaJlVxFVn6Cy0ABsGlQ7nfRTNqVdC9EYAmPtQ0RPGmThHoRNbwCY6Dw1 VudCAyDQo+Oy7EZE1if1FhSIkgQREcGH2lvj8HLLeP QxVfB0Q3qFMyO5A8OLvnOs3FMCSpIIBfAVvnQAUHJXanGV1DAL3xvwD5QI7MvNNhWZImZSKbzCJnLIv5 G41eyQWlWIivLL7EKTE+J Luis+Dk9KVBRzWDMyTXVdVrJsCGRALwZoX53coPSuBKKkDJRtHVZiZg0RHGDz S8IfxeSqzMsnnuBlLMMfQGIXFW3VSNivytLmjTWajO tjJJ36gPipIJ2BPj2IQkLoES5eos2EmQTlTc4LDKOeMn4BFVFzFAKyWOTiWUU7DDNdNuGpUAqzVRPvZQ ZeJLT7NSJaWGVkEB7ATcWmDTPdORn8FrQtCFBsGKQgqw6HNLEtMSKqOTG4FYSlBXLkKBMuIObuFNNjKK OpDTf3AQKlFHYvRK3YNdUnSYBrDWY3GkmlXTGmANJf no2TGUCgXFCzLvScYcNuRSXxZQLwYOqaGQIuKSL1OAueJBJdNNGbGO1NNqMoWFNwNPU1LfWmHMFaVFYb ay1FVKLvTIPdErJcImTeBJGlEWRkBFqrRWZpPHG6UBS2YRXpOQSxQB1KKeTgXPAdVAakRKZoKEWhQUXa ag0KJCVmXPYmQft5FTKsQOMfYLDuIXsqWEWmZOD3OJ jgTLCnNJNbCZ1BAqDdILScARhdDOuhZVXeYDFjsh4BAKTrSXYrTICxCjKkAGPuNGKlJJybCDQoLYW8EF [id number]tPMIiZOZdbh5IZGWsPBZiKEC4VQKnRJRdDCQhFGnxBFXvJQP5JW AoADLcHLKuXE1BBxLyMEHbZWc1MJPdFUInAUShkm8G RMSjXBJbXGP0AQUhAMAeXVRoJJf6umVmhUTfDMw4TB1VZ1SrmoCuSqKBHp3Tm079DKBnAOWuXo4XG4ts Mu1uBRVqBBBNMn9KWPl3LOinKHV4NNf2DHYlIkGsM8W2XsA2Fby2GRm7TCLjVRW+QZi2TWGcNRtuAfP3 PHMrFoU9KGelDjpuNSmrGBi5RGEjPG5oTDEZEg2+OXpdtDJypXqqBHQJVmOsZTy6HUohENTWXr9I Procedure Social History Code Duration Value Status Description Data Source(s ) Smoking 04/30/2020 12:00:00 AM EST Never Smoker completed Never S moker eCW1 ([facility]) Smoking 04/30/2020 12:00:00 AM EST Never Smoker completed Never S moker eCW1 ([facility]) Smoking 03/06/2020 12:00:00 AM EST Never Smoker completed Never S moker eCW1 ([facility]) Smoking 03/06/2020 12:00:00 AM EST Never Smoker completed Never S moker eCW1 ([facility]) Smoking 03/06/2020 12:00:00 AM EST Never Smoker completed Never S moker eCW1 ([facility]) Smoking 03/06/2020 12:00:00 AM EST Never Smoker completed Never S moker eCW1 ([facility]) Smoking 03/06/2020 12:00:00 AM EST Never Smoker completed Never S moker eCW1 ([facility]) Smoking 03/06/2020 12:00:00 AM EST Never Smoker completed Never S moker eCW1 ([facility]) Smoking 03/06/2020 12:00:00 AM EST Never Smoker completed Never S moker eCW1 ([facility]) Smoking 03/06/2020 12:00:00 AM EST Never Smoker completed Never S moker eCW1 ([facility]) Smoking 03/06/2020 12:00:00 AM EST Never Smoker completed Never S moker eCW1 ([facility]) Alcohol intake 02/29/2020 12:00:00 AM EST No completed [facility] Smoking 02/29/2020 12:00:00 AM EST Never smoker completed Never s moker [facility] Smoking 01/17/2020 12:00:00 AM EDT Never Smoker completed Never S moker eCW1 ([facility]) Smoking 01/17/2020 12:00:00 AM EDT Never Smoker completed Never S moker eCW1 ([facility]) Smoking 12/26/2019 12:00:00 AM EDT Patient has never smoked co mpleted Patient has never smoked MEDENT ([facility]) Smoking 10/22/2019 12:00:00 AM EDT Never Smoker completed Never S moker eCW1 ([facility]) Smoking 10/22/2019 12:00:00 AM EDT Never Smoker completed Never S moker eCW1 ([facility]) Smoking 10/22/2019 12:00:00 AM EDT Never Smoker completed Never S moker eCW1 ([facility]) Smoking 10/22/2019 12:00:00 AM EDT Never Smoker completed Never S moker eCW1 ([facility]) Smoking 09/13/2019 12:00:00 AM EDT Never Smoker completed Never S moker eCW1 ([facility]) Smoking 09/13/2019 12:00:00 AM EDT Never Smoker completed Never S moker eCW1 ([facility]) Smoking 09/13/2019 12:00:00 AM EDT Never Smoker completed Never S moker eCW1 ([facility]) Smoking 09/13/2019 12:00:00 AM EDT Never Smoker completed Never S moker eCW1 ([facility]) Smoking 09/13/2019 12:00:00 AM EDT Never Smoker completed Never S moker eCW1 ([facility]) Smoking 09/13/2019 12:00:00 AM EDT Never Smoker completed Never S moker eCW1 ([facility]) Smoking 08/10/2019 12:00:00 AM EDT Never Smoker completed Never S moker eCW1 ([facility]) Vital Signs ID Date Data Source UNK Name Value Range Interpretation Code Description Data Source(s) Diastolic blood pressure 64 mm[Hg] 64 mm[Hg] eCW1 ([facility]) Systolic blood pressure 112 mm[Hg] 112 mm[Hg] e CW1 ([facility]) Body temperature 97.7 [degF] 97.7 [degF] eCW1 ( [facility]) Respiratory rate 18 /min 18 /min eCW1 ([facility]) Heart rate 128 /min 128 /min eCW1 ([facility]) Body mass index (BMI) [Ratio] 51.93 kg/m2 51.93 kg/m2 W1 ([facility]) Body height 66 [in_i] 66 [in_i] eCW1 ([facility]) Body weight 146.0 kg 146.0 kg W1 ([facility]) Body weight 321.8 [lb_av] 321.8 [lb_av] eCW1 ([facility]) Diastolic blood pressure 82 mm[Hg] 82 mm[Hg] eCW1 ([facility]) Systolic blood pressure 124 mm[Hg] 124 mm[Hg] e CW1 ([facility]) Body mass index (BMI) [Ratio] 49.93 kg/m2 49.93 kg/m2 eCW1 ([facility]) Body height 66 [in_i] 66 [in_i] eCW1 ([facility]) Body weight 140.34 kg 140.34 kg eCW1 ([facility]) Body weight 309.4 [lb_av] 309.4 [lb_av] eCW1 ([facility]) Body mass index (BMI) [Ratio] 51.00 kg/m2 51.00 kg/m2 [facility] Body weight 143.337 kg 143.337 kg [facility] Body height 167.6 cm 167.6 cm [facility] Respiratory rate 16 /min 16 /min [facility] Diastolic blood pressure 86 mm[Hg] 86 mm[Hg] [facility] Systolic blood pressure 122 mm[Hg] 122 mm[Hg] [facility] Body weight 141.523 kg 141.523 kg [facility] ([facility], ) [place] body weight 130 [lb_av] 130 [lb_av] MEDEN T ([facility], ) Body mass index (BMI) [Ratio] 50.4 kg/m2 50.4 k g/m2 [facility] ([facility], ) Body weight 312.00 [lb_av] 312.00 [lb_av] MEDEN T ([facility], ) Body height 66 [in_i] 66 [in_i] MEDENT ([facility], ) 5'6" Diastolic blood pressure 58 mm[Hg] 58 mm[Hg] [facility] ([facility], ) Systolic blood pressure 102 mm[Hg] 102 mm[Hg] M EDENT ([facility], ) Body weight 131.544 kg 131.544 kg [facility] ([facility], ) [place] body weight 130 [lb_av] 130 [lb_av] MEDEN T ([facility], ) Body mass index (BMI) [Ratio] 46.8 kg/m2 46.8 k g/m2 [facility] ([facility], ) Body weight 290.00 [lb_av] 290.00 [lb_av] MEDEN T ([facility], ) Body height 66 [in_i] 66 [in_i] MEDENT ([facility], ) 5'6" Diastolic blood pressure 60 mm[Hg] 60 mm[Hg] eCW1 ([facility]) Systolic blood pressure 92 mm[Hg] 92 mm[Hg] e CW1 ([facility]) Body temperature 98.0 [degF] 98.0 [degF] eCW1 ( [facility]) Respiratory rate 18 /min 18 /min eCW1 ([facility]) Heart rate 129 /min 129 /min eCW1 ([facility]) Body mass index (BMI) [Ratio] 50.64 kg/m2 50.64 kg/m2 eCW1 ([facility]) Body height 66 [in_i] 66 [in_i] eCW1 ([facility]) Body weight 142.3 kg 142.3 kg eCW1 ([facility]) Body weight 313.8 [lb_av] 313.8 [lb_av] eCW1 ([facility]) Body weight 131.544 kg 131.544 kg MEDENT ([facility], ) [place] body weight 130 [lb_av] 130 [lb_av] MEDEN T ([facility]) Body mass index (BMI) [Ratio] 46.8 kg/m2 46.8 k g/m2 MED[facility] ([facility], ) Body weight 290.00 [lb_av] 290.00 [lb_av] MEDEN T ([facility], ) Body height 66 [in_i] 66 [in_i] MEDENT ([facility], ) 5'6" Body weight 141.070 kg 141.070 kg [facility] ([facility]) Body mass index (BMI) [Ratio] 51.7 kg/m2 51.7 k g/m2 [facility] ([facility], ) Body weight 311.00 [lb_av] 311.00 [lb_av] MEDEN T ([facility], ) Body height 65 [in_i] 65 [in_i] MEDENT ([facility], ) 5'5" Body temperature 98.0 [degF] 98.0 [degF] [facility] Oxygen saturation in Arterial blood by Pulse oximetry 98 % 98 % [facility] ([facility]) Heart rate 94 /min 94 /min [facility], ) Diastolic blood pressure 80 mm[Hg] 80 mm[Hg] MEDENT ([facility]) Systolic blood pressure 120 mm[Hg] 120 mm[Hg] M EDENT ([facility]) Diastolic blood pressure 90 mm[Hg] 90 mm[Hg] eCW1 ([facility]) Systolic blood pressure 120 mm[Hg] 120 mm[Hg] e CW1 ([facility]) Body temperature 98.8 [degF] 98.8 [degF] eCW1 ( [facility]) Respiratory rate 18 /min 18 /min eCW1 ([facility]) Heart rate 110 /min 110 /min eCW1 ([facility]) Body mass index (BMI) [Ratio] 48.96 kg/m2 48.96 kg/m2 [facility] ([facility]) Body height 66 [in_i] 66 [in_i] W1 ([facility]) Body weight 303.4 [lb_av] 303.4 [lb_av] eCW1 ([facility]) Diastolic blood pressure 80 mm[Hg] 80 mm[Hg] eCW1 ([facility]) Systolic blood pressure 130 mm[Hg] 130 mm[Hg] e CW1 ([facility]) Body temperature 99.6 [degF] 99.6 [degF] eCW1 ( [facility]) Respiratory rate 20 /min 20 /min eCW1 ([facility]) Heart rate 92 /min 92 /min eCW1 ([facility]) Body mass index (BMI) [Ratio] 49.55 kg/m2 49.55 kg/m2 [facility] ([facility]) Body height 66 [in_i] 66 [in_i] eCW1 ([facility]) Body weight 307 [lb_av] 307 [lb_av] eCW1 ([facility]) Body weight 139.709 kg 139.709 kg MEDENT ([facility], ) Body mass index (BMI) [Ratio] 51.2 kg/m2 51.2 k g/m2 [facility] ([facility]) Body weight 308.00 [lb_av] 308.00 [lb_av] MEDEN T ([facility]) Body height 65 [in_i] 65 [in_i] [facility] ([facility]) 5'5" Body temperature 98.9 [degF] 98.9 [degF] [facility] ([facility]) Oxygen saturation in Arterial blood by Pulse oximetry 98 % 98 % [facility] ([facility]) Heart rate 90 /min 90 /min [facility] Diastolic blood pressure 80 mm[Hg] 80 mm[Hg] [facility] ([facility]) Systolic blood pressure 130 mm[Hg] 130 mm[Hg] [facility] Diastolic blood pressure 68 mm[Hg] 68 mm[Hg] eCW1 ([facility]) Systolic blood pressure 122 mm[Hg] 122 mm[Hg] e CW1 ([facility]) Body temperature 97.5 [degF] 97.5 [degF] eCW1 ( [facility]) Respiratory rate 18 /min 18 /min eCW1 ([facility]) Heart rate 151 /min 151 /min eCW1 ([facility]) Body mass index (BMI) [Ratio] 49.58 kg/m2 49.58 kg/m2 W1 ([facility]) Body height 66 [in_us] 66 [in_us] eCW1 ([facility]) Body weight Measured 307.2 [lb_av] 307.2 [lb_av ] eCW1 ([facility]) Diastolic blood pressure 80 mm[Hg] 80 mm[Hg] eCW1 ([facility]) Systolic blood pressure 128 mm[Hg] 128 mm[Hg] e CW1 ([facility]) Body mass index (BMI) [Ratio] 49.61 kg/m2 49.61 kg/m2 W1 ([facility]) Body height 66 [in_us] 66 [in_us] eCW1 ([facility]) Body weight Measured 307.4 [lb_av] 307.4 [lb_av ] eCW1 ([facility]) Body weight 136.534 kg 136.534 kg [facility] ([facility], ) Body mass index (BMI) [Ratio] 50.1 kg/m2 50.1 k g/m2 [facility] ([facility], ) Body weight 301.00 [lb_av] 301.00 [lb_av] MEDEN T ([facility], ) Body height 65 [in_i] 65 [in_i] [facility] ([facility], ) 5'5" Body temperature 98.0 [degF] 98.0 [degF] [facility] ([facility], ) Oxygen saturation in Arterial blood by Pulse oximetry 98 % 98 % [facility] ([facility]) Heart rate 103 /min 103 /min [facility] ([facility]) Diastolic blood pressure 80 mm[Hg] 80 mm[Hg] [facility] ([facility], ) Systolic blood pressure 130 mm[Hg] 130 mm[Hg] M EDENT ([facility], ) Diastolic blood pressure 78 mm[Hg] 78 mm[Hg] eCW1 ([facility]) Systolic blood pressure 122 mm[Hg] 122 mm[Hg] e CW1 ([facility]) Body temperature 98.9 [degF] 98.9 [degF] [facility] ( [facility]) Respiratory rate 18 /min 18 /min eCW1 ([facility]) Heart rate 136 /min 136 /min eCW1 ([facility]) Body mass index (BMI) [Ratio] 48.64 kg/m2 48.64 kg/m2 eCW1 ([facility]) Body height [in_us] eCW1 ([facility]) Body weight Measured 301.4 [lb_av] 301.4 [lb_av ] eCW1 ([facility]) Diastolic blood pressure 80 mm[Hg] 80 mm[Hg] eCW1 ([facility]) Systolic blood pressure 110 mm[Hg] 110 mm[Hg] e CW1 ([facility]) Body temperature 98.2 [degF] 98.2 [degF] eCW1 ( [facility]) Respiratory rate 18 /min 18 /min eCW1 ([facility]) Heart rate 96 /min 96 /min eCW1 ([facility]) Body mass index (BMI) [Ratio] 47.45 kg/m2 47.45 kg/m2 eCW1 ([facility]) Body height [in_us] eCW1 ([facility]) Body weight Measured 294 [lb_av] 294 [lb_av] eC W1 ([facility]) Patient Treatment Plan of Care Planned Activity Planned Date Details Description Data Source (s) Methotrexate 2.5 MG Oral Tablet 04/30/2020 12:00:00 AM EST eCW1 ([facility]) Folic Acid 1 MG Oral Tablet 04/30/2020 12:00:00 AM EST eCW1 ([facility]) Methotrexate 2.5 MG Oral Tablet 04/30/2020 12:00:00 AM EST eCW1 ([facility]) Folic Acid 1 MG Oral Tablet 04/30/2020 12:00:00 AM EST eCW1 ([facility]) Spironolactone 25 MG Oral Tablet 04/29/2020 12:00:00 AM EST eCW1 ([facility]) Spironolactone 25 MG Oral Tablet 04/29/2020 12:00:00 AM EST eCW1 ([facility]) Spironolactone 25 MG Oral Tablet 04/29/2020 12:00:00 AM EST eCW1 ([facility]) Jacqueline 0.35 MG 03/14/2020 12:00:00 AM EST eCW1 ([facility]) Jacqueline 0.35 MG 03/14/2020 12:00:00 AM EST eCW1 ([facility]) Jacqueline 0.35 MG 03/14/2020 12:00:00 AM EST eCW1 ([facility]) Jacqueline 0.35 MG 03/14/2020 12:00:00 AM EST eCW1 ([facility]) Jacqueline 0.35 MG 03/14/2020 12:00:00 AM EST eCW1 ([facility]) Jacqueline 0.35 MG 03/14/2020 12:00:00 AM EST eCW1 ([facility]) Jacqueline 0.35 MG 03/14/2020 12:00:00 AM EST eCW1 ([facility]) Jacqueline 0.35 MG 03/14/2020 12:00:00 AM EST eCW1 ([facility]) Methylprednisolone 4 MG Oral Tablet [Medrol] 03/08/2020 12:00:00 AM EST eCW1 ([facility]) Methylprednisolone 4 MG Oral Tablet [Medrol] 03/08/2020 12:00:00 AM EST eCW1 ([facility]) Methylprednisolone 4 MG Oral Tablet [Medrol] 03/08/2020 12:00:00 AM EST eCW1 ([facility]) midodrine hydrochloride 5 MG Oral Tablet 03/04/2020 12:00:00 AM [facility] Hydroxychloroquine Sulfate 200 MG Oral Tablet 02/22/2020 12:00:00 A M [facility] medroxyprogesterone acetate 10 MG Oral Tablet [Provera ] 02/20/2020 12:00:00 AM EST eCW1 ([facility]) Omeprazole 40 MG Delayed Release Oral Capsule 02/14/2020 12:00:00 A M [facility] Hydroxychloroquine Sulfate 200 MG Oral Tablet [[place]] 01/17/2020 12:00:00 AM EDT eCW1 ([facility]) Hydroxychloroquine Sulfate 200 MG Oral Tablet [Plaqu[place]] 01/17/2020 12:00:00 AM EDT eCW1 ([facility]) Hydroxychloroquine Sulfate 200 MG Oral Tablet [[place]] 01/17/2020 12:00:00 AM EDT eCW1 ([facility]) Hydroxychloroquine Sulfate 200 MG Oral Tablet [[place]] 01/17/2020 12:00:00 AM EDT eCW1 ([facility]) Hydroxychloroquine Sulfate 200 MG Oral Tablet [[place]] 01/17/2020 12:00:00 AM EDT eCW1 ([facility]) Cyclosporine 0.5 MG/ML Ophthalmic Suspension [Restasis ] 12/12/2019 12:00:00 AM EDT [facility] Metformin hydrochloride 500 MG Oral Tablet 11/28/2019 12:00:00 AM E DT [facility] Metformin hydrochloride 500 MG Oral Tablet 10/27/2019 12:00:00 AM E DT eCW1 ([facility]) Metformin hydrochloride 500 MG Oral Tablet 10/27/2019 12:00:00 AM E DT eCW1 ([facility]) pantoprazole 40 MG Delayed Release Oral Tablet 10/18/2019 12:00:00 AM EDT eCW1 ([facility]) pantoprazole 40 MG Delayed Release Oral Tablet 10/18/2019 12:00:00 AM EDT eCW1 ([facility]) pantoprazole 40 MG Delayed Release Oral Tablet 10/18/2019 12:00:00 AM EDT eCW1 ([facility]) pantoprazole 40 MG Delayed Release Oral Tablet 10/18/2019 12:00:00 AM EDT eCW1 ([facility]) Atenolol 25 MG Oral Tablet 09/25/2019 12:00:00 AM EDT [facility] Promethazine Hydrochloride 12.5 MG Oral Tablet 09/20/2019 12:00:00 AM EDT [facility] Promethazine Hydrochloride 12.5 MG Oral Tablet 09/20/2019 12:00:00 AM EDT eCW1 ([facility]) Promethazine Hydrochloride 12.5 MG Oral Tablet 09/20/2019 12:00:00 AM EDT eCW1 ([facility]) Loratadine 10 MG Oral Tablet 08/10/2019 12:00:00 AM EDT [facility] Mometasone Furoate 50 MCG/ACT 08/10/2019 12:00:00 AM EDT eCW1 ([facility]) Loratadine 10 MG Oral Tablet 08/10/2019 12:00:00 AM EDT eCW1 ([facility]) Mometasone Furoate 50 MCG/ACT 08/10/2019 12:00:00 AM EDT eCW1 ([facility]) Loratadine 10 MG Oral Tablet 08/10/2019 12:00:00 AM EDT eCW1 ([facility]) medroxyprogesterone acetate 10 MG Oral Tablet [Provera ] 08/08/2019 12:00:00 AM EDT eCW1 ([facility]) Azithromycin 500 MG Oral Tablet 06/27/2019 12:00:00 AM EDT eCW1 ([facility]) Wixela Inhub 100-50 MCG/DOSE 06/27/2019 12:00:00 AM EDT eCW1 ([facility]) Azithromycin 500 MG Oral Tablet 06/27/2019 12:00:00 AM EDT eCW1 ([facility]) midodrine hydrochloride 5 MG Oral Tablet [facility]
[2020-05-21 15:22] LABS: BASO # 0.1 10^3/uL (0.0-0.2); BASO % 0.4 % (0.0-1.0); EOS % 0.2 % (0.0-3.0); HEMATOCRIT 40.7 % (36.0-47.0); HEMOGLOBIN 12.6 g/dl (12.0-15.5); LYMPH # 4.3 10^3/uL (1.5-5.0); LYMPH % 29.4 % (24.0-44.0); MEAN CORPUSCULAR HEMOGLOBIN 26.8 pg (27.0-33.0); MEAN CORPUSCULAR VOLUME 86.6 fl (80.0-96.0); MONO # 0.8 10^3/uL (0.0-0.8); MONO % 5.7 % (2.0-8.0); NEUTROPHILS # 9.4 10^3/uL (1.5-8.5); NEUTROPHILS % 63.9 % (36.0-66.0); PLATELET COUNT, AUTOMATED 434 10^3/uL (150-450); WHITE BLOOD COUNT 14.7 10^3/uL (4.0-10.0)
[2020-05-21 15:31] LABS: INR 0.96
[2020-05-21 15:32] LABS: PARTIAL THROMBOPLASTIN TIME 26.7 SECONDS (24.2-38.5)
[2020-05-21 15:38] LABS: D-DIMER QUANT < 270 ng/ml (<500)
[2020-05-21 16:00] LABS: HCG, SERUM QUALITATIVE NEGATIVE (NEGATIVE)
[2020-05-21 16:05] LABS: BLOOD UREA NITROGEN 11 MG/DL (7-18); CALCIUM LEVEL 9.3 MG/DL (8.5-10.1); CARBON DIOXIDE LEVEL 28 MEQ/L (21-32); CHLORIDE LEVEL 105 MEQ/L (98-107); CK-MB VALUE MASS < 1.0 NG/ML (<3.6); CPK CREATINE PHOSPHOKINASE 75 U/L (26-192); CREATININE FOR GFR 0.78 MG/DL (0.55-1.30); FREE T4 0.97 NG/DL (0.76-1.46); GLOMERULAR FILTRATION RATE > 60.0 (>60); GLUCOSE, FASTING 104 MG/DL (70-100); MB/CK RELATIVE INDEX 1.33 (< OR =4); POTASSIUM SERUM 3.8 MEQ/L (3.5-5.1); SODIUM LEVEL 140 MEQ/L (136-145); THYROID STIMULATING HORMONE 0.888 uIU/ML (0.358-3.740); TROPONIN I < 0.02 NG/ML (< 0.10)
--- NOTE | 2020-05-21 16:42 | REP ---
INDICATION: Syncope. COMPARISON: None. TECHNIQUE: Helical scanning is acquired. 5 mm axial images were reformatted. Coronal MPR images were generated. FINDINGS: Bone window settings demonstrate an intact bony calvarium. There is no evidence of skull fracture or incidental bony calvarial lesion. The visualized paranasal sinuses appear clear. No intraorbital abnormality is seen. On soft tissue window setting images; the lateral, third, and fourth ventricles are normal in size and position. Waters-white differentiation pattern is normal above and below the tentorium. There are is no evidence of intracranial hemorrhage. No mass, edema, infarction, or midline shift is seen. No extra-axial fluid collection is appreciated. IMPRESSION: Negative noncontrast head CT. <Electronically signed by Richard Burks > 05/21/20 [id number]
--- NOTE | 2020-05-21 16:47 | REP ---
INDICATION: Syncope. COMPARISON: Comparison CT study 25 February 2020.. TECHNIQUE: Helical scanning is acquired and overlapping 2 mm high resolution axial images were generated and reviewed at bone and soft tissue window settings. Coronal and sagittal multiplanar re-formations images are generated. FINDINGS: There is no evidence of cervical spine element fracture. No skull base fracture is seen. Cervical vertebral body heights are preserved. Alignment is normal. Facet joints are normally aligned bilaterally at each cervical level on multiplanar re-formations images. There is no evidence of intraspinal or paraspinal hematoma. No extra vertebral abnormality is seen. There is a benign bone island in the right transverse process at C7. There is reversal of the normal cervical lordosis. IMPRESSION: Negative CT study of the cervical spine without contrast. No fracture seen. <Electronically signed by Richard Burks > 05/21/20 [id number]
[2020-05-21 17:41] VITALS: BP 129/82
--- NOTE | 2020-05-21 19:47 | ECGEPIP ---
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
[2020-05-23] MEDS ORDERED: METH2.5T48 PO (12:18)
[2020-05-23] MEDS ORDERED: NORL0.35 PO (12:18)
== END 2020-05-21 17:44 | disposition home or self-care (01) ==
LOC: M ED 13:44
DX: R55 Syncope and collapse (principal); G40.909 Epilepsy, unspecified, not intractable, without status epilepticus; F33.9 Major depressive disorder, recurrent, unspecified; F41.9 Anxiety disorder, unspecified; D64.9 Anemia, unspecified; E28.2 Polycystic ovarian syndrome; K21.9 Gastro-esophageal reflux disease without esophagitis; I95.1 Orthostatic hypotension; I47.1 Supraventricular tachycardia; Z79.899 Other long term (current) drug therapy; Z79.3 Long term (current) use of hormonal contraceptives; Z88.1 Allergy status to other antibiotic agents; Z88.8 Allergy status to other drugs, medicaments and biological substances; Z91.018 Allergy to other foods

== ENCOUNTER → 2020-05-24 | Outpatient (REF) | payer OTHER ==
[~2020-05-24] MED LIST changes: +FOLI1TAB11; +METH2.5T48; +METH2.5T48 PO; +NORL0.35 PO
[2020-05-24 13:31] LABS: BASO # 0.1 10^3/uL (0.0-0.2); BASO % 0.4 % (0.0-1.0); EOS % 0.1 % (0.0-3.0); HEMATOCRIT 43.1 % (36.0-47.0); HEMOGLOBIN 13.3 g/dl (12.0-15.5); LYMPH # 2.5 10^3/uL (1.5-5.0); LYMPH % 19.3 % (24.0-44.0); MEAN CORPUSCULAR HEMOGLOBIN 26.4 pg (27.0-33.0); MEAN CORPUSCULAR HGB CONC 30.9 g/dl (32.0-36.5); MEAN CORPUSCULAR VOLUME 85.7 fl (80.0-96.0); MONO # 0.7 10^3/uL (0.0-0.8); MONO % 5.7 % (2.0-8.0); NEUTROPHILS # 9.7 10^3/uL (1.5-8.5); PLATELET COUNT, AUTOMATED 427 10^3/uL (150-450); RED BLOOD COUNT 5.03 10^6/uL (4.00-5.40); WHITE BLOOD COUNT 13.1 10^3/uL (4.0-10.0)
[2020-05-24 14:12] LABS: ALT/SGPT 29 U/L (12-78); BILIRUBIN,TOTAL 0.2 MG/DL (0.2-1.0); BLOOD UREA NITROGEN 11 MG/DL (7-18); CALCIUM LEVEL 9.7 MG/DL (8.5-10.1); CARBON DIOXIDE LEVEL 25 MEQ/L (21-32); CHLORIDE LEVEL 104 MEQ/L (98-107); CREATININE FOR GFR 0.72 MG/DL (0.55-1.30); GLOMERULAR FILTRATION RATE > 60.0 (>60); GLUCOSE, FASTING 102 MG/DL (70-100); HEPATITIS B SURFACE ANTIGEN NEGATIVE (NEGATIVE); POTASSIUM SERUM 4.6 MEQ/L (3.5-5.1); RHEUMATOID FACTOR QUANT < 10.0 IU/ML (<15.0); SODIUM LEVEL 139 MEQ/L (136-145); TOTAL PROTEIN 7.7 GM/DL (6.4-8.2)
== END ==
LOC: M SFHCRHEU 10:58
PROVIDERS: ATTEND Internal Medicine
DX: M06.09 Rheumatoid arthritis without rheumatoid factor, multiple sites (principal)

== ENCOUNTER → 2020-07-02 | Outpatient (REF) | payer OTHER ==
[~2020-07-02] MED LIST changes: -FOLI1TAB11; +FOLI1TAB11 PO; +METF500T13; +SPIR-10; +XIID5DRO
== END ==
LOC: M SFHCRHEU 14:08
PROVIDERS: ATTEND Internal Medicine
DX: Z79.899 Other long term (current) drug therapy (principal); Z51.81 Encounter for therapeutic drug level monitoring

== ENCOUNTER 2020-07-03 15:23 | Emergency (ER) | payer OTHER ==
[~2020-07-03] VITALS: Ht 167.6 cm; Wt 148.7 kg
[~2020-07-03 15:23] MED LIST changes: -METF500T13; -SPIR-10; -XIID5DRO
[2020-07-03] MEDS ORDERED: XIID5DRO (15:42)
[2020-07-03] MEDS ORDERED: SPIR-10 (15:42)
[2020-07-03] MEDS ORDERED: METF500T13 (15:42)
[2020-07-03] MEDS ORDERED: NS 1,000 ML IV SCH (16:32)
[2020-07-03] MEDS ORDERED: MORPHINE 4 MG/ML 1ML VIAL/SYRINGE (J2270) IV ONE (16:35)
--- NOTE | 2020-07-03 16:54 | REP ---
INDICATION: abdl pain. COMPARISON: 08/27/2019 portable chest TECHNIQUE: AP seated FINDINGS: Study shows a loop recorder over the left heart in the lower left chest. No cardiomegaly, vascular redistribution or pulmonary edema the aorta and airway are intact. No widening of the mediastinum. Hilar contours normal. No infiltrate, effusion, atelectasis or mass. No pleural thickening or apical scarring. Visualized bones are unremarkable. No free air under the diaphragm. IMPRESSION: Loop recorder noted over the left lower chest. No acute cardiopulmonary change. <Electronically signed by Jamal Florez > 07/03/20 [id number]
[2020-07-03 17:44] LABS: BASO # 0.1 10^3/uL (0.0-0.2); BASO % 0.8 % (0.0-1.0); EOS # 0.1 10^3/uL (0.0-0.5); EOS % 0.8 % (0.0-3.0); HEMATOCRIT 40.3 % (36.0-47.0); HEMOGLOBIN 12.4 g/dl (12.0-15.5); LYMPH # 4.4 10^3/uL (1.5-5.0); LYMPH % 33.7 % (24.0-44.0); MEAN CORPUSCULAR HEMOGLOBIN 26.4 pg (27.0-33.0); MEAN CORPUSCULAR HGB CONC 30.8 g/dl (32.0-36.5); MEAN CORPUSCULAR VOLUME 85.7 fl (80.0-96.0); MONO # 1.2 10^3/uL (0.0-0.8); MONO % 9.1 % (2.0-8.0); NEUTROPHILS # 7.2 10^3/uL (1.5-8.5); NEUTROPHILS % 55.3 % (36.0-66.0); PLATELET COUNT, AUTOMATED 408 10^3/uL (150-450)
[2020-07-03 17:58] LABS: INR 0.94; PROTHROMBIN TIME 12.7 SECONDS (12.5-14.3)
[2020-07-03 17:59] LABS: PARTIAL THROMBOPLASTIN TIME 31.7 SECONDS (24.2-38.5)
[2020-07-03 18:14] LABS: ALBUMIN 3.7 GM/DL (3.2-5.2); ALT/SGPT 31 U/L (12-78); AMYLASE 36 U/L (25-115); BILIRUBIN,DIRECT < 0.1 MG/DL (0.0-0.2); BILIRUBIN,TOTAL 0.2 MG/DL (0.2-1.0); LIPASE 149 U/L (73-393); TOTAL PROTEIN 6.9 GM/DL (6.4-8.2)
[2020-07-03] MEDS ORDERED: ISOVUE-370 76% 100ML VIAL As Ordered ONE (18:30)
--- NOTE | 2020-07-03 19:01 | REPVR ---
PROCEDURE INFORMATION: Exam: CT Abdomen And Pelvis With Contrast Exam date and time: 07/03/2020 6:33 PM Age: 24 years old Clinical indication: Abdominal pain; Additional info: Ruq pain rmq pain TECHNIQUE: Imaging protocol: Computed tomography of the abdomen and pelvis with contrast. Radiation optimization: All CT scans at this facility use at least one of these dose optimization techniques: automated exposure control; mA and/or kV adjustment per patient size (includes targeted exams where dose is matched to clinical indication); or iterative reconstruction. Contrast material: ISOVUE 370; Contrast volume: 100 ml; Contrast route: INTRAVENOUS (IV); COMPARISON: CT ABD/PEL W/IV ORAL CONTRAS 09/08/2019 7:13 PM FINDINGS: Liver: There is a diffuse decrease in hepatic parenchymal density, consistent with steatosis. Hepatomegaly. Gallbladder and bile ducts: There has been a cholecystectomy. Pancreas: Normal. No ductal dilation. Spleen: Normal. No splenomegaly. Adrenal glands: Normal. No mass. Kidneys and ureters: 5 mm nonobstructive calculus mid to lower pole right kidney. Stomach and bowel: Unremarkable. No obstruction. No mucosal thickening. Appendix: No evidence of appendicitis. Intraperitoneal space: Unremarkable. No free air. No significant fluid collection. Vasculature: Unremarkable. No abdominal aortic aneurysm. Lymph nodes: Unremarkable. No enlarged lymph nodes. Urinary bladder: Unremarkable as visualized. Reproductive: Unremarkable as visualized. Bones/joints: Unremarkable. No acute fracture. Soft tissues: Unremarkable. IMPRESSION: 1. There is a diffuse decrease in hepatic parenchymal density, consistent with steatosis. Hepatomegaly. 2. There has been a cholecystectomy. 3. 5 mm nonobstructive calculus mid to lower pole right kidney. Electronically signed by: Babak Luna On 07/03/2020 19:01:14 PM
[2020-07-03 19:45] VITALS: BP 148/83
--- NOTE | 2020-07-03 20:53 | ECGEPIP ---
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
== END 2020-07-03 20:08 | disposition home or self-care (01) ==
LOC: M ED 15:23
DX: R10.9 Unspecified abdominal pain (principal); D72.829 Elevated white blood cell count, unspecified; Z88.1 Allergy status to other antibiotic agents; Z88.6 Allergy status to analgesic agent; Z91.018 Allergy to other foods
CPT/HCPCS: 71045; 74177; 80047; 80076; 81001; 82150; 83605; 83690; 85025; 85610; 85730; 87040; 87086; 93005; 93041; 96361; 96374; 99285; J2270; Q9967

== ENCOUNTER → 2020-08-06 | Outpatient (REF) | payer OTHER ==
[~2020-08-06] MED LIST changes: +METF500T13; +SPIR-10; +XIID5DRO
[2020-08-06 13:56] LABS: APPEARANCE, URINE CLEAR (CLEAR); BACTERIA, URINE AUTO NEGATIVE (NEGATIVE); BILIRUBIN, URINE AUTO NEGATIVE (NEGATIVE); BLOOD, URINE BLOOD 2+ (NEGATIVE); COLOR, URINE YELLOW (YELLOW); GLUCOSE, URINE (UA) AUTO NEGATIVE (NEGATIVE); KETONE, URINE AUTO NEGATIVE (NEGATIVE); LEUKOCYTE ESTERASE, URINE AUTO NEGATIVE (NEGATIVE); MUCUS, URINE SMALL (NEGATIVE); NITRITE, URINE AUTO NEGATIVE (NEGATIVE); PROTEIN, URINE AUTO NEGATIVE (NEGATIVE); RBC, URINE AUTO 0 /HPF (0-3); SPECIFIC GRAVITY URINE AUTO 1.025 (1.002-1.035); SQUAMOUS EPITHELIAL CELL UR AU 2 /HPF (0-6); UROBILINOGEN, URINE AUTO 0.2 mg/dL (0.0-2.0); WBC, URINE AUTO 0 /HPF (0-3)
[2020-08-06 14:03] LABS: BASO # 0.1 10^3/uL (0.0-0.2); BASO % 0.7 % (0.0-1.0); EOS # 0.1 10^3/uL (0.0-0.5); EOS % 1.4 % (0.0-3.0); HEMATOCRIT 42.9 % (36.0-47.0); HEMOGLOBIN 13.1 g/dl (12.0-15.5); LYMPH # 3.7 10^3/uL (1.5-5.0); LYMPH % 40.4 % (24.0-44.0); MEAN CORPUSCULAR HEMOGLOBIN 26.9 pg (27.0-33.0); MEAN CORPUSCULAR HGB CONC 30.5 g/dl (32.0-36.5); MEAN CORPUSCULAR VOLUME 88.1 fl (80.0-96.0); MONO # 0.8 10^3/uL (0.0-0.8); MONO % 9.1 % (2.0-8.0); NEUTROPHILS # 4.4 10^3/uL (1.5-8.5); NEUTROPHILS % 48.2 % (36.0-66.0); PLATELET COUNT, AUTOMATED 407 10^3/uL (150-450); RED BLOOD COUNT 4.87 10^6/uL (4.00-5.40); WHITE BLOOD COUNT 9.2 10^3/uL (4.0-10.0)
[2020-08-06 14:30] LABS: ERYTHROCYTE SEDIMENTATION RATE 27 mm/hr (0-20); TOTAL PROTEIN,RANDOM URINE 16.8 MG/DL (0.0-12.0)
[2020-08-06 14:38] LABS: ALBUMIN 3.8 GM/DL (3.2-5.2); ALT/SGPT 28 U/L (12-78); BILIRUBIN,DIRECT < 0.1 MG/DL (0.0-0.2); BILIRUBIN,TOTAL 0.2 MG/DL (0.2-1.0); BLOOD UREA NITROGEN 12 MG/DL (7-18); CALCIUM LEVEL 9.2 MG/DL (8.5-10.1); CARBON DIOXIDE LEVEL 26 MEQ/L (21-32); CHLORIDE LEVEL 107 MEQ/L (98-107); COMPLEMENT C3 160 MG/DL (90-180); COMPLEMENT C4 36 MG/DL (10-40); CREATININE FOR GFR 0.61 MG/DL (0.55-1.30); GLOMERULAR FILTRATION RATE > 60.0 (>60); GLUCOSE, FASTING 81 MG/DL (70-100); IMMUNOGLOBULIN G 943 MG/DL (681-1648); POTASSIUM SERUM 4.3 MEQ/L (3.5-5.1); RHEUMATOID FACTOR QUANT < 10.0 IU/ML (<15.0); SODIUM LEVEL 139 MEQ/L (136-145); TOTAL PROTEIN 7.6 GM/DL (6.4-8.2)
[2020-08-09 12:50] LABS: DRVV SCREEN 51.5 SEC; PTT LUPUS TYPE ANTICOAG SCREEN 1.3 (0-1.2)
[2020-08-09 13:14] LABS: DRVV CONFIRM 36.4 SEC; LUPUS CONFIRM RATIO 0.9; NORMALIZED RATIO 1.44 (0.00-1.20)
[2020-08-11 18:06] LABS: ANA (HEP2) Negative (.); ANTI CENTROMERE ANTIBODY <0.2 AI (0.0-0.9); ANTI DS-DNA AB Negative (Negative); ANTI SCLERODERMA ANTIBODIES <0.2 AI (0.0-0.9); ANTI-HISTONE ANTIBODIES 0.3 Units (0.0-0.9); BETA-2 GLYCOPROTEIN I ABY IGA <9 (0-25); BETA-2 GLYCOPROTEIN I ABY IGG <9 (0-20); BETA-2 GLYCOPROTEIN I ABY IGM <9 (0-32); CARDIOLIPIN IGA ANTIBODY <9 APL U/mL (0-11); CARDIOLIPIN IGG ANTIBODY <9 GPL U/mL (0-14); CARDIOLIPIN IGM ANTIBODY <9 MPL U/mL (0-12); COMPLEMENT TOTAL (CH50) > 60 U/mL (>41); CYCLIC CITRULLINATED PEPTIDE 4 units (0-19); HSV IgM TYPES 1&2 <0.91 Ratio (0.00-0.90)
[2020-08-12 15:07] LABS: HEXAGONAL PHASE PHOSPHOLIPID 0 sec (0-11)
== END ==
LOC: M SFHCRHEU 10:00
PROVIDERS: ATTEND Internal Medicine
DX: M06.4 Inflammatory polyarthropathy (principal); M06.09 Rheumatoid arthritis without rheumatoid factor, multiple sites; B99.9 Unspecified infectious disease; K12.1 Other forms of stomatitis

== ENCOUNTER → 2020-09-11 | Outpatient (CLI) | payer OTHER ==
[~2020-09-11] MED LIST changes: +BACTDSTA; -SULF1TAB93
--- NOTE | 2020-09-12 04:27 | REP ---
INDICATION: RHEUMATOID ARTHRITIS W/O RHEUMATOID FACTOR, MULTIPLE SITES COMPARISON: None. TECHNIQUE: AP, lateral, bilateral oblique views right and left wrist. FINDINGS: The carpal bones, surrounding osseous structures, soft tissues, and joint spaces are normal. There is no evidence for acute fracture or dislocation. No subcutaneous emphysema or radiodense foreign body. IMPRESSION: Normal bilateral wrist series. No osteoarthritic or inflammatory arthritic changes are appreciated.. <Electronically signed by Bong Schulte > 09/12/20 [id number]
--- NOTE | 2020-09-12 04:28 | REP ---
INDICATION: RHEUMATOID ARTHRITIS W/O RHEUMATOID FACTOR, MULTIPLE SITES COMPARISON: None. TECHNIQUE: AP, lateral, bilateral oblique views right and left hand. FINDINGS: The osseous structures and joint spaces are intact and normal. There is no evidence for acute fracture or dislocation. Surrounding soft tissues are unremarkable. No subcutaneous emphysema or radiodense foreign body. IMPRESSION: Normal bilateral hand series.. No acute osteoarthritic or inflammatory arthritic changes are appreciated. <Electronically signed by Bong Schulte > 09/12/20 042
--- NOTE | 2020-09-12 04:28 | REP ---
INDICATION: RHEUMATOID ARTHRITIS W/O RHEUMATOID FACTOR, MULTIPLE SITES COMPARISON: None. TECHNIQUE: AP, lateral, bilateral oblique views right and left ankle. FINDINGS: No acute fracture or dislocation. Skeletal structures and joint spaces are intact and normal. Ankle mortise appears stable. No subcutaneous emphysema or radiodense foreign body. IMPRESSION: Normal bilateral ankle radiograph series. No acute osteoarthritic or inflammatory arthritic changes are appreciated. <Electronically signed by Bong Schulte > 09/12/20 [id number]
--- NOTE | 2020-09-12 04:29 | REP ---
INDICATION: RHEUMATOID ARTHRITIS W/O RHEUMATOID FACTOR, MULTIPLE SITES COMPARISON: None. TECHNIQUE: AP, lateral, bilateral oblique views right and left foot. FINDINGS: The osseous structures and joint spaces are intact and normal. There is no evidence for acute fracture or dislocation. Surrounding soft tissues are unremarkable. No subcutaneous emphysema or radiodense foreign body. IMPRESSION: Normal bilateral foot series. No acute osteoarthritic or inflammatory arthritic changes are appreciated. <Electronically signed by Bong Schulte > 09/12/20 1716
== END ==
LOC: M RAD 17:05
PROVIDERS: ATTEND Internal Medicine
DX: M06.9 Rheumatoid arthritis, unspecified (principal)

== ENCOUNTER 2020-12-26 14:07 | Emergency (ER) | payer OTHER ==
[~2020-12-26] VITALS: Ht 167.6 cm; Wt 133.4 kg
[2020-12-26 14:07] VITALS: BP 126/61
[~2020-12-26 14:07] MED LIST changes: -PSEU30TA85 PO; +PSEU30TA86 PO
== END 2020-12-26 22:59 | disposition left against medical advice (07) ==
LOC: M ED 14:07
DX: Z53.29 Procedure and treatment not carried out because of patient's decision for other reasons (principal)

== ENCOUNTER → 2021-03-07 | Outpatient (CLI) | payer OTHER ==
[2021-03-07 17:38] LABS: HEMATOCRIT 40.4 % (36.0-47.0); HEMOGLOBIN 12.9 g/dl (12.0-15.5); MEAN CORPUSCULAR HGB CONC 31.9 g/dl (32.0-36.5); MEAN CORPUSCULAR VOLUME 87.8 fl (80.0-96.0); PLATELET COUNT, AUTOMATED 340 10^3/uL (150-450); WHITE BLOOD COUNT 9.3 10^3/uL (4.0-10.0)
[2021-03-07 18:43] LABS: HEPATITIS B SURFACE ANTIGEN NEGATIVE (NEGATIVE); HEPATITIS C VIRUS ABY INDEX 0.1 INDEX (<0.8); HIV 1&2 SCREEN CENTAUR NEGATIVE (NEGATIVE)
[2021-03-07 18:57] LABS: GC DNA AMPLIFICATION NEGATIVE (NEGATIVE)
== END ==
LOC: M PLALAB 15:37
PROVIDERS: ATTEND Specialist
DX: Z36.89 Encounter for other specified antenatal screening (principal)

== ENCOUNTER → 2021-03-20 | Outpatient (CLI) | payer OTHER | LOC: M PLALAB 15:26 | PROVIDERS: ATTEND Specialist | DX: Z34.81 Encounter for supervision of other normal pregnancy, first trimester (principal); Z3A.00 Weeks of gestation of pregnancy not specified ==

== ENCOUNTER 2021-04-18 07:01 | Emergency (ER) | payer OTHER ==
[~2021-04-18] VITALS: Ht 167.6 cm; Wt 110.0 kg
[~2021-04-18 07:01] MED LIST changes: -OMEP-221 PO; +OMEP40CA5 PO; +SUMA6CAR SC; -SUMA6KIT SC
[2021-04-18 07:03] VITALS: BP 130/81
[2021-04-18] MEDS ORDERED: ASPI81CH33 PO (07:14)
[2021-04-18] MEDS ORDERED: METO1TAB87 PO (07:14)
[2021-04-18 08:32] LABS: BASO % 0.2 % (0.0-1.0); EOS % 0.1 % (0.0-3.0); HEMATOCRIT 37.9 % (36.0-47.0); HEMOGLOBIN 12.6 g/dl (12.0-15.5); LYMPH # 2.1 10^3/uL (1.5-5.0); LYMPH % 11.8 % (24.0-44.0); MEAN CORPUSCULAR HEMOGLOBIN 28.4 pg (27.0-33.0); MEAN CORPUSCULAR HGB CONC 33.2 g/dl (32.0-36.5); MEAN CORPUSCULAR VOLUME 85.6 fl (80.0-96.0); MONO # 1.1 10^3/uL (0.0-0.8); MONO % 6.3 % (2.0-8.0); NEUTROPHILS # 14.6 10^3/uL (1.5-8.5); PLATELET COUNT, AUTOMATED 301 10^3/uL (150-450); RED BLOOD COUNT 4.43 10^6/uL (4.00-5.40)
[2021-04-18] MEDS ORDERED: MORPHINE 4 MG/ML 1ML VIAL/SYRINGE (J2270) IV ONE (10:10)
[2021-04-18] MEDS ORDERED: NS 1,000 ML IV ONE (10:10)
[2021-04-18 10:28] LABS: BLOOD UREA NITROGEN 3 MG/DL (7-18); CALCIUM LEVEL 9.1 MG/DL (8.5-10.1); CARBON DIOXIDE LEVEL 24 MEQ/L (21-32); CHLORIDE LEVEL 105 MEQ/L (98-107); CREATININE FOR GFR 0.49 MG/DL (0.55-1.30); GLOMERULAR FILTRATION RATE > 60.0 (>60); GLUCOSE, FASTING 99 MG/DL (70-100); POTASSIUM SERUM 3.6 MEQ/L (3.5-5.1); SODIUM LEVEL 137 MEQ/L (136-145)
[2021-04-18] MEDS ORDERED: FERR1TAB8 PO (12:24)
[2021-04-18] MEDS ORDERED: HOME MED LIST COMPLETE! XX SCH (12:25)
[2021-04-19] MEDS ORDERED: LOVE1INJ SC (12:02)
== END 2021-04-18 10:30 | disposition home or self-care (01) ==
LOC: M ED 07:01
DX: O03.9 Complete or unspecified spontaneous abortion without complication (principal); O99.891 Other specified diseases and conditions complicating pregnancy; N93.9 Abnormal uterine and vaginal bleeding, unspecified; O98.512 Other viral diseases complicating pregnancy, second trimester; U07.1 COVID-19; O30.001 Twin pregnancy, unspecified number of placenta and unspecified number of amniotic sacs, first trimester; O99.612 Diseases of the digestive system complicating pregnancy, second trimester; K58.9 Irritable bowel syndrome, unspecified; Z3A.15 15 weeks gestation of pregnancy; Z79.82 Long term (current) use of aspirin; Z79.899 Other long term (current) drug therapy; Z91.018 Allergy to other foods; Z88.1 Allergy status to other antibiotic agents

== ENCOUNTER → 2021-05-23 | Outpatient (CLI) | payer OTHER ==
[~2021-05-23] MED LIST changes: +ASPI81CH33 PO; +FERR1TAB8 PO; -LATU40TA PO; +LATU40TA2 PO; +LOVE1INJ SC; +METO1TAB87 PO
== END ==
LOC: M PLALAB 14:54
PROVIDERS: ATTEND Obstetrics & Gynecology
DX: Z32.02 Encounter for pregnancy test, result negative (principal)